=== PATIENT | male | born 1955 | race Caucasian/White ===

== ENCOUNTER 2017-12-14 06:22 | Inpatient (IN) | payer BC ==
[2017-12-14] MEDS ORDERED: IPRATROPIUM-ALBUTEROL 3 ML NEB INHALATION STA ×2 (06:38→06:58)
[2017-12-14 06:52] LABS: Basophils # (A) 0.1 k/uL (0-0.2); Basophils % (A) 1 %; Eosinophils # (A) 0.2 k/uL (0-0.7); Eosinophils % (A) 2 %; HCT 41.6 % (39.0-53.0); HGB 13.6 gm/dL (13.0-17.5); Lymphocytes # (A) 1.3 k/uL (1.0-4.8); Lymphocytes % (A) 10 %; MCH 29.1 pg (25.0-35.0); MCHC 32.6 g/dL (31.0-37.0); MCV 89.2 fL (80.0-100.0); Mean Platelet Volume 6.7; Monocytes # (A) 0.9 k/uL (0-1.0); Monocytes % (A) 7 %; Neutrophils # (A) 10.7 k/uL (1.3-7.7); Neutrophils % (A) 79 %; Platelet Count 292 k/uL (150-450); RBC 4.66 m/uL (4.30-5.90); RDW 14.1 % (11.5-15.5); WBC 13.5 k/uL (3.8-10.6)
[2017-12-14] MEDS ORDERED: methylPREDNISolone SOD SUCCI 125 MG/2 ML VIAL IV STA (06:58)
[2017-12-14 07:00] LABS: D-Dimer 0.32 mg/L FEU (<0.60)
[2017-12-14] MEDS ORDERED: ACETAMINOPHEN TAB 500 MG TAB PO STA (07:00)
[2017-12-14] MEDS ORDERED: SODIUM CHLORIDE 0.9% 1,000 ML IV ONE (07:00)
[2017-12-14] MEDS ORDERED: AZITHROMYCIN 500 MG in SODIUM CHLORIDE 0.9% 250 ML IVPB STA (07:01)
[2017-12-14] MEDS ORDERED: cefTRIAXone IN SWFI 1,000 MG/10 ML SYRINGE IVP STA (07:01)
[2017-12-14 07:04] LABS: ALT 26 U/L (21-72); AST 23 U/L (17-59); Albumin 3.9 g/dL (3.5-5.0); Alkaline Phosphatase 73 U/L (38-126); Anion Gap 12 mmol/L; Blood Urea Nitrogen 19 mg/dL (9-20); Calcium 9.3 mg/dL (8.4-10.2); Carbon Dioxide 28 mmol/L (22-30); Chloride 98 mmol/L (98-107); Glucose 122 mg/dL (74-99); Magnesium 1.7 mg/dL (1.6-2.3); Potassium 4.2 mmol/L (3.5-5.1); Sodium 138 mmol/L (137-145); Total Bilirubin 0.4 mg/dL (0.2-1.3); Total Protein 7.2 g/dL (6.3-8.2)
[2017-12-14 07:05] LABS: INR 1.2 (<1.2); Prothrombin Time 11.2 sec (9.0-12.0)
--- NOTE | 2017-12-14 07:10 | ED ---
SOB HPI - General Chief Complaint: Shortness of Breath Stated Complaint: TINY Time Seen by Provider: 12/14/17 06:52 Source: patient, family Mode of arrival: ambulatory Limitations: no limitations - History of Present Illness Initial Comments: This is a 62-year-old male with a history of COPD that is chronically O2 dependent on 2 L at home who presents emergency department for worsening shortness of breath and cough. He states the symptoms started last night. He has been coughing up sputum however he is unsure of the color. States that he' s also been feeling feverish at home. This morning his symptoms got significant only worse so he decided to come emergency department. He denies any recent sick contacts. Denies any chest pain, abdominal pain, nausea, vomiting, or diarrhea. States that he does not smoke any longer. The patient was recently admitted to the hospital and September 2017 requiring BiPAP at that time. He follows with Dr. Mariee as an outpatient. No other acute complaints at this time. - Related Data Home Medications Medication Instructions Recorded Confirmed Budesonide-Formot 160-4.5 Mcg 2 puff INHALATION RT-BID 01/08/15 12/14/17 [Symbicort 160-4.5 Mcg Inhaler] metFORMIN HCL [Glucophage] 500 mg PO BID 01/08/15 12/14/17 Furosemide [Lasix] 20 mg PO BID 10/17/17 12/14/17 Hydrochlorothiazide 25 mg PO DAILY 10/17/17 12/14/17 Moexipril HCl [Univasc] 15 mg PO DAILY 10/17/17 12/14/17 amLODIPine [Norvasc] 5 mg PO HS 10/17/17 12/14/17 Insulin Glargine,Hum.rec.anlog 56 unit SQ BID 12/14/17 12/14/17 [Lantus Solostar] Insulin Lispro [humaLOG Kwikpen] 20 unit SQ AC-LUNCH 12/14/17 12/14/17 Insulin Lispro [humaLOG Kwikpen] 40 unit SQ AC-BRKFST 12/14/17 12/14/17 Insulin Lispro [humaLOG Kwikpen] 40 unit SQ AC-SUPPER 12/14/17 12/14/17 Naproxen Sodium [Aleve] 220 mg PO BID PRN 02/19/18 02/19/18 Potassium Chloride ER [K-Dur 20] 20 meq PO DAILY 12/14/17 12/14/17 Previous Rx's Medication Instructions Recorded Albuterol Nebulized [Ventolin 2.5 mg INHALATION RT-QID #120 nebu 10/20/17 Nebulized] Allergies Allergy/AdvReac Type Severity Reaction Status Date / Time No Known Allergies Allergy Verified 12/14/17 08:13 Review of Systems ROS Statement: Those systems with pertinent positive or pertinent negative responses have been documented in the HPI. ROS Other: All systems not noted in ROS Statement are negative. Past Medical History Past Medical History: Asthma, COPD, Diabetes Mellitus, Hypertension, Osteoarthritis (OA), Respiratory Disorder, Sleep Apnea/CPAP/BIPAP History of Any Multi-Drug Resistant Organisms: None Reported Past Surgical History: Hernia Repair Past Anesthesia/Blood Transfusion Reactions: No Reported Reaction Past Psychological History: No Psychological Hx Reported Smoking Status: Never smoker Past Alcohol Use History: None Reported Past Drug Use History: None Reported - Past Family History Father Family Medical History: Diabetes Mellitus Mother Family Medical History: Asthma, Diabetes Mellitus General Exam - General Exam Comments Initial Comments: Constitutional: Awake alert appears in mild distress Head: Normocephalic atraumatic , diaphoretic Eyes: no conjunctival injection No scleral icterus EOMI Neck: No JVD Supple Heart: Regular rate rhythm normal S1-S2 no murmurs Lungs: The patient is to Make with mild accessory muscle use, decreased breath sounds bilaterally, no wheezing or rhonchi Abdomen: Soft nondistended nontender Extremities: Non edematous DP pulses intact Radial pulses intact Neuro: A&Ox3 No focal neurologic deficits Psych: Appropriate mood and affect Limitations: no limitations Course Vital Signs 12/14/17 12/14/17 12/14/17 06:24 06:42 06:46 Temperature 100.3 F H Pulse Rate 104 H 105 H Respiratory 28 H 26 H Rate Blood Pressure 187/84 O2 Sat by Pulse 92 L Oximetry 12/14/17 12/14/17 12/14/17 06:49 06:52 07:25 Temperature Pulse Rate 104 H 111 H 107 H Respiratory 26 H Rate Blood Pressure 148/82 O2 Sat by Pulse 95 Oximetry 12/14/17 12/14/17 07:51 08:00 Temperature Pulse Rate 111 H 101 H Respiratory 20 Rate Blood Pressure 136/84 O2 Sat by Pulse 98 Oximetry - Reevaluation(s) Reevaluation #1: 12/14/17 07:09 EKG showing sinus tachycardia with a rate of 112. There are no abnormal ST segment changes or T-wave inversions. QTC is 450. Other intervals normal. No ectopy. Medical Decision Making - Medical Decision Making This is a 62-year-old male who presents emergency department for worsening shortness of breath and fevers. The patient was found to have influenza A. He was given multiple breathing treatments and steroids with minimal improvement in his tachypnea. The patient was still using accessory muscles. The patient was then placed on BiPAP to ease the work up his breathing. ABG was obtained and unremarkable at this time. The patient was started on 3 acquired pneumonia antibiotics to cover due to his high risk of developing bacterial pneumonia. The patient will be admitted to the hospital for further evaluation. I spoke with Cornelius with Dr. Delvalle who accepts the admission. - Lab Data Result diagrams: 12/14/17 06:31 12/14/17 06:31 Lab Results 12/14/17 12/14/17 12/14/17 Range/Units 06:31 06:31 06:31 WBC 13.5 H (3.8-10.6) k/uL RBC 4.66 (4.30-5.90) m/uL Hgb 13.6 (13.0-17.5) gm/dL Hct 41.6 (39.0-53.0) % MCV 89.2 (80.0-100.0) fL MCH 29.1 (25.0-35.0) pg MCHC 32.6 (31.0-37.0) g/dL RDW 14.1 (11.5-15.5) % Plt Count 292 (150-450) k/uL Neutrophils % 79 % Lymphocytes % 10 % Monocytes % 7 % Eosinophils % 2 % Basophils % 1 % Neutrophils # 10.7 H (1.3-7.7) k/uL Lymphocytes # 1.3 (1.0-4.8) k/uL Monocytes # 0.9 (0-1.0) k/uL Eosinophils # 0.2 (0-0.7) k/uL Basophils # 0.1 (0-0.2) k/uL PT (9.0-12.0) sec INR (<1.2) APTT (22.0-30.0) sec D-Dimer (<0.60) mg/L FEU Sample Site ABG pH (7.35-7.45) ABG pCO2 (35-45) mmHg ABG pO2 (83-108) mmHg ABG HCO3 (21-25) mmol/L ABG Total CO2 (19-24) mmol/L ABG O2 Saturation (94-97) % ABG Base Excess mmol/L [place] Test FiO2 % Sodium 138 (137-145) mmol/L Potassium 4.2 (3.5-5.1) mmol/L Chloride 98 (98-107) mmol/L Carbon Dioxide 28 (22-30) mmol/L Anion Gap 12 mmol/L BUN 19 (9-20) mg/dL Creatinine 0.80 (0.66-1.25) mg/dL Est GFR (MDRD) Af Amer >60 (>60 ml/min/1.73 sqM) Est GFR (MDRD) Non-Af >60 (>60 ml/min/1.73 sqM) Glucose 122 H (74-99) mg/dL POC Glucose (mg/dL) (75-99) mg/dL POC Glu Medical Educator ID Plasma Lactic Acid Vini (0.7-2.0) mmol/L Calcium 9.3 (8.4-10.2) mg/dL Magnesium 1.7 (1.6-2.3) mg/dL Total Bilirubin 0.4 (0.2-1.3) mg/dL AST 23 (17-59) U/L ALT 26 (21-72) U/L Alkaline Phosphatase 73 (38-126) U/L Total Creatine Kinase 132 (55-170) U/L CK-MB (CK-2) 1.9 (0.0-2.4) ng/mL CK-MB (CK-2) Rel Index 1.4 Troponin I 0.024 (0.000-0.034) ng/mL NT-Pro-B Natriuret Pep pg/mL Total Protein 7.2 (6.3-8.2) g/dL Albumin 3.9 (3.5-5.0) g/dL Influenza Type A RNA (Not Detectd) Influenza Type B (PCR) (Not Detectd) 02/19/18 02/19/18 02/19/18 Range/Units 06:31 06:31 06:31 WBC (3.8-10.6) k/uL RBC (4.30-5.90) m/uL Hgb (13.0-17.5) gm/dL Hct (39.0-53.0) % MCV (80.0-100.0) fL MCH (25.0-35.0) pg MCHC (31.0-37.0) g/dL RDW (11.5-15.5) % Plt Count (150-450) k/uL Neutrophils % % Lymphocytes % % Monocytes % % Eosinophils % % Basophils % % Neutrophils # (1.3-7.7) k/uL Lymphocytes # (1.0-4.8) k/uL Monocytes # (0-1.0) k/uL Eosinophils # (0-0.7) k/uL Basophils # (0-0.2) k/uL PT 11.2 (9.0-12.0) sec INR 1.2 H (<1.2) APTT 25.0 (22.0-30.0) sec D-Dimer 0.32 (<0.60) mg/L FEU Sample Site ABG pH (7.35-7.45) ABG pCO2 (35-45) mmHg ABG pO2 (83-108) mmHg ABG HCO3 (21-25) mmol/L ABG Total CO2 (19-24) mmol/L ABG O2 Saturation (94-97) % ABG Base Excess mmol/L [place]an Test FiO2 % Sodium (137-145) mmol/L Potassium (3.5-5.1) mmol/L Chloride (98-107) mmol/L Carbon Dioxide (22-30) mmol/L Anion Gap mmol/L BUN (9-20) mg/dL Creatinine (0.66-1.25) mg/dL Est GFR (MDRD) Af Amer (>60 ml/min/1.73 sqM) Est GFR (MDRD) Non-Af (>60 ml/min/1.73 sqM) Glucose (74-99) mg/dL POC Glucose (mg/dL) (75-99) mg/dL POC Glu Medical Educator ID Plasma Lactic Acid Vini 1.1 (0.7-2.0) mmol/L Calcium (8.4-10.2) mg/dL Magnesium (1.6-2.3) mg/dL Total Bilirubin (0.2-1.3) mg/dL AST (17-59) U/L ALT (21-72) U/L Alkaline Phosphatase (38-126) U/L Total Creatine Kinase (55-170) U/L CK-MB (CK-2) (0.0-2.4) ng/mL CK-MB (CK-2) Rel Index Troponin I (0.000-0.034) ng/mL NT-Pro-B Natriuret Pep pg/mL Total Protein (6.3-8.2) g/dL Albumin (3.5-5.0) g/dL Influenza Type A RNA Detected H (Not Detectd) Influenza Type B (PCR) Not Detected (Not Detectd) 12/14/17 12/14/17 12/14/17 Range/Units 06:31 07:25 08:01 WBC (3.8-10.6) k/uL RBC (4.30-5.90) m/uL Hgb (13.0-17.5) gm/dL Hct (39.0-53.0) % MCV (80.0-100.0) fL MCH (25.0-35.0) pg MCHC (31.0-37.0) g/dL RDW (11.5-15.5) % Plt Count (150-450) k/uL Neutrophils % % Lymphocytes % % Monocytes % % Eosinophils % % Basophils % % Neutrophils # (1.3-7.7) k/uL Lymphocytes # (1.0-4.8) k/uL Monocytes # (0-1.0) k/uL Eosinophils # (0-0.7) k/uL Basophils # (0-0.2) k/uL PT (9.0-12.0) sec INR (<1.2) APTT (22.0-30.0) sec D-Dimer (<0.60) mg/L FEU Sample Site RRA ABG pH 7.40 (7.35-7.45) ABG pCO2 44 (35-45) mmHg ABG pO2 87 (83-108) mmHg ABG HCO3 27 H (21-25) mmol/L ABG Total CO2 29 H (19-24) mmol/L ABG O2 Saturation 97.4 H (94-97) % ABG Base Excess 2.3 mmol/L [place]an Test Yes FiO2 36 % Sodium (137-145) mmol/L Potassium (3.5-5.1) mmol/L Chloride (98-107) mmol/L Carbon Dioxide (22-30) mmol/L Anion Gap mmol/L BUN (9-20) mg/dL Creatinine (0.66-1.25) mg/dL Est GFR (MDRD) Af Amer (>60 ml/min/1.73 sqM) Est GFR (MDRD) Non-Af (>60 ml/min/1.73 sqM) Glucose (74-99) mg/dL POC Glucose (mg/dL) 137 H (75-99) mg/dL POC Glu Medical Educator ID [employer] Plasma Lactic Acid Vini (0.7-2.0) mmol/L Calcium (8.4-10.2) mg/dL Magnesium (1.6-2.3) mg/dL Total Bilirubin (0.2-1.3) mg/dL AST (17-59) U/L ALT (21-72) U/L Alkaline Phosphatase (38-126) U/L Total Creatine Kinase (55-170) U/L CK-MB (CK-2) (0.0-2.4) ng/mL CK-MB (CK-2) Rel Index Troponin I (0.000-0.034) ng/mL NT-Pro-B Natriuret Pep 219 pg/mL Total Protein (6.3-8.2) g/dL Albumin (3.5-5.0) g/dL Influenza Type A RNA (Not Detectd) Influenza Type B (PCR) (Not Detectd) Disposition Clinical Impression: Influenza A, COPD exacerbation Disposition: ADMITTED IP TO THIS HOSP Condition: Stable
--- NOTE | 2017-12-14 07:22 | XR ---
EXAMINATION TYPE: XR chest 1V portable DATE OF EXAM: 12/14/2017 Comparison: 10/17/2017 Clinical History: 62-year-old male Pain Findings: Heart borderline enlarged. Aorta within normal limits. Prominent appearance to the lung markings may be secondary to magnification from patient's large body habitus and portable technique. Band of atele ctasis at the right midlung. Otherwise, no consolidation or pleural effusion seen. Impression: Portable exam further limited by underpenetration/large body habitus. Band of right midlung atelectas is. Borderline heart size. Otherwise, no definite acute process.
[2017-12-14 07:28] LABS: Creatine Kinase MB 1.9 ng/mL (0.0-2.4); Troponin I 0.024 ng/mL (0.000-0.034)
[2017-12-14 07:29] LABS: ABG Base Excess 2.3 mmol/L; ABG HCO3 27 mmol/L (21-25); ABG Oxygen Saturation 97.4 % (94-97); ABG PCO2 44 mmHg (35-45); ABG PO2 87 mmHg (83-108); ABG TCO2 29 mmol/L (19-24)
[2017-12-14] MEDS ORDERED: OSELTAMIVIR 75 MG CAP PO ONE (07:30)
[2017-12-14 08:03] LABS: Glucose,Whole Blood 137 mg/dL (75-99)
[2017-12-14] MEDS: LISINOPRIL 20 MG TAB PO SCH (11:12)
[2017-12-14] MEDS: metFORMIN 500 MG TAB PO SCH ×2 (11:12→21:16)
[2017-12-14] MEDS: FUROSEMIDE 20 MG TAB PO SCH ×2 (11:13→16:58)
[2017-12-14] MEDS: HYDROCHLOROTHIAZIDE 25 MG TAB PO SCH (11:13)
[2017-12-14] MEDS: ALBUTEROL NEBULIZED 2.5 MG/3 ML INHALATION SCH ×3 (11:15→20:20)
[2017-12-14] MEDS: INSULIN DETEMIR 100 UNIT/ML 10 ML VIAL SQ SCH ×2 (13:52→21:16)
[2017-12-14 14:06] LABS: Glucose,Whole Blood 264 mg/dL (75-99)
--- NOTE | 2017-12-14 17:18 | P.HPIM ---
History of Present Illness 62-year-old male with a history of COPD that is chronically O2 dependent on 2 L at home who presents emergency department for worsening shortness of breath and cough. He states the symptoms started last night. He has been coughing up sputum however he is unsure of the color. States that he's also been feeling feverish at home. This morning his symptoms got significant only worse so he decided to come emergency department. He denies any recent sick contacts. Denies any chest pain, abdominal pain, nausea, vomiting, or diarrhea. States that he does not smoke any longer. The patient was recently admitted to the hospital and September 2017 requiring BiPAP at that time. He follows with Dr. Mariee as an outpatient. No other acute complaints at this time. Patient is feeling much better now. Patient is still wheezing a bit with decreased air entry into bilateral lung palma. Patient was having fever at home patient is found to have influenza positive. Patient was started on Tamiflu patient's status symptoms started last night because of which Tamiflu should be effective patient does have sleep apnea. Use uses CPAP or BiPAP at home morbidly obese, doesn't have any pneumonia on the chest x-ray patient was started on IV steroids which was switched to oral steroids. Patient is still bit hypoxemic patient uses 2 L of oxygen at home. Review of Systems REVIEW OF SYSTEMS: CONSTITUTIONAL: No fever, no malaise, no fatigue. HEENT: No recent visual problems or hearing problems. Denied any sore throat. CARDIOVASCULAR: No chest pain, orthopnea, PND, no palpitations, no syncope. PULMONARY: no hemoptysis. GASTROINTESTINAL: No diarrhea, no nausea, no vomiting, no abdominal pain. Normoactive bowel sounds. NEUROLOGICAL: No headaches, no weakness, no numbness. HEMATOLOGICAL: Denies any bleeding or petechiae. GENITOURINARY: Denies any burning micturition, frequency, or urgency. MUSCULOSKELETAL/RHEUMATOLOGICAL: Denies any joint pain, swelling, or any muscle pain. ENDOCRINE: Denies any polyuria or polydipsia. The rest of the 14-point review of systems is negative. Past Medical History Past Medical History: Asthma, COPD, Diabetes Mellitus, Hypertension, Osteoarthritis (OA), Pneumonia, Respiratory Disorder, Sleep Apnea/CPAP/BIPAP Additional Past Medical History / Comment(s): IDDM type II, HERBERT with CPAP, chronic respiratory failure-O2 2L/NC ATC, arthritis in multiple joints. History of Any Multi-Drug Resistant Organisms: None Reported Past Surgical History: Hernia Repair Additional Past Surgical History / Comment(s): Bronchoscopy, umbilical hernia repair. Past Anesthesia/Blood Transfusion Reactions: No Reported Reaction Smoking Status: Former smoker - Past Family History Father Family Medical History: Diabetes Mellitus Mother Family Medical History: Asthma, Diabetes Mellitus Medications and Allergies Home Medications Medication Instructions Recorded Confirmed Type Budesonide-Formot 160-4.5 Mcg 2 puff INHALATION RT-BID 01/08/15 12/14/17 History [Symbicort 160-4.5 Mcg Inhaler] metFORMIN HCL [Glucophage] 500 mg PO BID 01/08/15 12/14/17 History Furosemide [Lasix] 20 mg PO BID 10/17/17 12/14/17 History Hydrochlorothiazide 25 mg PO DAILY 10/17/17 12/14/17 History Moexipril HCl [Univasc] 15 mg PO DAILY 10/17/17 12/14/17 History amLODIPine [Norvasc] 5 mg PO HS 10/17/17 12/14/17 History Albuterol Nebulized [Ventolin 2.5 mg INHALATION RT-QID #120 nebu 10/20/17 Rx Nebulized] Insulin Glargine,Hum.rec.anlog 56 unit SQ BID 12/14/17 12/14/17 History [Lantus Solostar] Insulin Lispro [humaLOG Kwikpen] 20 unit SQ AC-LUNCH 12/14/17 12/14/17 History Insulin Lispro [humaLOG Kwikpen] 40 unit SQ AC-BRKFST 12/14/17 12/14/17 History Insulin Lispro [humaLOG Kwikpen] 40 unit SQ AC-SUPPER 12/14/17 12/14/17 History Naproxen Sodium [Aleve] 220 mg PO BID PRN 12/14/17 12/14/17 History Potassium Chloride ER [K-Dur 20] 20 meq PO DAILY 12/14/17 12/14/17 History Allergies Allergy/AdvReac Type Severity Reaction Status Date / Time No Known Allergies Allergy Verified 12/14/17 08:13 Physical Exam Vitals: Vital Signs Temp Pulse Pulse Resp BP BP Pulse Ox 12/14/17 15:45 98.7 F 101 H 33 H 172/81 97 02/19/18 15:23 98 28 H 167/85 95 12/14/17 14:55 101 H 12/14/17 14:47 96 12/14/17 13:57 98.3 F 95 20 151/68 95 12/14/17 11:24 98 12/14/17 11:17 98 12/14/17 11:00 96 24 141/90 95 12/14/17 09:00 99.1 F 97 20 126/62 96 12/14/17 08:00 101 H 20 136/84 98 12/14/17 07:51 111 H 12/14/17 07:25 107 H 12/14/17 06:52 111 H 12/14/17 06:49 104 H 26 H 148/82 95 12/14/17 06:46 26 H 12/14/17 06:42 105 H 12/14/17 06:24 100.3 F H 104 H 28 H 187/84 92 L Intake and Output 12/14/17 12/14/17 12/14/17 06:59 14:59 22:59 Other: Voiding Method Urinal Weight 146.51 kg PHYSICAL EXAMINATION: GENERAL: The patient is alert and oriented x3, mild respiratory distress at rest on 2 L of oxygen Objective obese HEENT: Pupils are round and equally reacting to light. EOMI. No scleral icterus. No conjunctival pallor. Normocephalic, atraumatic. No pharyngeal erythema. No thyromegaly. CARDIOVASCULAR: S1 and S2 present. No murmurs, rubs, or gallops. PULMONARY: Morbidly obese significant decreased air entry into bilateral lung palma does have wheezing. ABDOMEN: Soft, nontender, nondistended, normoactive bowel sounds. No palpable organomegaly. MUSCULOSKELETAL: No joint swelling or deformity. EXTREMITIES: No cyanosis, clubbing, or pedal edema. NEUROLOGICAL: Gross neurological examination did not reveal any focal deficits. SKIN: No rashes. Results CBC & Chem 7: 12/14/17 06:31 12/14/17 06:31 Labs: Abnormal Lab Results - Last 24 Hours (Table) 12/14/17 12/14/17 12/14/17 Range/Units 06:31 06:31 06:31 WBC 13.5 H (3.8-10.6) k/uL Neutrophils # 10.7 H (1.3-7.7) k/uL INR 1.2 H (<1.2) ABG HCO3 (21-25) mmol/L ABG Total CO2 (19-24) mmol/L ABG O2 Saturation (94-97) % Glucose 122 H (74-99) mg/dL POC Glucose (mg/dL) (75-99) mg/dL Influenza Type A RNA (Not Detectd) 12/14/17 12/14/17 12/14/17 Range/Units 06:31 07:25 08:01 WBC (3.8-10.6) k/uL Neutrophils # (1.3-7.7) k/uL INR (<1.2) ABG HCO3 27 H (21-25) mmol/L ABG Total CO2 29 H (19-24) mmol/L ABG O2 Saturation 97.4 H (94-97) % Glucose (74-99) mg/dL POC Glucose (mg/dL) 137 H (75-99) mg/dL Influenza Type A RNA Detected H (Not Detectd) 12/14/17 Range/Units 13:55 WBC (3.8-10.6) k/uL Neutrophils # (1.3-7.7) k/uL INR (<1.2) ABG HCO3 (21-25) mmol/L ABG Total CO2 (19-24) mmol/L ABG O2 Saturation (94-97) % Glucose (74-99) mg/dL POC Glucose (mg/dL) 264 H (75-99) mg/dL Influenza Type A RNA (Not Detectd) Thrombosis Risk Factor Assmnt - Choose All That Apply Any of the Below Risk Factors Present?: Yes Each Factor Represents 1 point: Abnormal pulmonary function (COPD), Obesity ( BMI >25) Other Risk Factors: Yes Each Risk Factor Represents 2 Points: Age 61-74 years Other congenital or acquired thrombophilia - If yes, enter type in comment: No Thrombosis Risk Factor Assessment Total Risk Factor Score: 4 Thrombosis Risk Factor Assessment Level: Moderate Risk Assessment and Plan Plan: -Acute hypoxic and hypercapnic respiratory failure on chronic hypercapnic respiratory failure secondary to COPD exacerbation. -Systemic inflammatory response syndrome secondary to influenza: Patient was started on Tamiflu patient does have significant peripheral edema because of which IV fluids at this can urine we will encourage oral hydration Lasix will be held as well temporarily because of influenza. -COPD with acute exacerbation -Type 2 diabetes mellitus: With systemic steroids his blood sugars are expected takingPatient will be started on his regular Levemir along with the sliding scale for systemic steroids -Morbid obesity -Obstructive sleep apnea continue CPAP machine.
[2017-12-14] MEDS: INSULIN ASPART 100 UNIT/ML 1 ML 10 ML VIAL SQ SCH ×2 (17:33→21:16)
[2017-12-14 17:35] LABS: Glucose,Whole Blood 236 mg/dL (75-99)
[2017-12-14] MEDS: SYMBICORT 160-4.5 MCG INHALER INHALATION SCH (20:26)
[2017-12-14] MEDS: OSELTAMIVIR 75 MG CAP PO SCH (21:16)
[2017-12-14] MEDS: amLODIPine 5 MG TAB PO SCH (21:16)
[2017-12-14 21:21] LABS: Glucose,Whole Blood 166 mg/dL (75-99)
[2017-12-15] MEDS ORDERED: ONDANSETRON 4 MG/2 ML VIAL IVP PRN (00:17)
[2017-12-15] MEDS ORDERED: TEMAZEPAM 15 MG CAP PO PRN (00:18)
[2017-12-15] MEDS ORDERED: IPRATROPIUM-ALBUTEROL 3 ML NEB INHALATION STA (01:02)
[2017-12-15] MEDS: IPRATROPIUM-ALBUTEROL 3 ML NEB INHALATION PRN ×2 (04:38→23:32)
[2017-12-15] MEDS: SYMBICORT 160-4.5 MCG INHALER INHALATION SCH ×2 (07:18→19:17)
[2017-12-15] MEDS: ALBUTEROL NEBULIZED 2.5 MG/3 ML INHALATION SCH ×4 (07:18→19:17)
[2017-12-15] MEDS: HYDROCHLOROTHIAZIDE 25 MG TAB PO SCH (07:25)
[2017-12-15] MEDS: predniSONE 20 MG TAB PO SCH (07:25)
[2017-12-15] MEDS: metFORMIN 500 MG TAB PO SCH ×2 (07:25→22:51)
[2017-12-15] MEDS: OSELTAMIVIR 75 MG CAP PO SCH ×2 (07:25→22:51)
[2017-12-15] MEDS: LISINOPRIL 20 MG TAB PO SCH (07:25)
[2017-12-15 07:26] LABS: Glucose,Whole Blood 100 mg/dL (75-99)
[2017-12-15] MEDS: ACETAMINOPHEN TAB 325 MG TAB PO PRN ×2 (07:26→20:27)
[2017-12-15] MEDS: INSULIN ASPART 100 UNIT/ML 1 ML 10 ML VIAL SQ SCH ×4 (07:26→22:54)
[2017-12-15] MEDS: INSULIN DETEMIR 100 UNIT/ML 10 ML VIAL SQ SCH ×2 (07:58→22:52)
--- NOTE | 2017-12-15 08:00 | XR ---
EXAMINATION TYPE: XR chest 2V DATE OF EXAM: 12/15/2017 COMPARISON: None HISTORY: 62-year-old male COPD and shortness of breath TECHNIQUE: AP and lateral views FINDINGS: Heart normal size. Aorta and pulmonary vasculature within normal limits. Hyperinflation with flatteni ng of the hemidiaphragms. There is some focal patchy posterior basilar opacity on the lateral view. M ild interstitial prominence. IMPRESSION: 1. COPD. 2. Patchy posterior basilar atelectasis or developing infiltrate on the lateral view.
[2017-12-15 11:20] LABS: Glucose,Whole Blood 141 mg/dL (75-99)
--- NOTE | 2017-12-15 15:51 | P.CNPUL ---
History of Present Illness Consult date: 12/15/17 Requesting physician: David Delvalle Reason for consult: dyspnea, cough, COPD Chief complaint: Dyspnea, shortness of breath, chest congestion, cough, fever History of present illness: Junior is a 62-year-old white male patient of Dr. Neil who presented to the emergency department on 12/14/2017 at 06 22 with complaints of worsening shortness of breath, cough with production of dark green sputum, fever, chills, increased chest congestion. Symptoms started on Thursday, and became progressively worse. He does have an underlying history of obstructive sleep apnea, on CPAP therapy at 14-16 cm of water. Has a history of advanced COPD, with chronic hypoxic and hypercapnic respiratory failure, home O2 at 2 L per nasal cannula. Patient's baseline FEV1 is 57% of predicted. His other past medical history is positive for congestive heart failure, diabetes, hypertension , osteoarthritis. Initial chest x-ray on 12/14/2017 showed band of right midlung atelectasis, no acute process noted. Chest x-ray from today showed patchy posterior basilar atelectasis. She has been intermittently febrile, T- max of 102.1F. He has slightly tachycardic at times, with heart rate in the low 100s BPM. He was placed on Airvo at 60 L/m and FiO2 of 32%. This was later switched to 4 L per nasal cannula, patient is tolerating it well. He does have his CPAP unit from home, which she did wear last night. His lung sounds show diminished air entry bilaterally, no rhonchi or wheezes noted. Patient was started on Zithromax and Rocephin, Tamiflu, IV Solu-Medrol, nebulized treatments, and admitted for further management. Influenza screen was positive for influenza A, CBC was 13.5, hemoglobin is 13.6, INR is 1.2, d- dimer was within normal limits, blood gas was drawn, and showed pH is 7.40, pCO2 44, pO2 of 87, this was done on 36% FiO2. Her lites were within normal limits, renal profile was normal, cardiac enzymes and troponins were negative 1 , proBNP was within normal limits at 219. Review of Systems All systems: negative Constitutional: Denies chills, Denies fever Eyes: denies blurred vision, denies pain Ears, nose, mouth and throat: Denies headache, Denies sore throat Cardiovascular: Denies chest pain, Denies shortness of breath Respiratory: Denies cough Gastrointestinal: Denies abdominal pain, Denies diarrhea, Denies nausea, Denies vomiting Musculoskeletal: Denies myalgias Integumentary: Denies pruritus, Denies rash Neurological: Denies numbness, Denies weakness Psychiatric: Denies anxiety, Denies depression Endocrine: Denies fatigue, Denies weight change Past Medical History Past Medical History: Asthma, COPD, Diabetes Mellitus, Hypertension, Osteoarthritis (OA), Pneumonia, Respiratory Disorder, Sleep Apnea/CPAP/BIPAP Additional Past Medical History / Comment(s): IDDM type II, HERBERT with CPAP, chronic respiratory failure-O2 2L/NC ATC, arthritis in multiple joints. History of Any Multi-Drug Resistant Organisms: None Reported Past Surgical History: Hernia Repair Additional Past Surgical History / Comment(s): Bronchoscopy, umbilical hernia repair. Past Anesthesia/Blood Transfusion Reactions: No Reported Reaction Smoking Status: Former smoker - Past Family History Father Family Medical History: Diabetes Mellitus Mother Family Medical History: Asthma, Diabetes Mellitus Medications and Allergies Home Medications Medication Instructions Recorded Confirmed Type Budesonide-Formot 160-4.5 Mcg 2 puff INHALATION RT-BID 01/08/15 12/14/17 History [Symbicort 160-4.5 Mcg Inhaler] metFORMIN HCL [Glucophage] 500 mg PO BID 01/08/15 12/14/17 History Furosemide [Lasix] 20 mg PO BID 10/17/17 12/14/17 History Hydrochlorothiazide 25 mg PO DAILY 10/17/17 12/14/17 History Moexipril HCl [Univasc] 15 mg PO DAILY 10/17/17 12/14/17 History amLODIPine [Norvasc] 5 mg PO HS 10/17/17 12/14/17 History Albuterol Nebulized [Ventolin 2.5 mg INHALATION RT-QID #120 nebu 10/20/17 Rx Nebulized] Insulin Glargine,Hum.rec.anlog 56 unit SQ BID 12/14/17 12/14/17 History [Lantus Solostar] Insulin Lispro [humaLOG Kwikpen] 20 unit SQ AC-LUNCH 12/14/17 12/14/17 History Insulin Lispro [humaLOG Kwikpen] 40 unit SQ AC-BRKFST 12/14/17 12/14/17 History Insulin Lispro [humaLOG Kwikpen] 40 unit SQ AC-SUPPER 12/14/17 12/14/17 History Naproxen Sodium [Aleve] 220 mg PO BID PRN 12/14/17 12/14/17 History Potassium Chloride ER [K-Dur 20] 20 meq PO DAILY 12/14/17 12/14/17 History Allergies Allergy/AdvReac Type Severity Reaction Status Date / Time No Known Allergies Allergy Verified 12/14/17 08:13 Physical Exam Vitals: Vital Signs Temp Pulse Pulse Resp BP BP Pulse Ox 12/15/17 11:23 104 H 12/15/17 11:12 100 12/15/17 08:20 100.6 F H 12/15/17 07:28 102 H 12/15/17 07:18 100 12/15/17 07:00 102.1 F H 96 42 H 186/80 95 12/15/17 04:51 104 H 12/15/17 04:38 100 12/15/17 02:49 105 H 25 H 126/67 96 12/15/17 01:40 100 12/15/17 01:23 108 H 12/15/17 01:20 115 H 36 H 150/106 95 12/14/17 23:00 99.2 F 110 H 24 163/106 97 12/14/17 20:33 100 12/14/17 20:26 99 12/14/17 15:45 98.7 F 101 H 33 H 172/81 97 12/14/17 15:23 98 28 H 167/85 95 Intake and Output 12/15/17 12/15/17 12/15/17 06:59 14:59 22:59 Intake Total 250 Output Total 200 300 Balance 50 -300 Intake: Oral 250 Output: Urine 200 300 Other: Voiding Method Urinal Urinal GENERAL EXAM: Alert, pleasant, obese white male, comfortable in no apparent distress. At the time of evaluation he is wearing high flow nasal cannula AIRVO at FiO2 of 32% and 60 L/m flow. HEAD: Normocephalic/atraumatic. EYES: Normal reaction of pupils, equal size. Conjunctiva pink, sclera white. NOSE: Clear with pink turbinates. THROAT: No erythema or exudates. NECK: No masses, no JVD, no thyroid enlargement, no adenopathy. CHEST: No chest wall deformity. Symmetrical expansion. LUNGS: Diminished air entry noted bilaterally, no rhonchi, no wheezing. CVS: Regular rate and rhythm, normal S1 and S2, no gallops, no murmurs, no rubs ABDOMEN: Soft, nontender. No hepatosplenomegaly, normal bowel sounds, no guarding or rigidity. EXTREMITIES: No clubbing, no edema, no cyanosis, 2+ pulses and upper and lower extremities. MUSCULOSKELETAL: Muscle strength and tone normal. SPINE: No scoliosis or deformity SKIN: No rashes CENTRAL NERVOUS SYSTEM: Alert and oriented -3. No focal deficits, tone is normal in all 4 extremities. PSYCHIATRIC: Alert and oriented -3. Appropriate affect. Intact judgment and insight. Results - Laboratory Findings CBC and BMP: 12/14/17 06:31 12/14/17 06:31 ABG ABG pH 7.40 (7.35-7.45) 12/14/17 07:25 ABG pCO2 44 mmHg (35-45) 12/14/17 07:25 ABG pO2 87 mmHg (83-108) 12/14/17 07:25 ABG O2 Saturation 97.4 % (94-97) H 12/14/17 07:25 PT/INR, D-dimer PT 11.2 sec (9.0-12.0) 12/14/17 06:31 INR 1.2 (<1.2) H 12/14/17 06:31 D-Dimer 0.32 mg/L FEU (<0.60) 12/14/17 06:31 Abnormal lab findings: Abnormal Labs 12/14/17 12/14/17 12/14/17 06:31 06:31 06:31 WBC 13.5 H Neutrophils # 10.7 H INR 1.2 H ABG HCO3 ABG Total CO2 ABG O2 Saturation Glucose 122 H POC Glucose (mg/dL) Influenza Type A RNA 12/14/17 12/14/17 12/14/17 06:31 07:25 08:01 WBC Neutrophils # INR ABG HCO3 27 H ABG Total CO2 29 H ABG O2 Saturation 97.4 H Glucose POC Glucose (mg/dL) 137 H Influenza Type A RNA Detected H 12/14/17 12/14/17 12/14/17 13:55 17:21 20:50 WBC Neutrophils # INR ABG HCO3 ABG Total CO2 ABG O2 Saturation Glucose POC Glucose (mg/dL) 264 H 236 H 166 H Influenza Type A RNA 12/15/17 12/15/17 07:15 11:17 WBC Neutrophils # INR ABG HCO3 ABG Total CO2 ABG O2 Saturation Glucose POC Glucose (mg/dL) 100 H 141 H Influenza Type A RNA - Diagnostic Findings Chest x-ray: report reviewed Additional studies: 12 lead lead EKG reviewed Assessment and Plan Plan: Assessment: #1. Acute on chronic hypoxic and hypercapnic respiratory failure secondary to acute COPD exacerbation and influenza A tracheobronchitis #2. Obstructive sleep apnea, on CPAP therapy #3. Advanced oxygen-dependent COPD, with FEV1 of 57% of predicted #4. Diabetes mellitus type 2 #5. Hypertension her graft or graft #6. Osteoarthritis #7. Nicotine dependence, currently in remission #8. Morbid obesity, BMI 47.7 #9. Swelling of bilateral lower extremities, likely related to pulmonary pulmonary hypertension, and cor pulmonale #10. Nasal surgery for nasal septum deviation Plan: Continue current medical treatment, we will treat the patient for acute COPD exacerbation with influenza A infection. Continue Tamiflu, continue Zithromax and Rocephin, continue oral steroids, continue nebulized treatments. Patient already reports improvement in terms of his dyspnea is congestion. CPAP and his home settings. Wean FiO2 to his home Fio2. Activity as tolerated. Anticipate discharge home in the next 24-48 hours, provided he continues to improve. I performed a history & physical examination of the patient and discussed their management with my nurse practitioner, Sarah Santos. I reviewed the nurse practitioner's note and agree with the documented findings and plan of care. Lung sounds are diminished. The findings and the impression was discussed with the patient. I attest to the documentation by the nurse practitioner. Time with Patient: Greater than 30
[2017-12-15] MEDS: cefTRIAXone IN SWFI 1,000 MG/10 ML SYRINGE IVP SCH (15:58)
[2017-12-15] MEDS: AZITHROMYCIN 500 MG in SODIUM CHLORIDE 0.9% 250 ML IVPB SCH (16:00)
[2017-12-15 17:15] LABS: Glucose,Whole Blood 168 mg/dL (75-99)
[2017-12-15 20:39] LABS: Glucose,Whole Blood 140 mg/dL (75-99)
[2017-12-15] MEDS: amLODIPine 5 MG TAB PO SCH (22:51)
[2017-12-16] MEDS: IPRATROPIUM-ALBUTEROL 3 ML NEB INHALATION PRN ×4 (03:44→23:38)
[2017-12-16 07:40] LABS: Glucose,Whole Blood 77 mg/dL (75-99)
[2017-12-16] MEDS: INSULIN ASPART 100 UNIT/ML 1 ML 10 ML VIAL SQ SCH ×4 (07:45→21:30)
[2017-12-16] MEDS: INSULIN DETEMIR 100 UNIT/ML 10 ML VIAL SQ SCH ×2 (08:29→21:31)
[2017-12-16] MEDS: cefTRIAXone IN SWFI 1,000 MG/10 ML SYRINGE IVP SCH (08:29)
[2017-12-16] MEDS: AZITHROMYCIN 500 MG in SODIUM CHLORIDE 0.9% 250 ML IVPB SCH (08:30)
[2017-12-16] MEDS: HYDROCHLOROTHIAZIDE 25 MG TAB PO SCH (08:30)
[2017-12-16] MEDS: LISINOPRIL 20 MG TAB PO SCH (08:31)
[2017-12-16] MEDS: metFORMIN 500 MG TAB PO SCH ×2 (08:31→21:31)
[2017-12-16] MEDS: predniSONE 20 MG TAB PO SCH (08:31)
[2017-12-16] MEDS: OSELTAMIVIR 75 MG CAP PO SCH ×2 (08:31→21:31)
[2017-12-16] MEDS: ALBUTEROL NEBULIZED 2.5 MG/3 ML INHALATION SCH ×5 (09:50→19:07)
[2017-12-16] MEDS: SYMBICORT 160-4.5 MCG INHALER INHALATION SCH ×3 (09:51→19:07)
[2017-12-16 11:27] LABS: Glucose,Whole Blood 101 mg/dL (75-99)
--- NOTE | 2017-12-16 11:55 | P.PN ---
Subjective Progress Note Date: 12/16/17 Principal diagnosis: Acute on chronic hypoxic and hypercapnic restaurant failure secondary to acute COPD exacerbation and influenza A tracheobronchitis Junior is a 62-year-old white male patient of Dr. Neil who presented to the emergency department on 12/14/2017 at 06 22 with complaints of worsening shortness of breath, cough with production of dark green sputum, fever, chills, increased chest congestion. Symptoms started on Thursday, and became progressively worse. He does have an underlying history of obstructive sleep apnea, on CPAP therapy at 14-16 cm of water. Has a history of advanced COPD, with chronic hypoxic and hypercapnic respiratory failure, home O2 at 2 L per nasal cannula. Patient's baseline FEV1 is 57% of predicted. His other past medical history is positive for congestive heart failure, diabetes, hypertension , osteoarthritis. Initial chest x-ray on 12/14/2017 showed band of right midlung atelectasis, no acute process noted. Chest x-ray from today showed patchy posterior basilar atelectasis. She has been intermittently febrile, T- max of 102.1F. He has slightly tachycardic at times, with heart rate in the low 100s BPM. He was placed on Airvo at 60 L/m and FiO2 of 32%. This was later switched to 4 L per nasal cannula, patient is tolerating it well. He does have his CPAP unit from home, which she did wear last night. His lung sounds show diminished air entry bilaterally, no rhonchi or wheezes noted. Patient was started on Zithromax and Rocephin, Tamiflu, IV Solu-Medrol, nebulized treatments, and admitted for further management. Influenza screen was positive for influenza A, CBC was 13.5, hemoglobin is 13.6, INR is 1.2, d- dimer was within normal limits, blood gas was drawn, and showed pH is 7.40, pCO2 44, pO2 of 87, this was done on 36% FiO2. Her lites were within normal limits, renal profile was normal, cardiac enzymes and troponins were negative 1 , proBNP was within normal limits at 219. On 12/16/2017 patient seen in follow-up. He is diaphoretic, dyspneic at rest. He seen sitting up in the chair, on his home CPAP unit. He still has the persistent congested cough, with production of thick green phlegm. Blood culture was negative. Vital signs are stable, his last low-grade fever was yesterday at 1500 with a temp of 99.7F. Lung sounds show extremely diminished air entry bilaterally, no rhonchi or wheezing noted. She continues on nebulized treatments, on Rocephin and Zithromax, Tamiflu and Symbicort. Objective - Vital Signs Vital signs: Vital Signs Temp 98.1 F 12/16/17 06:27 Pulse 84 12/16/17 11:41 Resp 20 12/16/17 06:27 BP 139/71 12/16/17 06:27 Pulse Ox 93 L 12/16/17 06:27 Intake & Output 12/15/17 12/16/17 12/16/17 18:59 06:59 18:59 Intake Total 480 Output Total 900 700 Balance -420 -700 Intake: Oral 480 Output: Urine 900 700 Other: Voiding Method Urinal # Voids 2 0 - Exam GENERAL EXAM: Alert, pleasant, obese white male, comfortable in no apparent distress. Currently on CPAP unit HEAD: Normocephalic/atraumatic. EYES: Normal reaction of pupils, equal size. Conjunctiva pink, sclera white. NOSE: Clear with pink turbinates. THROAT: No erythema or exudates. NECK: No masses, no JVD, no thyroid enlargement, no adenopathy. CHEST: No chest wall deformity. Symmetrical expansion. LUNGS: Diminished air entry noted bilaterally, no rhonchi, no wheezing. CVS: Regular rate and rhythm, normal S1 and S2, no gallops, no murmurs, no rubs ABDOMEN: Soft, nontender. No hepatosplenomegaly, normal bowel sounds, no guarding or rigidity. EXTREMITIES: No clubbing, no edema, no cyanosis, 2+ pulses and upper and lower extremities. MUSCULOSKELETAL: Muscle strength and tone normal. SPINE: No scoliosis or deformity SKIN: No rashes CENTRAL NERVOUS SYSTEM: Alert and oriented -3. No focal deficits, tone is normal in all 4 extremities. PSYCHIATRIC: Alert and oriented -3. Appropriate affect. Intact judgment and insight. - Labs CBC & Chem 7: 12/14/17 06:31 12/14/17 06:31 Labs: Abnormal Lab Results - Last 24 Hours (Table) 12/15/17 12/15/17 12/16/17 Range/Units 17:09 20:38 11:18 POC Glucose (mg/dL) 168 H 140 H 101 H (75-99) mg/dL Microbiology - Last 24 Hours (Table) 12/14/17 06:31 Blood Culture - Preliminary Blood No Growth after 48 hours Assessment and Plan Plan: Assessment: #1. Acute on chronic hypoxic and hypercapnic respiratory failure secondary to acute COPD exacerbation and influenza A tracheobronchitis #2. Obstructive sleep apnea, on CPAP therapy #3. Advanced oxygen-dependent COPD, with FEV1 of 57% of predicted #4. Diabetes mellitus type 2 #5. Hypertension her graft or graft #6. Osteoarthritis #7. Nicotine dependence, currently in remission #8. Morbid obesity, BMI 47.7 #9. Swelling of bilateral lower extremities, likely related to pulmonary pulmonary hypertension, and cor pulmonale #10. Nasal surgery for nasal septum deviation Plan: Patient continues to be dyspneic, continues with diaphoresis, chest congestion and coughing spells. Producing green colored sputum. We'll try to obtain sputum for culture. Blood culture remains negative so far. Continue Rocephin, Zithromax, Tamiflu, and nebulized treatments. I performed a history & physical examination of the patient and discussed their management with my nurse practitioner, Sarah Santos. I reviewed the nurse practitioner's note and agree with the documented findings and plan of care. Lung sounds are diminished. The findings and the impression was discussed with the patient. I attest to the documentation by the nurse practitioner. Time with Patient: Less than 30
[2017-12-16 17:19] LABS: Glucose,Whole Blood 197 mg/dL (75-99)
[2017-12-16 20:47] LABS: Glucose,Whole Blood 184 mg/dL (75-99)
[2017-12-16] MEDS: amLODIPine 5 MG TAB PO SCH (21:31)
[2017-12-17] MEDS: IPRATROPIUM-ALBUTEROL 3 ML NEB INHALATION PRN (03:37)
[2017-12-17] MEDS: ALBUTEROL NEBULIZED 2.5 MG/3 ML INHALATION SCH ×2 (07:06→11:03)
[2017-12-17] MEDS: SYMBICORT 160-4.5 MCG INHALER INHALATION SCH (07:06)
[2017-12-17 07:07] VITALS: BP 119/59; TEMP 97.4
[2017-12-17 07:40] LABS: Glucose,Whole Blood 76 mg/dL (75-99)
[2017-12-17] MEDS: INSULIN ASPART 100 UNIT/ML 1 ML 10 ML VIAL SQ SCH ×2 (07:43→11:59)
[2017-12-17] MEDS: OSELTAMIVIR 75 MG CAP PO SCH (07:50)
[2017-12-17] MEDS: LISINOPRIL 20 MG TAB PO SCH (07:50)
[2017-12-17] MEDS: HYDROCHLOROTHIAZIDE 25 MG TAB PO SCH (07:50)
[2017-12-17] MEDS: metFORMIN 500 MG TAB PO SCH (07:50)
[2017-12-17] MEDS: predniSONE 20 MG TAB PO SCH (07:50)
[2017-12-17] MEDS: INSULIN DETEMIR 100 UNIT/ML 10 ML VIAL SQ SCH (07:50)
[2017-12-17] MEDS: AZITHROMYCIN 500 MG in SODIUM CHLORIDE 0.9% 250 ML IVPB SCH (07:51)
[2017-12-17] MEDS: cefTRIAXone IN SWFI 1,000 MG/10 ML SYRINGE IVP SCH (07:51)
--- NOTE | 2017-12-17 10:03 | P.PN ---
Subjective Progress Note Date: 12/17/17 Principal diagnosis: Acute on chronic hypoxic and hypercapnic restaurant failure secondary to acute COPD exacerbation and influenza A tracheobronchitis Junior is a 62-year-old white male patient of Dr. Neil who presented to the emergency department on 12/14/2017 at 06 22 with complaints of worsening shortness of breath, cough with production of dark green sputum, fever, chills, increased chest congestion. Symptoms started on Thursday, and became progressively worse. He does have an underlying history of obstructive sleep apnea, on CPAP therapy at 14-16 cm of water. Has a history of advanced COPD, with chronic hypoxic and hypercapnic respiratory failure, home O2 at 2 L per nasal cannula. Patient's baseline FEV1 is 57% of predicted. His other past medical history is positive for congestive heart failure, diabetes, hypertension , osteoarthritis. Initial chest x-ray on 12/14/2017 showed band of right midlung atelectasis, no acute process noted. Chest x-ray from today showed patchy posterior basilar atelectasis. She has been intermittently febrile, T- max of 102.1F. He has slightly tachycardic at times, with heart rate in the low 100s BPM. He was placed on Airvo at 60 L/m and FiO2 of 32%. This was later switched to 4 L per nasal cannula, patient is tolerating it well. He does have his CPAP unit from home, which she did wear last night. His lung sounds show diminished air entry bilaterally, no rhonchi or wheezes noted. Patient was started on Zithromax and Rocephin, Tamiflu, IV Solu-Medrol, nebulized treatments, and admitted for further management. Influenza screen was positive for influenza A, CBC was 13.5, hemoglobin is 13.6, INR is 1.2, d- dimer was within normal limits, blood gas was drawn, and showed pH is 7.40, pCO2 44, pO2 of 87, this was done on 36% FiO2. Her lites were within normal limits, renal profile was normal, cardiac enzymes and troponins were negative 1 , proBNP was within normal limits at 219. On 12/16/2017 patient seen in follow-up. He is diaphoretic, dyspneic at rest. He seen sitting up in the chair, on his home CPAP unit. He still has the persistent congested cough, with production of thick green phlegm. Blood culture was negative. Vital signs are stable, his last low-grade fever was yesterday at 1500 with a temp of 99.7F. Lung sounds show extremely diminished air entry bilaterally, no rhonchi or wheezing noted. She continues on nebulized treatments, on Rocephin and Zithromax, Tamiflu and Symbicort. On 12/17/2017 patient seen again in follow-up. He reports feeling better today , denies any acute distress, denies fever, chills, chest pain. Afebrile, hemodynamically stable, he is wearing his CPAP unit from home at bedtime and as needed during the day, on 4 L per nasal cannula and he is off the CPAP. Lung sounds are diminished, negative for any rhonchi, wheezes or rales. No acute events overnight, vital signs are stable. Patient is stable for discharge home today from pulmonary standpoint. Objective - Vital Signs Vital signs: Vital Signs Temp 97.4 F L 12/17/17 07:00 Pulse 58 L 12/17/17 08:00 Resp 16 12/17/17 08:00 BP 119/59 12/17/17 07:00 Pulse Ox 95 12/17/17 07:00 Intake & Output 12/16/17 12/17/17 12/17/17 18:59 06:59 18:59 Output Total 250 Balance -250 Output: Urine 250 Other: Voiding Method Urinal # Voids 275 1 # Bowel Movements 2 1 - Exam GENERAL EXAM: Alert, pleasant, obese white male, comfortable in no apparent distress. Currently on CPAP unit HEAD: Normocephalic/atraumatic. EYES: Normal reaction of pupils, equal size. Conjunctiva pink, sclera white. NOSE: Clear with pink turbinates. THROAT: No erythema or exudates. NECK: No masses, no JVD, no thyroid enlargement, no adenopathy. CHEST: No chest wall deformity. Symmetrical expansion. LUNGS: Diminished air entry noted bilaterally, no rhonchi, no wheezing. CVS: Regular rate and rhythm, normal S1 and S2, no gallops, no murmurs, no rubs ABDOMEN: Soft, nontender. No hepatosplenomegaly, normal bowel sounds, no guarding or rigidity. EXTREMITIES: No clubbing, no edema, no cyanosis, 2+ pulses and upper and lower extremities. MUSCULOSKELETAL: Muscle strength and tone normal. SPINE: No scoliosis or deformity SKIN: No rashes CENTRAL NERVOUS SYSTEM: Alert and oriented -3. No focal deficits, tone is normal in all 4 extremities. PSYCHIATRIC: Alert and oriented -3. Appropriate affect. Intact judgment and insight. - Labs CBC & Chem 7: 12/14/17 06:31 12/14/17 06:31 Labs: Abnormal Lab Results - Last 24 Hours (Table) 12/16/17 12/16/17 12/16/17 Range/Units 11:18 17:16 20:45 POC Glucose (mg/dL) 101 H 197 H 184 H (75-99) mg/dL Microbiology - Last 24 Hours (Table) 12/14/17 06:31 Blood Culture - Preliminary Blood No Growth after 72 hours Assessment and Plan Plan: Assessment: #1. Acute on chronic hypoxic and hypercapnic respiratory failure secondary to acute COPD exacerbation and influenza A tracheobronchitis #2. Obstructive sleep apnea, on CPAP therapy #3. Advanced oxygen-dependent COPD, with FEV1 of 57% of predicted #4. Diabetes mellitus type 2 #5. Hypertension her graft or graft #6. Osteoarthritis #7. Nicotine dependence, currently in remission #8. Morbid obesity, BMI 47.7 #9. Swelling of bilateral lower extremities, likely related to pulmonary pulmonary hypertension, and cor pulmonale #10. Nasal surgery for nasal septum deviation Plan: Patient is improving, denies any fever, chills, denies any chest wall tenderness. He remains afebrile, hemodynamically stable. He is wearing his CPAP unit from home at bedtime and as needed during the day. No diaphoresis, he is tolerating ambulate to the bathroom. He is stable for discharge home today, he will need to finish his outpatient course of Tamiflu, Ceftin, Zithromax, prednisone taper, and he can continue on his maintenance inhalers and nebulized treatments. Follow-up with Dr. Mariee in the office in one week. I performed a history & physical examination of the patient and discussed their management with my nurse practitioner, Sarah Santos. I reviewed the nurse practitioner's note and agree with the documented findings and plan of care. Lung sounds are diminished. The findings and the impression was discussed with the patient. I attest to the documentation by the nurse practitioner. Time with Patient: Less than 30
[2017-12-17 11:54] LABS: Glucose,Whole Blood 110 mg/dL (75-99)
[2017-12-17 12:53] VITALS: PULSE 88; RESP 18
--- NOTE | 2017-12-17 19:33 | P.PN ---
Subjective Progress Note Date: 12/15/17 Progress note being dictated for Dr. Peters. Interval history:62-year-old male with a history of COPD that is chronically O2 dependent on 2 L at home who presents emergency department for worsening shortness of breath and cough. He states the symptoms started last night. He has been coughing up sputum however he is unsure of the color. States that he' s also been feeling feverish at home. This morning his symptoms got significant only worse so he decided to come emergency department. He denies any recent sick contacts. Denies any chest pain, abdominal pain, nausea, vomiting, or diarrhea. States that he does not smoke any longer. The patient was recently admitted to the hospital and September 2017 requiring BiPAP at that time. He follows with Dr. Mariee as an outpatient. No other acute complaints at this time. Patient is feeling much better now. Patient is still wheezing a bit with decreased air entry into bilateral lung palma. Patient was having fever at home patient is found to have influenza positive. Patient was started on Tamiflu patient's status symptoms started last night because of which Tamiflu should be effective patient does have sleep apnea. Use uses CPAP or BiPAP at home morbidly obese, doesn't have any pneumonia on the chest x-ray patient was started on IV steroids which was switched to oral steroids. Patient is still bit hypoxemic patient uses 2 L of oxygen at home. Review of Systems REVIEW OF SYSTEMS: CONSTITUTIONAL: No fever, no malaise, no fatigue. HEENT: No recent visual problems or hearing problems. Denied any sore throat. CARDIOVASCULAR: No chest pain, orthopnea, PND, no palpitations, no syncope. PULMONARY: no hemoptysis. GASTROINTESTINAL: No diarrhea, no nausea, no vomiting, no abdominal pain. Normoactive bowel sounds. NEUROLOGICAL: No headaches, no weakness, no numbness. HEMATOLOGICAL: Denies any bleeding or petechiae. GENITOURINARY: Denies any burning micturition, frequency, or urgency. MUSCULOSKELETAL/RHEUMATOLOGICAL: Denies any joint pain, swelling, or any muscle pain. ENDOCRINE: Denies any polyuria or polydipsia. The rest of the 14-point review of systems is negative. 12/15/17 maintained on Rocephin, Zithromax, Tamiflu, nebulized bronchodilators, steroids. Breathing continues to improve, weaned from Airvo to 4 L nasal cannula , maintaining O2 sats of 96%. Reports productive cough with greenish brownish sputum. Mild tachycardia, heart rates in the low 100s, T-max 102.1,chest x-ray reporting COPD, posterior basilar atelectasis. Preliminary blood cultures negative. Denies chest pain, palpitations or increasing shortness of breath. Objective - Vital Signs Vital signs: Vital Signs Temp 99.7 F H 12/15/17 15:00 Pulse 104 H 12/15/17 19:37 Resp 23 12/15/17 15:00 BP 125/91 12/15/17 15:00 Pulse Ox 94 L 12/15/17 15:00 Intake & Output 12/15/17 12/15/17 12/16/17 06:59 18:59 06:59 Intake Total 650 480 Output Total 650 900 Balance 0 -420 Intake: Oral 650 480 Output: Urine 650 900 Other: Voiding Method Urinal Urinal # Voids 2 - Exam GENERAL: The patient is alert and oriented x3, sitting up in chair, respiratory effort mildly increased HEENT: Pupils are round and equally reacting to light. EOMI. No scleral icterus. No conjunctival pallor. Normocephalic, atraumatic. No pharyngeal erythema. No thyromegaly. CARDIOVASCULAR: S1 and S2 present. No murmurs, rubs, or gallops. PULMONARY: Morbidly obese significant decreased air entry into bilateral lungs, no rhonchi, no crackles, no wheezing. ABDOMEN: Soft, nontender, nondistended, normoactive bowel sounds. No palpable organomegaly. MUSCULOSKELETAL: No joint swelling or deformity. EXTREMITIES: No cyanosis, clubbing, or pedal edema. NEUROLOGICAL: Gross neurological examination did not reveal any focal deficits. SKIN: No rashes. - Labs CBC & Chem 7: 12/14/17 06:31 12/14/17 06:31 Labs: Abnormal Lab Results - Last 24 Hours (Table) 12/14/17 12/15/17 12/15/17 Range/Units 20:50 07:15 11:17 POC Glucose (mg/dL) 166 H 100 H 141 H (75-99) mg/dL 12/15/17 Range/Units 17:09 POC Glucose (mg/dL) 168 H (75-99) mg/dL Microbiology - Last 24 Hours (Table) 12/14/17 06:31 Blood Culture - Preliminary Blood No Growth after 24 hours Assessment and Plan Assessment: -Acute hypoxic and hypercapnic respiratory failure on chronic hypercapnic respiratory failure secondary to COPD exacerbation. -Systemic inflammatory response syndrome secondary to influenza -COPD with acute exacerbation -Type 2 diabetes mellitus -Morbid obesity -Obstructive sleep apnea continue CPAP machine. Plan: Continue on current medication regime ,monitoring. Maintain gentle IV fluid hydration,Tamiflu, nebulized bronchodilators, steroids. Aggressive pulmonary toileting. Increase ambulation as tolerated. Follow closely with pulmonary. The impression and plan of care has been dictated as directed. : I performed a history and examination of this patient, discussed the same with the dictator. I agree with the dictator's note ,documented as a scribe. Any additional findings or plans will be noted.
--- NOTE | 2017-12-17 19:39 | P.PN ---
Subjective Progress Note Date: 12/16/17 Progress note being dictated for Dr. Peters. Interval history:62-year-old male with a history of COPD that is chronically O2 dependent on 2 L at home who presents emergency department for worsening shortness of breath and cough. He states the symptoms started last night. He has been coughing up sputum however he is unsure of the color. States that he' s also been feeling feverish at home. This morning his symptoms got significant only worse so he decided to come emergency department. He denies any recent sick contacts. Denies any chest pain, abdominal pain, nausea, vomiting, or diarrhea. States that he does not smoke any longer. The patient was recently admitted to the hospital and September 2017 requiring BiPAP at that time. He follows with Dr. Mariee as an outpatient. No other acute complaints at this time. Patient is feeling much better now. Patient is still wheezing a bit with decreased air entry into bilateral lung palma. Patient was having fever at home patient is found to have influenza positive. Patient was started on Tamiflu patient's status symptoms started last night because of which Tamiflu should be effective patient does have sleep apnea. Use uses CPAP or BiPAP at home morbidly obese, doesn't have any pneumonia on the chest x-ray patient was started on IV steroids which was switched to oral steroids. Patient is still bit hypoxemic patient uses 2 L of oxygen at home. Review of Systems REVIEW OF SYSTEMS: CONSTITUTIONAL: No fever, no malaise, no fatigue. HEENT: No recent visual problems or hearing problems. Denied any sore throat. CARDIOVASCULAR: No chest pain, orthopnea, PND, no palpitations, no syncope. PULMONARY: no hemoptysis. GASTROINTESTINAL: No diarrhea, no nausea, no vomiting, no abdominal pain. Normoactive bowel sounds. NEUROLOGICAL: No headaches, no weakness, no numbness. HEMATOLOGICAL: Denies any bleeding or petechiae. GENITOURINARY: Denies any burning micturition, frequency, or urgency. MUSCULOSKELETAL/RHEUMATOLOGICAL: Denies any joint pain, swelling, or any muscle pain. ENDOCRINE: Denies any polyuria or polydipsia. The rest of the 14-point review of systems is negative. 12/15/17 maintained on Rocephin, Zithromax, Tamiflu, nebulized bronchodilators, steroids. Breathing continues to improve, weaned from Airvo to 4 L nasal cannula , maintaining O2 sats of 96%. Reports productive cough with greenish brownish sputum. Mild tachycardia, heart rates in the low 100s, T-max 102.1,chest x-ray reporting COPD, posterior basilar atelectasis. Preliminary blood cultures negative. Denies chest pain, palpitations or increasing shortness of breath. 12/16/17 T-max 100.6, preliminary blood cultures negative. Maintaining O2 sats in the 90s on 4 L. Congested cough, reporting thick green sputum. Objective - Vital Signs Vital signs: Vital Signs Temp 98.8 F 12/16/17 14:52 Pulse 80 12/16/17 15:07 Resp 18 12/16/17 14:52 BP 119/58 12/16/17 14:52 Pulse Ox 94 L 12/16/17 14:52 Intake & Output 12/15/17 12/16/17 12/16/17 18:59 06:59 18:59 Intake Total 480 Output Total 900 700 Balance -420 -700 Intake: Oral 480 Output: Urine 900 700 Other: Voiding Method Urinal # Voids 2 0 275 # Bowel Movements 2 - Exam GENERAL: The patient is sitting up in chair, alert and oriented x3, sitting up in chair, respiratory effort mildly increased HEENT: Pupils are round and equally reacting to light. EOMI. No scleral icterus. No conjunctival pallor. Normocephalic, atraumatic. No pharyngeal erythema. No thyromegaly. CARDIOVASCULAR: S1 and S2 present. No murmurs, rubs, or gallops. PULMONARY: Morbidly obese significant decreased air entry into bilateral lungs, no rhonchi, no crackles, no wheezing. ABDOMEN: Soft, nontender, nondistended, normoactive bowel sounds. No palpable organomegaly. MUSCULOSKELETAL: No joint swelling or deformity. EXTREMITIES: No cyanosis, clubbing, or pedal edema. NEUROLOGICAL: Gross neurological examination did not reveal any focal deficits. SKIN: No rashes. - Labs CBC & Chem 7: 12/14/17 06:31 12/14/17 06:31 Labs: Abnormal Lab Results - Last 24 Hours (Table) 12/15/17 12/16/17 12/16/17 Range/Units 20:38 11:18 17:16 POC Glucose (mg/dL) 140 H 101 H 197 H (75-99) mg/dL Microbiology - Last 24 Hours (Table) 12/14/17 06:31 Blood Culture - Preliminary Blood No Growth after 48 hours Assessment and Plan Assessment: -Acute hypoxic and hypercapnic respiratory failure on chronic hypercapnic respiratory failure secondary to COPD exacerbation. -Systemic inflammatory response syndrome secondary to influenza -COPD with acute exacerbation -Type 2 diabetes mellitus -Morbid obesity -Obstructive sleep apnea continue CPAP machine. Plan: Continue on current medication regime ,monitoring. Sputum culture ordered. Maintain Tamiflu, nebulized bronchodilators, steroids. Possible blood cultures closely. Aggressive pulmonary toileting. Increase ambulation as tolerated. The impression and plan of care has been dictated as directed. : I performed a history and examination of this patient, discussed the same with the dictator. I agree with the dictator's note ,documented as a scribe. Any additional findings or plans will be noted.
--- NOTE | 2017-12-17 19:50 | P.DS ---
Providers Date of admission: 12/14/17 08:20 Expected date of discharge: 12/17/17 Attending physician: David Peters Consults: 12/14/17 19:12 Consult Physician Urgent Consulting Provider: Vinh Mariee Reason/Comments: COPD flu Do you want consulting provider notified?: Yes Primary care physician: Emily Reyes Hospital Course: Final Diagnoses: -Acute hypoxic and hypercapnic respiratory failure on chronic hypercapnic respiratory failure secondary to COPD exacerbation. -Systemic inflammatory response syndrome secondary to influenza -Advanced COPD with acute exacerbation -Type 2 diabetes mellitus -Morbid obesity -Obstructive sleep apnea continue CPAP machine. -Chronic CHF Hospital course: This is a 62-year-old male with a history of COPD that is chronically O2 dependent on 2 L at home, admitted with acute hypoxic and hypercapnic respiratory failure, acute COPD exacerbation, acute influenza A tracheobronchitis and multiple other medical issues.Evaluated by pulmonary. Initially placed on AIRVO 60%/FIO2 32%, weaned to 4 L nasal cannula.maintained on Rocephin, Zithromax, Tamiflu, nebulized bronchodilators, steroids. Significant clinical improvement. Cleared by pulmonary for discharge. Patient is being discharged home in a stable condition with guarded prognosis. Physical Exam:VSS, A & O X3,CVS: Regular S1 and S2, LUNGS: Diminished, no crackles, no rhonchi, no wheezing, ABD: Soft, nontender, positive bowel sounds. NEURO: No focal deficitS Microbiology 12/14/17 06:31 Blood Blood Culture - Preliminary No Growth after 72 hours The impression and plan of care has been dictated as directed. : I performed a history and examination of this patient, discussed the same with the dictator. I agree with the dictator's note ,documented as a scribe. Any additional findings or plans will be noted. Time taken: 35 minutes Patient Condition at Discharge: Stable Plan - Discharge Summary Discharge Rx Participant: No New Discharge Prescriptions: New Azithromycin [Zithromax] 500 mg PO DAILY 4 Days #4 tab Cefuroxime Axetil [Ceftin] 500 mg PO BID 4 Days #8 tab Oseltamivir [Tamiflu] 75 mg PO Q12HR 2 Days #4 cap predniSONE 10 mg PO DAILY 16 Days #40 tab Continue metFORMIN HCL [Glucophage] 500 mg PO BID Budesonide-Formot 160-4.5 Mcg [Symbicort 160-4.5 Mcg Inhaler] 2 puff INHALATION RT-BID Furosemide [Lasix] 20 mg PO BID amLODIPine [Norvasc] 5 mg PO HS Moexipril HCl [Univasc] 15 mg PO DAILY Hydrochlorothiazide 25 mg PO DAILY Albuterol Nebulized [Ventolin Nebulized] 2.5 mg INHALATION RT-QID #120 nebu Insulin Glargine,Hum.rec.anlog [Lantus Solostar] 56 unit SQ BID Naproxen Sodium [Aleve] 220 mg PO BID PRN PRN Reason: Pain Potassium Chloride ER [K-Dur 20] 20 meq PO DAILY Discontinued Insulin Lispro [humaLOG Kwikpen] 40 unit SQ AC-BRKFST Insulin Lispro [humaLOG Kwikpen] 20 unit SQ AC-LUNCH Insulin Lispro [humaLOG Kwikpen] 40 unit SQ AC-SUPPER Discharge Medication List Budesonide-Formot 160-4.5 Mcg [Symbicort 160-4.5 Mcg Inhaler] 2 puff INHALATION RT-BID 01/08/15 [History] metFORMIN HCL [Glucophage] 500 mg PO BID 01/08/15 [History] Furosemide [Lasix] 20 mg PO BID 10/17/17 [History] Hydrochlorothiazide 25 mg PO DAILY 10/17/17 [History] Moexipril HCl [Univasc] 15 mg PO DAILY 10/17/17 [History] amLODIPine [Norvasc] 5 mg PO HS 10/17/17 [History] Albuterol Nebulized [Ventolin Nebulized] 2.5 mg INHALATION RT-QID #120 nebu [Rx] Insulin Glargine,Hum.rec.anlog [Lantus Solostar] 56 unit SQ BID 12/14/17 [ History] Naproxen Sodium [Aleve] 220 mg PO BID PRN 12/14/17 [History] Potassium Chloride ER [K-Dur 20] 20 meq PO DAILY 12/14/17 [History] Azithromycin [Zithromax] 500 mg PO DAILY 4 Days #4 tab 12/17/17 [Rx] Cefuroxime Axetil [Ceftin] 500 mg PO BID 4 Days #8 tab 12/17/17 [Rx] Oseltamivir [Tamiflu] 75 mg PO Q12HR 2 Days #4 cap 12/17/17 [Rx] predniSONE 10 mg PO DAILY 16 Days #40 tab 12/17/17 [Rx] Follow up Appointment(s)/Referral(s): Emily Reyes DO [Primary Care Provider] - 12/23/17 12:00 pm Vinh Mariee DO [Doctor of Osteopathic Medicine] - 01/05/18 2:30 pm Ambulatory/Diagnostic Orders: Complete Blood Count w/diff [LAB.AMB] Time Frame: 3 Days, Location: Determined By Patient Patient Instructions/Handouts: Influenza (DC), COPD (Chronic Obstructive Pulmonary Disease) (DC) Activity/Diet/Wound Care/Special Instructions: Cardiac, diabetic diet. Activity as tolerated. Discharge Disposition: HOME SELF-CARE
== END 2017-12-17 14:28 | disposition home or self-care (01) | DRG 190 ==
LOC: EC 06:22 → 6SEL 08:20 → 4MS4W 13:58
PROVIDERS: ADMIT Hospitalist; ATTEND Hospitalist
DX: J44.1 Chronic obstructive pulmonary disease with (acute) exacerbation (principal); J96.21 Acute and chronic respiratory failure with hypoxia; I27.29 Other secondary pulmonary hypertension; I11.0 Hypertensive heart disease with heart failure; E66.01 Morbid (severe) obesity due to excess calories; I27.81 Cor pulmonale (chronic); I50.9 Heart failure, unspecified; J96.22 Acute and chronic respiratory failure with hypercapnia; J98.11 Atelectasis; Z68.42 Body mass index [BMI] 45.0-49.9, adult; E11.9 Type 2 diabetes mellitus without complications; G47.33 Obstructive sleep apnea (adult) (pediatric); J10.1 Influenza due to other identified influenza virus with other respiratory manifestations; M15.9 Polyosteoarthritis, unspecified; Z79.4 Long term (current) use of insulin; Z79.51 Long term (current) use of inhaled steroids; Z79.899 Other long term (current) drug therapy; F17.201 Nicotine dependence, unspecified, in remission; Z99.81 Dependence on supplemental oxygen
CPT/HCPCS: 36415; 36600; 71045; 71046; 80053; 82550; 82553; 82805; 83605; 83735; 83880; 84484; 85025; 85379; 85610; 85730; 87040; 87070; 87205; 87502; 93005; 94640; 94660; 94760; 96361; 96365; 96366; 96375; 99285

== ENCOUNTER 2018-09-12 07:05 | Inpatient (IN) | payer BC ==
[2018-09-12] MEDS ORDERED: FUROSEMIDE 10 MG/ML 4 ML VIAL IV STA (07:08)
[2018-09-12] MEDS ORDERED: IPRATROPIUM-ALBUTEROL 3 ML NEB INHALATION STA (07:08)
[2018-09-12 07:14] LABS: Glucose,Whole Blood 168 mg/dL (75-99)
[2018-09-12] MEDS ORDERED: DILTIAZEM DRIP BOLUS FROM BAG 1 MG SOLN IV ONE (07:19)
[2018-09-12] MEDS: DILTIAZEM 50 MG in SODIUM CHLORIDE 0.9% 40 ML IV SCH ×2 (07:33→17:57)
[2018-09-12 07:55] LABS: ALT 28 U/L (21-72); AST 24 U/L (17-59); Albumin 4.4 g/dL (3.5-5.0); Alkaline Phosphatase 72 U/L (38-126); Anion Gap 13 mmol/L; Blood Urea Nitrogen 12 mg/dL (9-20); Calcium 9.1 mg/dL (8.4-10.2); Carbon Dioxide 24 mmol/L (22-30); Chloride 103 mmol/L (98-107); Glucose 181 mg/dL (74-99); Magnesium 2.2 mg/dL (1.6-2.3); Sodium 140 mmol/L (137-145); Total Bilirubin 0.6 mg/dL (0.2-1.3); Total Protein 8.1 g/dL (6.3-8.2)
--- NOTE | 2018-09-12 07:56 | ED ---
SOB HPI - General Chief Complaint: Shortness of Breath Stated Complaint: TINY Time Seen by Provider: 09/12/18 07:15 Source: EMS Mode of arrival: EMS Limitations: no limitations - History of Present Illness Initial Comments: This is a 62-year-old male the ER for evasive by EMS, patient comes for shortness breath starting yesterday severe shortness breath or dyspnea with hypoxia diaphoresis, patient's in tripod position unable to give accurate history at this time. Patient's history is obtained from EMS and patient's prior charting. Patient placed on BiPAP for evaluation MD Complaint: shortness of breath, chest pain -: hour(s) Severity: severe Severity scale (1-10): 9 Quality: aching Consistency: constant Improves With: oxygen, bronchodilators, medication Worsens With: exertion Known History Of: COPD, congestive heart failure Associated Symptoms: cough Treatments Prior to Arrival: none - Related Data Home Medications Medication Instructions Recorded Confirmed Budesonide-Formot 160-4.5 Mcg 2 puff INHALATION RT-BID 01/08/15 09/12/18 [Symbicort 160-4.5 Mcg Inhaler] metFORMIN HCL [Glucophage] 500 mg PO BID 01/08/15 09/12/18 Furosemide [Lasix] 20 mg PO BID 10/17/17 09/12/18 Hydrochlorothiazide 25 mg PO DAILY 10/17/17 09/12/18 Moexipril HCl [Univasc] 15 mg PO DAILY 10/17/17 12/14/17 amLODIPine [Norvasc] 5 mg PO HS 10/17/17 09/12/18 Insulin Glargine,Hum.rec.anlog 56 unit SQ BID 12/14/17 09/12/18 [Lantus Solostar] Potassium Chloride ER [K-Dur 20] 20 meq PO DAILY 12/14/17 09/12/18 Insulin Lispro [humaLOG Kwikpen] 100 unit SQ 09/12/18 Previous Rx's Medication Instructions Recorded Albuterol Nebulized [Ventolin 2.5 mg INHALATION RT-QID #120 nebu 10/20/17 Nebulized] Allergies Allergy/AdvReac Type Severity Reaction Status Date / Time No Known Allergies Allergy Verified 12/14/17 08:13 Review of Systems ROS Statement: Those systems with pertinent positive or pertinent negative responses have been documented in the HPI. ROS Other: All systems not noted in ROS Statement are negative. Past Medical History Past Medical History: Asthma, COPD, Diabetes Mellitus, Hypertension, Osteoarthritis (OA), Pneumonia, Respiratory Disorder, Sleep Apnea/CPAP/BIPAP Additional Past Medical History / Comment(s): IDDM type II, HERBERT with CPAP, chronic respiratory failure-O2 2L/NC ATC, arthritis in multiple joints. History of Any Multi-Drug Resistant Organisms: None Reported Past Surgical History: Hernia Repair Additional Past Surgical History / Comment(s): Bronchoscopy, umbilical hernia repair. Past Anesthesia/Blood Transfusion Reactions: No Reported Reaction Past Psychological History: No Psychological Hx Reported Smoking Status: Former smoker Past Alcohol Use History: None Reported Past Drug Use History: None Reported - Past Family History Father Family Medical History: Diabetes Mellitus Mother Family Medical History: Asthma, Diabetes Mellitus General Exam Limitations: no limitations General appearance: alert, anxious, obtunded, in distress Head exam: Present: atraumatic, normocephalic, normal inspection Eye exam: Present: normal appearance, PERRL, EOMI. Absent: scleral icterus, conjunctival injection, periorbital swelling ENT exam: Present: normal exam, mucous membranes moist Neck exam: Present: normal inspection. Absent: tenderness, meningismus, lymphadenopathy Respiratory exam: Present: respiratory distress, wheezes, rales, accessory muscle use, decreased breath sounds, prolonged expiratory. Absent: rhonchi, stridor Cardiovascular Exam: Present: tachycardia, irregular rhythm, normal heart sounds. Absent: systolic murmur, diastolic murmur, rubs, gallop, clicks GI/Abdominal exam: Present: soft, normal bowel sounds. Absent: distended, tenderness, guarding, rebound, rigid Extremities exam: Present: normal inspection, full ROM, normal capillary refill. Absent: tenderness, pedal edema, joint swelling, calf tenderness Back exam: Present: normal inspection Neurological exam: Present: alert, oriented X3, CN II-XII intact Psychiatric exam: Present: normal affect, normal mood Skin exam: Present: warm, dry, intact, normal color. Absent: rash Course Vital Signs 09/12/18 09/12/18 09/12/18 07:06 07:18 07:22 Temperature 98.0 F Pulse Rate 139 H 130 H 144 H Respiratory 34 H Rate Blood Pressure 191/157 137/93 O2 Sat by Pulse 99 98 Oximetry 09/12/18 07:28 Temperature Pulse Rate Respiratory 35 H Rate Blood Pressure O2 Sat by Pulse Oximetry - Reevaluation(s) Reevaluation #1: 09/12/18 07:53 Medical record is reviewed Reevaluation #2: 09/12/18 07:53 Patient placed on BiPAP upon arrival in emergency room. Patient showing mild improvement in aeration, no significant improvement, patient was maintained on BiPAP Medical Decision Making - Medical Decision Making 52 male the ER for significant evaluation of COPD or shortness of breath. Patient be admitted for breathing treatments and maintained on BiPAP - Lab Data Lab Results 09/12/18 Range/Units 07:08 POC Glucose (mg/dL) 168 H (75-99) mg/dL POC Glu [employer] Teacher ID Mariza Maldonado - EKG Data -: EKG Interpreted by Me (EKG shows A. fib with RVR rate of 127, QRS 76, QTc 433 ) Rate: tachycardia (Atrial fibrillation) - Radiology Data Radiology results: report reviewed, image reviewed Critical Care Time Critical Care Time: Yes Total Critical Care Time: 31 Disposition Clinical Impression: Acute exacerbation of chronic obstructive airways disease, COPD exacerbation, Hypertension, Hypoxia Disposition: ADMITTED IP TO THIS HOSP Condition: Serious Is patient prescribed a controlled substance at d/c from ED?: No Referrals: Emily Reyes DO [Primary Care Provider] - 1-2 days
[2018-09-12 07:57] LABS: INR 1.1 (<1.2); Prothrombin Time 10.9 sec (9.0-12.0)
[2018-09-12] MEDS ORDERED: methylPREDNISolone SOD SUCCI 125 MG/2 ML VIAL IV STA (07:59)
[2018-09-12] MEDS: IPRATROPIUM-ALBUTEROL 3 ML NEB INHALATION SCH ×4 (08:05→19:23)
[2018-09-12 08:07] LABS: Basophils # (A) 0.1 k/uL (0-0.2); Basophils % (A) 1 %; Eosinophils # (A) 0.1 k/uL (0-0.7); Eosinophils % (A) 1 %; HCT 46.9 % (39.0-53.0); HGB 15.3 gm/dL (13.0-17.5); Lymphocytes # (A) 3.6 k/uL (1.0-4.8); Lymphocytes % (A) 29 %; MCH 28.8 pg (25.0-35.0); MCHC 32.5 g/dL (31.0-37.0); MCV 88.6 fL (80.0-100.0); Mean Platelet Volume 7.2; Monocytes % (A) 8 %; Neutrophils # (A) 7.2 k/uL (1.3-7.7); Neutrophils % (A) 58 %; Platelet Count 337 k/uL (150-450); RDW 14.1 % (11.5-15.5); WBC 12.5 k/uL (3.8-10.6)
[2018-09-12 08:10] LABS: Creatine Kinase 134 U/L (55-170)
--- NOTE | 2018-09-12 08:20 | XR ---
EXAMINATION TYPE: XR chest 1V portable DATE OF EXAM: 09/12/2018 HISTORY: dyspnea. REFERENCE: Previous study dated 12/15/2017. FINDINGS: The entire chest is not included on this study. The heart is mildly prominent. The lungs are clear. Visualized pleural spaces are clear. IMPRESSION: 1. LIMITED STUDY. 2. MILD CARDIOMEGALY.
[2018-09-12] MEDS: SODIUM CHLORIDE 0.9% 1,000 ML IV SCH ×2 (08:22→17:56)
[2018-09-12 08:23] LABS: Creatine Kinase MB 2.4 ng/mL (0.0-2.4); Troponin I <0.012 ng/mL (0.000-0.034)
[2018-09-12] MEDS ORDERED: MORPHINE SULFATE 4 MG/ML SYRINGE IVP STA (11:01)
[2018-09-12] MEDS ORDERED: MORPHINE SULFATE 4 MG/ML SYRINGE IVP PRN (11:01)
[2018-09-12 13:16] LABS: Glucose,Whole Blood 263 mg/dL (75-99)
[2018-09-12] MEDS: ENOXAPARIN 40 MG/0.4 ML SYRINGE SQ SCH ×2 (13:52→13:54)
[2018-09-12] MEDS: methylPREDNISolone SOD SUCCI 125 MG/2 ML VIAL IV SCH ×3 (13:53→23:32)
[2018-09-12] MEDS ORDERED: POTASSIUM CHLORIDE ER 20 MEQ TAB.ER PO PRN (13:54)
[2018-09-12] MEDS ORDERED: INSULIN REGULAR 100 UNIT/ML VIAL SQ ONE (14:14)
[2018-09-12 16:33] LABS: Glucose,Whole Blood 262 mg/dL (75-99)
[2018-09-12] MEDS ORDERED: INSULIN ASPART 100 UNIT/ML 1 ML 10 ML VIAL SQ SCH (17:30)
[2018-09-12] MEDS: INSULIN ASPART 100 UNIT/ML 1 ML 10 ML VIAL SQ SCH ×2 (17:56→21:02)
[2018-09-12] MEDS: metFORMIN 500 MG TAB PO SCH (17:56)
[2018-09-12] MEDS: SYMBICORT 160-4.5 MCG INHALER INHALATION SCH (19:24)
[2018-09-12] MEDS ORDERED: BUDESONIDE 0.5 MG/2 ML NEBU INHALATION SCH (20:00)
[2018-09-12 20:27] LABS: Glucose,Whole Blood 295 mg/dL (75-99)
[2018-09-12] MEDS: amLODIPine 5 MG TAB PO SCH (21:01)
[2018-09-12] MEDS: FUROSEMIDE 20 MG TAB PO SCH (21:01)
[2018-09-12] MEDS: DOXYCYCLINE 100 MG in SODIUM CHLORIDE 0.9% 100 ML IVPB SCH (21:01)
[2018-09-12] MEDS: INSULIN DETEMIR 100 UNIT/ML 10 ML VIAL SQ SCH (21:01)
[2018-09-12] MEDS: IPRATROPIUM-ALBUTEROL 3 ML NEB INHALATION PRN (23:54)
[2018-09-13] MEDS: methylPREDNISolone SOD SUCCI 125 MG/2 ML VIAL IV SCH ×4 (04:23→23:03)
[2018-09-13] MEDS: IPRATROPIUM-ALBUTEROL 3 ML NEB INHALATION PRN ×2 (05:18→23:20)
[2018-09-13 06:07] LABS: Glucose,Whole Blood 203 mg/dL (75-99)
[2018-09-13 06:39] LABS: Basophils % (A) 0 %; Eosinophils % (A) 0 %; HCT 43.8 % (39.0-53.0); HGB 14.3 gm/dL (13.0-17.5); Lymphocytes # (A) 1.1 k/uL (1.0-4.8); Lymphocytes % (A) 11 %; MCH 28.7 pg (25.0-35.0); MCHC 32.5 g/dL (31.0-37.0); MCV 88.1 fL (80.0-100.0); Mean Platelet Volume 6.4; Monocytes # (A) 0.3 k/uL (0-1.0); Monocytes % (A) 3 %; Neutrophils # (A) 8.3 k/uL (1.3-7.7); Neutrophils % (A) 84 %; Platelet Count 308 k/uL (150-450); RBC 4.98 m/uL (4.30-5.90); RDW 14.1 % (11.5-15.5); WBC 9.9 k/uL (3.8-10.6)
[2018-09-13] MEDS: INSULIN ASPART 100 UNIT/ML 1 ML 10 ML VIAL SQ SCH ×4 (06:46→21:14)
[2018-09-13] MEDS: metFORMIN 500 MG TAB PO SCH ×2 (06:46→17:31)
[2018-09-13] MEDS: SODIUM CHLORIDE 0.9% 1,000 ML IV SCH ×2 (06:56→17:38)
[2018-09-13 07:04] LABS: Anion Gap 11 mmol/L; Blood Urea Nitrogen 17 mg/dL (9-20); Calcium 9.1 mg/dL (8.4-10.2); Carbon Dioxide 26 mmol/L (22-30); Chloride 103 mmol/L (98-107); Glucose 195 mg/dL (74-99); Potassium 4.5 mmol/L (3.5-5.1); Sodium 140 mmol/L (137-145)
[2018-09-13] MEDS: IPRATROPIUM-ALBUTEROL 3 ML NEB INHALATION SCH ×4 (07:34→21:19)
[2018-09-13] MEDS: SYMBICORT 160-4.5 MCG INHALER INHALATION SCH ×2 (07:34→21:19)
[2018-09-13] MEDS: LISINOPRIL 20 MG TAB PO SCH (08:55)
[2018-09-13] MEDS: FUROSEMIDE 20 MG TAB PO SCH ×2 (08:55→20:32)
[2018-09-13] MEDS: HYDROCHLOROTHIAZIDE 25 MG TAB PO SCH (08:55)
[2018-09-13] MEDS: INSULIN DETEMIR 100 UNIT/ML 10 ML VIAL SQ SCH ×2 (08:55→20:29)
[2018-09-13] MEDS: DOXYCYCLINE 100 MG in SODIUM CHLORIDE 0.9% 100 ML IVPB SCH ×2 (08:56→20:32)
[2018-09-13] MEDS: DILTIAZEM 50 MG in SODIUM CHLORIDE 0.9% 40 ML IV SCH ×2 (09:01→21:13)
[2018-09-13 12:06] LABS: Glucose,Whole Blood 264 mg/dL (75-99)
--- NOTE | 2018-09-13 12:51 | P.HPIM ---
History of Present Illness H&P Date: 09/12/18 Chief Complaint: Shortness of breath 62-year-old male the ER for evasive by EMS, patient comes for shortness breath starting yesterday severe shortness breath or dyspnea with hypoxia diaphoresis, patient's in tripod position unable to give accurate history at this time. Patient's history is obtained from EMS and patient's prior charting. Patient placed on BiPAP for evaluation Review of Systems ROS unobtainable: due to mental status Past Medical History Past Medical History: Asthma, COPD, Diabetes Mellitus, Hypertension, Osteoarthritis (OA), Pneumonia, Respiratory Disorder, Sleep Apnea/CPAP/BIPAP Additional Past Medical History / Comment(s): IDDM type II, HERBERT with CPAP, chronic respiratory failure-O2 2L/NC ATC, arthritis in multiple joints. History of Any Multi-Drug Resistant Organisms: None Reported Past Surgical History: Hernia Repair Additional Past Surgical History / Comment(s): Bronchoscopy, umbilical hernia repair. Past Anesthesia/Blood Transfusion Reactions: No Reported Reaction Past Psychological History: No Psychological Hx Reported Smoking Status: Former smoker Past Alcohol Use History: None Reported Past Drug Use History: None Reported - Past Family History Father Family Medical History: Diabetes Mellitus Mother Family Medical History: Asthma, Diabetes Mellitus Medications and Allergies Home Medications Medication Instructions Recorded Confirmed Type Budesonide-Formot 160-4.5 Mcg 2 puff INHALATION RT-BID 01/08/15 09/12/18 History [Symbicort 160-4.5 Mcg Inhaler] metFORMIN HCL [Glucophage] 500 mg PO AC-BID 01/08/15 09/12/18 History Furosemide [Lasix] 20 mg PO BID 10/17/17 09/12/18 History Hydrochlorothiazide 25 mg PO DAILY 10/17/17 09/12/18 History Moexipril HCl [Univasc] 15 mg PO DAILY 10/17/17 09/12/18 History amLODIPine [Norvasc] 5 mg PO HS 10/17/17 09/12/18 History Albuterol Nebulized [Ventolin 2.5 mg INHALATION RT-QID #120 nebu 10/20/17 Rx Nebulized] Insulin Glargine,Hum.rec.anlog 80 unit SQ BID 12/14/17 09/12/18 History [Lantus Solostar] Potassium Chloride ER [K-Dur 20] 20 meq PO DAILY PRN 12/14/17 09/12/18 History Albuterol Inhaler [Ventolin Hfa 2 puff INHALATION RT-Q6H PRN 09/12/18 09/12/18 History Inhaler] Albuterol Nebulized [Ventolin 2.5 mg INHALATION RT-Q4H PRN 09/12/18 09/12/18 History Nebulized] Insulin Lispro [humaLOG Kwikpen] See Protocol SQ ACHS 09/12/18 09/12/18 History Allergies Allergy/AdvReac Type Severity Reaction Status Date / Time No Known Allergies Allergy Verified 09/12/18 09:24 Physical Exam Vitals: Vital Signs Temp Pulse Resp BP Pulse Ox 09/12/18 11:26 110 H 09/12/18 11:16 98 09/12/18 10:00 98 117/76 98 09/12/18 09:30 115/90 99 09/12/18 09:00 101 H 133/63 98 09/12/18 08:30 141/98 98 09/12/18 08:00 121 H 119/60 98 09/12/18 07:51 115 H 09/12/18 07:40 95 119/60 98 09/12/18 07:28 35 H 09/12/18 07:22 144 H 09/12/18 07:18 130 H 137/93 98 09/12/18 07:06 98.0 F 139 H 34 H 191/157 99 Intake and Output 09/11/18 09/12/18 09/12/18 22:59 06:59 14:59 Output Total 175 Balance -175 Output: Urine 175 Other: Weight 145.603 kg General appearance: alert, anxious, obtunded, in distress Head exam: Present: atraumatic, normocephalic, normal inspection Eye exam: Present: normal appearance, PERRL, EOMI. Absent: scleral icterus, conjunctival injection, periorbital swelling ENT exam: Present: normal exam, mucous membranes moist Neck exam: Present: normal inspection. Absent: tenderness, meningismus, lymphadenopathy Respiratory exam: Present: respiratory distress, wheezes, rales, accessory muscle use, decreased breath sounds, prolonged expiratory. Absent: rhonchi, stridor Cardiovascular Exam: Present: tachycardia, irregular rhythm, normal heart sounds. Absent: systolic murmur, diastolic murmur, rubs, gallop, clicks GI/Abdominal exam: Present: soft, normal bowel sounds. Absent: distended, tenderness, guarding, rebound, rigid Extremities exam: Present: normal inspection, full ROM, normal capillary refill. Absent: tenderness, pedal edema, joint swelling, calf tenderness Back exam: Present: normal inspection Neurological exam: Present: alert, oriented X3, CN II-XII intact Psychiatric exam: Present: normal affect, normal mood Skin exam: Present: warm, dry, intact, normal color. Absent: rash Results CBC & Chem 7: 09/12/18 07:12 09/12/18 07:12 Labs: Abnormal Lab Results - Last 24 Hours (Table) 09/12/18 09/12/18 09/12/18 Range/Units 07:08 07:12 07:12 WBC 12.5 H (3.8-10.6) k/uL Glucose 181 H (74-99) mg/dL POC Glucose (mg/dL) 168 H (75-99) mg/dL Assessment and Plan Assessment: 1. Acute on chronic hypoxemic respiratory failure - Patient is admitted to telemetry on BiPAP - 2. Atrial fibrillation with RVR - Patient started on IV Cardizem bolus with drip for heart rate control - Patient is not on anticoagulation therapy at home - We will wait for cardiology recommendations 3. Acute exacerbation COPD - Started on IV Solu-Medrol 60 mg every 6 hours - Continue with bronchodilator nebulizer treatments 4 times a day - We will add steroid nebulizer treatments - Continue with home dose of Symbicort inhaler 2 puffs twice a day - Await recommendations from pulmonary; we appreciate their expertise and help in management of this patient 4. Uncontrolled hypertension - We will restart patient on home antihypertensive medications including Norvasc 5 mg daily at bedtime; hydrochlorothiazide 25 mg daily; Univasc 15 mg daily - We will continue to monitor blood pressure closely and adjust antihypertensives prior to discharge 5. Hyperglycemia/ diabetes mellitus 1 - Restart patient on home dose of Lantus 80 mg subcu twice a day and continue with Accu-Cheks every before meals and at bedtime with insulin sliding scale - Continue with metformin 500 mg twice a day 6. Obstructive sleep apnea; uses CPAP at home - Patient is currently on BiPAP 7. DVT prophylaxis; subcu Lovenox 40 mg daily CODE STATUS; full code
[2018-09-13 16:32] LABS: Glucose,Whole Blood 262 mg/dL (75-99)
--- NOTE | 2018-09-13 17:41 | P.CNPUL ---
History of Present Illness Consult date: 09/13/18 Requesting physician: Tay Oliveira Reason for consult: dyspnea, hypoxemia, abnormal CXR/CT Chief complaint: Shortness of breath,hypoxia, diaphoresis History of present illness: This is 62-year-old white male patient of Dr. Neil, presented to the emergency department today on 09/13/2018 with complaints of progressive dyspnea , diaphoresis, hypoxemia, patient was in severe respiratory distress, she was placed on BiPAP the emergency department. Denied any chest pain, did have limited cough with production of phlegm, and some nausea. Chest x-ray showed mild cardiomegaly. EKG showed A. fib with rapid ventricular response with a rate of 127 BPM. Labs showed white blood count 12.5, hemoglobin 15.3, electronically renal profile were within normal limits, the plan was negative 1 , proBNP was 497. His past medical history is positive for advanced COPD with chronic hypoxic and hypercapnic respiratory failure, home O2 at 2 L per nasal cannula. Patient's baseline FEV1 is 57% of predicted. His other past medical history is positive for congestive heart failure, diabetes mellitus, hypertension, osteoarthritis, obstructive sleep apnea on CPAP therapy, morbid obesity, nicotine dependence, in remission. Patient was started on IV steroids , he was given a dose of IV Lasix, empiric antibiotics in the form of doxycycline, started on Cardizem drip, currently he is feeling improved, on nasal cannula at 3 L per nasal cannula. Review of Systems All systems: negative Constitutional: Denies chills, Denies fever Eyes: denies blurred vision, denies pain Ears, nose, mouth and throat: Denies headache, Denies sore throat Cardiovascular: Reports dyspnea on exertion, Denies chest pain, Denies shortness of breath Respiratory: Reports cough with sputum, Reports dyspnea, Reports home oxygen, Reports sleep apnea, Denies cough Gastrointestinal: Denies abdominal pain, Denies diarrhea, Denies nausea, Denies vomiting Musculoskeletal: Denies myalgias Integumentary: Denies pruritus, Denies rash Neurological: Denies numbness, Denies weakness Psychiatric: Denies anxiety, Denies depression Endocrine: Denies fatigue, Denies weight change Past Medical History Past Medical History: Asthma, COPD, Diabetes Mellitus, Hypertension, Osteoarthritis (OA), Pneumonia, Respiratory Disorder, Sleep Apnea/CPAP/BIPAP Additional Past Medical History / Comment(s): IDDM type II, HERBERT with CPAP, chronic respiratory failure-O2 2L/NC ATC, arthritis in multiple joints. History of Any Multi-Drug Resistant Organisms: None Reported Past Surgical History: Hernia Repair Additional Past Surgical History / Comment(s): Bronchoscopy, umbilical hernia repair. Past Anesthesia/Blood Transfusion Reactions: No Reported Reaction Past Psychological History: No Psychological Hx Reported Smoking Status: Former smoker Past Alcohol Use History: None Reported Past Drug Use History: None Reported - Past Family History Father Family Medical History: Diabetes Mellitus Mother Family Medical History: Asthma, Diabetes Mellitus Medications and Allergies Home Medications Medication Instructions Recorded Confirmed Type Budesonide-Formot 160-4.5 Mcg 2 puff INHALATION RT-BID 01/08/15 09/12/18 History [Symbicort 160-4.5 Mcg Inhaler] metFORMIN HCL [Glucophage] 500 mg PO AC-BID 01/08/15 09/12/18 History Furosemide [Lasix] 20 mg PO BID 10/17/17 09/12/18 History Hydrochlorothiazide 25 mg PO DAILY 10/17/17 09/12/18 History Moexipril HCl [Univasc] 15 mg PO DAILY 10/17/17 09/12/18 History amLODIPine [Norvasc] 5 mg PO HS 10/17/17 09/12/18 History Albuterol Nebulized [Ventolin 2.5 mg INHALATION RT-QID #120 nebu 10/20/17 Rx Nebulized] Insulin Glargine,Hum.rec.anlog 80 unit SQ BID 12/14/17 09/12/18 History [Lantus Solostar] Potassium Chloride ER [K-Dur 20] 20 meq PO DAILY PRN 12/14/17 09/12/18 History Albuterol Inhaler [Ventolin Hfa 2 puff INHALATION RT-Q6H PRN 09/12/18 09/12/18 History Inhaler] Albuterol Nebulized [Ventolin 2.5 mg INHALATION RT-Q4H PRN 09/12/18 09/12/18 History Nebulized] Insulin Lispro [humaLOG Kwikpen] See Protocol SQ ACHS 09/12/18 09/12/18 History Allergies Allergy/AdvReac Type Severity Reaction Status Date / Time No Known Allergies Allergy Verified 09/12/18 09:24 Physical Exam Vitals: Vital Signs Temp Pulse Pulse Resp BP Pulse Ox 09/13/18 16:21 96 09/13/18 16:12 97.1 F L 96 98 20 121/78 97 09/13/18 12:46 98 09/13/18 12:32 96 09/13/18 12:00 97 F L 99 20 146/83 97 09/13/18 08:00 97.7 F 98 20 142/85 97 09/13/18 07:46 104 H 09/13/18 07:37 96 09/13/18 05:31 105 H 09/13/18 05:19 103 H 09/13/18 04:00 97.5 F L 86 22 155/97 95 09/13/18 00:08 104 H 09/12/18 23:57 102 H 09/12/18 23:29 97.7 F 93 22 131/86 98 09/12/18 20:00 98.1 F 100 18 144/83 95 09/12/18 19:43 108 H 09/12/18 19:24 104 H Intake and Output 09/13/18 09/13/18 09/13/18 06:59 14:59 22:59 Intake Total 50 1460 Output Total 600 250 Balance -550 1210 Intake: Intake, IV Titration 50 700 Amount Diltiazem 50 mg In Sodium 50 Chloride 0.9% 40 ml @ 5 MG/HR 5 mls/hr IV .Q10H TED Rx#:[id number] Doxycycline 100 mg In 100 Sodium Chloride 0.9% 100 ml @ 100 mls/hr IVPB Q12HR TED Rx#:[id number] Sodium Chloride 0.9% 1, 600 000 ml @ 100 mls/hr IV . Q10H TED Rx#:[id number] Oral 760 Output: Urine 600 250 Other: # Voids 2 Weight 157.6 kg GENERAL EXAM: Alert, pleasant, obese white male, comfortable in no apparent distress. Previously on BiPAP, currently on 3 L per nasal cannula, he is calm, comfortable HEAD: Normocephalic/atraumatic. EYES: Normal reaction of pupils, equal size. Conjunctiva pink, sclera white. NOSE: Clear with pink turbinates. THROAT: No erythema or exudates. NECK: No masses, no JVD, no thyroid enlargement, no adenopathy. CHEST: No chest wall deformity. Symmetrical expansion. LUNGS: Diminished air entry noted bilaterally, no rhonchi, no wheezing. CVS: Irregular rate and rhythm, normal S1 and S2, no gallops, no murmurs, no rubs ABDOMEN: Soft, nontender. No hepatosplenomegaly, normal bowel sounds, no guarding or rigidity. EXTREMITIES: No clubbing, no cyanosis, 2+ pulses and upper and lower extremities. Some chronic lower extremity swelling MUSCULOSKELETAL: Muscle strength and tone normal. SPINE: No scoliosis or deformity SKIN: No rashes CENTRAL NERVOUS SYSTEM: Alert and oriented -3. No focal deficits, tone is normal in all 4 extremities. PSYCHIATRIC: Alert and oriented -3. Appropriate affect. Intact judgment and insight. Results - Laboratory Findings CBC and BMP: 09/13/18 05:48 09/13/18 05:48 PT/INR, D-dimer PT 10.9 sec (9.0-12.0) 09/12/18 07:12 INR 1.1 (<1.2) 09/12/18 07:12 Abnormal lab findings: Abnormal Labs 09/12/18 09/12/18 09/12/18 07:08 07:12 07:12 WBC 12.5 H Neutrophils # Creatinine Glucose 181 H POC Glucose (mg/dL) 168 H Hemoglobin A1c 09/12/18 09/12/18 09/12/18 07:12 13:04 16:24 WBC Neutrophils # Creatinine Glucose POC Glucose (mg/dL) 263 H 262 H Hemoglobin A1c 7.0 H 09/12/18 09/13/18 09/13/18 20:25 05:48 05:48 WBC Neutrophils # 8.3 H Creatinine 0.64 L Glucose 195 H POC Glucose (mg/dL) 295 H Hemoglobin A1c 09/13/18 09/13/18 09/13/18 06:05 12:02 16:22 WBC Neutrophils # Creatinine Glucose POC Glucose (mg/dL) 203 H 264 H 262 H Hemoglobin A1c - Diagnostic Findings Chest x-ray: report reviewed, image reviewed Additional studies: EKG reviewed Assessment and Plan Plan: #1. Acute on chronic hypoxic respiratory failure secondary to acute COPD exacerbation, and chest x-ray did not show any acute pulmonary process #2. A. fib RVR #3. Obstructive sleep apnea, on CPAP therapy #4. Advanced oxygen-dependent COPD, with FEV1 of 57% of predicted #5. Diabetes mellitus type 2 #6. Hypertension #7. Osteoarthritis #8. Nicotine dependence, currently in remission #9. Morbid obesity, BMI 47.7 #10. Swelling of bilateral lower extremities, likely related to cor pulmonale #11. Nasal surgery for nasal septum deviation Plan: Continue IV steroids, nebulized bronchodilators, and oral diuretics. Continue doxycycline, BiPAP support as needed and at bedtime. Skin a dose of IV Lasix, is currently on oral diuretics. Patient already reports some improvement in terms of dyspnea, resolved BiPAP support,. Wean FiO2 to his home FiO2. Activity as tolerated. I performed a history & physical examination of the patient and discussed their management with my nurse practitioner, Sarah Santos. I reviewed the nurse practitioner's note and agree with the documented findings and plan of care. Lung sounds are positive for diminished breath sounds. The findings and the impression was discussed with the patient. I attest to the documentation by the nurse practitioner. Time with Patient: Greater than 30
--- NOTE | 2018-09-13 17:57 | P.PN ---
Subjective Progress Note Date: 09/13/18 Principal diagnosis: 1. Acute on chronic hypoxemic respiratory failure 2. A. fib with RVR 3. Acute exacerbation COPD This is 62-year-old white male patient of Dr. Neil, presented to the emergency department today on 09/13/2018 with complaints of progressive dyspnea , diaphoresis, hypoxemia, patient was in severe respiratory distress, she was placed on BiPAP the emergency department. Denied any chest pain, did have limited cough with production of phlegm, and some nausea. Chest x-ray showed mild cardiomegaly. EKG showed A. fib with rapid ventricular response with a rate of 127 BPM. Labs showed white blood count 12.5, hemoglobin 15.3, electronically renal profile were within normal limits, the plan was negative 1 , proBNP was 497. His past medical history is positive for advanced COPD with chronic hypoxic and hypercapnic respiratory failure, home O2 at 2 L per nasal cannula. Patient's baseline FEV1 is 57% of predicted. His other past medical history is positive for congestive heart failure, diabetes mellitus, hypertension, osteoarthritis, obstructive sleep apnea on CPAP therapy, morbid obesity, nicotine dependence, in remission. Patient was started on IV steroids , he was given a dose of IV Lasix, empiric antibiotics in the form of doxycycline, started on Cardizem drip, currently he is feeling improved, on nasal cannula at 3 L per nasal cannula. 11/13/2017; Patient is seen for follow-up on acute hypoxic respiratory failure and acute exacerbation COPD; patient is off BiPAP now and sitting up in a chair; patient does report improvement in breathing status compared to yesterday Vital signs are reviewed with a temperature of 97.1, pulse 98, respiration 20 and blood pressure of 121/78; patient is saturating 97% on 3 L Review of blood work is unremarkable except for elevated blood sugars ranging between 195-262 Pulmonary service has evaluated patient and recommending to continue IV steroids , nebulized bronchodilators and oral diuretics; doxycycline is also recommended to be continued with BiPAP support at bedtime as needed Patient remains on IV Cardizem drip; heart rate is controlled; await recommendations from cardiology service Objective - Vital Signs Vital signs: Vital Signs Temp 97.1 F L 09/13/18 16:12 Pulse 96 09/13/18 16:21 Resp 20 09/13/18 16:12 BP 121/78 09/13/18 16:12 Pulse Ox 97 11/19/18 16:12 Intake & Output 09/12/18 09/13/18 09/13/18 18:59 06:59 18:59 Intake Total 585 43 2063 Output Total 175 600 250 Balance 115 -550 1210 Weight 157.8 kg 157.6 kg Intake: Intake, IV Titration 50 50 700 Amount Diltiazem 50 mg In Sodium 50 50 Chloride 0.9% 40 ml @ 5 MG/HR 5 mls/hr IV .Q10H TED Rx#:[id number] Doxycycline 100 mg In 100 Sodium Chloride 0.9% 100 ml @ 100 mls/hr IVPB Q12HR TED Rx#:[id number] Sodium Chloride 0.9% 1, 600 000 ml @ 100 mls/hr IV . Q10H TED Rx#:[id number] Oral 240 760 Output: Urine 175 600 250 Other: # Voids 1 2 - Exam General appearance: alert, anxious, obtunded, in distress Head exam: Present: atraumatic, normocephalic, normal inspection Eye exam: Present: normal appearance, PERRL, EOMI. Absent: scleral icterus, conjunctival injection, periorbital swelling ENT exam: Present: normal exam, mucous membranes moist Neck exam: Present: normal inspection. Absent: tenderness, meningismus, lymphadenopathy Respiratory exam: Present: respiratory distress, wheezes, rales, accessory muscle use, decreased breath sounds, prolonged expiratory. Absent: rhonchi, stridor Cardiovascular Exam: Present: tachycardia, irregular rhythm, normal heart sounds. Absent: systolic murmur, diastolic murmur, rubs, gallop, clicks GI/Abdominal exam: Present: soft, normal bowel sounds. Absent: distended, tenderness, guarding, rebound, rigid Extremities exam: Present: normal inspection, full ROM, normal capillary refill. Absent: tenderness, pedal edema, joint swelling, calf tenderness Back exam: Present: normal inspection Neurological exam: Present: alert, oriented X3, CN II-XII intact Psychiatric exam: Present: normal affect, normal mood Skin exam: Present: warm, dry, intact, normal color. Absent: rash - Labs CBC & Chem 7: 09/13/18 05:48 09/13/18 05:48 Labs: Abnormal Lab Results - Last 24 Hours (Table) 09/12/18 09/12/18 09/13/18 Range/Units 07:12 20:25 05:48 Neutrophils # 8.3 H (1.3-7.7) k/uL Creatinine (0.66-1.25) mg/dL Glucose (74-99) mg/dL POC Glucose (mg/dL) 295 H (75-99) mg/dL Hemoglobin A1c 7.0 H (4.0-6.0) % 09/13/18 09/13/18 09/13/18 Range/Units 05:48 06:05 12:02 Neutrophils # (1.3-7.7) k/uL Creatinine 0.64 L (0.66-1.25) mg/dL Glucose 195 H (74-99) mg/dL POC Glucose (mg/dL) 203 H 264 H (75-99) mg/dL Hemoglobin A1c (4.0-6.0) % 09/13/18 Range/Units 16:22 Neutrophils # (1.3-7.7) k/uL Creatinine (0.66-1.25) mg/dL Glucose (74-99) mg/dL POC Glucose (mg/dL) 262 H (75-99) mg/dL Hemoglobin A1c (4.0-6.0) % Assessment and Plan Assessment: 1. Acute on chronic hypoxemic respiratory failure - Patient is admitted to telemetry on BiPAP - 2. Atrial fibrillation with RVR - Patient started on IV Cardizem bolus with drip for heart rate control - Patient is not on anticoagulation therapy at home - We will wait for cardiology recommendations 3. Acute exacerbation COPD - Started on IV Solu-Medrol 60 mg every 6 hours - Continue with bronchodilator nebulizer treatments 4 times a day - We will add steroid nebulizer treatments - Continue with home dose of Symbicort inhaler 2 puffs twice a day - Await recommendations from pulmonary; we appreciate their expertise and help in management of this patient 4. Uncontrolled hypertension - We will restart patient on home antihypertensive medications including Norvasc 5 mg daily at bedtime; hydrochlorothiazide 25 mg daily; Univasc 15 mg daily - We will continue to monitor blood pressure closely and adjust antihypertensives prior to discharge 5. Hyperglycemia/ diabetes mellitus 1 - Restart patient on home dose of Lantus 80 mg subcu twice a day and continue with Accu-Cheks every before meals and at bedtime with insulin sliding scale - Continue with metformin 500 mg twice a day 6. Obstructive sleep apnea; uses CPAP at home - Patient is currently on BiPAP 7. DVT prophylaxis; subcu Lovenox 40 mg daily CODE STATUS; full code Time with Patient: Greater than 30
[2018-09-13] MEDS: amLODIPine 5 MG TAB PO SCH (20:32)
[2018-09-13 21:08] LABS: Glucose,Whole Blood 259 mg/dL (75-99)
[2018-09-14] MEDS: methylPREDNISolone SOD SUCCI 125 MG/2 ML VIAL IV SCH ×4 (05:55→23:14)
[2018-09-14] MEDS: DILTIAZEM 50 MG in SODIUM CHLORIDE 0.9% 40 ML IV SCH ×2 (05:56→08:34)
[2018-09-14] MEDS: metFORMIN 500 MG TAB PO SCH ×2 (05:56→17:47)
[2018-09-14 06:09] LABS: Glucose,Whole Blood 155 mg/dL (75-99)
[2018-09-14] MEDS: SODIUM CHLORIDE 0.9% 1,000 ML IV SCH ×3 (06:35→20:09)
[2018-09-14] MEDS: INSULIN ASPART 100 UNIT/ML 1 ML 10 ML VIAL SQ SCH ×4 (06:36→22:12)
[2018-09-14] MEDS: SYMBICORT 160-4.5 MCG INHALER INHALATION SCH ×2 (07:13→19:36)
[2018-09-14] MEDS: IPRATROPIUM-ALBUTEROL 3 ML NEB INHALATION SCH ×4 (07:13→19:37)
[2018-09-14] MEDS: FUROSEMIDE 20 MG TAB PO SCH ×2 (08:35→20:08)
[2018-09-14] MEDS: DOXYCYCLINE 100 MG in SODIUM CHLORIDE 0.9% 100 ML IVPB SCH ×2 (08:35→20:07)
[2018-09-14] MEDS: INSULIN DETEMIR 100 UNIT/ML 10 ML VIAL SQ SCH ×2 (08:35→22:12)
[2018-09-14] MEDS: ENOXAPARIN 40 MG/0.4 ML SYRINGE SQ SCH (08:35)
[2018-09-14] MEDS: LISINOPRIL 20 MG TAB PO SCH (08:35)
[2018-09-14] MEDS: HYDROCHLOROTHIAZIDE 25 MG TAB PO SCH (08:35)
--- NOTE | 2018-09-14 09:36 | P.CRDCN ---
History of Present Illness Consult date: 09/14/18 Requesting physician: David Delvalle Consult reason: atrial fibrillation Chief complaint: Shortness of breath History of present illness: This is a 62-year-old gentleman past medical history significant for advanced COPD, chronic hypoxia, with home O2 use, sleep apnea, diabetes, hypertension, arthritis, morbid obesity, nicotine dependence history, who presented to the hospital with symptoms of progressive dyspnea. EKG was performed on arrival here which showed atrial fibrillation with rapid ventricular response and for this reason a cardiology consultation was requested. 40s to the patient, he has had no prior documented history of atrial fibrillation. He was initiated on IV Cardizem on admission here. Continues to be on the drip at 5 mg per hour. Blood pressure 140/90 with a heart rate in the mid-90s this morning, 96% on 2 L of oxygen. Chest x-ray on admission, was a limited study, mild cardiomegaly noted. White blood cell count on admission 12.5, hemoglobin 15.3, platelet count 337. Sodium 140, potassium 4.5, BUN 17, creatinine 0.6. D-dimer 0.18. Magnesium 2.2. BNP level 497I and troponin 0.012. At the time of my examination, patient patient is sitting up in his chair at bedside, he states that he had significant difficulty in breathing through the night last night however this morning does feel overall much better. Past Medical History Past Medical History: Asthma, COPD, Diabetes Mellitus, Hypertension, Osteoarthritis (OA), Pneumonia, Respiratory Disorder, Sleep Apnea/CPAP/BIPAP Additional Past Medical History / Comment(s): IDDM type II, HERBERT with CPAP, chronic respiratory failure-O2 2L/NC ATC, arthritis in multiple joints. History of Any Multi-Drug Resistant Organisms: None Reported Past Surgical History: Hernia Repair Additional Past Surgical History / Comment(s): Bronchoscopy, umbilical hernia repair. Past Anesthesia/Blood Transfusion Reactions: No Reported Reaction Past Psychological History: No Psychological Hx Reported Smoking Status: Former smoker Past Alcohol Use History: None Reported Past Drug Use History: None Reported - Past Family History Father Family Medical History: Diabetes Mellitus Mother Family Medical History: Asthma, Diabetes Mellitus Medications and Allergies Home Medications Medication Instructions Recorded Confirmed Type Budesonide-Formot 160-4.5 Mcg 2 puff INHALATION RT-BID 01/08/15 09/12/18 History [Symbicort 160-4.5 Mcg Inhaler] metFORMIN HCL [Glucophage] 500 mg PO AC-BID 01/08/15 09/12/18 History Furosemide [Lasix] 20 mg PO BID 10/17/17 09/12/18 History Hydrochlorothiazide 25 mg PO DAILY 10/17/17 09/12/18 History Moexipril HCl [Univasc] 15 mg PO DAILY 10/17/17 09/12/18 History amLODIPine [Norvasc] 5 mg PO HS 10/17/17 09/12/18 History Albuterol Nebulized [Ventolin 2.5 mg INHALATION RT-QID #120 nebu 10/20/17 Rx Nebulized] Insulin Glargine,Hum.rec.anlog 80 unit SQ BID 12/14/17 09/12/18 History [Lantus Solostar] Potassium Chloride ER [K-Dur 20] 20 meq PO DAILY PRN 12/14/17 09/12/18 History Albuterol Inhaler [Ventolin Hfa 2 puff INHALATION RT-Q6H PRN 09/12/18 09/12/18 History Inhaler] Albuterol Nebulized [Ventolin 2.5 mg INHALATION RT-Q4H PRN 09/12/18 09/12/18 History Nebulized] Insulin Lispro [humaLOG Kwikpen] See Protocol SQ ACHS 09/12/18 09/12/18 History Allergies Allergy/AdvReac Type Severity Reaction Status Date / Time No Known Allergies Allergy Verified 09/12/18 09:24 Physical Exam Vitals: Vital Signs Temp Pulse Pulse Resp BP Pulse Ox 09/14/18 07:25 96 09/14/18 07:15 100 96 09/14/18 03:56 97.6 F 94 20 141/90 95 09/13/18 23:33 91 09/13/18 23:08 96.8 F L 93 24 157/83 96 09/13/18 21:30 91 09/13/18 21:21 95 09/13/18 20:00 96.2 F L 90 20 131/95 97 09/13/18 16:21 96 09/13/18 16:12 97.1 F L 96 98 20 121/78 97 09/13/18 12:46 98 09/13/18 12:32 96 09/13/18 12:00 97 F L 99 20 146/83 97 Intake and Output 09/13/18 09/14/18 09/14/18 22:59 06:59 14:59 Intake Total 150 43.583 13.167 Output Total 1100 Balance 150 -1056.417 13.167 Intake: Intake, IV Titration 150 43.583 13.167 Amount Diltiazem 50 mg In Sodium 50 43.583 13.167 Chloride 0.9% 40 ml @ 5 MG/HR 5 mls/hr IV .Q10H TED Rx#:[id number] Doxycycline 100 mg In 100 Sodium Chloride 0.9% 100 ml @ 100 mls/hr IVPB Q12HR TED Rx#:[id number] Output: Urine 1100 Other: # Voids 2 Weight 158.3 kg PHYSICAL EXAMINATION: GENERAL: 62-year-old gentleman in no acute distress at the time of my examination HEENT: Head is atraumatic, normocephalic. Pupils equal, round. Sclera anicteric. Conjunctiva are clear. Mucous membranes of the mouth are moist. Neck is supple. There is no elevated jugular venous pressure. No carotid bruit is heard. HEART EXAMINATION: Heart S1 and S2 irregularly irregular CHEST EXAMINATION: Lungs reveal diminished air entry bilaterally with scattered wheezing noted throughout. ABDOMEN: Soft, obese, nontender. Bowel sounds are heard. No organomegaly noted. EXTREMITIES: 2+ peripheral pulses with evidence of peripheral edema and no calf tenderness noted. NEUROLOGIC patient is awake, alert and oriented 3 . . Results 09/13/18 05:48 09/13/18 05:48 Current Medications Generic Name Dose Route Start Last Admin Trade Name Freq PRN Reason Stop Dose Admin Albuterol/Ipratropium 3 ml 09/12/18 08:00 09/14/18 07:13 Duoneb 0.5 Mg-3 Mg/3 Ml Soln INHALATION 3 ml RT-QID TED Administration Albuterol/Ipratropium 3 ml 09/12/18 23:36 09/13/18 23:20 Duoneb 0.5 Mg-3 Mg/3 Ml Soln INHALATION 3 ml RT-Q2H PRN Administration Shortness Of Breath Or Wheezing Amlodipine Besylate 5 mg 09/12/18 21:00 09/13/18 20:32 Norvasc PO 5 mg HS TED Administration Budesonide/Formoterol Fumarate 2 puff 09/12/18 20:00 09/14/18 07:13 Symbicort 160-4.5 Mcg Inhaler INHALATION 2 puff RT-BID TED Administration Enoxaparin Sodium 40 mg 09/12/18 09:00 09/14/18 08:35 Lovenox SQ 40 mg DAILY TED Administration Furosemide 20 mg 09/12/18 21:00 09/14/18 08:35 Lasix PO 20 mg BID TED Administration Hydrochlorothiazide 25 mg 09/13/18 09:00 09/14/18 08:35 Hydrodiuril PO 25 mg DAILY TED Administration Diltiazem HCl 50 mg/ Sodium 50 mls @ 5 mls/hr 09/12/18 07:30 09/14/18 08:34 Chloride IV 5 mg/hr .Q10H TED 5 mls/hr Administration 5 MG/HR Sodium Chloride 1,000 mls @ 100 mls/hr 09/12/18 08:00 09/14/18 06:35 Saline 0.9% IV Not Given .Q10H TED Doxycycline Hyclate 100 mg/ 100 mls @ 100 mls/hr 09/12/18 21:00 09/14/18 08: 35 Sodium Chloride IVPB 100 mls/hr Q12HR TED Administration Insulin Aspart 0 unit 09/12/18 17:30 09/14/18 06:36 Novolog SQ 2 unit ACHS TED Administration Protocol Insulin Detemir 80 unit 09/12/18 21:00 09/14/18 08:35 Levemir SQ 80 unit BID TED Administration Lisinopril 20 mg 09/13/18 09:00 09/14/18 08:35 Zestril PO 20 mg DAILY TED Administration Metformin HCl 500 mg 09/12/18 17:30 09/14/18 05:56 Glucophage PO 500 mg AC-BID TED Administration Methylprednisolone Sodium Succinate 60 mg 09/12/18 12:00 09/14/18 05:55 Solu-Medrol IV 60 mg Q6HR TED Administration Morphine Sulfate 4 mg 09/12/18 11:01 Morphine Sulfate (Inj) IVP Q4HR PRN Pain Potassium Chloride 20 meq 09/12/18 13:54 K-Dur 20 PO DAILY PRN LOW POTASSIUM Intake and Output 09/13/18 09/14/18 09/14/18 22:59 06:59 14:59 Intake Total 150 43.583 13.167 Output Total 1100 Balance 150 -1056.417 13.167 Intake: Intake, IV Titration 150 43.583 13.167 Amount Diltiazem 50 mg In Sodium 50 43.583 13.167 Chloride 0.9% 40 ml @ 5 MG/HR 5 mls/hr IV .Q10H TED Rx#:[id number] Doxycycline 100 mg In 100 Sodium Chloride 0.9% 100 ml @ 100 mls/hr IVPB Q12HR TED Rx#:[id number] Output: Urine 1100 Other: # Voids 2 Weight 158.3 kg 09/13/18 05:48 09/13/18 05:48 EKG Interpretations (text) EKG shows atrial fibrillation with rapid ventricular response Assessment and Plan Plan: Assessment and plan #1 acute on chronic aplastic respiratory failure secondary to acute COPD exacerbation #2 atrial fibrillation with rapid ventricular response, appears to be of new onset for the patient #3 obstructive sleep apnea, on CPAP therapy #4 COPD, oxygen dependent #5 hypertension #6 diabetes #7 hyperlipidemia #8 history of nicotine dependence #9 morbid obesity Plan We will obtain an echocardiogram with Doppler study. Patient is currently on IV Cardizem drip. He is on Lovenox at this point once a day. We'll discontinue the Lovenox and start the patient on Eliquis, we will also check to see regarding coverage. We'll discontinue the Cardizem drip and start the patient on by mouth Cardizem, discontinue the Norvasc. Patient did have an echocardiogram with Doppler study performed in 2014 which revealed an ejection fraction of 55-60% at that time. If the patient's LV function comes back on this occasion to be abnormal we will use beta chapin instead of calcium channel chapin. We will also check the patient's TSH level. Further recommendations to follow. DNP note has been reviewed, I agree with a documented findings and plan of care. Patient was seen and examined.
--- NOTE | 2018-09-14 11:25 | P.PN ---
Subjective Progress Note Date: 09/14/18 Principal diagnosis: Acute on chronic hypoxic respiratory failure secondary to acute COPD exacerbation This is 62-year-old white male patient of Dr. Neil, presented to the emergency department today on 09/13/2018 with complaints of progressive dyspnea , diaphoresis, hypoxemia, patient was in severe respiratory distress, she was placed on BiPAP the emergency department. Denied any chest pain, did have limited cough with production of phlegm, and some nausea. Chest x-ray showed mild cardiomegaly. EKG showed A. fib with rapid ventricular response with a rate of 127 BPM. Labs showed white blood count 12.5, hemoglobin 15.3, electronically renal profile were within normal limits, the plan was negative 1 , proBNP was 497. His past medical history is positive for advanced COPD with chronic hypoxic and hypercapnic respiratory failure, home O2 at 2 L per nasal cannula. Patient's baseline FEV1 is 57% of predicted. His other past medical history is positive for congestive heart failure, diabetes mellitus, hypertension, osteoarthritis, obstructive sleep apnea on CPAP therapy, morbid obesity, nicotine dependence, in remission. Patient was started on IV steroids , he was given a dose of IV Lasix, empiric antibiotics in the form of doxycycline, started on Cardizem drip, currently he is feeling improved, on nasal cannula at 3 L per nasal cannula. On 09/14/2018 patient seen in follow-up on selective care unit. He sitting up in the chair, currently on 2 L per nasal cannula his pulse ox is 95%, afebrile, remains in A. fib, he is he still a bit tachycardic, with heart rate up to 112 BPM, his Cardizem drip has been transitioned to verapamil. Did not require BiPAP support last night. Lung sounds are bronchospastic, and diminished, d- dimer was negative, patient is on IV steroids, oral diuretics, and he was in slightly positive balance, we will decrease the IV fluids. Continue with oral diuretics, continue with empiric antibiotics. Objective - Vital Signs Vital signs: Vital Signs Temp 97.1 F L 09/14/18 08:00 Pulse 108 H 09/14/18 11:09 Resp 20 09/14/18 08:00 BP 130/83 09/14/18 08:00 Pulse Ox 95 09/14/18 08:00 Intake & Output 09/13/18 09/14/1818 18:59 06:59 18:59 Intake Total 1460 193.583 13.167 Output Total 250 1100 Balance 1210 -906.417 13.167 Weight 158.3 kg Intake: Intake, IV Titration 700 193.583 13.167 Amount Diltiazem 50 mg In Sodium 93.583 13.167 Chloride 0.9% 40 ml @ 5 MG/HR 5 mls/hr IV .Q10H TED Rx#:[id number] Doxycycline 100 mg In 100 100 Sodium Chloride 0.9% 100 ml @ 100 mls/hr IVPB Q12HR TED Rx#:[id number] Sodium Chloride 0.9% 1, 600 000 ml @ 100 mls/hr IV . Q10H TED Rx#:[id number] Oral 760 Output: Urine 250 1100 Other: # Voids 2 - Exam GENERAL EXAM: Alert, pleasant, obese white male, comfortable in no apparent distress. Previously on BiPAP, currently on 3 L per nasal cannula, he is calm, comfortable HEAD: Normocephalic/atraumatic. EYES: Normal reaction of pupils, equal size. Conjunctiva pink, sclera white. NOSE: Clear with pink turbinates. THROAT: No erythema or exudates. NECK: No masses, no JVD, no thyroid enlargement, no adenopathy. CHEST: No chest wall deformity. Symmetrical expansion. LUNGS: Diminished air entry noted bilaterally, diffuse wheezes CVS: Irregular rate and rhythm, normal S1 and S2, no gallops, no murmurs, no rubs ABDOMEN: Soft, nontender. No hepatosplenomegaly, normal bowel sounds, no guarding or rigidity. EXTREMITIES: No clubbing, no cyanosis, 2+ pulses and upper and lower extremities. Some chronic lower extremity swelling MUSCULOSKELETAL: Muscle strength and tone normal. SPINE: No scoliosis or deformity SKIN: No rashes CENTRAL NERVOUS SYSTEM: Alert and oriented -3. No focal deficits, tone is normal in all 4 extremities. PSYCHIATRIC: Alert and oriented -3. Appropriate affect. Intact judgment and insight. - Labs CBC & Chem 7: 09/13/18 05:48 09/13/18 05:48 Labs: Abnormal Lab Results - Last 24 Hours (Table) 09/12/18 09/13/18 09/13/18 Range/Units 07:12 05:48 12:02 POC Glucose (mg/dL) 264 H (75-99) mg/dL Hemoglobin A1c 7.0 H (4.0-6.0) % TSH 0.283 L (0.465-4.680) mIU/L 09/13/18 09/13/18 09/14/18 Range/Units 16:22 20:47 06:07 POC Glucose (mg/dL) 262 H 259 H 155 H (75-99) mg/dL Hemoglobin A1c (4.0-6.0) % TSH (0.465-4.680) mIU/L Assessment and Plan Plan: #1. Acute on chronic hypoxic respiratory failure secondary to acute COPD exacerbation, and chest x-ray did not show any acute pulmonary process #2. A. fib RVR #3. Obstructive sleep apnea, on CPAP therapy #4. Advanced oxygen-dependent COPD, with FEV1 of 57% of predicted #5. Diabetes mellitus type 2 #6. Hypertension #7. Osteoarthritis #8. Nicotine dependence, currently in remission #9. Morbid obesity, BMI 47.7 #10. Swelling of bilateral lower extremities, likely related to cor pulmonale #11. Nasal surgery for nasal septum deviation Plan: Tinea current plan of treatment, IV steroids, oral diuretics, decrease IV fluids down to KVO, IV Cardizem has been transitioned to oral verapamil, heart rate is better controlled, patient is anticoagulated with Eliquis. Continue nebulized bronchodilators, empiric antibiotics, will continue to follow. I performed a history & physical examination of the patient and discussed their management with my nurse practitioner, Sarah Santos. I reviewed the nurse practitioner's note and agree with the documented findings and plan of care. Lung sounds are positive for diminished breath sounds scattered wheezes. The findings and the impression was discussed with the patient. I attest to the documentation by the nurse practitioner. Time with Patient: Less than 30
[2018-09-14 12:03] LABS: Glucose,Whole Blood 207 mg/dL (75-99)
[2018-09-14] MEDS: VERAPAMIL 40 MG TAB PO SCH ×3 (12:46→22:13)
[2018-09-14] MEDS: APIXABAN 5 MG TAB PO SCH ×2 (12:50→20:08)
[2018-09-14 16:17] LABS: Glucose,Whole Blood 186 mg/dL (75-99)
[2018-09-14] MEDS ORDERED: ATORVASTATIN 40 MG TAB PO SCH (21:00)
[2018-09-14 21:23] LABS: Glucose,Whole Blood 195 mg/dL (75-99)
[2018-09-15] MEDS: IPRATROPIUM-ALBUTEROL 3 ML NEB INHALATION PRN ×2 (00:20→03:54)
[2018-09-15] MEDS: INSULIN ASPART 100 UNIT/ML 1 ML 10 ML VIAL SQ SCH ×2 (06:45→12:15)
[2018-09-15] MEDS: metFORMIN 500 MG TAB PO SCH (06:46)
[2018-09-15] MEDS: methylPREDNISolone SOD SUCCI 125 MG/2 ML VIAL IV SCH ×2 (06:46→12:15)
[2018-09-15 07:00] LABS: Glucose,Whole Blood 165 mg/dL (75-99)
[2018-09-15] MEDS: LISINOPRIL 20 MG TAB PO SCH (08:34)
[2018-09-15] MEDS: DOXYCYCLINE 100 MG in SODIUM CHLORIDE 0.9% 100 ML IVPB SCH (08:34)
[2018-09-15] MEDS: FUROSEMIDE 20 MG TAB PO SCH (08:34)
[2018-09-15] MEDS: VERAPAMIL 40 MG TAB PO SCH (08:34)
[2018-09-15] MEDS: APIXABAN 5 MG TAB PO SCH (08:35)
[2018-09-15] MEDS: HYDROCHLOROTHIAZIDE 25 MG TAB PO SCH (08:35)
[2018-09-15] MEDS: INSULIN DETEMIR 100 UNIT/ML 10 ML VIAL SQ SCH (09:00)
[2018-09-15] MEDS: IPRATROPIUM-ALBUTEROL 3 ML NEB INHALATION SCH ×2 (09:14→12:12)
[2018-09-15] MEDS: SYMBICORT 160-4.5 MCG INHALER INHALATION SCH (09:14)
[2018-09-15 09:19] VITALS: TEMP 96.8
--- NOTE | 2018-09-15 11:09 | P.PN ---
Subjective Progress Note Date: 09/14/18 Progress note being dictated for Dr. Delvalle. Interval history:This is 62-year-old white male patient of Dr. Neil, presented to the emergency department today on 09/13/2018 with complaints of progressive dyspnea, diaphoresis, hypoxemia, patient was in severe respiratory distress, she was placed on BiPAP the emergency department. Denied any chest pain, did have limited cough with production of phlegm, and some nausea. Chest x-ray showed mild cardiomegaly. EKG showed A. fib with rapid ventricular response with a rate of 127 BPM. Labs showed white blood count 12.5, hemoglobin 15.3, electronically renal profile were within normal limits, the plan was negative 1, proBNP was 497. His past medical history is positive for advanced COPD with chronic hypoxic and hypercapnic respiratory failure, home O2 at 2 L per nasal cannula. Patient's baseline FEV1 is 57% of predicted. His other past medical history is positive for congestive heart failure, diabetes mellitus, hypertension, osteoarthritis, obstructive sleep apnea on CPAP therapy , morbid obesity, nicotine dependence, in remission. Patient was started on IV steroids, he was given a dose of IV Lasix, empiric antibiotics in the form of doxycycline, started on Cardizem drip, currently he is feeling improved, on nasal cannula at 3 L per nasal cannula. 11/13/2017; Patient is seen for follow-up on acute hypoxic respiratory failure and acute exacerbation COPD; patient is off BiPAP now and sitting up in a chair; patient does report improvement in breathing status compared to yesterday Vital signs are reviewed with a temperature of 97.1, pulse 98, respiration 20 and blood pressure of 121/78; patient is saturating 97% on 3 L Review of blood work is unremarkable except for elevated blood sugars ranging between 195-262 Pulmonary service has evaluated patient and recommending to continue IV steroids , nebulized bronchodilators and oral diuretics; doxycycline is also recommended to be continued with BiPAP support at bedtime as needed Patient remains on IV Cardizem drip; heart rate is controlled; await recommendations from cardiology service 11/14/2017 telemetry atrial fibrillation with better controlled ventricular rate , heart rate in the low 110s. Cardizem drip weaned off, verapamil initiated. Echo pending. Maintained on nebulized bronchodilators, IV steroids, diuretics- oral, antibiotics .Complains of shortness of breath, maintaining O2 sats of 95- 96% on 2 L nasal cannula. Denies chest pain, palpitations. Afebrile. Objective - Vital Signs Vital signs: Vital Signs Temp 97.5 F L 09/14/18 19:58 Pulse 101 H 09/14/18 19:58 Resp 19 09/14/18 19:58 BP 134/77 09/14/18 19:58 Pulse Ox 95 09/14/18 19:58 Intake & Output 09/14/18 09/14/18 09/15/18 06:59 18:59 06:59 Intake Total 193.583 633.167 Output Total 1100 550 Balance -906.417 83.167 Weight 158.3 kg Intake: Intake, IV Titration 193.583 273.167 Amount Diltiazem 50 mg In Sodium 93.583 13.167 Chloride 0.9% 40 ml @ 5 MG/HR 5 mls/hr IV .Q10H TED Rx#:[id number] Doxycycline 100 mg In 100 100 Sodium Chloride 0.9% 100 ml @ 100 mls/hr IVPB Q12HR TED Rx#:[id number] Sodium Chloride 0.9% 1, 160 000 ml @ 20 mls/hr IV . Q24H TED Rx#:[id number] Oral 360 Output: Urine 1100 550 Other: # Voids 2 1 - Exam General appearance: alert, anxious, sitting up in chair, no acute distress Head exam: Present: atraumatic, normocephalic, normal inspection Eye exam: Present: normal appearance, PERRL, EOMI. Absent: scleral icterus, conjunctival injection, periorbital swelling ENT exam: Present: normal exam, mucous membranes moist Neck exam: Present: normal inspection. Absent: tenderness, meningismus, lymphadenopathy Respiratory exam: Present: Diminished with expiratory wheezes Cardiovascular Exam: Present: mild tachycardia, irregular rhythm, normal heart sounds. Absent: systolic murmur, diastolic murmur, rubs, gallop, clicks GI/Abdominal exam: Present: soft, normal bowel sounds. Absent: distended, tenderness, guarding, rebound, rigid Extremities exam: Present: normal inspection, full ROM, normal capillary refill , bilateral lower extremity edema Neurological exam: Present: alert, oriented X3, CN II-XII intact Psychiatric exam: Present: normal affect, normal mood - Labs CBC & Chem 7: 09/13/18 05:48 09/13/18 05:48 Labs: Abnormal Lab Results - Last 24 Hours (Table) 09/13/18 09/13/18 09/14/18 Range/Units 05:48 20:47 06:07 POC Glucose (mg/dL) 259 H 155 H (75-99) mg/dL TSH 0.283 L (0.465-4.680) mIU/L 09/14/18 09/14/18 Range/Units 12:01 16:16 POC Glucose (mg/dL) 207 H 186 H (75-99) mg/dL TSH (0.465-4.680) mIU/L Assessment and Plan Assessment: -Acute on chronic hypoxic respiratory failure secondary to acute COPD exacerbation -Atrial fibrillation with RVR, new onset, status post Cardizem drip -Hypertension -Diabetes mellitus type II -Obstructive sleep apnea, uses CPAP at home -History of nicotine dependence -Morbid obesity, BMI 51.6 Plan: Continue on current medication regime ,monitoring and symptomatic treatment. Cardizem drip weaned off, verapamil initiated. Anticoagulated on Eliquis. Echo/TSH pending. Continue on nebulized bronchodilators, steroids, antibiotics .Patient currently does not have portable oxygen at home. Primary care physician assisting patient ;as in 3 weeks patient will have Medicare insurance which will cover the portable oxygen per supportive employment case manager. Discharge planning in progress for tomorrow pending cardiology and pulmonary clearance. The impression and plan of care has been dictated as directed. : I performed a history and examination of this patient, discussed the same with the dictator. I agree with the dictator's note ,documented as a scribe. Any additional findings or plans will be noted.
[2018-09-15 11:45] LABS: Glucose,Whole Blood 241 mg/dL (75-99)
--- NOTE | 2018-09-15 12:19 | P.PN ---
Subjective Progress Note Date: 09/15/18 This is a 62-year-old gentleman past medical history significant for advanced COPD, chronic hypoxia, with home O2 use, sleep apnea, diabetes, hypertension, arthritis, morbid obesity, nicotine dependence history, who presented to the hospital with symptoms of progressive dyspnea. EKG was performed on arrival here which showed atrial fibrillation with rapid ventricular response and for this reason a cardiology consultation was requested. 40s to the patient, he has had no prior documented history of atrial fibrillation. He was initiated on IV Cardizem on admission here. Continues to be on the drip at 5 mg per hour. Blood pressure 140/90 with a heart rate in the mid-90s this morning, 96% on 2 L of oxygen. Chest x-ray on admission, was a limited study, mild cardiomegaly noted. White blood cell count on admission 12.5, hemoglobin 15.3, platelet count 337. Sodium 140, potassium 4.5, BUN 17, creatinine 0.6. D-dimer 0.18. Magnesium 2.2. BNP level 497I and troponin 0.012. At the time of my examination, patient patient is sitting up in his chair at bedside, he states that he had significant difficulty in breathing through the night last night however this morning does feel overall much better. 09/15 2018 Patient was seen and examined this morning, sitting up in the chair at bedside. Continues to be in atrial fibrillation, rate in the 80s to 90s today. Blood pressure 126/68, 96% on 2 L of oxygen. Echo was reviewed by Dr. Velasquez, revealed a normal left ventricular systolic function. From our perspective he may be able to be discharged home today on Eliquis and verapamil. We will make him a follow-up appointment to see Dr. Garcia in the office post discharge. Objective - Vital Signs Vital signs: Vital Signs Temp 96.8 F L 09/15/18 08:00 Pulse 92 09/15/18 09:24 Resp 22 09/15/18 08:00 BP 127/67 09/15/18 08:00 Pulse Ox 96 09/15/18 08:00 Intake & Output 09/14/18 09/15/18 09/15/18 18:59 06:59 18:59 Intake Total 633.167 260 240 Output Total 550 2525 Balance 83.167 -2265 240 Weight 158.5 kg Intake: Intake, IV Titration 273.167 260 Amount Diltiazem 50 mg In Sodium 13.167 Chloride 0.9% 40 ml @ 5 MG/HR 5 mls/hr IV .Q10H TED Rx#:[id number] Doxycycline 100 mg In 100 100 Sodium Chloride 0.9% 100 ml @ 100 mls/hr IVPB Q12HR TED Rx#:[id number] Sodium Chloride 0.9% 1, 160 160 000 ml @ 20 mls/hr IV . Q24H TED Rx#:[id number] Oral 360 240 Output: Urine 550 2525 Other: # Voids 1 1 - Exam PHYSICAL EXAMINATION: GENERAL: 62-year-old gentleman in no acute distress at the time of my examination HEENT: Head is atraumatic, normocephalic. Pupils equal, round. Sclera anicteric. Conjunctiva are clear. Mucous membranes of the mouth are moist. Neck is supple. There is no elevated jugular venous pressure. No carotid bruit is heard. HEART EXAMINATION: Heart S1 and S2 irregularly irregular CHEST EXAMINATION: Lungs reveal diminished air entry bilaterally with scattered wheezing noted throughout. ABDOMEN: Soft, obese, nontender. Bowel sounds are heard. No organomegaly noted. EXTREMITIES: 2+ peripheral pulses with evidence of peripheral edema and no calf tenderness noted. NEUROLOGIC patient is awake, alert and oriented 3 . - Labs CBC & Chem 7: 09/13/18 05:48 09/13/18 05:48 Labs: Abnormal Lab Results - Last 24 Hours (Table) 09/14/18 09/14/18 09/14/18 Range/Units 12:01 16:16 21:18 POC Glucose (mg/dL) 207 H 186 H 195 H (75-99) mg/dL 09/15/18 09/15/18 Range/Units 06:39 11:39 POC Glucose (mg/dL) 165 H 241 H (75-99) mg/dL Assessment and Plan Plan: Assessment and plan #1 acute on chronic aplastic respiratory failure secondary to acute COPD exacerbation #2 atrial fibrillation with rapid ventricular response, appears to be of new onset for the patient #3 obstructive sleep apnea, on CPAP therapy #4 COPD, oxygen dependent #5 hypertension #6 diabetes #7 hyperlipidemia #8 history of nicotine dependence #9 morbid obesity Plan Echocardiogram with Doppler study was reviewed which revealed a normal left ventricular systolic function. From cardiology's perspective patient may be able to be discharged home once cleared by her primary and pulmonary. He has requested to follow-up with Dr. Garcia in the office post discharge as his is a patient of Dr. Carpio. We will make a follow-up appointment for him. DNP note has been reviewed, I agree with a documented findings and plan of care. Patient was seen and examined.
[2018-09-15 12:23] LABS: Anion Gap 9 mmol/L; Blood Urea Nitrogen 26 mg/dL (9-20); Calcium 8.6 mg/dL (8.4-10.2); Carbon Dioxide 32 mmol/L (22-30); Chloride 97 mmol/L (98-107); Glucose 250 mg/dL (74-99); Potassium 4.2 mmol/L (3.5-5.1); Sodium 138 mmol/L (137-145)
[2018-09-15 12:32] LABS: Basophils % (A) 0 %; Eosinophils % (A) 0 %; HCT 42.2 % (39.0-53.0); HGB 13.6 gm/dL (13.0-17.5); Lymphocytes % (A) 7 %; MCH 28.6 pg (25.0-35.0); MCHC 32.2 g/dL (31.0-37.0); MCV 88.7 fL (80.0-100.0); Mean Platelet Volume 6.7; Monocytes # (A) 0.5 k/uL (0-1.0); Monocytes % (A) 3 %; Neutrophils # (A) 12.5 k/uL (1.3-7.7); Neutrophils % (A) 88 %; Platelet Count 304 k/uL (150-450); RBC 4.76 m/uL (4.30-5.90); RDW 14.1 % (11.5-15.5); WBC 14.2 k/uL (3.8-10.6)
[2018-09-15 12:35] VITALS: BP 121/73; PULSE 92; RESP 20
--- NOTE | 2018-09-15 13:18 | ECHOF ---
Referral Reason:afib MEASUREMENTS -------- HEIGHT: 175.3 cm WEIGHT: 157.9 kg BP: 141/90 RVIDd: 3.2 cm (< 3.3) IVSd: 1.3 cm (0.6 - 1.1) LVIDd: 4.3 cm (3.9 - 5.3) LVPWd: 1.3 cm (0.6 - 1.1) IVSs: 1.7 cm LVIDs: 3.1 cm LVPWs: 1.7 cm MV E Westley: 0.75 m/s MV DecT: 204 ms MV A Westley: 0.00 m/s MV E/A Ratio: 7430 RAP: 5.00 mmHg RVSP: 11.66 mmHg FINDINGS -------- Atrial fibrillation. This was a technically difficult study with suboptimal views. The left ventricular size is normal. There is mild concentric left ventricular hypertrophy. Overa ll left ventricular systolic function is low-normal with, an EF between 50 - 55 %. The right ventricle is normal in size and function. The left atrium was not well visualized. The right atrium was not well visualized. 3 ml of Lumason was utilized for enhancement of images. There is mild aortic valve sclerosis. There is no evidence of aortic regurgitation. There is no e vidence of aortic stenosis. The mitral valve leaflets are mildly thickened. There is trace to mild mitral regurgitation. Trace tricuspid regurgitation present. Right ventricular systolic pressure is normal at < 35 mmHg. There is no evidence of pulmonary hypertension. The pulmonic valve was not well visualized. The aortic root size is normal. IVC Not well visulized. There is no pericardial effusion. CONCLUSIONS -------- 1. Atrial fibrillation. 2. This was a technically difficult study with suboptimal views. 3. The left ventricular size is normal. 4. There is mild concentric left ventricular hypertrophy. 5. Overall left ventricular systolic function is low-normal with, an EF between 50 - 55 %. 6. The left atrium was not well visualized. 7. The right atrium was not well visualized. 8. 3 ml of Lumason was utilized for enhancement of images. 9. There is mild aortic valve sclerosis. 10. The mitral valve leaflets are mildly thickened. 11. There is trace to mild mitral regurgitation. 12. Trace tricuspid regurgitation present. 13. Right ventricular systolic pressure is normal at < 35 mmHg. 14. There is no evidence of pulmonary hypertension. 15. The pulmonic valve was not well visualized. 16. The aortic root size is normal. 17. IVC Not well visulized. 18. There is no pericardial effusion. FUR MIXER OPERATOR: David Motley RDCS
--- NOTE | 2018-09-15 15:50 | P.PN ---
Subjective Progress Note Date: 09/15/18 Principal diagnosis: Acute on chronic hypoxic respiratory failure secondary to acute COPD exacerbation This is 62-year-old white male patient of Dr. Neil, presented to the emergency department today on 09/13/2018 with complaints of progressive dyspnea , diaphoresis, hypoxemia, patient was in severe respiratory distress, she was placed on BiPAP the emergency department. Denied any chest pain, did have limited cough with production of phlegm, and some nausea. Chest x-ray showed mild cardiomegaly. EKG showed A. fib with rapid ventricular response with a rate of 127 BPM. Labs showed white blood count 12.5, hemoglobin 15.3, electronically renal profile were within normal limits, the plan was negative 1 , proBNP was 497. His past medical history is positive for advanced COPD with chronic hypoxic and hypercapnic respiratory failure, home O2 at 2 L per nasal cannula. Patient's baseline FEV1 is 57% of predicted. His other past medical history is positive for congestive heart failure, diabetes mellitus, hypertension, osteoarthritis, obstructive sleep apnea on CPAP therapy, morbid obesity, nicotine dependence, in remission. Patient was started on IV steroids , he was given a dose of IV Lasix, empiric antibiotics in the form of doxycycline, started on Cardizem drip, currently he is feeling improved, on nasal cannula at 3 L per nasal cannula. On 09/14/2018 patient seen in follow-up on selective care unit. He sitting up in the chair, currently on 2 L per nasal cannula his pulse ox is 95%, afebrile, remains in A. fib, he is he still a bit tachycardic, with heart rate up to 112 BPM, his Cardizem drip has been transitioned to verapamil. Did not require BiPAP support last night. Lung sounds are bronchospastic, and diminished, d- dimer was negative, patient is on IV steroids, oral diuretics, and he was in slightly positive balance, we will decrease the IV fluids. Continue with oral diuretics, continue with empiric antibiotics. On 09/15/2018 patient seen in follow-up on selective care unit, no acute distress, reports improvement with his dyspnea, did not require BiPAP support last night, currently on 2 L per nasal cannula, stable oxygenation, he isn't on oral Lasix, and he is -2181 oh down several last 24 hours, lung sounds reveal diminished breath sounds, with no crackles, no wheezing or rhonchi, appearance of bilateral extremity edema is improving. He has been treated with the combination of IV steroids, nebulized broncho-Eliel, oral diuretics, and she is clinically improving, from pulmonary perspective patient is stable for discharge home today. Objective - Vital Signs Vital signs: Vital Signs Temp 96.8 F L 09/15/18 08:00 Pulse 88 09/15/18 12:25 Resp 20 09/15/18 12:00 BP 121/73 09/15/18 12:00 Pulse Ox 97 09/15/18 12:00 Intake & Output 09/14/18 09/15/18 09/15/18 18:59 06:59 18:59 Intake Total 633.167 260 480 Output Total 550 2525 Balance 83.167 -2265 480 Weight 158.5 kg Intake: Intake, IV Titration 273.167 260 Amount Diltiazem 50 mg In Sodium 13.167 Chloride 0.9% 40 ml @ 5 MG/HR 5 mls/hr IV .Q10H TED Rx#:[id number] Doxycycline 100 mg In 100 100 Sodium Chloride 0.9% 100 ml @ 100 mls/hr IVPB Q12HR TED Rx#:[id number] Sodium Chloride 0.9% 1, 160 160 000 ml @ 20 mls/hr IV . Q24H TED Rx#:[id number] Oral 360 480 Output: Urine 550 2525 Other: # Voids 1 1 1 - Exam GENERAL EXAM: Alert, pleasant, obese white male, comfortable in no apparent distress. Previously on BiPAP, currently on 3 L per nasal cannula, he is calm, comfortable HEAD: Normocephalic/atraumatic. EYES: Normal reaction of pupils, equal size. Conjunctiva pink, sclera white. NOSE: Clear with pink turbinates. THROAT: No erythema or exudates. NECK: No masses, no JVD, no thyroid enlargement, no adenopathy. CHEST: No chest wall deformity. Symmetrical expansion. LUNGS: Diminished air entry noted bilaterally, diffuse wheezes CVS: Irregular rate and rhythm, normal S1 and S2, no gallops, no murmurs, no rubs ABDOMEN: Soft, nontender. No hepatosplenomegaly, normal bowel sounds, no guarding or rigidity. EXTREMITIES: No clubbing, no cyanosis, 2+ pulses and upper and lower extremities. Some chronic lower extremity swelling MUSCULOSKELETAL: Muscle strength and tone normal. SPINE: No scoliosis or deformity SKIN: No rashes CENTRAL NERVOUS SYSTEM: Alert and oriented -3. No focal deficits, tone is normal in all 4 extremities. PSYCHIATRIC: Alert and oriented -3. Appropriate affect. Intact judgment and insight. - Labs CBC & Chem 7: 09/15/18 11:41 09/15/18 11:41 Labs: Abnormal Lab Results - Last 24 Hours (Table) 09/14/18 09/14/18 09/15/18 Range/Units 16:16 21:18 06:39 WBC (3.8-10.6) k/uL Neutrophils # (1.3-7.7) k/uL Chloride (98-107) mmol/L Carbon Dioxide (22-30) mmol/L BUN (9-20) mg/dL Glucose (74-99) mg/dL POC Glucose (mg/dL) 186 H 195 H 165 H (75-99) mg/dL 09/15/18 09/15/18 09/15/18 Range/Units 11:39 11:41 11:41 WBC 14.2 H (3.8-10.6) k/uL Neutrophils # 12.5 H (1.3-7.7) k/uL Chloride 97 L (98-107) mmol/L Carbon Dioxide 32 H (22-30) mmol/L BUN 26 H (9-20) mg/dL Glucose 250 H (74-99) mg/dL POC Glucose (mg/dL) 241 H (75-99) mg/dL Assessment and Plan Plan: #1. Acute on chronic hypoxic respiratory failure secondary to acute COPD exacerbation, and chest x-ray did not show any acute pulmonary process #2. A. fib RVR #3. Obstructive sleep apnea, on CPAP therapy #4. Advanced oxygen-dependent COPD, with FEV1 of 57% of predicted #5. Diabetes mellitus type 2 #6. Hypertension #7. Osteoarthritis #8. Nicotine dependence, currently in remission #9. Morbid obesity, BMI 47.7 #10. Swelling of bilateral lower extremities, likely related to cor pulmonale #11. Nasal surgery for nasal septum deviation Plan: Patient has significantly improved, less dyspneic, tolerating ambulation, no significant wheezing, he has been treated with steroids, antibiotics, oral diuretics, and has clinically improved. Stable for discharge home today from pulmonary perspective. Follow-up with Dr. Mariee in the office in one week I performed a history & physical examination of the patient and discussed their management with my nurse practitioner, Sarah Santos. I reviewed the nurse practitioner's note and agree with the documented findings and plan of care. Lung sounds are positive for diminished breath sounds. The findings and the impression was discussed with the patient. I attest to the documentation by the nurse practitioner. Time with Patient: Less than 30
--- NOTE | 2018-09-16 07:50 | DS ---
DISCHARGE SUMMARY FINAL DIAGNOSES: 1. Acute on chronic hypoxic respiratory failure secondary to chronic obstructive pulmonary disease acute exacerbation. 2. Paroxysmal atrial fibrillation with fast ventricular rate, new onset status post Cardizem drip. 3. Hypertension. 4. Diabetes mellitus type 2. 5. Obstructive sleep apnea. 6. History of nicotine dependence. 7. Morbid obesity BMI 51.2. DISCHARGE DISPOSITION: The patient is being discharged in stable condition with guarded prognosis. HISTORY OF PRESENT ILLNESS: This 62 -year-old gentleman with a past history of multiple medical problems, was admitted with COPD acute exacerbation as well as atrial fibrillation. Patient treated symptomatically. Patient improved significantly. Cardiology and pulmonary saw the patient. Vital signs are stable. abdomen soft. Central nervous system: No focal deficits. DISCHARGE ADVICE AND MEDICATIONS: 1. Discharge diet is cardiac diet. 2. Activity limited until followup. 3. Follow up with Dr. Neil in 2 to 3 days. 4. Follow up with Dr. Garcia, cardiology as recommended. MEDICATIONS ARE: 1. Albuterol p.r.n. 2. Symbicort 160/4.5 two puffs b.i.d. 3. Lasix 20 mg p.o. b.i.d. 4. Hydrochlorothiazide 25 mg p.o. daily. 5. Lantus 8 units subcu b.i.d. 6. Lispro protocol. 7. Glucophage 500 mg b.i.d. 8. KCl 20 mEq p.o. daily p.r.n. 9. Ventolin 2.5 q.i.d. and p.r.n. 10.Eliquis 5 mg p.o. b.i.d. 11.Lipitor 40 mg q.h.s. 12.Vibramycin 100 mg p.o. b.i.d. for 5 days. 13.Univasc 50 mg p.o. daily. 14.Prednisone taper, that is 40 mg daily for 3 days, 30 for 3 days, 20 for 3 days and 10 for three days and then stop. 15.Isoptin 40 mg p.o. t.i.d. Once again, the patient is being discharged in stable condition with guarded prognosis. MMODL / IJN: [id number] / MTDD
== END 2018-09-15 14:54 | disposition home or self-care (01) | DRG 189 ==
LOC: EC 07:05 → 3SCARD 07:59
PROVIDERS: ADMIT Hospitalist; ATTEND Hospitalist
DX: J96.21 Acute and chronic respiratory failure with hypoxia (principal); J44.1 Chronic obstructive pulmonary disease with (acute) exacerbation; Z68.43 Body mass index [BMI] 50.0-59.9, adult; J96.22 Acute and chronic respiratory failure with hypercapnia; E11.65 Type 2 diabetes mellitus with hyperglycemia; E66.01 Morbid (severe) obesity due to excess calories; E78.5 Hyperlipidemia, unspecified; G47.33 Obstructive sleep apnea (adult) (pediatric); I11.0 Hypertensive heart disease with heart failure; I48.0 Paroxysmal atrial fibrillation; I50.9 Heart failure, unspecified; Z79.4 Long term (current) use of insulin; Z79.51 Long term (current) use of inhaled steroids; Z79.52 Long term (current) use of systemic steroids; Z79.899 Other long term (current) drug therapy; Z82.5 Family history of asthma and other chronic lower respiratory diseases; Z83.3 Family history of diabetes mellitus; Z87.891 Personal history of nicotine dependence; Z99.81 Dependence on supplemental oxygen; Z87.01 Personal history of pneumonia (recurrent); Z99.89 Dependence on other enabling machines and devices
CPT/HCPCS: 36415; 71045; 80048; 80053; 82550; 82553; 83036; 83735; 83880; 84443; 84484; 85025; 85379; 85610; 85730; 93005; 93306; 94640; 94660; 94760; 96365; 96366; 96375; 96376; 99291

== ENCOUNTER 2018-10-20 23:29 | Inpatient (IN) | payer MEDICARE, BC ==
[2018-10-21] MEDS ORDERED: IPRATROPIUM-ALBUTEROL 3 ML NEB INHALATION STA ×2 (01:25→02:33)
[2018-10-21] MEDS ORDERED: DILTIAZEM DRIP BOLUS FROM BAG 1 MG SOLN IV ONE (01:40)
--- NOTE | 2018-10-21 01:50 | XR ---
EXAMINATION TYPE: XR chest 2V DATE OF EXAM: 10/21/2018 COMPARISON: 09/12/2018 HISTORY: Difficulty breathing TECHNIQUE: Frontal and lateral views of the chest are obtained. FINDINGS: There is no heart failure nor confluent pneumonic infiltrate. Costophrenic angles are robert r. Thoracic aorta is atheromatous. Heart appears slightly enlarged. Bony thorax is intact. IMPRESSION: Mild cardiomegaly. No active cardiopulmonary disease. No change.
[2018-10-21 02:29] LABS: Basophils # (A) 0.1 k/uL (0-0.2); Basophils % (A) 1 %; Eosinophils # (A) 0.3 k/uL (0-0.7); Eosinophils % (A) 2 %; HCT 41.4 % (39.0-53.0); HGB 13.5 gm/dL (13.0-17.5); Lymphocytes % (A) 14 %; MCH 28.3 pg (25.0-35.0); MCHC 32.7 g/dL (31.0-37.0); MCV 86.8 fL (80.0-100.0); Mean Platelet Volume 7.2; Monocytes # (A) 0.5 k/uL (0-1.0); Monocytes % (A) 4 %; Neutrophils # (A) 11.1 k/uL (1.3-7.7); Neutrophils % (A) 78 %; Platelet Count 360 k/uL (150-450); RBC 4.77 m/uL (4.30-5.90); RDW 14.2 % (11.5-15.5); WBC 14.2 k/uL (3.8-10.6)
[2018-10-21] MEDS: DILTIAZEM 50 MG in SODIUM CHLORIDE 0.9% 40 ML IV SCH ×2 (02:29→06:49)
[2018-10-21] MEDS ORDERED: SODIUM CHLORIDE 0.9% 1,000 ML IV SCH (02:30)
--- NOTE | 2018-10-21 02:33 | ED ---
Pediatric SOB HPI - General Source: patient, EMS Mode of arrival: EMS Limitations: no limitations <Wilda Hanley - Last Filed: 10/21/18 03:29> <Edvin Melo - Last Filed: 10/27/18 12:07> - General Chief Complaint: Shortness of Breath Stated Complaint: TINY Time Seen by Provider: 10/21/18 00:37 - History of Present Illness Initial Comments: 63-year-old female past medical history of COPD on home O2 at 2 L, atrial fibrillation on eliquis, obstructive sleep apnea, type 2 insulin-dependent diabetic, hypertension presenting today for chief complaint of shortness of breath. Patient states that earlier this afternoon he began noticing shortness of breath, he said it felt similar 20s had COPD exacerbations in the past. Patient states that waxed and waned as far as severity of shortness of breath. Patient states when it began increasing this evening he called EMS for transportation emergency are for further evaluation. Patient was given 2 DuoNeb treatments in the emergency call as well as 125 mg of Solu-Medrol prior to arrival. Patient does admit to wheeze. Patient denies any fever, chills or night sweats. Patient states he has a chronic cough, denies any changes in sputum production or frequency. Patient states he has quit smoking. Patient is on home oxygen, 2 L. Patient denies any chest pain, lower extremity edema, hemoptysis, doubt pain, epigastric pain, back pain, nausea, vomiting, diarrhea, headache, dizziness, syncope, exacerbation, recent antibiotic use, calf pain or swelling, upper actually paresthesias, jaw pain or any other associated symptoms. Upon arrival patient appears to be in mild distress. Heart rate elevated at 116, patient oxygenating well prashanth 97% on 2L. BP elevated. (Wilda Hanley) - Related Data Home Medications Medication Instructions Recorded Confirmed Budesonide-Formot 160-4.5 Mcg 2 puff INHALATION RT-BID 01/08/15 10/21/18 [Symbicort 160-4.5 Mcg Inhaler] metFORMIN HCL [Glucophage] 500 mg PO AC-BID 01/08/15 10/21/18 Furosemide [Lasix] 20 mg PO BID 10/17/17 10/21/18 Hydrochlorothiazide 25 mg PO DAILY 10/17/17 10/21/18 Albuterol Inhaler [Ventolin Hfa 2 puff INHALATION RT-Q6H PRN 09/12/18 10/21/18 Inhaler] Insulin Glargine,Hum.rec.anlog 80 unit SQ BID 10/21/18 10/21/18 [Lantus Solostar] Terbinafine [LamISIL] 250 mg PO DAILY 10/21/18 10/21/18 Previous Rx's Medication Instructions Recorded Albuterol Nebulized [Ventolin 2.5 mg INHALATION RT-QID #120 nebu 10/20/17 Nebulized] Apixaban [Eliquis] 5 mg PO BID #60 tab 09/15/18 Atorvastatin [Lipitor] 40 mg PO HS #30 tab 09/15/18 Moexipril [Univasc] 15 mg PO DAILY #1 tab 09/15/18 Verapamil [Isoptin] 40 mg PO TID #90 tab 09/15/18 Allergies Allergy/AdvReac Type Severity Reaction Status Date / Time No Known Allergies Allergy Verified 09/12/18 09:24 Review of Systems ROS Other: All systems not noted in ROS Statement are negative. Constitutional: Denies: fever, chills, night sweats ENT: Denies: ear pain, throat pain Respiratory: Reports: cough, dyspnea, wheezes. Denies: hemoptysis, stridor Cardiovascular: Denies: chest pain, palpitations, dyspnea on exertion, orthopnea , edema, syncope Gastrointestinal: Denies: abdominal pain, nausea, vomiting, diarrhea, constipation Genitourinary: Denies: urgency, dysuria, frequency, hematuria Musculoskeletal: Denies: back pain Skin: Denies: rash, lesions Neurological: Denies: headache, weakness, numbness, paresthesias, confusion, abnormal gait <Wilda Hanley - Last Filed: 10/21/18 03:29> ROS Other: All systems not noted in ROS Statement are negative. <Edvin Melo - Last Filed: 10/27/18 12:07> ROS Statement: Those systems with pertinent positive or pertinent negative responses have been documented in the HPI. Past Medical History Past Medical History: Asthma, COPD, Diabetes Mellitus, Hypertension, Osteoarthritis (OA), Pneumonia, Respiratory Disorder, Sleep Apnea/CPAP/BIPAP Additional Past Medical History / Comment(s): IDDM type II, HERBERT with CPAP, chronic respiratory failure-O2 2L/NC ATC, arthritis in multiple joints. History of Any Multi-Drug Resistant Organisms: None Reported Past Surgical History: Hernia Repair Additional Past Surgical History / Comment(s): Bronchoscopy, umbilical hernia repair. Past Anesthesia/Blood Transfusion Reactions: No Reported Reaction Past Psychological History: No Psychological Hx Reported Smoking Status: Former smoker Past Alcohol Use History: None Reported Past Drug Use History: None Reported - Past Family History Father Family Medical History: Diabetes Mellitus Mother Family Medical History: Asthma, Diabetes Mellitus <Wilda Hanley - Last Filed: 10/21/18 03:29> General Exam Limitations: no limitations <Wilda Hanley - Last Filed: 10/21/18 03:29> <Edvin Melo - Last Filed: 10/27/18 12:07> - General Exam Comments Initial Comments: General: The patient is awake and alert, in mild respiratory distress-noted abdominal breathing Eye: +3 mm pupils are equal, round and reactive to light, extra-ocular movements are intact. No nystagmus. There is normal conjunctiva bilaterally. No signs of icterus. Ears, nose, mouth and throat: There are moist mucous membranes and no oral lesions. Neck: The neck is supple, there is no tenderness or JVD. Cardiovascular: There is a regular rate and rhythm. No murmur, rub or gallop is appreciated. Respiratory: Respirations are mildly labored, equal expansion no retractions mild abdominal breathing. breath sounds are equal. No stridor, rales, or rhonchi. Noted expiratory wheeze on examination. Breath sounds Audible in all lung palma Gastrointestinal: Soft, obese, non-distended, non-tender abdomen without masses or organomegaly noted. There is no rebound or guarding present. Bowel sounds are unremarkable. Musculoskeletal: Normal ROM, no tenderness. Strength 5/5. Sensation intact. Radial and dorsalis pedis Pulses equal bilaterally 2+. Neurological: A&O x 3. CN II-XII intact, There are no obvious motor or sensory deficits. Coordination appears grossly intact. Speech is normal. Skin: Skin is warm and dry and no rashes or lesions are noted. No lower extremity edema noted. Psychiatric: Cooperative, appropriate mood & affect, normal judgment. (Wilda Hanley) Course <Wilda Hanley - Last Filed: 12/27/18 03:29> <Edvin Melo - Last Filed: 10/27/18 12:07> Vital Signs 10/20/18 10/21/18 10/21/18 23:33 01:33 01:50 Pulse Rate 116 H 104 H 103 H Respiratory 16 24 Rate Blood Pressure 181/91 177/110 O2 Sat by Pulse 97 Oximetry 10/21/18 10/21/18 10/21/18 01:56 02:14 02:54 Pulse Rate 114 H 106 H 105 H Respiratory 20 16 Rate Blood Pressure 134/81 O2 Sat by Pulse 97 95 Oximetry 10/21/18 10/21/18 10/21/18 03:16 03:35 03:44 Pulse Rate 104 H 92 96 Respiratory 16 Rate Blood Pressure O2 Sat by Pulse Oximetry - Reevaluation(s) Reevaluation #1: Patient states he is experienced marked improvement in respirations after 1 DuoNeb treatment, upon reevaluation there still expiratory wheeze that has improved, we'll repeat DuoNeb treatment (Wilda Hanley) Medical Decision Making - Lab Data Result diagrams: 10/21/18 00:07 10/21/18 00:07 <Wilda Hanley - Last Filed: 10/21/18 03:29> - Lab Data Result diagrams: 10/27/18 07:10 10/27/18 07:10 <Edvin Melo - Last Filed: 10/27/18 12:07> - Medical Decision Making 63-year-old male with history of COPD in atrial fibrillation on eliquis presented today for chief complaint shortness of breath. EKG obtained revealing atrial fibrillation with RVR. Patient was given a bolus and continued on a Cardizem drip. Patient's blood pressure stable. In addition patient has expiratory wheeze concerning for COPD exacerbation which I feel is the cause of patient's shortness of breath. Patient was given a total of 2 DuoNeb treatments within the emergency department with improvement of expiratory wheeze. Patient is given 125 mg of Solu-Medrol prior to arrival. Patient be continued on 40 mg of prednisone daily for steroid treatment. No clinical findings concerning for pneumonia. Chest x-ray negative. There are no clinical signs concerning for fluid overload, BMP within acceptable limits. Initial troponin negative. Although low suspicion for pulmonary embolus, d- dimer was obtained, negative. Patient does have an elevated white blood cell count, however patient does not appear to have symptomatology or clinical findings concerning for infection or sepsis. Patient having elevated secondary to atrial fibrillation with rapid ventricular response. Patient is on telemetry. I discussed the case in detail with Dr. Melo at this time we do feel patient requires admission for telemetry monitoring, cardiology evaluation and further DuoNeb treatments every 4 hours for COPD exacerbation. Patient is agreeable with admission. Vital signs remained stable, hemodynamically stable. Patient was transferred to floor in stable condition at . Admitting provider Dr. Spicer will resume care on the floor. Cardiology on consult. (Wilda Hanley) I saw this patient in conjunction with the physician rehabilitation assistant. I performed independent history and physical exam. Agree with case management. (Edvin Melo) - Lab Data Lab Results 10/21/18 10/21/18 10/21/18 Range/Units 00:07 00:07 00:07 WBC 14.2 H (3.8-10.6) k/uL RBC 4.77 (4.30-5.90) m/uL Hgb 13.5 (13.0-17.5) gm/dL Hct 41.4 (39.0-53.0) % MCV 86.8 (80.0-100.0) fL MCH 28.3 (25.0-35.0) pg MCHC 32.7 (31.0-37.0) g/dL RDW 14.2 (11.5-15.5) % Plt Count 360 (150-450) k/uL Neutrophils % 78 % Lymphocytes % 14 % Monocytes % 4 % Eosinophils % 2 % Basophils % 1 % Neutrophils # 11.1 H (1.3-7.7) k/uL Lymphocytes # 2.0 (1.0-4.8) k/uL Monocytes # 0.5 (0-1.0) k/uL Eosinophils # 0.3 (0-0.7) k/uL Basophils # 0.1 (0-0.2) k/uL PT (9.0-12.0) sec INR (<1.2) APTT (22.0-30.0) sec D-Dimer (<0.60) mg/L FEU Sodium 138 (137-145) mmol/L Potassium 4.7 (3.5-5.1) mmol/L Chloride 98 (98-107) mmol/L Carbon Dioxide 28 (22-30) mmol/L Anion Gap 12 mmol/L BUN 15 (9-20) mg/dL Creatinine 0.81 (0.66-1.25) mg/dL Est GFR (CKD-EPI)AfAm >90 (>60 ml/min/1.73 sqM) Est GFR (CKD-EPI)NonAf >90 (>60 ml/min/1.73 sqM) Glucose 132 H (74-99) mg/dL Calcium 9.1 (8.4-10.2) mg/dL Total Bilirubin 0.5 (0.2-1.3) mg/dL AST 30 (17-59) U/L ALT 28 (21-72) U/L Alkaline Phosphatase 60 (38-126) U/L Total Creatine Kinase 90 (55-170) U/L CK-MB (CK-2) 1.2 (0.0-2.4) ng/mL CK-MB (CK-2) Rel Index 1.3 Troponin I <0.012 (0.000-0.034) ng/mL NT-Pro-B Natriuret Pep pg/mL Total Protein 7.4 (6.3-8.2) g/dL Albumin 3.9 (3.5-5.0) g/dL 10/21/18 10/21/18 Range/Units 00:07 00:07 WBC (3.8-10.6) k/uL RBC (4.30-5.90) m/uL Hgb (13.0-17.5) gm/dL Hct (39.0-53.0) % MCV (80.0-100.0) fL MCH (25.0-35.0) pg MCHC (31.0-37.0) g/dL RDW (11.5-15.5) % Plt Count (150-450) k/uL Neutrophils % % Lymphocytes % % Monocytes % % Eosinophils % % Basophils % % Neutrophils # (1.3-7.7) k/uL Lymphocytes # (1.0-4.8) k/uL Monocytes # (0-1.0) k/uL Eosinophils # (0-0.7) k/uL Basophils # (0-0.2) k/uL PT 11.1 (9.0-12.0) sec INR 1.0 (<1.2) APTT 26.7 (22.0-30.0) sec D-Dimer 0.22 (<0.60) mg/L FEU Sodium (137-145) mmol/L Potassium (3.5-5.1) mmol/L Chloride (98-107) mmol/L Carbon Dioxide (22-30) mmol/L Anion Gap mmol/L BUN (9-20) mg/dL Creatinine (0.66-1.25) mg/dL Est GFR (CKD-EPI)AfAm (>60 ml/min/1.73 sqM) Est GFR (CKD-EPI)NonAf (>60 ml/min/1.73 sqM) Glucose (74-99) mg/dL Calcium (8.4-10.2) mg/dL Total Bilirubin (0.2-1.3) mg/dL AST (17-59) U/L ALT (21-72) U/L Alkaline Phosphatase (38-126) U/L Total Creatine Kinase (55-170) U/L CK-MB (CK-2) (0.0-2.4) ng/mL CK-MB (CK-2) Rel Index Troponin I (0.000-0.034) ng/mL NT-Pro-B Natriuret Pep 199 pg/mL Total Protein (6.3-8.2) g/dL Albumin (3.5-5.0) g/dL Disposition Is patient prescribed a controlled substance at d/c from ED?: No Decision to Admit Reason: Admit from EC Decision Date: 10/21/18 Decision Time: 02:33 <Wilda Hanley - Last Filed: 10/21/18 03:29> <Edvin Melo - Last Filed: 10/27/18 12:07> Clinical Impression: Atrial fibrillation with RVR, COPD (chronic obstructive pulmonary disease) Disposition: ADMITTED IP TO THIS HOSP Condition: Stable Addendum entered and electronically signed by Wilda Hanley PA-C 10/21/18 06 :07: EKG revealed ventricular rate of 105 bpm revealing atrial fibrillation with rapid ventricular response, QRS duration 80 ms, there is no evidence of ST elevation or depression, nonspecific T-wave abnormalities. QT/QTC 334/441 ms. Reviewd by myself and Dr melo.
[2018-10-21 02:46] LABS: Albumin 3.9 g/dL (3.5-5.0); Anion Gap 12 mmol/L; Blood Urea Nitrogen 15 mg/dL (9-20); Calcium 9.1 mg/dL (8.4-10.2); Carbon Dioxide 28 mmol/L (22-30); Chloride 98 mmol/L (98-107); Glucose 132 mg/dL (74-99); Sodium 138 mmol/L (137-145); Total Bilirubin 0.5 mg/dL (0.2-1.3); Total Protein 7.4 g/dL (6.3-8.2)
[2018-10-21 03:03] LABS: D-Dimer 0.22 mg/L FEU (<0.60); Partial Thromboplastin Time 26.7 sec (22.0-30.0); Prothrombin Time 11.1 sec (9.0-12.0)
[2018-10-21 03:05] LABS: Creatine Kinase 90 U/L (55-170)
[2018-10-21 03:09] LABS: ALT 28 U/L (21-72); AST 30 U/L (17-59); Alkaline Phosphatase 60 U/L (38-126); Potassium 4.7 mmol/L (3.5-5.1)
[2018-10-21 03:18] LABS: Creatine Kinase MB 1.2 ng/mL (0.0-2.4); Troponin I <0.012 ng/mL (0.000-0.034)
[2018-10-21 06:14] LABS: Glucose,Whole Blood 223 mg/dL (75-99)
[2018-10-21] MEDS: predniSONE 20 MG TAB PO SCH (07:56)
[2018-10-21] MEDS: metFORMIN 500 MG TAB PO SCH ×2 (07:56→17:03)
[2018-10-21] MEDS: APIXABAN 5 MG TAB PO SCH ×2 (07:56→20:51)
[2018-10-21] MEDS: INSULIN ASPART 100 UNIT/ML 1 ML 10 ML VIAL SQ SCH ×7 (07:57→21:07)
[2018-10-21] MEDS: IPRATROPIUM-ALBUTEROL 3 ML NEB INHALATION PRN ×5 (08:22→22:58)
[2018-10-21] MEDS ORDERED: VERAPAMIL 40 MG TAB PO SCH (09:15)
[2018-10-21] MEDS: INSULIN DETEMIR 100 UNIT/ML 10 ML VIAL SQ SCH ×2 (09:38→21:06)
--- NOTE | 2018-10-21 10:59 | P.HPIM ---
History of Present Illness 58-year-old with history of COPD uses 2 L of oxygen and also sleep apnea came in with compensative shortness of breath some orthopnea and denied any proximal nocturnal dyspnea. Patient had normal ejection fraction the past patient is also found anemia in atrial fibrillation patient is on anticoagulations with the Eliquis for A. fib patient weight is fairly better controlled now patient was on Cardizem drip which will be discontinue patient uses verapamil we will increase the dose of abnormal, cardiology was consulted. Patient does not have pneumonia on the chest x-ray. Patient has clear sputum production I do not believe patient will need antibiotics patient will be continued on oral steroids inhalational treatments and the rate control medications as mentioned above. Patient denied any fever chills. Patient denied any flulike symptoms at this time. Patient is morbidly obese Review of Systems REVIEW OF SYSTEMS: CONSTITUTIONAL: No fever, no malaise, no fatigue. HEENT: No recent visual problems or hearing problems. Denied any sore throat. CARDIOVASCULAR: No chest pain, PND, no palpitations, no syncope. PULMONARY: no hemoptysis. GASTROINTESTINAL: No diarrhea, no nausea, no vomiting, no abdominal pain. NEUROLOGICAL: No headaches, no weakness, no numbness. HEMATOLOGICAL: Denies any bleeding or petechiae. GENITOURINARY: Denies any burning micturition, frequency, or urgency. MUSCULOSKELETAL/RHEUMATOLOGICAL: Denies any joint pain, swelling, or any muscle pain. ENDOCRINE: Denies any polyuria or polydipsia. The rest of the 14-point review of systems is negative. Past Medical History Past Medical History: Asthma, COPD, Diabetes Mellitus, Hypertension, Osteoarthritis (OA), Pneumonia, Respiratory Disorder, Sleep Apnea/CPAP/BIPAP Additional Past Medical History / Comment(s): IDDM type II, HERBERT with CPAP, chronic respiratory failure-O2 2L/NC ATC, arthritis in multiple joints. History of Any Multi-Drug Resistant Organisms: None Reported Past Surgical History: Hernia Repair Additional Past Surgical History / Comment(s): Bronchoscopy, umbilical hernia repair. Past Anesthesia/Blood Transfusion Reactions: No Reported Reaction Past Psychological History: No Psychological Hx Reported Smoking Status: Former smoker Past Alcohol Use History: None Reported Past Drug Use History: None Reported - Past Family History Father Family Medical History: Diabetes Mellitus Mother Family Medical History: Asthma, Diabetes Mellitus Medications and Allergies Home Medications Medication Instructions Recorded Confirmed Type Budesonide-Formot 160-4.5 Mcg 2 puff INHALATION RT-BID 01/08/15 10/21/18 History [Symbicort 160-4.5 Mcg Inhaler] metFORMIN HCL [Glucophage] 500 mg PO AC-BID 01/08/15 10/21/18 History Furosemide [Lasix] 20 mg PO BID 10/17/17 10/21/18 History Hydrochlorothiazide 25 mg PO DAILY 10/17/17 10/21/18 History Albuterol Nebulized [Ventolin 2.5 mg INHALATION RT-QID #120 nebu 10/20/17 Rx Nebulized] Albuterol Inhaler [Ventolin Hfa 2 puff INHALATION RT-Q6H PRN 09/12/18 10/21/18 History Inhaler] Apixaban [Eliquis] 5 mg PO BID #60 tab 09/15/18 10/21/18 Rx Atorvastatin [Lipitor] 40 mg PO HS #30 tab 09/15/18 10/21/18 Rx Moexipril [Univasc] 15 mg PO DAILY #1 tab 09/15/18 10/21/18 Rx Verapamil [Isoptin] 40 mg PO TID #90 tab 09/15/18 10/21/18 Rx Insulin Glargine,Hum.rec.anlog 80 unit SQ BID 10/21/18 10/21/18 History [Lantus Solostar] Terbinafine [LamISIL] 250 mg PO DAILY 10/21/18 10/21/18 History Allergies Allergy/AdvReac Type Severity Reaction Status Date / Time No Known Allergies Allergy Verified 09/12/18 09:24 Physical Exam Vitals: Vital Signs Temp Pulse Pulse Resp BP BP Pulse Ox 10/21/18 08:31 100 10/21/18 08:23 101 H 10/21/18 08:00 97.1 F L 103 H 16 112/79 96 10/21/18 04:00 97 18 152/70 96 10/21/18 03:44 96 10/21/18 03:35 92 10/21/18 03:16 104 H 16 10/21/18 02:54 105 H 16 95 10/21/18 02:14 106 H 20 134/81 97 10/21/18 01:56 114 H 12/27/18 01:50 103 H 10/21/18 01:33 104 H 24 177/110 10/20/18 23:33 116 H 16 181/91 97 Intake and Output 10/20/18 10/21/18 10/21/18 22:59 06:59 14:59 Intake Total 21.667 240 Output Total 200 Balance 21.667 40 Intake: Intake, IV Titration 21.667 Amount Diltiazem 50 mg In Sodium 21.667 Chloride 0.9% 40 ml @ 5 MG/HR 5 mls/hr IV .Q10H [facility] Rx#:[id number] Oral 240 Output: Urine 200 Other: Voiding Method Urinal # Voids 1 Weight 155.9 kg PHYSICAL EXAMINATION: GENERAL: The patient is alert and oriented x3, not in any acute distress. Morbidly obese HEENT: Pupils are round and equally reacting to light. EOMI. No scleral icterus. No conjunctival pallor. Normocephalic, atraumatic. No pharyngeal erythema. No thyromegaly. CARDIOVASCULAR: S1 and S2 present. No murmurs, rubs, or gallops. PULMONARY: Very limited air entry into bilateral lung palma minimal expiratory wheezing was appreciated ABDOMEN: Soft, nontender, nondistended, normoactive bowel sounds. No palpable organomegaly. MUSCULOSKELETAL: No joint swelling or deformity. EXTREMITIES: No cyanosis, clubbing, some 1+ eating pedal edema bilaterally NEUROLOGICAL: Gross neurological examination did not reveal any focal deficits. SKIN: No rashes. Results CBC & Chem 7: 10/21/18 00:07 10/21/18 00:07 Labs: Abnormal Lab Results - Last 24 Hours (Table) 10/21/18 10/21/18 10/21/18 Range/Units 00:07 00:07 06:13 WBC 14.2 H (3.8-10.6) k/uL Neutrophils # 11.1 H (1.3-7.7) k/uL Glucose 132 H (74-99) mg/dL POC Glucose (mg/dL) 223 H (75-99) mg/dL Thrombosis Risk Factor Assmnt - Choose All That Apply Each Factor Represents 1 point: Abnormal pulmonary function (COPD), Obesity ( BMI >25), Swollen legs (current) Each Risk Factor Represents 2 Points: Age 61-74 years Thrombosis Risk Factor Assessment Total Risk Factor Score: 5 Thrombosis Risk Factor Assessment Level: High Risk Assessment and Plan Plan: -Acute on chronic hypercapnic respiratory failure secondary to COPD exacerbation continue systemic steroids inhalational treatments. -Atrial fibrillation with rapid unclear rate precipitated by hypoxia patient is in not in heart failure exacerbation at this time IV fluids will be discontinued because of his pedal edema patient will not be started back on Lasix at this time will hold it off temporarily and the patient's verapamil dose will be increased to 60 3 times a day and discontinue Cardizem cardiology will evaluate the patient continue with anticoagulation -Morbid obesity sleep apnea: Continue with his CPAP machine -Type 2 diabetes mellitus: Patient blood sugars are expected to go high and can have uncontrolled blood sugars continue with sliding scale insulin along with his home regimen titration depending on his blood sugars during the hospital physician -Hypertension -Patient will need pharmacologic GI prophylaxis patient is already on anticoagulation will not require any additional medications for DVT prophylaxis
[2018-10-21 11:29] LABS: Glucose,Whole Blood 301 mg/dL (75-99)
--- NOTE | 2018-10-21 13:31 | P.CRDCN ---
History of Present Illness Consult reason: shortness of breath History of present illness: This is Dr. Aiken dictating a consult on this patient The patient was interviewed and examined by me IMPRESSION / ASSESSMENT: Atrial fibrillation with RVR, atrial fibrillation pattern undetermined at this time COPD on home oxygen Observe sleep apnea Admitted with shortness of breath, progressive Increased BMI PLAN: Continue ELIQUIS for stroke prevention Continue atorvastatin 40 mrem daily at bedtime Start verapamil 180 mg by mouth daily tomorrow and at that time regular verapamil of 60-80 mg 3 times a day may be discontinued Maximization of oral verapamil HPI patient presented to the hospital with increasing shortness of breath. He became short of breath yesterday afternoon and felt his COPD was acting up. No chest discomfort no dizziness. Upon arrival his heart rate was 116 beats a minute He is found to be in atrial fibrillation with RVR and started on IV Cardizem. I did not find a twelve-lead ECG in the EMR or in the paper chart and a twelve- lead ECG has been ordered ROS: No fever chills or rigors, no cough, phlegm or expectoration, no nausea, vomiting or diarrhea, no hematuria, dysuria, no musculoskeletal complaints, no strokes or seizures, no skin lesions. EXAMINATION Decreased breath sounds bilaterally rhonchorous breath sounds Heart sounds are irregular Abdomen soft nontender Extremities are warm Pulse rate 100 beats a minute, blood pressure 134/60 mmHg, respirations 16 short of breath shallow tachypneic pulse ox 95% REVIEW OF LABS, ECG White count elevated 14.2 thousand, at lites normal BUN and creatinine normal Normal cardiac enzymes Past Medical History Past Medical History: Asthma, COPD, Diabetes Mellitus, Hypertension, Osteoarthritis (OA), Pneumonia, Respiratory Disorder, Sleep Apnea/CPAP/BIPAP Additional Past Medical History / Comment(s): IDDM type II, HERBERT with CPAP, chronic respiratory failure-O2 2L/NC ATC, arthritis in multiple joints. History of Any Multi-Drug Resistant Organisms: None Reported Past Surgical History: Hernia Repair Additional Past Surgical History / Comment(s): Bronchoscopy, umbilical hernia repair. Past Anesthesia/Blood Transfusion Reactions: No Reported Reaction Past Psychological History: No Psychological Hx Reported Smoking Status: Former smoker Past Alcohol Use History: None Reported Past Drug Use History: None Reported - Past Family History Father Family Medical History: Diabetes Mellitus Mother Family Medical History: Asthma, Diabetes Mellitus Medications and Allergies Home Medications Medication Instructions Recorded Confirmed Type Budesonide-Formot 160-4.5 Mcg 2 puff INHALATION RT-BID 01/08/15 10/21/18 History [Symbicort 160-4.5 Mcg Inhaler] metFORMIN HCL [Glucophage] 500 mg PO AC-BID 01/08/15 10/21/18 History Furosemide [Lasix] 20 mg PO BID 10/17/17 10/21/18 History Hydrochlorothiazide 25 mg PO DAILY 10/17/17 10/21/18 History Albuterol Nebulized [Ventolin 2.5 mg INHALATION RT-QID #120 nebu 10/20/17 Rx Nebulized] Albuterol Inhaler [Ventolin Hfa 2 puff INHALATION RT-Q6H PRN 09/12/18 10/21/18 History Inhaler] Apixaban [Eliquis] 5 mg PO BID #60 tab 09/15/18 10/21/18 Rx Atorvastatin [Lipitor] 40 mg PO HS #30 tab 09/15/18 10/21/18 Rx Moexipril [Univasc] 15 mg PO DAILY #1 tab 09/15/18 10/21/18 Rx Verapamil [Isoptin] 40 mg PO TID #90 tab 09/15/18 10/21/18 Rx Insulin Glargine,Hum.rec.anlog 80 unit SQ BID 10/21/18 10/21/18 History [Lantus Solostar] Terbinafine [LamISIL] 250 mg PO DAILY 10/21/18 10/21/18 History Allergies Allergy/AdvReac Type Severity Reaction Status Date / Time No Known Allergies Allergy Verified 09/12/18 09:24 Physical Exam Vitals: Vital Signs Temp Pulse Pulse Resp BP BP Pulse Ox 10/21/18 08:31 100 10/21/18 08:23 101 H 10/21/18 08:00 97.1 F L 103 H 16 112/79 96 10/21/18 04:00 97 18 152/70 96 10/21/18 03:44 96 10/21/18 03:35 92 10/21/18 03:16 104 H 16 10/21/18 02:54 105 H 16 95 10/21/18 02:14 106 H 20 134/81 97 10/21/18 01:56 114 H 10/21/18 01:50 103 H 12/27/18 01:33 104 H 24 177/110 10/20/18 23:33 116 H 16 181/91 97 Intake and Output 10/20/18 10/21/18 10/21/18 22:59 06:59 14:59 Intake Total 21.667 240 Output Total 200 Balance 21.667 40 Intake: Intake, IV Titration 21.667 Amount Diltiazem 50 mg In Sodium 21.667 Chloride 0.9% 40 ml @ 5 MG/HR 5 mls/hr IV .Q10H [facility] Rx#:[id number] Oral 240 Output: Urine 200 Other: Voiding Method Urinal # Voids 1 Weight 155.9 kg Results 10/21/18 00:07 10/21/18 00:07 Cardiac Enzymes 10/21/18 10/21/18 Range/Units 00:07 00:07 AST 30 (17-59) U/L CK-MB (CK-2) 1.2 (0.0-2.4) ng/mL Troponin I <0.012 (0.000-0.034) ng/mL Coagulation 10/21/18 Range/Units 00:07 PT 11.1 (9.0-12.0) sec APTT 26.7 (22.0-30.0) sec CBC 10/21/18 Range/Units 00:07 WBC 14.2 H (3.8-10.6) k/uL RBC 4.77 (4.30-5.90) m/uL Hgb 13.5 (13.0-17.5) gm/dL Hct 41.4 (39.0-53.0) % Plt Count 360 (150-450) k/uL Comprehensive Metabolic Panel 10/21/18 Range/Units 00:07 Sodium 138 (137-145) mmol/L Potassium 4.7 (3.5-5.1) mmol/L Chloride 98 (98-107) mmol/L Carbon Dioxide 28 (22-30) mmol/L BUN 15 (9-20) mg/dL Creatinine 0.81 (0.66-1.25) mg/dL Glucose 132 H (74-99) mg/dL Calcium 9.1 (8.4-10.2) mg/dL AST 30 (17-59) U/L ALT 28 (21-72) U/L Alkaline Phosphatase 60 (38-126) U/L Total Protein 7.4 (6.3-8.2) g/dL Albumin 3.9 (3.5-5.0) g/dL Current Medications Generic Name Dose Route Start Last Admin Trade Name Freq PRN Reason Stop Dose Admin Albuterol/Ipratropium 3 ml 10/21/18 02:29 10/21/18 08:22 Duoneb 0.5 Mg-3 Mg/3 Ml Soln INHALATION 3 ml RT-Q4H PRN Administration Shortness Of Breath Or Wheezing Apixaban 5 mg 10/21/18 09:00 10/21/18 07:56 Eliquis PO 5 mg BID TED Administration Atorvastatin Calcium 40 mg 10/21/18 21:00 Lipitor PO HS TED Budesonide/Formoterol Fumarate 2 puff 10/21/18 20:00 Symbicort 160-4.5 Mcg Inhaler INHALATION RT-BID TED Insulin Aspart 0 unit 10/21/18 07:30 10/21/18 07:57 Novolog SQ 8 unit ACHS TED Administration Protocol Insulin Aspart 10 unit 10/21/18 07:30 10/21/18 07:57 Novolog SQ 10 unit AC-TID TED Administration Insulin Detemir 80 unit 10/21/18 09:00 10/21/18 09:38 Levemir SQ 80 unit BID TED Administration Metformin HCl 500 mg 10/21/18 07:30 10/21/18 07:56 Glucophage PO 500 mg AC-BID TED Administration Prednisone 40 mg 10/21/18 09:00 10/21/18 07:56 PO 40 mg DAILY TED Administration Terbinafine HCl 250 mg 10/22/18 09:00 Lamisil PO DAILY TED Verapamil HCl 60 mg 10/21/18 16:00 Isoptin PO TID TED Intake and Output 10/20/18 10/21/18 10/21/18 22:59 06:59 14:59 Intake Total 21.667 240 Output Total 200 Balance 21.667 40 Intake: Intake, IV Titration 21.667 Amount Diltiazem 50 mg In Sodium 21.667 Chloride 0.9% 40 ml @ 5 MG/HR 5 mls/hr IV .Q10H [facility] Rx#:[id number] Oral 240 Output: Urine 200 Other: Voiding Method Urinal # Voids 1 Weight 155.9 kg 10/21/18 00:07 10/21/18 00:07
[2018-10-21 16:13] LABS: Glucose,Whole Blood 287 mg/dL (75-99)
[2018-10-21] MEDS: VERAPAMIL 40 MG TAB PO SCH ×2 (17:02→20:52)
[2018-10-21] MEDS: SYMBICORT 160-4.5 MCG INHALER INHALATION SCH (19:54)
[2018-10-21] MEDS: ATORVASTATIN 40 MG TAB PO SCH (20:51)
[2018-10-21 20:56] LABS: Glucose,Whole Blood 280 mg/dL (75-99)
[2018-10-22] MEDS: IPRATROPIUM-ALBUTEROL 3 ML NEB INHALATION PRN ×6 (03:16→23:11)
[2018-10-22 05:58] LABS: Glucose,Whole Blood 118 mg/dL (75-99)
[2018-10-22] MEDS: INSULIN ASPART 100 UNIT/ML 1 ML 10 ML VIAL SQ SCH ×7 (06:21→20:57)
[2018-10-22] MEDS ORDERED: VERAPAMIL SR 180 MG TABLET.ER PO SCH (07:00)
[2018-10-22 07:17] LABS: HCT 40.6 % (39.0-53.0); MCH 28.2 pg (25.0-35.0); MCV 88.2 fL (80.0-100.0); Mean Platelet Volume 6.3; Platelet Count 382 k/uL (150-450); RBC 4.61 m/uL (4.30-5.90); RDW 14.3 % (11.5-15.5); WBC 16.6 k/uL (3.8-10.6)
[2018-10-22] MEDS: metFORMIN 500 MG TAB PO SCH ×2 (07:19→17:25)
[2018-10-22 07:39] LABS: Anion Gap 8 mmol/L; Blood Urea Nitrogen 19 mg/dL (9-20); Calcium 9.4 mg/dL (8.4-10.2); Carbon Dioxide 29 mmol/L (22-30); Chloride 103 mmol/L (98-107); Glucose 108 mg/dL (74-99); Potassium 4.1 mmol/L (3.5-5.1); Sodium 140 mmol/L (137-145)
[2018-10-22] MEDS: SYMBICORT 160-4.5 MCG INHALER INHALATION SCH ×2 (08:05→20:03)
[2018-10-22] MEDS: APIXABAN 5 MG TAB PO SCH ×2 (09:02→20:57)
[2018-10-22] MEDS: predniSONE 20 MG TAB PO SCH (09:02)
[2018-10-22] MEDS: TERBINAFINE 250 MG TAB PO SCH (09:03)
[2018-10-22 11:25] LABS: Glucose,Whole Blood 93 mg/dL (75-99)
--- NOTE | 2018-10-22 11:27 | P.PN ---
Subjective 58-year-old gentleman admitted for COPD exacerbation still quite a bit short of breath. Patient also had a temporal relation presently rate controlled on anticoagulation.shortness of breath although little bit better compared to yesterday Constitutional: Denied any fatigue denied any fever. Cardio vascular: denied any chest pain, palpitations Gastrointestinal denied any nausea vomiting Pulmonary: Denied any shortness of breath cough Neurologic denied any new focal deficits All inpatient medications were reviewed and appropriate changes in these medications as dictated in the interval history and assessment and plan. Objective - Vital Signs Vital signs: Vital Signs Temp 96.8 F L 10/22/18 04:00 Pulse 88 10/22/18 08:17 Resp 16 10/22/18 11:20 BP 112/65 10/22/18 08:00 Pulse Ox 96 10/22/18 08:00 Intake & Output 10/21/18 10/22/18 10/22/18 18:59 06:59 18:59 Intake Total 780 280 118 Output Total 1500 500 Balance -720 -220 118 Weight 157.4 kg Intake: Oral 780 280 118 Output: Urine 1500 500 Other: Voiding Method Urinal Urinal Urinal # Voids 2 - Exam PHYSICAL EXAMINATION: GENERAL: The patient is alert and oriented x3, not in any acute distress. Morbidly obese HEENT: Pupils are round and equally reacting to light. EOMI. No scleral icterus. No conjunctival pallor. Normocephalic, atraumatic. No pharyngeal erythema. No thyromegaly. CARDIOVASCULAR: S1 and S2 present. No murmurs, rubs, or gallops. PULMONARY: Very limited air entry into bilateral lung palma minimal expiratory wheezing was appreciated ABDOMEN: Soft, nontender, nondistended, normoactive bowel sounds. No palpable organomegaly. MUSCULOSKELETAL: No joint swelling or deformity. EXTREMITIES: No cyanosis, clubbing, some 1+ eating pedal edema bilaterally NEUROLOGICAL: Gross neurological examination did not reveal any focal deficits. SKIN: No rashes. - Labs CBC & Chem 7: 10/22/18 06:30 10/22/18 06:30 Labs: Abnormal Lab Results - Last 24 Hours (Table) 10/21/18 10/21/18 10/21/18 Range/Units 11:26 16:11 20:54 WBC (3.8-10.6) k/uL Glucose (74-99) mg/dL POC Glucose (mg/dL) 301 H 287 H 280 H (75-99) mg/dL 10/22/18 10/22/18 10/22/18 Range/Units 05:57 06:30 06:30 WBC 16.6 H (3.8-10.6) k/uL Glucose 108 H (74-99) mg/dL POC Glucose (mg/dL) 118 H (75-99) mg/dL Assessment and Plan Plan: -Acute on chronic hypercapnic respiratory failure secondary to COPD exacerbation continue systemic steroids inhalational treatments. -Atrial fibrillation with rapid unclear rateon admission precipitated by hypoxia patient is in not in heart failure exacerbation . heart rate is rate controlled presentlyAsian is on verapamil 180 mg daily and anticoagulation -Morbid obesity sleep apnea: Continue with his CPAP machine -Type 2 diabetes mellitus: Patient blood sugars are expected to go high and can have uncontrolled blood sugars continue with sliding scale insulin along with his home regimen titration depending on his blood sugars during the hospital physician. Blood sugars are fairly well controlled here -Hypertension -Patient will need pharmacologic GI prophylaxis patient is already on anticoagulation will not require any additional medications for DVT prophylaxis
--- NOTE | 2018-10-22 12:29 | P.PN ---
Subjective Progress Note Date: 10/22/18 This is a 48-year-old gentleman presented to the hospital with symptoms of increasing shortness of breath. He was found to be in atrial fibrillation with rapid ventricular response, he has a known history of COPD on home O2, obstructive sleep apnea. Patient was continued on his Eliquis, and initiated on verapamil yesterday by Dr. Aiken. Blood pressure today 112/60 with a heart rate in the 100 range. Blood cell count 16.6, hemoglobin 13, platelet count 382. Sodium 140, potassium 4.1, BUN 19, creatinine 0.6. Objective - Vital Signs Vital signs: Vital Signs Temp 96.8 F L 10/22/18 04:00 Pulse 84 10/22/18 12:00 Resp 16 10/22/18 11:20 BP 112/65 10/22/18 08:00 Pulse Ox 96 10/22/18 08:00 Intake & Output 10/21/18 10/22/18 10/22/18 18:59 06:59 18:59 Intake Total 780 280 118 Output Total 1500 500 Balance -720 -220 118 Weight 157.4 kg Intake: Oral 780 280 118 Output: Urine 1500 500 Other: Voiding Method Urinal Urinal Urinal # Voids 2 - Exam PHYSICAL EXAMINATION: GENERAL: 63-year-old gentleman in no acute distress at the time of my examination HEENT: Head is atraumatic, normocephalic. Pupils equal, round. Sclera anicteric. Conjunctiva are clear. Mucous membranes of the mouth are moist. Neck is supple. There is no elevated jugular venous pressure. No carotid bruit is heard. HEART EXAMINATION: Heart S1 and S2 irregularly irregular CHEST EXAMINATION: Lungs reveal decreased breath sounds bilaterally. ABDOMEN: Soft, nontender. Bowel sounds are heard. No organomegaly noted. EXTREMITIES: 2+ peripheral pulses with no evidence of peripheral edema and no calf tenderness noted. NEUROLOGIC patient is awake, alert and oriented 3 . . - Labs CBC & Chem 7: 10/22/18 06:30 10/22/18 06:30 Labs: Abnormal Lab Results - Last 24 Hours (Table) 10/21/18 10/21/18 10/22/18 Range/Units 16:11 20:54 05:57 WBC (3.8-10.6) k/uL Glucose (74-99) mg/dL POC Glucose (mg/dL) 287 H 280 H 118 H (75-99) mg/dL 10/22/18 10/22/18 Range/Units 06:30 06:30 WBC 16.6 H (3.8-10.6) k/uL Glucose 108 H (74-99) mg/dL POC Glucose (mg/dL) (75-99) mg/dL Assessment and Plan Plan: Assessment and plan #1 chronic persistent atrial fibrillation, rapid ventricular response. #2 COPD with home O2 use #3 obstructive sleep apnea #4 increased PMI Plan Increase the dose of verapamil to 240 mg daily from tomorrow. Continue anticoagulation. DNP note has been reviewed, I agree with a documented findings and plan of care. Patient was seen and examined.
[2018-10-22] MEDS: INSULIN DETEMIR 100 UNIT/ML 10 ML VIAL SQ SCH ×2 (13:15→20:57)
[2018-10-22 16:55] LABS: Glucose,Whole Blood 205 mg/dL (75-99)
[2018-10-22] MEDS: FUROSEMIDE 20 MG TAB PO SCH (17:22)
[2018-10-22 19:18] LABS: Glucose,Whole Blood 245 mg/dL (75-99)
[2018-10-22 20:52] LABS: Glucose,Whole Blood 231 mg/dL (75-99)
[2018-10-22] MEDS: ATORVASTATIN 40 MG TAB PO SCH (20:57)
[2018-10-23] MEDS: IPRATROPIUM-ALBUTEROL 3 ML NEB INHALATION PRN ×6 (02:59→23:23)
[2018-10-23 06:24] LABS: Glucose,Whole Blood 67 mg/dL (75-99)
[2018-10-23] MEDS: INSULIN ASPART 100 UNIT/ML 1 ML 10 ML VIAL SQ SCH ×7 (06:24→21:31)
[2018-10-23 06:40] LABS: Glucose,Whole Blood 95 mg/dL (75-99)
[2018-10-23] MEDS: metFORMIN 500 MG TAB PO SCH ×2 (06:40→15:57)
[2018-10-23 06:47] LABS: HCT 41.6 % (39.0-53.0); HGB 13.5 gm/dL (13.0-17.5); MCH 28.7 pg (25.0-35.0); MCHC 32.4 g/dL (31.0-37.0); MCV 88.5 fL (80.0-100.0); Mean Platelet Volume 6.5; Platelet Count 388 k/uL (150-450); RBC 4.69 m/uL (4.30-5.90); RDW 14.5 % (11.5-15.5); WBC 15.2 k/uL (3.8-10.6)
[2018-10-23 06:59] LABS: Anion Gap 7 mmol/L; Blood Urea Nitrogen 19 mg/dL (9-20); Calcium 9.2 mg/dL (8.4-10.2); Carbon Dioxide 34 mmol/L (22-30); Chloride 101 mmol/L (98-107); Glucose 61 mg/dL (74-99); Sodium 142 mmol/L (137-145)
[2018-10-23] MEDS: FUROSEMIDE 20 MG TAB PO SCH ×2 (08:23→15:57)
[2018-10-23] MEDS: predniSONE 20 MG TAB PO SCH (08:23)
[2018-10-23] MEDS: TERBINAFINE 250 MG TAB PO SCH (08:23)
[2018-10-23] MEDS: APIXABAN 5 MG TAB PO SCH ×2 (08:23→20:38)
[2018-10-23] MEDS: VERAPAMIL SR 240 MG TABLET.ER PO SCH (08:23)
[2018-10-23] MEDS: SYMBICORT 160-4.5 MCG INHALER INHALATION SCH ×2 (08:26→20:49)
[2018-10-23] MEDS: INSULIN DETEMIR 100 UNIT/ML 10 ML VIAL SQ SCH ×2 (10:58→21:31)
[2018-10-23 11:53] LABS: Glucose,Whole Blood 129 mg/dL (75-99)
--- NOTE | 2018-10-23 13:39 | P.PN ---
Subjective He is doing a bit better without any chest discomfort. No change in his history status. Yesterday he was a bit nauseous but that responded quickly to treatment On examination his pulse rate is in the 100 he is afebrile 98.1F blood pressure 111/76 mmHg Breath sounds are reduced bilaterally with some crackles at the bases scattered rhonchi Heart sounds and S2 are irregular Abdomen soft Patient is warm Impression atrial fibrillation with RVR Plan Anticoagulation Rate controll of atrial fibrillation with rapid 240 mg by mouth daily was just started Continue atorvastatin Objective - Vital Signs Vital signs: Vital Signs Temp 98.1 F 10/23/18 11:46 Pulse 100 10/23/18 12:11 Resp 19 10/23/18 11:46 BP 111/76 10/23/18 11:46 Pulse Ox 96 10/23/18 11:46 Intake & Output 10/22/18 10/23/18 10/23/18 18:59 06:59 18:59 Intake Total 598 240 Output Total 600 1175 Balance -2 -1175 240 Weight 157 kg Intake: Oral 598 240 Output: Urine 600 1175 Other: Voiding Method Urinal Urinal Urinal # Voids 2 1 1 - Labs CBC & Chem 7: 10/23/18 06:10 10/23/18 06:10 Labs: Abnormal Lab Results - Last 24 Hours (Table) 10/22/18 10/22/18 10/22/18 Range/Units 06:30 16:46 19:16 WBC (3.8-10.6) k/uL Carbon Dioxide (22-30) mmol/L Glucose (74-99) mg/dL POC Glucose (mg/dL) 205 H 245 H (75-99) mg/dL Hemoglobin A1c 8.0 H (4.0-6.0) % 10/22/18 10/23/18 10/23/18 Range/Units 20:45 06:10 06:10 WBC 15.2 H (3.8-10.6) k/uL Carbon Dioxide 34 H (22-30) mmol/L Glucose 61 L (74-99) mg/dL POC Glucose (mg/dL) 231 H (75-99) mg/dL Hemoglobin A1c (4.0-6.0) % 10/23/18 10/23/18 Range/Units 06:22 11:43 WBC (3.8-10.6) k/uL Carbon Dioxide (22-30) mmol/L Glucose (74-99) mg/dL POC Glucose (mg/dL) 67 L 129 H (75-99) mg/dL Hemoglobin A1c (4.0-6.0) %
[2018-10-23 16:48] LABS: Glucose,Whole Blood 183 mg/dL (75-99)
[2018-10-23] MEDS: ATORVASTATIN 40 MG TAB PO SCH (20:39)
[2018-10-23 21:06] LABS: Glucose,Whole Blood 184 mg/dL (75-99)
--- NOTE | 2018-10-23 21:27 | PN ---
PROGRESS NOTE DATE OF SERVICE: 10/23/2018 This 63-year-old gentleman who was admitted with atrial fibrillation with fast ventricular rate, also had COPD acute exacerbation with acute hypoxic hypercarbic respiratory failure. The patient is on systemic steroids as well as on the bronchodilators. Patient being closely monitored at this time. Cardiology following the patient closely. PAST MEDICAL HISTORY: Reviewed. REVIEW OF SYSTEMS: Cardiovascular System: As mentioned earlier. Respiratory: As mentioned earlier. GI: No nausea or vomiting. : No dysuria. Central nervous system: As mentioned earlier. CURRENT MEDICATIONS ARE: Reviewed and include: 1. DuoNeb q.i.d. and p.r.n. 2. Eliquis 5 mg p.o. b.i.d. 3. Lipitor 40 mg. 4. Symbicort b.i.d. 5. Lasix 20 mg b.i.d. 6. NovoLog scale. 7. Levemir. 8. Glucophage. 9. Prednisone. 10.Lamisil. 11.Isoptin SR. PHYSICAL EXAM: Patient is alert, oriented x3. Pulse 80. Blood pressure 116/56, respirations 16, temperature 97.8, pulse ox 97% on room air. HEENT: Conjunctivae normal. Oral mucosa. NECK is no jugular venous distention. No carotid bruit. No lymph node enlargement. Cardiovascular: S1, S2 muffled. Respiratory: Breath sounds diminished in the bases. Bilateral scattered rhonchi and crackles. ABDOMEN: Soft, nontender. Legs are no edema. No swelling. Central nervous system: No focal deficits. LABS: WBC 15.7, hemoglobin 13.5 and glucose 67 and 129. ASSESSMENT: 1. Chronic obstructive pulmonary disease acute exacerbation with acute on chronic hypoxic hypercarbic respiratory failure. 2. Atrial fibrillation with rapid ventricular rate. 3. Morbid obesity. 4. Diabetes mellitus type 2. 5. Hypertension. 6. Asthma. 7. Increased WBC. RECOMMENDATIONS AND DISCUSSION: This 63-year-old gentleman who presented with multiple complex medical issues, we will monitor the patient closely, continue the current medications, management and symptomatic treatment. Otherwise, at this time, I recommend to continue with p.o. steroids and continue the bronchodilators. The patient is started on apixaban. The heart rate seems to be improving. Prognosis guarded because of multiple complex medical issues. See orders for further details. MMODL / IJN: [id number] /
[2018-10-23] MEDS: guaiFENesin-DM 100-10MG/5ML 10 ML CUP PO PRN (23:20)
[2018-10-24] MEDS: methylPREDNISolone SOD SUCCI 125 MG/2 ML VIAL IV SCH ×5 (00:45→23:07)
--- NOTE | 2018-10-24 01:35 | XR ---
EXAMINATION TYPE: XR chest 1V portable DATE OF EXAM: 10/24/2018 COMPARISON: 10/21/2018 HISTORY: Short of breath TECHNIQUE: Single frontal view of the chest is obtained. FINDINGS: There is no heart failure nor confluent pneumonic infiltrate. Costophrenic angles are robert r. There are chest leads. IMPRESSION: No active cardiopulmonary disease. Normal heart. No adverse change.
[2018-10-24 03:30] LABS: Glucose,Whole Blood 67 mg/dL (75-99)
[2018-10-24] MEDS: IPRATROPIUM-ALBUTEROL 3 ML NEB INHALATION PRN (03:49)
[2018-10-24 03:58] LABS: Glucose,Whole Blood 130 mg/dL (75-99)
[2018-10-24 06:01] LABS: Glucose,Whole Blood 114 mg/dL (75-99)
[2018-10-24] MEDS: INSULIN ASPART 100 UNIT/ML 1 ML 10 ML VIAL SQ SCH ×5 (06:02→17:27)
[2018-10-24] MEDS: metFORMIN 500 MG TAB PO SCH ×2 (06:28→17:05)
[2018-10-24] MEDS: SYMBICORT 160-4.5 MCG INHALER INHALATION SCH ×2 (07:31→20:49)
[2018-10-24] MEDS: IPRATROPIUM-ALBUTEROL 3 ML NEB INHALATION SCH ×4 (07:32→20:49)
[2018-10-24] MEDS: TERBINAFINE 250 MG TAB PO SCH (08:04)
[2018-10-24] MEDS: VERAPAMIL SR 240 MG TABLET.ER PO SCH (08:04)
[2018-10-24] MEDS: APIXABAN 5 MG TAB PO SCH ×2 (08:04→20:04)
[2018-10-24] MEDS: FUROSEMIDE 20 MG TAB PO SCH ×2 (08:04→17:05)
[2018-10-24] MEDS: INSULIN DETEMIR 100 UNIT/ML 10 ML VIAL SQ SCH (09:19)
[2018-10-24 11:37] LABS: Glucose,Whole Blood 160 mg/dL (75-99)
--- NOTE | 2018-10-24 16:24 | P.PN ---
Subjective Mr. Rea is doing better from a cardiacstandpoint. He continues to have episodes of nausea. Repeat troponin is normal On examination his breath sounds are reduced bilaterally with bilateral rhonchus breath sounds Heart sounds S1 and S2 are soft no murmurs Abdomen is soft line bilateral lower extremity edema Impression Atrial fibrillation, persistent, with RVR Suggest Anticoagulation and rate control atrial fibrillation. Currently the patient is on verapamil 240 g by mouth daily. If this does not provide adequate rate control and I would increase to 360 mg by mouth daily Objective - Vital Signs Vital signs: Vital Signs Temp 97.7 F 10/24/18 12:00 Pulse 98 10/24/18 16:03 Resp 28 H 10/24/18 12:00 BP 145/89 10/24/18 12:00 Pulse Ox 97 10/24/18 12:00 Intake & Output 10/23/18 10/24/18 10/24/18 18:59 06:59 18:59 Intake Total 480 240 Output Total 1950 Balance 480 -1950 240 Weight 157.4 kg Intake: Oral 480 240 Output: Urine 1950 Other: Voiding Method Urinal Urinal Urinal # Voids 1 2 1 - Labs CBC & Chem 7: 10/23/18 06:10 10/23/18 06:10 Labs: Abnormal Lab Results - Last 24 Hours (Table) 10/23/18 10/23/18 10/24/18 Range/Units 16:33 21:04 03:28 POC Glucose (mg/dL) 183 H 184 H 67 L (75-99) mg/dL Plasma Lactic Acid Vini (0.7-2.0) mmol/L 10/24/18 10/24/18 10/24/18 Range/Units 03:56 03:59 05:59 POC Glucose (mg/dL) 130 H 114 H (75-99) mg/dL Plasma Lactic Acid Vini 2.4 H* (0.7-2.0) mmol/L 10/24/18 10/24/18 Range/Units 08:16 11:13 POC Glucose (mg/dL) 160 H (75-99) mg/dL Plasma Lactic Acid Vini 2.4 H* (0.7-2.0) mmol/L Microbiology - Last 24 Hours (Table) 10/24/18 04:28 Gram Stain - Preliminary Sputum
[2018-10-24 16:25] LABS: Glucose,Whole Blood 283 mg/dL (75-99)
[2018-10-24] MEDS ORDERED: INSULIN REGULAR BOLUS (FROM DRIP BAG) IV ONE (16:51)
--- NOTE | 2018-10-24 16:54 | PN ---
PROGRESS NOTE DATE OF SERVICE: 10/24/2018 This 63-year-old gentleman who was admitted with COPD acute exacerbation, acute hypoxic hypercarbic respiratory failure, also had atrial fibrillation with rapid ventricular rate. The patient also complaining of cough and sputum as well. The most recent chest x-ray which was done and reviewed by me showed significant COPD at this time. There is no history of fever, rigors or chills. The patient's bronchodilators have been increased and IV steroids have been added to the current regimen. PAST MEDICAL HISTORY: Reviewed. REVIEW OF SYSTEMS: Cardio system: As mentioned earlier. RESPIRATORY: As mentioned earlier. GI no nausea or vomiting. : No dysuria. NERVOUS SYSTEM: No numbness or weakness. CURRENT MEDICATIONS ARE: Noted: 1. DuoNeb q.i.d. and p.r.n. 2. Eliquis 5 mg p.o. b.i.d. 3. Lipitor 40 mg q.h.s. 4. Symbicort 160/4.5 two puffs b.i.d. 5. Rocephin 1 g daily. 6. Lasix 20 mg p.o. b.i.d. 7. Robitussin. 8. NovoLog. 9. Levemir. 10.Solu-Medrol. 11.Lamisil. 12.Isoptin. PHYSICAL EXAM: Patient is alert, oriented x3. The pulse is 106, blood pressure 140/89, respiration 16, temperature 97.7, pulse ox 97% on 2 L. HEENT: Conjunctivae normal. NECK: No jugular venous distention. CARDIOVASCULAR: S1, S2 muffled. RESPIRATIONS: Breath sounds diminished at the bases. Bilateral scattered rhonchi and crackles. ABDOMEN is soft, obese, nontender. LEGS are no edema. No swelling. NERVOUS SYSTEM: No focal deficits. LABS: WBC 15.2. Glucose noted. Other labs are noted. Influenza is negative. ASSESSMENT: 1. Chronic obstructive pulmonary disease, acute exacerbation with acute purulent tracheobronchitis with acute hypoxic hypercarbic respiratory failure. 2. Atrial fibrillation with rapid ventricular response present on admission. 3. Morbid obesity. 4. Diabetes mellitus Type 2. 5. Hypertension. 6. History of asthma. 7. Increased WBC. RECOMMENDATIONS AND DISCUSSION: Recommend to continue current medications, management and symptomatic treatment. Continue with IV steroids. Continue with bronchodilators. Continue with intravenous antibiotics. Monitor blood sugars closely. DVT prophylaxis. Apixaban has been initiated. Continue the current medications. Closely monitor with Cardiology. Further recommendations to follow. MMODL / IJN: [id number] /
[2018-10-24 17:05] LABS: Basophils % (A) 0 %; Eosinophils % (A) 0 %; HCT 40.8 % (39.0-53.0); HGB 13.2 gm/dL (13.0-17.5); Lymphocytes # (A) 1.5 k/uL (1.0-4.8); Lymphocytes % (A) 10 %; MCH 28.6 pg (25.0-35.0); MCHC 32.3 g/dL (31.0-37.0); MCV 88.5 fL (80.0-100.0); Mean Platelet Volume 6.5; Monocytes # (A) 0.3 k/uL (0-1.0); Monocytes % (A) 2 %; Neutrophils # (A) 12.9 k/uL (1.3-7.7); Neutrophils % (A) 87 %; Platelet Count 346 k/uL (150-450); RBC 4.61 m/uL (4.30-5.90); RDW 14.4 % (11.5-15.5); WBC 14.8 k/uL (3.8-10.6)
[2018-10-24 17:15] LABS: ALT 36 U/L (21-72); AST 18 U/L (17-59); Albumin 3.8 g/dL (3.5-5.0); Alkaline Phosphatase 58 U/L (38-126); Anion Gap 10 mmol/L; Blood Urea Nitrogen 23 mg/dL (9-20); Calcium 8.9 mg/dL (8.4-10.2); Carbon Dioxide 28 mmol/L (22-30); Chloride 100 mmol/L (98-107); Glucose 277 mg/dL (74-99); Potassium 4.7 mmol/L (3.5-5.1); Sodium 138 mmol/L (137-145); Total Bilirubin 0.3 mg/dL (0.2-1.3); Total Protein 6.9 g/dL (6.3-8.2)
[2018-10-24] MEDS ORDERED: INSULIN REGULAR 100 UNIT in SODIUM CHLORIDE 0.9% 100 ML IV SCH (17:15)
[2018-10-24 17:51] LABS: Glucose,Whole Blood 211 mg/dL (75-99)
[2018-10-24 19:56] LABS: Glucose,Whole Blood 167 mg/dL (75-99)
[2018-10-24] MEDS: ATORVASTATIN 40 MG TAB PO SCH (20:04)
[2018-10-24 22:04] LABS: Glucose,Whole Blood 145 mg/dL (75-99)
[2018-10-24 23:52] LABS: Glucose,Whole Blood 130 mg/dL (75-99)
[2018-10-25] MEDS: IPRATROPIUM-ALBUTEROL 3 ML NEB INHALATION PRN ×2 (01:16→05:07)
[2018-10-25 02:17] LABS: Glucose,Whole Blood 217 mg/dL (75-99)
[2018-10-25] MEDS: guaiFENesin-DM 100-10MG/5ML 10 ML CUP PO PRN (02:35)
[2018-10-25 04:11] LABS: Glucose,Whole Blood 134 mg/dL (75-99)
[2018-10-25 06:16] LABS: Glucose,Whole Blood 138 mg/dL (75-99)
[2018-10-25] MEDS: methylPREDNISolone SOD SUCCI 125 MG/2 ML VIAL IV SCH ×2 (06:19→12:19)
[2018-10-25] MEDS: metFORMIN 500 MG TAB PO SCH ×2 (06:19→16:11)
[2018-10-25] MEDS: INSULIN ASPART 100 UNIT/ML 1 ML 10 ML VIAL SQ SCH ×4 (06:20→17:09)
[2018-10-25 06:22] LABS: Basophils % (A) 0 %; Eosinophils % (A) 0 %; HCT 40.7 % (39.0-53.0); HGB 13.2 gm/dL (13.0-17.5); Lymphocytes # (A) 2.3 k/uL (1.0-4.8); Lymphocytes % (A) 11 %; MCH 28.3 pg (25.0-35.0); MCHC 32.4 g/dL (31.0-37.0); MCV 87.4 fL (80.0-100.0); Mean Platelet Volume 6.4; Monocytes # (A) 0.8 k/uL (0-1.0); Monocytes % (A) 4 %; Neutrophils # (A) 17.3 k/uL (1.3-7.7); Neutrophils % (A) 84 %; Platelet Count 370 k/uL (150-450); RBC 4.66 m/uL (4.30-5.90); RDW 14.3 % (11.5-15.5); WBC 20.6 k/uL (3.8-10.6)
[2018-10-25 06:57] LABS: ALT 28 U/L (21-72); AST 20 U/L (17-59); Albumin 3.7 g/dL (3.5-5.0); Alkaline Phosphatase 61 U/L (38-126); Anion Gap 7 mmol/L; Calcium 9.4 mg/dL (8.4-10.2); Carbon Dioxide 29 mmol/L (22-30); Chloride 104 mmol/L (98-107); Glucose 112 mg/dL (74-99); Potassium 4.5 mmol/L (3.5-5.1); Sodium 140 mmol/L (137-145); Total Bilirubin 0.4 mg/dL (0.2-1.3)
[2018-10-25 07:13] LABS: Blood Urea Nitrogen 22 mg/dL (9-20)
[2018-10-25] MEDS: SYMBICORT 160-4.5 MCG INHALER INHALATION SCH ×2 (08:03→20:48)
[2018-10-25] MEDS: APIXABAN 5 MG TAB PO SCH ×2 (08:03→19:32)
[2018-10-25] MEDS: FUROSEMIDE 20 MG TAB PO SCH ×2 (08:03→16:11)
[2018-10-25] MEDS: IPRATROPIUM-ALBUTEROL 3 ML NEB INHALATION SCH ×4 (08:03→20:48)
[2018-10-25] MEDS: VERAPAMIL SR 240 MG TABLET.ER PO SCH (08:03)
[2018-10-25] MEDS: TERBINAFINE 250 MG TAB PO SCH (08:03)
[2018-10-25 08:17] LABS: Glucose,Whole Blood 238 mg/dL (75-99)
[2018-10-25 10:03] LABS: Glucose,Whole Blood 252 mg/dL (75-99)
--- NOTE | 2018-10-25 11:51 | P.PN ---
Subjective Progress Note Date: 10/25/18 This is a 48-year-old gentleman presented to the hospital with symptoms of increasing shortness of breath. He was found to be in atrial fibrillation with rapid ventricular response, he has a known history of COPD on home O2, obstructive sleep apnea. Patient was continued on his Eliquis, and initiated on verapamil yesterday by Dr. Aiken. Blood pressure today 112/60 with a heart rate in the 100 range. Blood cell count 16.6, hemoglobin 13, platelet count 382. Sodium 140, potassium 4.1, BUN 19, creatinine 0.6. 10/25/2018 Patient was seen and examined this morning, overall feeling well. Heart rate in the low 100s today. We will increase the dose of verapamil 2 360 mg daily, he may be able to be discharged home from cardiology's perspective. Objective - Vital Signs Vital signs: Vital Signs Temp 97.7 F 10/25/18 08:12 Pulse 100 10/25/18 08:14 Resp 18 10/25/18 08:12 BP 139/88 10/25/18 08:12 Pulse Ox 98 10/25/18 08:12 Intake & Output 10/24/18 10/25/18 10/25/18 18:59 06:59 18:59 Intake Total 486.533 308.000 262.600 Output Total 1050 Balance 486.533 -742.000 262.600 Weight 157.5 kg Intake: Intake, IV Titration 6.533 68.000 22.600 Amount Insulin Regular 100 unit 6.533 68.000 22.600 In Sodium Chloride 0.9% 100 ml @ Titrate IV .Q0M [facility] Rx#:[id number] Oral 480 240 240 Output: Urine 1050 Other: Voiding Method Urinal Urinal # Voids 1 1 - Exam PHYSICAL EXAMINATION: GENERAL: 63-year-old gentleman in no acute distress at the time of my examination HEENT: Head is atraumatic, normocephalic. Pupils equal, round. Sclera anicteric. Conjunctiva are clear. Mucous membranes of the mouth are moist. Neck is supple. There is no elevated jugular venous pressure. No carotid bruit is heard. HEART EXAMINATION: Heart S1 and S2 irregularly irregular CHEST EXAMINATION: Lungs reveal decreased breath sounds bilaterally. ABDOMEN: Soft, nontender. Bowel sounds are heard. No organomegaly noted. EXTREMITIES: 2+ peripheral pulses with no evidence of peripheral edema and no calf tenderness noted. NEUROLOGIC patient is awake, alert and oriented 3 . . - Labs CBC & Chem 7: 10/25/18 06:03 10/25/18 06:03 Labs: Abnormal Lab Results - Last 24 Hours (Table) 10/24/18 10/24/18 10/24/18 Range/Units 16:23 16:27 16:27 WBC 14.8 H (3.8-10.6) k/uL Neutrophils # 12.9 H (1.3-7.7) k/uL BUN 23 H (9-20) mg/dL Creatinine (0.66-1.25) mg/dL Glucose 277 H (74-99) mg/dL POC Glucose (mg/dL) 283 H (75-99) mg/dL 10/24/18 10/24/18 10/24/18 Range/Units 17:49 19:55 22:03 WBC (3.8-10.6) k/uL Neutrophils # (1.3-7.7) k/uL BUN (9-20) mg/dL Creatinine (0.66-1.25) mg/dL Glucose (74-99) mg/dL POC Glucose (mg/dL) 211 H 167 H 145 H (75-99) mg/dL 10/24/18 10/25/18 10/25/18 Range/Units 23:50 02:06 04:00 WBC (3.8-10.6) k/uL Neutrophils # (1.3-7.7) k/uL BUN (9-20) mg/dL Creatinine (0.66-1.25) mg/dL Glucose (74-99) mg/dL POC Glucose (mg/dL) 130 H 217 H 134 H (75-99) mg/dL 10/25/18 10/25/18 10/25/18 Range/Units 06:03 06:03 06:15 WBC 20.6 H (3.8-10.6) k/uL Neutrophils # 17.3 H (1.3-7.7) k/uL BUN 22 H (9-20) mg/dL Creatinine 0.60 L (0.66-1.25) mg/dL Glucose 112 H (74-99) mg/dL POC Glucose (mg/dL) 138 H (75-99) mg/dL 10/25/18 10/25/18 Range/Units 08:13 10:00 WBC (3.8-10.6) k/uL Neutrophils # (1.3-7.7) k/uL BUN (9-20) mg/dL Creatinine (0.66-1.25) mg/dL Glucose (74-99) mg/dL POC Glucose (mg/dL) 238 H 252 H (75-99) mg/dL Microbiology - Last 24 Hours (Table) 10/24/18 04:28 Gram Stain - Preliminary Sputum Assessment and Plan Plan: Assessment and plan #1 chronic persistent atrial fibrillation, rapid ventricular response. #2 COPD with home O2 use #3 obstructive sleep apnea #4 increased PMI Plan Increase the dose of verapamil to 160 mg daily. continue anticoagulation. He may be able to be discharged home from cardiology's perspective. DNP note has been reviewed, I agree with a documented findings and plan of care. Patient was seen and examined.
[2018-10-25 12:18] LABS: Glucose,Whole Blood 113 mg/dL (75-99)
[2018-10-25] MEDS ORDERED: INSULIN REGULAR 100 UNIT in SODIUM CHLORIDE 0.9% 100 ML IV SCH (13:00)
[2018-10-25 13:05] LABS: Glucose,Whole Blood 105 mg/dL (75-99)
[2018-10-25 14:19] LABS: Glucose,Whole Blood 136 mg/dL (75-99)
[2018-10-25] MEDS: methylPREDNISolone SOD SUCCI 40 MG/ML 1 ML VIAL IV SCH (16:13)
[2018-10-25 16:24] LABS: Glucose,Whole Blood 174 mg/dL (75-99)
[2018-10-25] MEDS: ATORVASTATIN 40 MG TAB PO SCH (19:32)
[2018-10-25 19:41] LABS: Glucose,Whole Blood 259 mg/dL (75-99)
[2018-10-25] MEDS ORDERED: FUROSEMIDE 10 MG/ML 2 ML VIAL IV ONE (21:59)
[2018-10-25 22:12] LABS: Glucose,Whole Blood 114 mg/dL (75-99)
[2018-10-25 23:11] LABS: Glucose,Whole Blood 101 mg/dL (75-99)
[2018-10-26 00:06] LABS: Glucose,Whole Blood 132 mg/dL (75-99)
[2018-10-26] MEDS: methylPREDNISolone SOD SUCCI 40 MG/ML 1 ML VIAL IV SCH ×3 (00:19→18:08)
[2018-10-26] MEDS: IPRATROPIUM-ALBUTEROL 3 ML NEB INHALATION PRN ×3 (00:41→23:26)
[2018-10-26 01:57] LABS: Glucose,Whole Blood 149 mg/dL (75-99)
[2018-10-26 04:28] LABS: Glucose,Whole Blood 139 mg/dL (75-99)
[2018-10-26 06:04] LABS: Glucose,Whole Blood 168 mg/dL (75-99)
[2018-10-26] MEDS: SYMBICORT 160-4.5 MCG INHALER INHALATION SCH ×2 (07:28→19:40)
[2018-10-26] MEDS: IPRATROPIUM-ALBUTEROL 3 ML NEB INHALATION SCH ×4 (07:29→19:40)
[2018-10-26 07:32] LABS: Glucose,Whole Blood 149 mg/dL (75-99)
[2018-10-26 07:33] LABS: Basophils % (A) 0 %; Eosinophils % (A) 0 %; HCT 44.8 % (39.0-53.0); HGB 13.4 gm/dL (13.0-17.5); Lymphocytes # (A) 1.7 k/uL (1.0-4.8); Lymphocytes % (A) 7 %; MCHC 29.9 g/dL (31.0-37.0); MCV 90.3 fL (80.0-100.0); Mean Platelet Volume 6.5; Monocytes # (A) 0.8 k/uL (0-1.0); Monocytes % (A) 4 %; Neutrophils # (A) 21.5 k/uL (1.3-7.7); Neutrophils % (A) 88 %; Platelet Count 435 k/uL (150-450); RBC 4.96 m/uL (4.30-5.90); RDW 14.4 % (11.5-15.5); WBC 24.3 k/uL (3.8-10.6)
[2018-10-26 08:00] LABS: ALT 31 U/L (21-72); AST 19 U/L (17-59); Albumin 3.9 g/dL (3.5-5.0); Alkaline Phosphatase 60 U/L (38-126); Anion Gap 12 mmol/L; Blood Urea Nitrogen 25 mg/dL (9-20); Calcium 9.3 mg/dL (8.4-10.2); Carbon Dioxide 30 mmol/L (22-30); Chloride 100 mmol/L (98-107); Glucose 159 mg/dL (74-99); Potassium 4.1 mmol/L (3.5-5.1); Sodium 142 mmol/L (137-145); Total Bilirubin 0.4 mg/dL (0.2-1.3)
[2018-10-26] MEDS: INSULIN ASPART 100 UNIT/ML 1 ML 10 ML VIAL SQ SCH ×6 (08:15→20:08)
[2018-10-26] MEDS: APIXABAN 5 MG TAB PO SCH ×2 (08:15→20:05)
[2018-10-26] MEDS: metFORMIN 500 MG TAB PO SCH ×2 (08:15→18:01)
[2018-10-26] MEDS: FUROSEMIDE 20 MG TAB PO SCH ×2 (08:15→18:01)
[2018-10-26 10:01] LABS: Glucose,Whole Blood 152 mg/dL (75-99)
[2018-10-26] MEDS: VERAPAMIL SR 180 MG TABLET.ER PO SCH (10:13)
[2018-10-26] MEDS: TERBINAFINE 250 MG TAB PO SCH (10:13)
[2018-10-26 12:24] LABS: Glucose,Whole Blood 100 mg/dL (75-99)
[2018-10-26 13:19] LABS: Glucose,Whole Blood 168 mg/dL (75-99)
--- NOTE | 2018-10-26 13:45 | P.CNPUL ---
History of Present Illness Consult date: 10/26/18 Reason for consult: COPD Chief complaint: Shortness of breath History of present illness: This is a 58-year-old white male with history of COPD, patient is O2 dependent, normally sees Dr. Mraiee, his FEV1 is normally in the range of 57%. His other medical problems include chronic dyspnea related to COPD, obesity, and chronic atrial fibrillation, obstructive sleep apnea syndrome, maintained on CPAP at night, patient is O2 dependent because of his COPD and obstructive sleep apnea, known to have history of diabetes, hypertension, and cor pulmonale. Patient was admitted this time with mostly increased shortness of breath with any activity, and upon arrival he was noted to be in atrial fibrillation and RVR. Patient was treated with IV Cardizem, and he was seen by cardiology on consultation, however considering his underlying COPD, this consult was initiated. At present the patient is feeling better, breathing easier, less shortness of breath, no cough, no wheezing, no chest pain, no fever, no chills, no hemoptysis. Patient remains on multiple bronchodilators, and his pulmonary status seems to be basically about what it is supposed to be. He was actually cleared by cardiology for discharge home today, and after evaluating the patient , I felt the same that the patient could actually be discharged home today and follow up with Dr. Mariee on outpatient basis. During my evaluation, patient had no headache no blurred vision no dizziness. No chest pain, no palpitations , he does have chronic dyspnea on exertion, no cough no wheezing no fever no chills no hemoptysis no nausea no vomiting no abdominal pain no melena no hematemesis no dysuria and no frequency no urgency. Review of Systems 14 point review of systems were obtained, please refer to pertinent positives in HPI, otherwise remaining systems are negative. Past Medical History Past Medical History: Asthma, COPD, Diabetes Mellitus, Hypertension, Osteoarthritis (OA), Pneumonia, Respiratory Disorder, Sleep Apnea/CPAP/BIPAP Additional Past Medical History / Comment(s): IDDM type II, HERBERT with CPAP, chronic respiratory failure-O2 2L/NC ATC, arthritis in multiple joints. History of Any Multi-Drug Resistant Organisms: None Reported Past Surgical History: Hernia Repair Additional Past Surgical History / Comment(s): Bronchoscopy, umbilical hernia repair. Past Anesthesia/Blood Transfusion Reactions: No Reported Reaction Past Psychological History: No Psychological Hx Reported Smoking Status: Former smoker Past Alcohol Use History: None Reported Past Drug Use History: None Reported - Past Family History Father Family Medical History: Diabetes Mellitus Mother Family Medical History: Asthma, Diabetes Mellitus Medications and Allergies Home Medications Medication Instructions Recorded Confirmed Type Budesonide-Formot 160-4.5 Mcg 2 puff INHALATION RT-BID 01/08/15 10/21/18 History [Symbicort 160-4.5 Mcg Inhaler] metFORMIN HCL [Glucophage] 500 mg PO AC-BID 01/08/15 10/21/18 History Furosemide [Lasix] 20 mg PO BID 10/17/17 10/21/18 History Hydrochlorothiazide 25 mg PO DAILY 10/17/17 10/21/18 History Albuterol Nebulized [Ventolin 2.5 mg INHALATION RT-QID #120 nebu 10/20/17 Rx Nebulized] Albuterol Inhaler [Ventolin Hfa 2 puff INHALATION RT-Q6H PRN 09/12/18 10/21/18 History Inhaler] Apixaban [Eliquis] 5 mg PO BID #60 tab 09/15/18 10/21/18 Rx Atorvastatin [Lipitor] 40 mg PO HS #30 tab 09/15/18 10/21/18 Rx Moexipril [Univasc] 15 mg PO DAILY #1 tab 09/15/18 10/21/18 Rx Verapamil [Isoptin] 40 mg PO TID #90 tab 09/15/18 10/21/18 Rx Insulin Glargine,Hum.rec.anlog 80 unit SQ BID 10/21/18 10/21/18 History [Lantus Solostar] Terbinafine [LamISIL] 250 mg PO DAILY 10/21/18 10/21/18 History Allergies Allergy/AdvReac Type Severity Reaction Status Date / Time No Known Allergies Allergy Verified 09/12/18 09:24 Physical Exam Vitals: Vital Signs Temp Pulse Pulse Resp BP Pulse Ox 10/26/18 13:25 98.1 F 110 H 20 139/96 93 L 10/26/18 11:41 104 H 10/26/18 11:30 104 H 10/26/18 10:15 109 H 156/70 10/26/18 07:45 106 H 10/26/18 07:29 103 H 10/26/18 04:55 97.4 F L 100 22 162/90 98 10/26/18 04:18 105 H 10/26/18 04:09 105 H 10/26/18 00:56 105 H 10/26/18 00:45 108 H 10/25/18 23:40 97.5 F L 107 H 24 177/94 96 10/25/18 22:05 97.4 F L 94 20 142/85 96 10/25/18 21:04 104 H 10/25/18 20:50 102 H 10/25/18 17:05 98 10/25/18 17:00 97.7 F 84 18 133/76 97 10/25/18 16:55 97 10/25/18 16:54 96 10/25/18 16:00 18 Intake and Output 10/25/18 10/26/18 10/26/18 22:59 06:59 14:59 Intake Total 299.950 660.250 20.867 Balance 299.950 660.250 20.867 Intake: IV 10.5 Insulin Regular 100 unit 10.5 In Sodium Chloride 0.9% 100 ml @ Titrate IV .Q0M [facility] Rx#:[id number] Intake, IV Titration 49.450 60.250 20.867 Amount Insulin Regular 100 unit 49.450 10.250 20.867 In Sodium Chloride 0.9% 100 ml @ Titrate IV .Q0M [facility] Rx#:[id number] cefTRIAXone 1,000 mg In 50 Sodium Chloride 0.9% 50 ml @ 100 mls/hr IVPB Q24H [facility] Rx#:[id number] Oral 240 600 Other: Voiding Method Urinal Urinal Urinal # Voids 1 Physical Exam: Revealed a 63-year-old white male, obese, in no distress, on 2 L nasal cannula. Head: Atraumatic, normocephalic. HEENT:[Neck is supple.] [No neck masses.] [No thyromegaly.] [No JVD.] Chest: [Extremely diminished breath sounds at the bases, no crackles, no rhonchi , no wheezes, no chest wall tenderness, symmetrical chest expansion noted..] Cardiac Exam: Irregular irregular rhythm. [Normal S1 and S2, no S3 gallop, no murmur.] Abdomen: [Obese, Soft, nontender, no megaly, no rebound, no guarding, normal bowel sounds.] Extremities: [No clubbing, no edema, no cyanosis.] Neurological Exam: [No focal neurologic deficit.] Psychiatric: Normal mood affect and mental status examination Skin: No rashes. Results - Laboratory Findings CBC and BMP: 10/26/18 06:25 10/26/18 06:25 PT/INR, D-dimer PT 11.1 sec (9.0-12.0) 10/21/18 00:07 INR 1.0 (<1.2) 10/21/18 00:07 D-Dimer 0.22 mg/L FEU (<0.60) 10/21/18 00:07 Abnormal lab findings: Abnormal Labs 10/21/18 10/21/18 10/21/18 00:07 00:07 06:13 WBC 14.2 H MCHC Neutrophils # 11.1 H Carbon Dioxide BUN Creatinine Glucose 132 H POC Glucose (mg/dL) 223 H Hemoglobin A1c Plasma Lactic Acid Vini 10/21/18 10/21/18 10/21/18 11:26 16:11 20:54 WBC MCHC Neutrophils # Carbon Dioxide BUN Creatinine Glucose POC Glucose (mg/dL) 301 H 287 H 280 H Hemoglobin A1c Plasma Lactic Acid Vini 10/22/18 10/22/18 10/22/18 05:57 06:30 06:30 WBC 16.6 H MCHC Neutrophils # Carbon Dioxide BUN Creatinine Glucose POC Glucose (mg/dL) 118 H Hemoglobin A1c 8.0 H Plasma Lactic Acid Vini 10/22/18 10/22/18 10/22/18 06:30 16:46 19:16 WBC MCHC Neutrophils # Carbon Dioxide BUN Creatinine Glucose 108 H POC Glucose (mg/dL) 205 H 245 H Hemoglobin A1c Plasma Lactic Acid Vini 10/22/18 10/23/18 10/23/18 20:45 06:10 06:10 WBC 15.2 H MCHC Neutrophils # Carbon Dioxide 34 H BUN Creatinine Glucose 61 L POC Glucose (mg/dL) 231 H Hemoglobin A1c Plasma Lactic Acid Vini 10/23/18 10/23/18 10/23/18 06:22 11:43 16:33 WBC MCHC Neutrophils # Carbon Dioxide BUN Creatinine Glucose POC Glucose (mg/dL) 67 L 129 H 183 H Hemoglobin A1c Plasma Lactic Acid Vini 10/23/18 10/24/18 10/24/18 21:04 03:28 03:56 WBC MCHC Neutrophils # Carbon Dioxide BUN Creatinine Glucose POC Glucose (mg/dL) 184 H 67 L 130 H Hemoglobin A1c Plasma Lactic Acid Vini 10/24/18 10/24/18 10/24/18 03:59 05:59 08:16 WBC MCHC Neutrophils # Carbon Dioxide BUN Creatinine Glucose POC Glucose (mg/dL) 114 H Hemoglobin A1c Plasma Lactic Acid Vini 2.4 H* 2.4 H* 10/24/18 10/24/18 10/24/18 11:13 16:23 16:27 WBC 14.8 H MCHC Neutrophils # 12.9 H Carbon Dioxide BUN Creatinine Glucose POC Glucose (mg/dL) 160 H 283 H Hemoglobin A1c Plasma Lactic Acid Vini 10/24/18 10/24/18 10/24/18 16:27 17:49 19:55 WBC MCHC Neutrophils # Carbon Dioxide BUN 23 H Creatinine Glucose 277 H POC Glucose (mg/dL) 211 H 167 H Hemoglobin A1c Plasma Lactic Acid Vini 10/24/18 10/24/18 10/25/18 22:03 23:50 02:06 WBC MCHC Neutrophils # Carbon Dioxide BUN Creatinine Glucose POC Glucose (mg/dL) 145 H 130 H 217 H Hemoglobin A1c Plasma Lactic Acid Vini 10/25/18 10/25/18 10/25/18 04:00 06:03 06:03 WBC 20.6 H MCHC Neutrophils # 17.3 H Carbon Dioxide BUN 22 H Creatinine 0.60 L Glucose 112 H POC Glucose (mg/dL) 134 H Hemoglobin A1c Plasma Lactic Acid Vini 10/25/18 10/25/18 10/25/18 06:15 08:13 10:00 WBC MCHC Neutrophils # Carbon Dioxide BUN Creatinine Glucose POC Glucose (mg/dL) 138 H 238 H 252 H Hemoglobin A1c Plasma Lactic Acid Vini 10/25/18 10/25/18 10/25/18 11:58 13:03 14:09 WBC MCHC Neutrophils # Carbon Dioxide BUN Creatinine Glucose POC Glucose (mg/dL) 113 H 105 H 136 H Hemoglobin A1c Plasma Lactic Acid Vini 10/25/18 10/25/18 10/25/18 16:04 19:22 22:01 WBC MCHC Neutrophils # Carbon Dioxide BUN Creatinine Glucose POC Glucose (mg/dL) 174 H 259 H 114 H Hemoglobin A1c Plasma Lactic Acid Vini 10/25/18 10/26/18 10/26/18 23:09 00:04 01:53 WBC MCHC Neutrophils # Carbon Dioxide BUN Creatinine Glucose POC Glucose (mg/dL) 101 H 132 H 149 H Hemoglobin A1c Plasma Lactic Acid Vini 10/26/18 10/26/18 10/26/18 04:25 06:02 06:25 WBC 24.3 H MCHC 29.9 L Neutrophils # 21.5 H Carbon Dioxide BUN Creatinine Glucose POC Glucose (mg/dL) 139 H 168 H Hemoglobin A1c Plasma Lactic Acid Vini 10/26/18 10/26/18 10/26/18 06:25 07:27 09:55 WBC MCHC Neutrophils # Carbon Dioxide BUN 25 H Creatinine Glucose 159 H POC Glucose (mg/dL) 149 H 152 H Hemoglobin A1c Plasma Lactic Acid Vini 10/26/18 10/26/18 12:11 13:17 WBC MCHC Neutrophils # Carbon Dioxide BUN Creatinine Glucose POC Glucose (mg/dL) 100 H 168 H Hemoglobin A1c Plasma Lactic Acid Vini - Diagnostic Findings Chest x-ray: image reviewed (No evidence of active disease.) Assessment and Plan Assessment: Impression: 1 shortness of breath, multifactorial, secondary to severe underlying COPD, and atrial fibrillation with RVR. And secondary to morbid obesity and deconditioning. 2 acute on chronic hypoxic and hypercapnic respiratory failure secondary to COPD 3 morbid obesity, and obstructive sleep apnea syndrome, patient is on CPAP at home. 4 type 2 diabetes 5 benign essential hypertension 6 degenerative joint disease Recommendation: I fully agree with the present treatment plan including bronchodilators, cardiac meds to keep the ventricular rate well controlled, anticoagulation therapy for his chronic atrial fibrillation, agree with discharge planning and patient cleared from my perspective to be discharged home if cleared by cardiology. Should have follow-up with us in the office in one week. Time with Patient: Greater than 30
[2018-10-26 15:04] LABS: Glucose,Whole Blood 266 mg/dL (75-99)
[2018-10-26 17:27] LABS: Glucose,Whole Blood 206 mg/dL (75-99)
--- NOTE | 2018-10-26 18:47 | P.PN ---
Subjective Progress Note Date: 10/25/18 Progress note being dictated for Dr. Delvalle. Interval history:58-year-old gentleman admitted for COPD exacerbation still quite a bit short of breath. Patient also had a temporal relation presently rate controlled on anticoagulation.shortness of breath although little bit better compared to yesterday Constitutional: Denied any fatigue denied any fever. Cardio vascular: denied any chest pain, palpitations Gastrointestinal denied any nausea vomiting Pulmonary: Denied any shortness of breath cough Neurologic denied any new focal deficits All inpatient medications were reviewed and appropriate changes in these medications as dictated in the interval history and assessment and plan. 10/25/2018 A. fib with better controlled ventricular rate, low 100s. Breathing improving, IV steroids decreased. Hyperglycemia, on insulin drip. Denies chest pain, palpitations or increasing shortness of breath. Objective - Vital Signs Vital signs: Vital Signs Temp 97.7 F 10/25/18 17:00 Pulse 98 10/25/18 17:05 Resp 18 10/25/18 17:00 BP 133/76 10/25/18 17:00 Pulse Ox 97 10/25/18 17:00 Intake & Output 10/25/18 10/25/18 10/26/18 06:59 18:59 06:59 Intake Total 308.000 749.292 Output Total 1050 Balance -742.000 749.292 Weight 157.5 kg Intake: Intake, IV Titration 68.000 29.292 Amount Insulin Regular 100 unit 68.000 26.467 In Sodium Chloride 0.9% 100 ml @ Titrate IV .Q0M [facility] Rx#:[id number] Insulin Regular 100 unit 2.825 In Sodium Chloride 0.9% 100 ml @ Titrate IV .Q0M [facility] Rx#:[id number] Oral 240 720 Output: Urine 1050 Other: Voiding Method Urinal # Voids 1 - Exam GENERAL: Patient is sitting up in chair, alert and oriented x3, no acute distress. HEENT: No scleral icterus. No conjunctival pallor. Normocephalic, atraumatic. Oral mucosa moist CARDIOVASCULAR: S1 and S2 present. Irregular, No murmurs, rubs, or gallops. PULMONARY: Bilateral lung palma diminshed, minimal expiratory wheezing ABDOMEN: Soft, nontender, nondistended, normoactive bowel sounds. No palpable organomegaly. MUSCULOSKELETAL: No joint swelling or deformity. EXTREMITIES: No cyanosis, clubbing, mild bilateral pedal edema NEUROLOGICAL: Gross neurological examination did not reveal any focal deficits. SKIN: No rashes. - Labs CBC & Chem 7: 10/26/18 06:25 10/26/18 06:25 Labs: Abnormal Lab Results - Last 24 Hours (Table) 10/24/18 10/24/18 10/24/18 Range/Units 19:55 22:03 23:50 WBC (3.8-10.6) k/uL Neutrophils # (1.3-7.7) k/uL BUN (9-20) mg/dL Creatinine (0.66-1.25) mg/dL Glucose (74-99) mg/dL POC Glucose (mg/dL) 167 H 145 H 130 H (75-99) mg/dL 10/25/18 10/25/18 10/25/18 Range/Units 02:06 04:00 06:03 WBC 20.6 H (3.8-10.6) k/uL Neutrophils # 17.3 H (1.3-7.7) k/uL BUN (9-20) mg/dL Creatinine (0.66-1.25) mg/dL Glucose (74-99) mg/dL POC Glucose (mg/dL) 217 H 134 H (75-99) mg/dL 10/25/18 10/25/18 10/25/18 Range/Units 06:03 06:15 08:13 WBC (3.8-10.6) k/uL Neutrophils # (1.3-7.7) k/uL BUN 22 H (9-20) mg/dL Creatinine 0.60 L (0.66-1.25) mg/dL Glucose 112 H (74-99) mg/dL POC Glucose (mg/dL) 138 H 238 H (75-99) mg/dL 10/25/18 10/25/18 10/25/18 Range/Units 10:00 11:58 13:03 WBC (3.8-10.6) k/uL Neutrophils # (1.3-7.7) k/uL BUN (9-20) mg/dL Creatinine (0.66-1.25) mg/dL Glucose (74-99) mg/dL POC Glucose (mg/dL) 252 H 113 H 105 H (75-99) mg/dL 10/25/18 10/25/18 Range/Units 14:09 16:04 WBC (3.8-10.6) k/uL Neutrophils # (1.3-7.7) k/uL BUN (9-20) mg/dL Creatinine (0.66-1.25) mg/dL Glucose (74-99) mg/dL POC Glucose (mg/dL) 136 H 174 H (75-99) mg/dL Assessment and Plan Assessment: -Acute on chronic hypercapnic respiratory failure secondary to acute COPD exacerbation with acute purulent tracheobronchitis. -Chronic persistent Atrial fibrillation with RVR -Morbid obesity, BMI 52.8 -Obstructive Sleep apnea secondary to the above -Type 2 diabetes mellitus -Hypertension Plan: Continue on current medication regime ,monitoring and symptomatic treatment. Maintain IV antibiotics, nebulized bronchodilators, steroids. Close monitoring of blood sugars. Pulmonary consult in place with recommendations pending.Verapamil increased. Aggressive pulmonary toileting. Increase ambulation as tolerated. Transfer to [facility] with remote telemetry. The impression and plan of care has been dictated as directed. : I performed a history and examination of this patient, discussed the same with the dictator. I agree with the dictator's note ,documented as a scribe. Any additional findings or plans will be noted.
--- NOTE | 2018-10-26 18:50 | P.PN ---
Subjective Progress Note Date: 10/26/18 Progress note being dictated for Dr. Delvalle. Interval history:58-year-old gentleman admitted for COPD exacerbation still quite a bit short of breath. Patient also had a temporal relation presently rate controlled on anticoagulation.shortness of breath although little bit better compared to yesterday Constitutional: Denied any fatigue denied any fever. Cardio vascular: denied any chest pain, palpitations Gastrointestinal denied any nausea vomiting Pulmonary: Denied any shortness of breath cough Neurologic denied any new focal deficits All inpatient medications were reviewed and appropriate changes in these medications as dictated in the interval history and assessment and plan. 10/25/2018 A. fib with better controlled ventricular rate, low 100s. Breathing improving, IV steroids decreased. Hyperglycemia, on insulin drip. Denies chest pain, palpitations or increasing shortness of breath. 10/26/18 significant improvement in breathing. Afebrile. Good diet intake with no nausea vomiting. Denies chest pain, palpitations or increasing shortness of breath. Blood sugars better controlled on insulin drip. Objective - Vital Signs Vital signs: Vital Signs Temp 98.1 F 10/26/18 13:25 Pulse 84 10/26/18 15:34 Resp 16 10/26/18 15:34 BP 123/68 10/26/18 15:20 Pulse Ox 97 10/26/18 15:25 Intake & Output 10/25/18 10/26/18 10/26/18 18:59 06:59 18:59 Intake Total 749.292 717.375 20.867 Output Total 450 Balance 749.292 717.375 -429.133 Intake: IV 10.5 Insulin Regular 100 unit 10.5 In Sodium Chloride 0.9% 100 ml @ Titrate IV .Q0M TED Rx#:[id number] Intake, IV Titration 29.292 106.875 20.867 Amount Insulin Regular 100 unit 26.467 In Sodium Chloride 0.9% 100 ml @ Titrate IV .Q0M TED Rx#:[id number] Insulin Regular 100 unit 2.825 56.875 20.867 In Sodium Chloride 0.9% 100 ml @ Titrate IV .Q0M TED Rx#:[id number] cefTRIAXone 1,000 mg In 50 Sodium Chloride 0.9% 50 ml @ 100 mls/hr IVPB Q24H TED Rx#:[id number] Oral 720 600 Output: Urine 450 Other: Voiding Method Urinal Urinal Urinal # Voids 1 - Exam GENERAL: Patient is sitting up in chair, alert and oriented x3, no acute distress. HEENT: No scleral icterus. No conjunctival pallor. Normocephalic, atraumatic. Oral mucosa moist CARDIOVASCULAR: S1 and S2 present. Irregular, No murmurs, rubs, or gallops. PULMONARY: Bilateral lung palma diminshed, no rhonchi, no crackles, no wheezes ABDOMEN: Soft, nontender, nondistended, normoactive bowel sounds. No palpable organomegaly. MUSCULOSKELETAL: No joint swelling or deformity. EXTREMITIES: No cyanosis, clubbing, no edema NEUROLOGICAL: Gross neurological examination did not reveal any focal deficits. SKIN: No rashes. - Labs CBC & Chem 7: 10/26/18 06:25 10/26/18 06:25 Labs: Abnormal Lab Results - Last 24 Hours (Table) 10/25/18 10/25/18 10/25/18 Range/Units 19:22 22:01 23:09 WBC (3.8-10.6) k/uL MCHC (31.0-37.0) g/dL Neutrophils # (1.3-7.7) k/uL BUN (9-20) mg/dL Glucose (74-99) mg/dL POC Glucose (mg/dL) 259 H 114 H 101 H (75-99) mg/dL 10/26/18 10/26/18 10/26/18 Range/Units 00:04 01:53 04:25 WBC (3.8-10.6) k/uL MCHC (31.0-37.0) g/dL Neutrophils # (1.3-7.7) k/uL BUN (9-20) mg/dL Glucose (74-99) mg/dL POC Glucose (mg/dL) 132 H 149 H 139 H (75-99) mg/dL 10/26/18 10/26/18 10/26/18 Range/Units 06:02 06:25 06:25 WBC 24.3 H (3.8-10.6) k/uL MCHC 29.9 L (31.0-37.0) g/dL Neutrophils # 21.5 H (1.3-7.7) k/uL BUN 25 H (9-20) mg/dL Glucose 159 H (74-99) mg/dL POC Glucose (mg/dL) 168 H (75-99) mg/dL 10/26/18 10/26/18 10/26/18 Range/Units 07:27 09:55 12:11 WBC (3.8-10.6) k/uL MCHC (31.0-37.0) g/dL Neutrophils # (1.3-7.7) k/uL BUN (9-20) mg/dL Glucose (74-99) mg/dL POC Glucose (mg/dL) 149 H 152 H 100 H (75-99) mg/dL 10/26/18 10/26/18 10/26/18 Range/Units 13:17 14:58 17:25 WBC (3.8-10.6) k/uL MCHC (31.0-37.0) g/dL Neutrophils # (1.3-7.7) k/uL BUN (9-20) mg/dL Glucose (74-99) mg/dL POC Glucose (mg/dL) 168 H 266 H 206 H (75-99) mg/dL Microbiology - Last 24 Hours (Table) 10/24/18 04:28 Gram Stain - Final Sputum Sputum Culture - Final Assessment and Plan Assessment: -Acute on chronic hypercapnic respiratory failure secondary to acute COPD exacerbation with acute purulent tracheobronchitis. -Chronic persistent Atrial fibrillation with RVR -Morbid obesity, BMI 52.8 -Obstructive Sleep apnea secondary to the above -Type 2 diabetes mellitus -Hypertension Plan: Continue on current medication regime ,monitoring and symptomatic treatment. Maintain IV antibiotics, nebulized bronchodilators, steroids. IV steroids discontinued, converted to oral. Weaning off insulin drip. Discharge planning in progress for tomorrow. The impression and plan of care has been dictated as directed. : I performed a history and examination of this patient, discussed the same with the dictator. I agree with the dictator's note ,documented as a scribe. Any additional findings or plans will be noted.
[2018-10-26] MEDS ORDERED: FUROSEMIDE 10 MG/ML 4 ML VIAL IV STA (19:37)
[2018-10-26 19:45] LABS: Glucose,Whole Blood 246 mg/dL (75-99)
[2018-10-26] MEDS: ATORVASTATIN 40 MG TAB PO SCH (20:05)
--- NOTE | 2018-10-26 20:15 | XR ---
EXAMINATION TYPE: XR chest 1V portable DATE OF EXAM: 10/26/2018 COMPARISON: 10/24/2018 HISTORY: Wheezing TECHNIQUE: Single frontal view of the chest is obtained. FINDINGS: Heart and mediastinum are normal. Lungs are clear. Diaphragm is normal. Bony thorax appear s normal. There are chest leads. IMPRESSION: Normal chest. No change.
[2018-10-26] MEDS ORDERED: INSULIN DETEMIR 100 UNIT/ML 10 ML VIAL SQ SCH (21:00)
[2018-10-26] MEDS: INSULIN DETEMIR 100 UNIT/ML 10 ML VIAL SQ SCH (21:05)
[2018-10-27 01:08] LABS: Glucose,Whole Blood 136 mg/dL (75-99)
[2018-10-27] MEDS: IPRATROPIUM-ALBUTEROL 3 ML NEB INHALATION PRN (03:51)
[2018-10-27 06:58] LABS: Glucose,Whole Blood 84 mg/dL (75-99)
[2018-10-27] MEDS: IPRATROPIUM-ALBUTEROL 3 ML NEB INHALATION SCH ×4 (07:29→19:58)
[2018-10-27] MEDS: SYMBICORT 160-4.5 MCG INHALER INHALATION SCH ×2 (07:29→19:58)
[2018-10-27] MEDS ORDERED: INSULIN ASPART 100 UNIT/ML 1 ML 10 ML VIAL SQ SCH (07:30)
[2018-10-27] MEDS: INSULIN ASPART 100 UNIT/ML 1 ML 10 ML VIAL SQ SCH ×8 (07:43→20:47)
[2018-10-27] MEDS: FUROSEMIDE 20 MG TAB PO SCH ×2 (07:44→17:52)
[2018-10-27] MEDS: metFORMIN 500 MG TAB PO SCH ×2 (07:44→17:52)
[2018-10-27] MEDS: APIXABAN 5 MG TAB PO SCH ×2 (07:44→20:46)
[2018-10-27] MEDS: predniSONE 20 MG TAB PO SCH (07:44)
[2018-10-27] MEDS: TERBINAFINE 250 MG TAB PO SCH (07:45)
[2018-10-27] MEDS: VERAPAMIL SR 180 MG TABLET.ER PO SCH (07:45)
[2018-10-27 07:55] LABS: Basophils % (A) 0 %; Eosinophils % (A) 0 %; HCT 43.7 % (39.0-53.0); HGB 14.1 gm/dL (13.0-17.5); Lymphocytes # (A) 3.4 k/uL (1.0-4.8); Lymphocytes % (A) 18 %; MCH 28.7 pg (25.0-35.0); MCHC 32.3 g/dL (31.0-37.0); MCV 88.9 fL (80.0-100.0); Mean Platelet Volume 6.6; Monocytes # (A) 1.5 k/uL (0-1.0); Monocytes % (A) 8 %; Neutrophils # (A) 14.2 k/uL (1.3-7.7); Neutrophils % (A) 73 %; Platelet Count 362 k/uL (150-450); RBC 4.91 m/uL (4.30-5.90); RDW 14.6 % (11.5-15.5); WBC 19.4 k/uL (3.8-10.6)
[2018-10-27 08:08] LABS: ALT 42 U/L (21-72); AST 23 U/L (17-59); Albumin 3.6 g/dL (3.5-5.0); Alkaline Phosphatase 52 U/L (38-126); Anion Gap 5 mmol/L; Blood Urea Nitrogen 27 mg/dL (9-20); Carbon Dioxide 38 mmol/L (22-30); Chloride 99 mmol/L (98-107); Glucose 90 mg/dL (74-99); Potassium 4.3 mmol/L (3.5-5.1); Sodium 142 mmol/L (137-145); Total Bilirubin 0.4 mg/dL (0.2-1.3); Total Protein 6.6 g/dL (6.3-8.2)
[2018-10-27 08:09] LABS: Glucose,Whole Blood 128 mg/dL (75-99)
[2018-10-27] MEDS: INSULIN DETEMIR 100 UNIT/ML 10 ML VIAL SQ SCH ×2 (08:43→20:47)
[2018-10-27 11:25] LABS: Glucose,Whole Blood 183 mg/dL (75-99)
--- NOTE | 2018-10-27 13:20 | P.PN ---
Subjective Progress Note Date: 10/27/18 Principal diagnosis: Shortness of breath This is a 58-year-old white male with history of COPD, patient is O2 dependent, normally sees Dr. Mariee, his FEV1 is normally in the range of 57%. His other medical problems include chronic dyspnea related to COPD, obesity, and chronic atrial fibrillation, obstructive sleep apnea syndrome, maintained on CPAP at night, patient is O2 dependent because of his COPD and obstructive sleep apnea, known to have history of diabetes, hypertension, and cor pulmonale. Patient was admitted this time with mostly increased shortness of breath with any activity, and upon arrival he was noted to be in atrial fibrillation and RVR. Patient was treated with IV Cardizem, and he was seen by cardiology on consultation, however considering his underlying COPD, this consult was initiated. At present the patient is feeling better, breathing easier, less shortness of breath, no cough, no wheezing, no chest pain, no fever, no chills, no hemoptysis. Patient remains on multiple bronchodilators, and his pulmonary status seems to be basically about what it is supposed to be. He was actually cleared by cardiology for discharge home today, and after evaluating the patient , I felt the same that the patient could actually be discharged home today and follow up with Dr. Mariee on outpatient basis. During my evaluation, patient had no headache no blurred vision no dizziness. No chest pain, no palpitations , he does have chronic dyspnea on exertion, no cough no wheezing no fever no chills no hemoptysis no nausea no vomiting no abdominal pain no melena no hematemesis no dysuria and no frequency no urgency. On 10/27/2018 patient seen again in follow-up on medical surgical floor. Apparently last night patient became very nauseous, very short of breath. At that time has right was noted to be around 130 BPM, A. fib. Currently has heart rate is around 100-118 BPM. Patient anticoagulated with Eliquis, and patient is on verapamil SR for rate control. Cardiology has been reconsulted today. From pulmonary perspective patient is fairly stable, lung sounds are diminished, no rhonchi, no crackles or wheezes. Patient was given a dose of IV Lasix last night for shortness of breath. Today's chest x-ray was reviewed by Dr. Aguilar showed normal chest. Patient has a occasional productive cough, he is currently on empiric antibiotic coverage in the form of Rocephin. On oral prednisone, and nebulized bronchodilators. Objective - Vital Signs Vital signs: Vital Signs Temp 97.9 F 10/27/18 12:02 Pulse 100 10/27/18 12:02 Resp 20 10/27/18 12:02 BP 132/72 10/27/18 12:02 Pulse Ox 97 10/27/18 12:02 Intake & Output 10/26/18 10/27/18 10/27/18 18:59 06:59 18:59 Intake Total 20.867 50 Output Total 450 2400 900 Balance -429.133 -2350 -900 Weight 156 kg Intake: Intake, IV Titration 20.867 50 Amount Insulin Regular 100 unit 20.867 In Sodium Chloride 0.9% 100 ml @ Titrate IV .Q0M [facility] Rx#:[id number] cefTRIAXone 1,000 mg In 50 Sodium Chloride 0.9% 50 ml @ 100 mls/hr IVPB Q24H [facility] Rx#:[id number] Output: Urine 450 2400 900 Other: Voiding Method Urinal Urinal Urinal # Voids 300 1 # Bowel Movements 1 - Exam Physical Exam: Revealed a 63-year-old white male, obese, in no distress, on 2 L nasal cannula. Head: Atraumatic, normocephalic. HEENT:[Neck is supple.] [No neck masses.] [No thyromegaly.] [No JVD.] Chest: [Extremely diminished breath sounds at the bases, no crackles, no rhonchi , no wheezes, no chest wall tenderness, symmetrical chest expansion noted..] Cardiac Exam: Irregular irregular rhythm. [Normal S1 and S2, no S3 gallop, no murmur.] Abdomen: [Obese, Soft, nontender, no megaly, no rebound, no guarding, normal bowel sounds.] Extremities: [No clubbing, no edema, no cyanosis.] Neurological Exam: [No focal neurologic deficit.] Psychiatric: Normal mood affect and mental status examination Skin: No rashes. - Labs CBC & Chem 7: 10/27/18 07:10 10/27/18 07:10 Labs: Abnormal Lab Results - Last 24 Hours (Table) 10/26/18 10/26/18 10/26/18 Range/Units 13:17 14:58 17:25 WBC (3.8-10.6) k/uL Neutrophils # (1.3-7.7) k/uL Monocytes # (0-1.0) k/uL Carbon Dioxide (22-30) mmol/L BUN (9-20) mg/dL POC Glucose (mg/dL) 168 H 266 H 206 H (75-99) mg/dL 10/26/18 10/27/18 10/27/18 Range/Units 19:44 01:07 07:10 WBC 19.4 H (3.8-10.6) k/uL Neutrophils # 14.2 H (1.3-7.7) k/uL Monocytes # 1.5 H (0-1.0) k/uL Carbon Dioxide (22-30) mmol/L BUN (9-20) mg/dL POC Glucose (mg/dL) 246 H 136 H (75-99) mg/dL 10/27/18 10/27/18 10/27/18 Range/Units 07:10 08:07 11:17 WBC (3.8-10.6) k/uL Neutrophils # (1.3-7.7) k/uL Monocytes # (0-1.0) k/uL Carbon Dioxide 38 H (22-30) mmol/L BUN 27 H (9-20) mg/dL POC Glucose (mg/dL) 128 H 183 H (75-99) mg/dL Microbiology - Last 24 Hours (Table) 10/24/18 04:28 Gram Stain - Final Sputum Sputum Culture - Final Assessment and Plan Plan: Assessment: 1 shortness of breath, multifactorial, secondary to severe underlying COPD, and atrial fibrillation with RVR. And secondary to morbid obesity and deconditioning. 2 acute on chronic hypoxic and hypercapnic respiratory failure secondary to COPD 3 morbid obesity, and obstructive sleep apnea syndrome, patient is on CPAP at home. 4 type 2 diabetes 5 benign essential hypertension 6 degenerative joint disease Plan: Continue the oral prednisone, antibiotics, and nebulized bronchodilators. Patient is still having episodes of A. fib with RVR, seems to exacerbate his shortness of breath. Cardiology is following. From pulmonary perspective patient seems to be fairly stable other than having worsening dyspnea with A. fib RVR. Continue current medical treatment. I performed a history & physical examination of the patient and discussed their management with my nurse practitioner, Sarah Santos. I reviewed the nurse practitioner's note and agree with the documented findings and plan of care. Lung sounds are diminished. The findings and the impression was discussed with the patient. I attest to the documentation by the nurse practitioner. Time with Patient: Less than 30
[2018-10-27 17:11] LABS: Glucose,Whole Blood 146 mg/dL (75-99)
[2018-10-27 20:15] LABS: Glucose,Whole Blood 172 mg/dL (75-99)
[2018-10-27] MEDS: ATORVASTATIN 40 MG TAB PO SCH (20:46)
[2018-10-27] MEDS ORDERED: FUROSEMIDE 10 MG/ML 4 ML VIAL IV STA (21:45)
[2018-10-28] MEDS: IPRATROPIUM-ALBUTEROL 3 ML NEB INHALATION PRN (00:16)
[2018-10-28] MEDS: SYMBICORT 160-4.5 MCG INHALER INHALATION SCH ×2 (06:48→19:16)
[2018-10-28] MEDS: IPRATROPIUM-ALBUTEROL 3 ML NEB INHALATION SCH ×4 (06:48→19:16)
[2018-10-28 06:59] LABS: Glucose,Whole Blood 52 mg/dL (75-99)
[2018-10-28 07:19] LABS: Glucose,Whole Blood 81 mg/dL (75-99)
[2018-10-28 07:51] LABS: Basophils # (A) 0.1 k/uL (0-0.2); Basophils % (A) 0 %; Eosinophils # (A) 0.2 k/uL (0-0.7); Eosinophils % (A) 1 %; HCT 46.9 % (39.0-53.0); Lymphocytes # (A) 4.7 k/uL (1.0-4.8); Lymphocytes % (A) 21 %; MCH 28.4 pg (25.0-35.0); MCV 88.8 fL (80.0-100.0); Mean Platelet Volume 6.8; Monocytes # (A) 1.8 k/uL (0-1.0); Monocytes % (A) 8 %; Neutrophils # (A) 15.5 k/uL (1.3-7.7); Neutrophils % (A) 69 %; Platelet Count 400 k/uL (150-450); RBC 5.28 m/uL (4.30-5.90); RDW 14.6 % (11.5-15.5); WBC 22.5 k/uL (3.8-10.6)
[2018-10-28 08:07] LABS: ALT 49 U/L (21-72); AST 37 U/L (17-59); Albumin 3.7 g/dL (3.5-5.0); Alkaline Phosphatase 34 U/L (38-126); Anion Gap 13 mmol/L; Blood Urea Nitrogen 28 mg/dL (9-20); Carbon Dioxide 30 mmol/L (22-30); Chloride 101 mmol/L (98-107); Potassium 4.1 mmol/L (3.5-5.1); Sodium 144 mmol/L (137-145); Total Bilirubin 0.8 mg/dL (0.2-1.3)
[2018-10-28 08:19] LABS: Glucose 28 mg/dL (74-99)
[2018-10-28] MEDS: INSULIN ASPART 100 UNIT/ML 1 ML 10 ML VIAL SQ SCH ×8 (08:33→21:32)
[2018-10-28] MEDS: FUROSEMIDE 20 MG TAB PO SCH (08:44)
[2018-10-28] MEDS: APIXABAN 5 MG TAB PO SCH ×2 (08:45→21:39)
[2018-10-28] MEDS: predniSONE 20 MG TAB PO SCH (08:45)
[2018-10-28] MEDS: metFORMIN 500 MG TAB PO SCH ×2 (08:45→18:20)
[2018-10-28] MEDS: INSULIN DETEMIR 100 UNIT/ML 10 ML VIAL SQ SCH ×2 (08:45→21:40)
[2018-10-28] MEDS: VERAPAMIL SR 180 MG TABLET.ER PO SCH (08:46)
[2018-10-28] MEDS: TERBINAFINE 250 MG TAB PO SCH (08:46)
[2018-10-28] MEDS ORDERED: FUROSEMIDE 10 MG/ML 4 ML VIAL IV SCH (11:15)
--- NOTE | 2018-10-28 11:16 | XR ---
EXAMINATION TYPE: XR chest 2V DATE OF EXAM: 10/28/2018 COMPARISON: 10/26/2018 TECHNIQUE: PA and lateral views submitted. HISTORY: Shortness of breath FINDINGS: The lungs are clear and there is no pneumothorax, pleural effusion, or focal pneumonia. Hypertrophi c change of the vertebral column. Heart is prominent. Atherosclerotic change aorta. Arthropathy of th e shoulders. IMPRESSION: 1. No acute process.
[2018-10-28 11:19] LABS: Glucose,Whole Blood 128 mg/dL (75-99)
[2018-10-28 13:40] VITALS: BMI 52.0
[2018-10-28] MEDS ORDERED: VERAPAMIL SR 120 MG TABLET.ER PO STA (14:56)
--- NOTE | 2018-10-28 15:15 | P.PN ---
Subjective This is a pleasant 63-year-old male past medical history significant for advanced COPD, chronic hypoxia, home O2 use, obstructive sleep apnea, paroxysmal atrial fibrillation, hypertension, arthritis and morbid obesity. He was recently diagnosed with atrial fibrillation in August of this year. At that time he was initiated on Cardizem and Eliquis for anticoagulation. Echocardiogram obtained reveals preserved left ventricular systolic function with ejection fraction 50-55%. He presented to the hospital again on October 21 with increased shortness of breath and found to be in atrial fibrillation with rapid ventricular response. He was initially placed on a Cardizem drip and has since been transitioned to verapamil SR dose of 360 mg daily. We have asked to see him again in consultation on the medical floor secondary to persistent rapid ventricular response. He is seen and examined sitting up in bed in no acute distress. He continues to complain of significant shortness of breath in fact congestion can be heard from across the room and the bronchial region. He denies chest discomfort, dizziness, palpitations or diaphoresis. He states he cannot tell that his heart is beating rapidly other than the nursing staff coming in and telling him. Last night as well as the night prior he became acutely short of breath and was given a dose of IV Lasix each night. Chest x-rays have been obtained on October 26 as well as October 28 in both are negative for an acute cardiopulmonary process with no evidence of heart failure noted. Laboratory data reviewed, NT proBNP 199, creatinine 0.67, potassium 4.1 , sodium 144, platelets 400, hemoglobin 15 and WBC 22.5. Blood pressure 166/98 heart rate 109 afebrile and maintaining oxygen saturation on nasal cannula. GENERAL: Well-appearing, well-nourished and in no acute distress. NECK: Supple without JVD or thyromegaly. LUNGS: Course rhonchi noted mostly in the bronchial region, diminished at the based bilaterally with faint wheezes, no rales. Respiration equal and unlabored. HEART: Irregular rate and rhythm without murmurs, rubs or gallops. S1 and S2 heard. EXTREMITIES: Normal range of motion, 1+ bilateral lower extremity edema. No clubbing or cyanosis. Peripheral pulses intact. ASSESSMENT Paroxysmal atrial fibrillation with rapid ventricular response on long-term anticoagulation Severe COPD on home oxygen Acute on chronic hypoxic and hypercapnic respiratory failure secondary to COPD Obstructive sleep apnea Morbid obesity, BMI 52 Leukocytosis PLAN Clinically there is no evidence of heart failure within normal NT proBNP, no rales on exam, normal chest x-ray, no JVD. Discontinue IV Lasix, placed on Lasix 40 mg twice a day by mouth. Add Nadolol 20 mg twice a day, first dose now for better heart rate control. Underlying infectious process not responding to rocephin. No need to repeat echo, normal LV noted in August of this year. We will continue to follow and make recommendations accordingly. Nurse Practitioner note has been reviewed, I agree with a documented findings and plan of care. Patient was seen and examined. Objective - Vital Signs Vital signs: Vital Signs Temp 97.5 F L 10/28/18 12:04 Pulse 109 H 10/28/18 12:04 Resp 18 10/28/18 12:04 BP 166/98 10/28/18 12:04 Pulse Ox 95 10/28/18 12:04 Intake & Output 10/27/18 10/28/18 10/28/18 18:59 06:59 18:59 Intake Total 1040 860 248 Output Total 1300 1800 1798 Balance -260 -940 -1550 Weight 155 kg 155 kg Intake: Intake, IV Titration 50 Amount cefTRIAXone 1,000 mg In 50 Sodium Chloride 0.9% 50 ml @ 100 mls/hr IVPB Q24H [facility] Rx#:[id number] Oral 1040 810 248 Output: Urine 1300 1800 1300 Post Void Residual 498 Other: Voiding Method Urinal Urinal Urinal # Voids 3 1 - Labs CBC & Chem 7: 10/28/18 06:18 10/28/18 06:18 Labs: Abnormal Lab Results - Last 24 Hours (Table) 10/27/18 10/27/18 10/28/18 Range/Units 17:07 20:08 06:18 WBC 22.5 H (3.8-10.6) k/uL Neutrophils # 15.5 H (1.3-7.7) k/uL Monocytes # 1.8 H (0-1.0) k/uL BUN (9-20) mg/dL Glucose (74-99) mg/dL POC Glucose (mg/dL) 146 H 172 H (75-99) mg/dL Alkaline Phosphatase (38-126) U/L 10/28/18 10/28/18 10/28/18 Range/Units 06:18 06:53 11:14 WBC (3.8-10.6) k/uL Neutrophils # (1.3-7.7) k/uL Monocytes # (0-1.0) k/uL BUN 28 H (9-20) mg/dL Glucose 28 L* (74-99) mg/dL POC Glucose (mg/dL) 52 L 128 H (75-99) mg/dL Alkaline Phosphatase 34 L (38-126) U/L
[2018-10-28] MEDS: FUROSEMIDE 40 MG TAB PO SCH (15:58)
--- NOTE | 2018-10-28 16:05 | P.PN ---
Subjective Progress Note Date: 10/28/18 Principal diagnosis: Shortness of breath This is a 58-year-old white male with history of COPD, patient is O2 dependent, normally sees Dr. Mariee, his FEV1 is normally in the range of 57%. His other medical problems include chronic dyspnea related to COPD, obesity, and chronic atrial fibrillation, obstructive sleep apnea syndrome, maintained on CPAP at night, patient is O2 dependent because of his COPD and obstructive sleep apnea, known to have history of diabetes, hypertension, and cor pulmonale. Patient was admitted this time with mostly increased shortness of breath with any activity, and upon arrival he was noted to be in atrial fibrillation and RVR. Patient was treated with IV Cardizem, and he was seen by cardiology on consultation, however considering his underlying COPD, this consult was initiated. At present the patient is feeling better, breathing easier, less shortness of breath, no cough, no wheezing, no chest pain, no fever, no chills, no hemoptysis. Patient remains on multiple bronchodilators, and his pulmonary status seems to be basically about what it is supposed to be. He was actually cleared by cardiology for discharge home today, and after evaluating the patient , I felt the same that the patient could actually be discharged home today and follow up with Dr. Mariee on outpatient basis. During my evaluation, patient had no headache no blurred vision no dizziness. No chest pain, no palpitations , he does have chronic dyspnea on exertion, no cough no wheezing no fever no chills no hemoptysis no nausea no vomiting no abdominal pain no melena no hematemesis no dysuria and no frequency no urgency. On 10/27/2018 patient seen again in follow-up on medical surgical floor. Apparently last night patient became very nauseous, very short of breath. At that time has right was noted to be around 130 BPM, A. fib. Currently has heart rate is around 100-118 BPM. Patient anticoagulated with Eliquis, and patient is on verapamil SR for rate control. Cardiology has been reconsulted today. From pulmonary perspective patient is fairly stable, lung sounds are diminished, no rhonchi, no crackles or wheezes. Patient was given a dose of IV Lasix last night for shortness of breath. Today's chest x-ray was reviewed by Dr. Aguilar showed normal chest. Patient has a occasional productive cough, he is currently on empiric antibiotic coverage in the form of Rocephin. On oral prednisone, and nebulized bronchodilators. On 10/28/2018 patient seen again in follow-up. He states last night at around 8 :00 in the evening he had another recurrent episode of nausea, acute shortness of breath respiratory distress. he was given a dose of IV Lasix, diuresed about 3000 ML of urine, and his symptoms of dyspnea have improved. This morning 's chest x-ray showed no acute process. His heart rate at that time was around 120 BPM. Patient is still tachycardic at times, he was asked to be seen by cardiology again, in regards to his rate control. Today's labs have been noted , WBCs 22.5, hemoglobin is 15.0, electrolytes were normal, B1 is 28 and creatinine was 0.67, BNP was 199. Patient was started on IV Lasix at 40 mg twice daily. He is in -1550 balance over the last 24 hours. Lung sounds are for crackles at the bases. Objective - Vital Signs Vital signs: Vital Signs Temp 97.5 F L 10/28/18 12:04 Pulse 94 10/28/18 15:12 Resp 18 10/28/18 12:04 BP 166/98 10/28/18 12:04 Pulse Ox 95 10/28/18 12:04 Intake & Output 10/27/18 10/28/18 10/28/18 18:59 06:59 18:59 Intake Total 1040 860 248 Output Total 1300 1800 1798 Balance -260 -940 -1550 Weight 155 kg 155 kg Intake: Intake, IV Titration 50 Amount cefTRIAXone 1,000 mg In 50 Sodium Chloride 0.9% 50 ml @ 100 mls/hr IVPB Q24H [facility] Rx#:[id number] Oral 1040 810 248 Output: Urine 1300 1800 1300 Post Void Residual 498 Other: Voiding Method Urinal Urinal Urinal # Voids 3 1 - Exam Physical Exam: Revealed a 63-year-old white male, obese, in no distress, on 2 L nasal cannula. Head: Atraumatic, normocephalic. HEENT:[Neck is supple.] [No neck masses.] [No thyromegaly.] [No JVD.] Chest: [Extremely diminished breath sounds at the bases, bibasilar crackles, no rhonchi, no wheezes, no chest wall tenderness, symmetrical chest expansion noted..] Cardiac Exam: Irregular irregular rhythm. [Normal S1 and S2, no S3 gallop, no murmur.] Abdomen: [Obese, Soft, nontender, no megaly, no rebound, no guarding, normal bowel sounds.] Extremities: [No clubbing, no edema, no cyanosis.] Neurological Exam: [No focal neurologic deficit.] Psychiatric: Normal mood affect and mental status examination Skin: No rashes. - Labs CBC & Chem 7: 10/28/18 06:18 10/28/18 06:18 Labs: Abnormal Lab Results - Last 24 Hours (Table) 10/27/18 10/27/18 10/28/18 Range/Units 17:07 20:08 06:18 WBC 22.5 H (3.8-10.6) k/uL Neutrophils # 15.5 H (1.3-7.7) k/uL Monocytes # 1.8 H (0-1.0) k/uL BUN (9-20) mg/dL Glucose (74-99) mg/dL POC Glucose (mg/dL) 146 H 172 H (75-99) mg/dL Alkaline Phosphatase (38-126) U/L 10/28/18 10/28/18 10/28/18 Range/Units 06:18 06:53 11:14 WBC (3.8-10.6) k/uL Neutrophils # (1.3-7.7) k/uL Monocytes # (0-1.0) k/uL BUN 28 H (9-20) mg/dL Glucose 28 L* (74-99) mg/dL POC Glucose (mg/dL) 52 L 128 H (75-99) mg/dL Alkaline Phosphatase 34 L (38-126) U/L Assessment and Plan Plan: Assessment: 1 shortness of breath, multifactorial, secondary to severe underlying COPD, and atrial fibrillation with RVR. And secondary to morbid obesity and deconditioning. 2 acute on chronic hypoxic and hypercapnic respiratory failure secondary to COPD 3 morbid obesity, and obstructive sleep apnea syndrome, patient is on CPAP at home. 4 type 2 diabetes 5 benign essential hypertension 6 degenerative joint disease Plan: Continue to oral prednisone, nebulized bronchodilators, and has been diuresed, breathing easier, he has had recurrent episodes of dyspnea in the evening for last 3 nights. Dyspnea was relieved with IV Lasix, chest x-ray did not show any acute findings, proBNP was within normal limits. Cardiology has added nadolol for better rate control. We'll continue to follow I performed a history & physical examination of the patient and discussed their management with my nurse practitioner, Sarah Santos. I reviewed the nurse practitioner's note and agree with the documented findings and plan of care. Lung sounds are diminished. The findings and the impression was discussed with the patient. I attest to the documentation by the nurse practitioner. Time with Patient: Less than 30
[2018-10-28] MEDS: NADOLOL 20 MG TAB PO SCH ×2 (16:28→21:52)
[2018-10-28] MEDS: TAMSULOSIN 0.4 MG CAP.ER.24H PO SCH (16:28)
[2018-10-28 17:08] LABS: Glucose,Whole Blood 98 mg/dL (75-99)
[2018-10-28] MEDS ORDERED: ALPRAZolam 0.25 MG TAB PO PRN (19:42)
[2018-10-28] MEDS ORDERED: FUROSEMIDE 10 MG/ML 4 ML VIAL IV STA (19:45)
[2018-10-28] MEDS ORDERED: TAMSULOSIN 0.4 MG CAP.ER.24H PO SCH (21:00)
--- NOTE | 2018-10-28 21:22 | P.PN ---
Subjective Progress Note Date: 10/27/18 Progress note being dictated for Dr. Delvalle. Interval history:58-year-old gentleman admitted for COPD exacerbation still quite a bit short of breath. Patient also had a temporal relation presently rate controlled on anticoagulation.shortness of breath although little bit better compared to yesterday Constitutional: Denied any fatigue denied any fever. Cardio vascular: denied any chest pain, palpitations Gastrointestinal denied any nausea vomiting Pulmonary: Denied any shortness of breath cough Neurologic denied any new focal deficits All inpatient medications were reviewed and appropriate changes in these medications as dictated in the interval history and assessment and plan. 10/25/2018 A. fib with better controlled ventricular rate, low 100s. Breathing improving, IV steroids decreased. Hyperglycemia, on insulin drip. Denies chest pain, palpitations or increasing shortness of breath. 10/26/18 significant improvement in breathing. Afebrile. Good diet intake with no nausea vomiting. Denies chest pain, palpitations or increasing shortness of breath. Blood sugars better controlled on insulin drip. 10/27/18 maintained on IV antibiotics, nebulized bronchodilators, steroids. last night developed shortness of breath, accompanied by uncontrolled A. fib, heart rates up into the 130s. Received a dose of Lasix IV push with significant improvement.Yesterday's Chest x-ray, normal chest, unchanged. Insulin drip weaned off, blood sugars controlled. Denies any chest pain, palpitations. Afebrile. Objective - Vital Signs Vital signs: Vital Signs Temp 98 F 10/27/18 20:22 Pulse 112 H 10/27/18 20:22 Resp 24 10/27/18 20:22 BP 143/77 10/27/18 20:22 Pulse Ox 97 10/27/18 20:22 Intake & Output 10/27/18 10/27/18 10/28/18 06:59 18:59 06:59 Intake Total 50 1040 Output Total 2400 1300 Balance -2350 -260 Weight 156 kg Intake: Intake, IV Titration 50 Amount cefTRIAXone 1,000 mg In 50 Sodium Chloride 0.9% 50 ml @ 100 mls/hr IVPB Q24H [facility] Rx#:[id number] Oral 1040 Output: Urine 2400 1300 Other: Voiding Method Urinal Urinal # Voids 300 3 # Bowel Movements 1 - Exam GENERAL: Patient is sitting up in chair, alert and oriented x3, no acute distress. HEENT: No scleral icterus. No conjunctival pallor. Normocephalic, atraumatic. Oral mucosa moist CARDIOVASCULAR: S1 and S2 present. Irregular, tachycardic, No murmurs, rubs, or gallops. PULMONARY: Bilateral lung plama diminshed, no rhonchi, no crackles, no wheezes ABDOMEN: Soft, nontender, nondistended, normoactive bowel sounds. No palpable organomegaly. EXTREMITIES: No cyanosis, clubbing, no edema NEUROLOGICAL: Gross neurological examination did not reveal any focal deficits. SKIN: No rashes. - Labs CBC & Chem 7: 10/28/18 06:18 10/28/18 06:18 Labs: Abnormal Lab Results - Last 24 Hours (Table) 10/27/18 10/27/18 10/27/18 Range/Units 01:07 07:10 07:10 WBC 19.4 H (3.8-10.6) k/uL Neutrophils # 14.2 H (1.3-7.7) k/uL Monocytes # 1.5 H (0-1.0) k/uL Carbon Dioxide 38 H (22-30) mmol/L BUN 27 H (9-20) mg/dL POC Glucose (mg/dL) 136 H (75-99) mg/dL 10/27/18 10/27/18 10/27/18 Range/Units 08:07 11:17 17:07 WBC (3.8-10.6) k/uL Neutrophils # (1.3-7.7) k/uL Monocytes # (0-1.0) k/uL Carbon Dioxide (22-30) mmol/L BUN (9-20) mg/dL POC Glucose (mg/dL) 128 H 183 H 146 H (75-99) mg/dL 10/27/18 Range/Units 20:08 WBC (3.8-10.6) k/uL Neutrophils # (1.3-7.7) k/uL Monocytes # (0-1.0) k/uL Carbon Dioxide (22-30) mmol/L BUN (9-20) mg/dL POC Glucose (mg/dL) 172 H (75-99) mg/dL Assessment and Plan Assessment: -Acute on chronic hypercapnic respiratory failure secondary to acute COPD exacerbation with acute purulent tracheobronchitis. -Chronic paroxysmal Atrial fibrillation with RVR -Morbid obesity, BMI 52.8 -Obstructive Sleep apnea secondary to the above -Type 2 diabetes mellitus -Hypertension Plan: Continue on current medication regime ,monitoring and symptomatic treatment. Antiarrhythmics as per cardiology. Maintain IV antibiotics, nebulized bronchodilators, steroids. Aggressive pulmonary toileting. Increasing ambulation as tolerated. Follow closely with cardiology and pulmonary. Further recommendations to follow. The impression and plan of care has been dictated as directed. : I performed a history and examination of this patient, discussed the same with the dictator. I agree with the dictator's note ,documented as a scribe. Any additional findings or plans will be noted.
[2018-10-28 21:29] LABS: Glucose,Whole Blood 104 mg/dL (75-99)
[2018-10-28] MEDS: ATORVASTATIN 40 MG TAB PO SCH (21:39)
[2018-10-29] MEDS: IPRATROPIUM-ALBUTEROL 3 ML NEB INHALATION PRN ×2 (00:11→04:15)
[2018-10-29 02:26] LABS: Glucose,Whole Blood 57 mg/dL (75-99)
[2018-10-29 02:34] LABS: Glucose,Whole Blood 77 mg/dL (75-99)
[2018-10-29] MEDS ORDERED: DEXTROSE 50%-WATER 50 ML SYRINGE IVP ONE ×2 (02:38→05:44)
[2018-10-29 03:14] LABS: Glucose,Whole Blood 98 mg/dL (75-99)
[2018-10-29 03:35] LABS: Glucose,Whole Blood 107 mg/dL (75-99)
[2018-10-29 05:53] LABS: Glucose,Whole Blood 37 mg/dL (75-99)
[2018-10-29 06:23] LABS: Glucose,Whole Blood 113 mg/dL (75-99)
[2018-10-29 07:01] LABS: Glucose,Whole Blood 49 mg/dL (75-99)
[2018-10-29 07:01] LABS: Glucose,Whole Blood 50 mg/dL (75-99)
[2018-10-29] MEDS: IPRATROPIUM-ALBUTEROL 3 ML NEB INHALATION SCH ×4 (07:34→20:58)
[2018-10-29] MEDS: SYMBICORT 160-4.5 MCG INHALER INHALATION SCH ×2 (07:35→20:58)
[2018-10-29 08:09] LABS: Glucose,Whole Blood 163 mg/dL (75-99)
[2018-10-29] MEDS: INSULIN ASPART 100 UNIT/ML 1 ML 10 ML VIAL SQ SCH ×4 (08:14→22:22)
[2018-10-29] MEDS: metFORMIN 500 MG TAB PO SCH (08:14)
[2018-10-29] MEDS: FUROSEMIDE 40 MG TAB PO SCH ×2 (08:30→16:19)
[2018-10-29] MEDS: TAMSULOSIN 0.4 MG CAP.ER.24H PO SCH ×2 (08:30→22:23)
[2018-10-29] MEDS: APIXABAN 5 MG TAB PO SCH ×2 (08:30→22:22)
[2018-10-29] MEDS: predniSONE 20 MG TAB PO SCH (08:31)
[2018-10-29] MEDS: NADOLOL 20 MG TAB PO SCH ×2 (08:31→22:22)
[2018-10-29] MEDS: TERBINAFINE 250 MG TAB PO SCH (08:32)
[2018-10-29 08:50] LABS: Basophils % (A) 0 %; Eosinophils # (A) 0.2 k/uL (0-0.7); Eosinophils % (A) 1 %; HCT 44.7 % (39.0-53.0); HGB 14.3 gm/dL (13.0-17.5); Lymphocytes # (A) 3.1 k/uL (1.0-4.8); Lymphocytes % (A) 19 %; MCH 28.1 pg (25.0-35.0); MCHC 31.9 g/dL (31.0-37.0); MCV 88.1 fL (80.0-100.0); Mean Platelet Volume 6.5; Monocytes # (A) 1.2 k/uL (0-1.0); Monocytes % (A) 7 %; Neutrophils # (A) 11.8 k/uL (1.3-7.7); Neutrophils % (A) 71 %; Platelet Count 356 k/uL (150-450); RBC 5.08 m/uL (4.30-5.90); RDW 14.5 % (11.5-15.5); WBC 16.5 k/uL (3.8-10.6)
[2018-10-29] MEDS ORDERED: VERAPAMIL SR 240 MG TABLET.ER PO SCH (09:00)
[2018-10-29 09:01] LABS: Glucose,Whole Blood 56 mg/dL (75-99)
[2018-10-29 09:02] LABS: ALT 40 U/L (21-72); AST 21 U/L (17-59); Albumin 3.3 g/dL (3.5-5.0); Alkaline Phosphatase 44 U/L (38-126); Anion Gap 8 mmol/L; Blood Urea Nitrogen 28 mg/dL (9-20); Calcium 8.8 mg/dL (8.4-10.2); Carbon Dioxide 34 mmol/L (22-30); Chloride 99 mmol/L (98-107); Glucose 76 mg/dL (74-99); Potassium 3.9 mmol/L (3.5-5.1); Sodium 141 mmol/L (137-145); Total Bilirubin 0.5 mg/dL (0.2-1.3)
[2018-10-29] MEDS ORDERED: DEXTROSE 5% IN WATER 1,000 ML IV ONE (09:10)
[2018-10-29 10:13] LABS: Glucose,Whole Blood 51 mg/dL (75-99)
[2018-10-29 10:13] LABS: Glucose,Whole Blood 51 mg/dL (75-99)
[2018-10-29] MEDS: VERAPAMIL SR 180 MG TABLET.ER PO SCH (10:21)
[2018-10-29 10:42] LABS: Glucose,Whole Blood 68 mg/dL (75-99)
[2018-10-29 11:19] LABS: Glucose,Whole Blood 58 mg/dL (75-99)
--- NOTE | 2018-10-29 11:36 | ECHOF ---
Referral Reason:SOB MEASUREMENTS -------- HEIGHT: 172.7 cm WEIGHT: 154.7 kg BP: FINDINGS -------- Atrial fibrillation. Morbid Obesity This was a techncally difficult study with suboptimal views, , Definity utilized for enhancement of images. Limited Study Echo done 09/14/18. Overall left ventricular systolic function is normal with, an EF between 55 - 60 %. CONCLUSIONS -------- 1. Atrial fibrillation. 2. Morbid Obesity 3. This was a techncally difficult study with suboptimal views, , Definity utilized for enhancement o f images. 4. Overall left ventricular systolic function is normal with, an EF between 55 - 60 %. [employer] ENGINEER: Elin Ames RDCS
[2018-10-29 12:02] LABS: Glucose,Whole Blood 84 mg/dL (75-99)
--- NOTE | 2018-10-29 13:15 | P.PN ---
Subjective Progress Note Date: 10/29/18 Principal diagnosis: Acute exacerbation of severe chronic obstructive pulmonary disease, atrial fibrillation with RVR This is a 58-year-old white male with history of COPD, patient is O2 dependent, normally sees Dr. Mariee, his FEV1 is normally in the range of 57%. His other medical problems include chronic dyspnea related to COPD, obesity, and chronic atrial fibrillation, obstructive sleep apnea syndrome, maintained on CPAP at night, patient is O2 dependent because of his COPD and obstructive sleep apnea, known to have history of diabetes, hypertension, and cor pulmonale. Patient was admitted this time with mostly increased shortness of breath with any activity, and upon arrival he was noted to be in atrial fibrillation and RVR. Patient was treated with IV Cardizem, and he was seen by cardiology on consultation, however considering his underlying COPD, this consult was initiated. At present the patient is feeling better, breathing easier, less shortness of breath, no cough, no wheezing, no chest pain, no fever, no chills, no hemoptysis. Patient remains on multiple bronchodilators, and his pulmonary status seems to be basically about what it is supposed to be. He was actually cleared by cardiology for discharge home today, and after evaluating the patient , I felt the same that the patient could actually be discharged home today and follow up with Dr. Mariee on outpatient basis. During my evaluation, patient had no headache no blurred vision no dizziness. No chest pain, no palpitations , he does have chronic dyspnea on exertion, no cough no wheezing no fever no chills no hemoptysis no nausea no vomiting no abdominal pain no melena no hematemesis no dysuria and no frequency no urgency. On 10/27/2018 patient seen again in follow-up on medical surgical floor. Apparently last night patient became very nauseous, very short of breath. At that time has right was noted to be around 130 BPM, A. fib. Currently has heart rate is around 100-118 BPM. Patient anticoagulated with Eliquis, and patient is on verapamil SR for rate control. Cardiology has been reconsulted today. From pulmonary perspective patient is fairly stable, lung sounds are diminished, no rhonchi, no crackles or wheezes. Patient was given a dose of IV Lasix last night for shortness of breath. Today's chest x-ray was reviewed by Dr. Aguilar showed normal chest. Patient has a occasional productive cough, he is currently on empiric antibiotic coverage in the form of Rocephin. On oral prednisone, and nebulized bronchodilators. On 10/28/2018 patient seen again in follow-up. He states last night at around 8 :00 in the evening he had another recurrent episode of nausea, acute shortness of breath respiratory distress. he was given a dose of IV Lasix, diuresed about 3000 ML of urine, and his symptoms of dyspnea have improved. This morning 's chest x-ray showed no acute process. His heart rate at that time was around 120 BPM. Patient is still tachycardic at times, he was asked to be seen by cardiology again, in regards to his rate control. Today's labs have been noted , WBCs 22.5, hemoglobin is 15.0, electrolytes were normal, B1 is 28 and creatinine was 0.67, BNP was 199. Patient was started on IV Lasix at 40 mg twice daily. He is in -1550 balance over the last 24 hours. Lung sounds are for crackles at the bases. The patient is seen today 10/29/2018 in follow-up on the regular medical floor. He is currently resting quite comfortably in bed. He is continuing to use the BiPAP alternating with oxygen at 3 L/m per nasal cannula. Maintaining good O2 saturations in the 90s. He remains afebrile. Hemodynamically stable. Sputum culture reveals no growth. White count 16.5. Hemoglobin 14.3. Creatinine 0.74. He remains on DuoNeb inhalations, Symbicort, IV Solu-Medrol, ceftriaxone and IV diuretics. He is currently in a negative balance. Objective - Vital Signs Vital signs: Vital Signs Temp 97.4 F L 10/29/18 05:00 Pulse 100 10/29/18 11:28 Resp 20 10/29/18 05:00 BP 124/56 10/29/18 08:41 Pulse Ox 97 10/29/18 05:00 Intake & Output 10/28/18 10/29/18 10/29/18 18:59 06:59 18:59 Intake Total 788 458 Output Total 8418 950 300 Balance -1550 -492 -300 Weight 155 kg 155 kg Intake: Intake, IV Titration 100 Amount cefTRIAXone 1,000 mg In 100 Sodium Chloride 0.9% 50 ml @ 100 mls/hr IVPB Q24H [facility] Rx#:[id number] Oral 788 358 Output: Urine 1675 950 300 Post Void Residual 663 Other: Voiding Method Urinal Urinal # Voids 1 - Exam GENERAL EXAM: Morbidly obese. Alert, comfortable in no apparent distress. Alternating BiPAP and nasal cannula. HEAD: Normocephalic. EYES: Normal reaction of pupils, equal size. NOSE: Clear with pink turbinates. THROAT: Crowding of the posterior pharynx. No erythema or exudates. NECK: Short. No masses, no JVD. CHEST: No chest wall deformity. LUNGS: Equal air entry with faint end expiratory wheeze, few scattered crackles. CVS: S1 and S2 normal with no audible murmur, regular rhythm. ABDOMEN: No hepatosplenomegaly, normal bowel sounds, no guarding or rigidity. SPINE: No scoliosis or deformity SKIN: Changes of chronic venous stasis. CENTRAL NERVOUS SYSTEM: No focal deficits, tone is normal in all 4 extremities. EXTREMITIES: There is 1-2+ peripheral edema. No clubbing, no cyanosis. Peripheral pulses are intact. - Labs CBC & Chem 7: 10/29/18 08:08 10/29/18 08:08 Labs: Abnormal Lab Results - Last 24 Hours (Table) 10/28/18 10/29/18 10/29/18 Range/Units 21:17 02:14 03:33 WBC (3.8-10.6) k/uL Neutrophils # (1.3-7.7) k/uL Monocytes # (0-1.0) k/uL Carbon Dioxide (22-30) mmol/L BUN (9-20) mg/dL POC Glucose (mg/dL) 104 H 57 L 107 H (75-99) mg/dL Total Protein (6.3-8.2) g/dL Albumin (3.5-5.0) g/dL 10/29/18 10/29/18 10/29/18 Range/Units 05:44 06:10 06:59 WBC (3.8-10.6) k/uL Neutrophils # (1.3-7.7) k/uL Monocytes # (0-1.0) k/uL Carbon Dioxide (22-30) mmol/L BUN (9-20) mg/dL POC Glucose (mg/dL) 37 L 113 H 49 L (75-99) mg/dL Total Protein (6.3-8.2) g/dL Albumin (3.5-5.0) g/dL 10/29/18 10/29/18 10/29/18 Range/Units 07:00 08:08 08:08 WBC 16.5 H (3.8-10.6) k/uL Neutrophils # 11.8 H (1.3-7.7) k/uL Monocytes # 1.2 H (0-1.0) k/uL Carbon Dioxide 34 H (22-30) mmol/L BUN 28 H (9-20) mg/dL POC Glucose (mg/dL) 50 L (75-99) mg/dL Total Protein 6.0 L (6.3-8.2) g/dL Albumin 3.3 L (3.5-5.0) g/dL 10/29/18 10/29/18 10/29/18 Range/Units 08:08 08:59 10:08 WBC (3.8-10.6) k/uL Neutrophils # (1.3-7.7) k/uL Monocytes # (0-1.0) k/uL Carbon Dioxide (22-30) mmol/L BUN (9-20) mg/dL POC Glucose (mg/dL) 163 H 56 L 51 L (75-99) mg/dL Total Protein (6.3-8.2) g/dL Albumin (3.5-5.0) g/dL 10/29/18 10/29/18 10/29/18 Range/Units 10:10 10:41 11:18 WBC (3.8-10.6) k/uL Neutrophils # (1.3-7.7) k/uL Monocytes # (0-1.0) k/uL Carbon Dioxide (22-30) mmol/L BUN (9-20) mg/dL POC Glucose (mg/dL) 51 L 68 L 58 L (75-99) mg/dL Total Protein (6.3-8.2) g/dL Albumin (3.5-5.0) g/dL Assessment and Plan Assessment: Impression: #1 Acute on chronic hypoxic/hypercapnic respiratory failure secondary to an acute exacerbation of chronic obstructive pulmonary disease, morbid obesity and obesity/hypoventilation syndrome #2 Morbid obesity with obstructive sleep apnea, on home CPAP. #3 Diabetes mellitus, type II. #4 Hypertension. #5 Degenerative joint disease. #6 Atrial fibrillation anticoagulated with Eliquis. Plan: The patient was seen and evaluated by Dr. Daniel. He remains stable from the pulmonary standpoint. Continue with current treatment plan. On a prednisone taper. Continue with BiPAP at night and during the day while napping. I, the cosigning physician, performed a history & physical examination of the patient. Lungs sounds faint end expiratory wheeze, few scattered crackles. Maintaining good O2 saturations in the 90s on 3 L/m per nasal cannula. I discussed the assessment and plan of care with my nurse practitioner, Ely Cooley. I attest to the above note as dictated by her.
--- NOTE | 2018-10-29 13:21 | P.PN ---
Subjective This is a pleasant 63-year-old male past medical history significant for advanced COPD, chronic hypoxia, home O2 use, obstructive sleep apnea, paroxysmal atrial fibrillation, hypertension, arthritis and morbid obesity. He was recently diagnosed with atrial fibrillation in August of this year. At that time he was initiated on Cardizem and Eliquis for anticoagulation. Echocardiogram obtained reveals preserved left ventricular systolic function with ejection fraction 50-55%. He presented to the hospital again on October 21 with increased shortness of breath and found to be in atrial fibrillation with rapid ventricular response. He was initially placed on a Cardizem drip and has since been transitioned to verapamil SR dose of 360 mg daily. He continued to have rapid heart rates yesterday and nadolol was added. He apparently had another episode of shortness of breath last night. He was again given IV lasix. Limited echo was obtained revealing preserved LV systolic function with EF 55-60%. Laboratory data reviewed, WBC 16.5, hgb 14.3, plt 356, sodium 141, potassium 3.9, creatinine 0.74. Blood pressure 124/56 heart rate 100. GENERAL: Well-appearing, well-nourished and in no acute distress. NECK: Supple without JVD or thyromegaly. LUNGS: Expiratory wheezes appreciated, diminished at the based bilaterally. No rales or rhonchi. Respiration equal and unlabored. HEART: Irregular rate and rhythm without murmurs, rubs or gallops. S1 and S2 heard. EXTREMITIES: Normal range of motion, 1+ bilateral lower extremity edema. No clubbing or cyanosis. Peripheral pulses intact. ASSESSMENT Paroxysmal atrial fibrillation with rapid ventricular response on long-term anticoagulation Severe COPD on home oxygen Acute on chronic hypoxic and hypercapnic respiratory failure secondary to COPD Obstructive sleep apnea Morbid obesity, BMI 52 Leukocytosis PLAN Clinically there is no evidence of heart failure. IV lasix has been discontinued and resumed again per primary care team. Rates are much better controlled with nadolol and verapamil. We will continue to follow and make recommendations accordingly. Nurse Practitioner note has been reviewed, I agree with a documented findings and plan of care. Patient was seen and examined. Objective - Vital Signs Vital signs: Vital Signs Temp 97.4 F L 10/29/18 05:00 Pulse 100 10/29/18 11:28 Resp 20 10/29/18 05:00 BP 124/56 01/04/19 08:41 Pulse Ox 97 10/29/18 05:00 Intake & Output 10/28/18 10/29/18 10/29/18 18:59 06:59 18:59 Intake Total 788 458 Output Total 2338 950 300 Balance -1550 -492 -300 Weight 155 kg 155 kg Intake: Intake, IV Titration 100 Amount cefTRIAXone 1,000 mg In 100 Sodium Chloride 0.9% 50 ml @ 100 mls/hr IVPB Q24H [facility] Rx#:[id number] Oral 788 358 Output: Urine 1675 950 300 Post Void Residual 663 Other: Voiding Method Urinal Urinal # Voids 1 - Labs CBC & Chem 7: 10/29/18 08:08 10/29/18 08:08 Labs: Abnormal Lab Results - Last 24 Hours (Table) 10/28/18 10/29/18 10/29/18 Range/Units 21:17 02:14 03:33 WBC (3.8-10.6) k/uL Neutrophils # (1.3-7.7) k/uL Monocytes # (0-1.0) k/uL Carbon Dioxide (22-30) mmol/L BUN (9-20) mg/dL POC Glucose (mg/dL) 104 H 57 L 107 H (75-99) mg/dL Total Protein (6.3-8.2) g/dL Albumin (3.5-5.0) g/dL 10/29/18 10/29/18 10/29/18 Range/Units 05:44 06:10 06:59 WBC (3.8-10.6) k/uL Neutrophils # (1.3-7.7) k/uL Monocytes # (0-1.0) k/uL Carbon Dioxide (22-30) mmol/L BUN (9-20) mg/dL POC Glucose (mg/dL) 37 L 113 H 49 L (75-99) mg/dL Total Protein (6.3-8.2) g/dL Albumin (3.5-5.0) g/dL 10/29/18 10/29/18 10/29/18 Range/Units 07:00 08:08 08:08 WBC 16.5 H (3.8-10.6) k/uL Neutrophils # 11.8 H (1.3-7.7) k/uL Monocytes # 1.2 H (0-1.0) k/uL Carbon Dioxide 34 H (22-30) mmol/L BUN 28 H (9-20) mg/dL POC Glucose (mg/dL) 50 L (75-99) mg/dL Total Protein 6.0 L (6.3-8.2) g/dL Albumin 3.3 L (3.5-5.0) g/dL 10/29/18 10/29/18 10/29/18 Range/Units 08:08 08:59 10:08 WBC (3.8-10.6) k/uL Neutrophils # (1.3-7.7) k/uL Monocytes # (0-1.0) k/uL Carbon Dioxide (22-30) mmol/L BUN (9-20) mg/dL POC Glucose (mg/dL) 163 H 56 L 51 L (75-99) mg/dL Total Protein (6.3-8.2) g/dL Albumin (3.5-5.0) g/dL 10/29/18 10/29/18 10/29/18 Range/Units 10:10 10:41 11:18 WBC (3.8-10.6) k/uL Neutrophils # (1.3-7.7) k/uL Monocytes # (0-1.0) k/uL Carbon Dioxide (22-30) mmol/L BUN (9-20) mg/dL POC Glucose (mg/dL) 51 L 68 L 58 L (75-99) mg/dL Total Protein (6.3-8.2) g/dL Albumin (3.5-5.0) g/dL
[2018-10-29 13:22] LABS: Glucose,Whole Blood 157 mg/dL (75-99)
[2018-10-29] MEDS: SPIRONOLACTONE 25 MG TAB PO SCH (16:20)
[2018-10-29 17:37] LABS: Glucose,Whole Blood 193 mg/dL (75-99)
[2018-10-29 20:06] LABS: Glucose,Whole Blood 334 mg/dL (75-99)
--- NOTE | 2018-10-29 20:36 | P.PN ---
Subjective Progress Note Date: 10/28/18 Progress note being dictated for Dr. Delvalle. Interval history:58-year-old gentleman admitted for COPD exacerbation still quite a bit short of breath. Patient also had a temporal relation presently rate controlled on anticoagulation.shortness of breath although little bit better compared to yesterday Constitutional: Denied any fatigue denied any fever. Cardio vascular: denied any chest pain, palpitations Gastrointestinal denied any nausea vomiting Pulmonary: Denied any shortness of breath cough Neurologic denied any new focal deficits All inpatient medications were reviewed and appropriate changes in these medications as dictated in the interval history and assessment and plan. 10/25/2018 A. fib with better controlled ventricular rate, low 100s. Breathing improving, IV steroids decreased. Hyperglycemia, on insulin drip. Denies chest pain, palpitations or increasing shortness of breath. 10/26/18 significant improvement in breathing. Afebrile. Good diet intake with no nausea vomiting. Denies chest pain, palpitations or increasing shortness of breath. Blood sugars better controlled on insulin drip. 10/27/18 maintained on IV antibiotics, nebulized bronchodilators, steroids. last night developed shortness of breath, accompanied by uncontrolled A. fib, heart rates up into the 130s. Received a dose of Lasix IV push with significant improvement.Yesterday's Chest x-ray, normal chest, unchanged. Insulin drip weaned off, blood sugars controlled. Denies any chest pain, palpitations. Afebrile. 10/28/2018 for another episode of increased shortness of breath, significant audible wheezing, accompanied by the tachycardia, heart rates in the 120s .received a dose of Lasix IV push, diuresed well with 3 L out. 24-hour I&O reflecting a negative fluid balance. Chest x-ray nonacute. Lasix changed to 40 mg IV push twice a day. Patient also experienced hypoglycemia, with further changes to med regime. Objective - Vital Signs Vital signs: Vital Signs Temp 97.4 F L 10/28/18 21:00 Pulse 75 10/28/18 21:00 Resp 20 10/28/18 21:00 BP 101/51 10/28/18 21:00 Pulse Ox 96 10/28/18 21:00 Intake & Output 10/28/18 10/28/18 10/29/18 06:59 18:59 06:59 Intake Total 860 788 Output Total 1800 2338 250 Balance -890 -5060 -250 Weight 155 kg 155 kg Intake: Intake, IV Titration 50 Amount cefTRIAXone 1,000 mg In 50 Sodium Chloride 0.9% 50 ml @ 100 mls/hr IVPB Q24H [facility] Rx#:[id number] Oral 810 788 Output: Urine 1800 1675 250 Post Void Residual 663 Other: Voiding Method Urinal Urinal # Voids 1 - Exam GENERAL: Patient is sitting up in bed, alert and oriented x3, no acute distress. HEENT: No scleral icterus. No conjunctival pallor. Normocephalic, atraumatic. Oral mucosa moist CARDIOVASCULAR: S1 and S2 present. Irregular, tachycardic, No murmurs, rubs, or gallops. PULMONARY: Bilateral lung palma diminshed, no rhonchi, no crackles, no wheezes ABDOMEN: Soft, nontender, nondistended, normoactive bowel sounds. No palpable organomegaly. EXTREMITIES: No cyanosis, clubbing, no edema NEUROLOGICAL: Gross neurological examination did not reveal any focal deficits. SKIN: No rashes. - Labs CBC & Chem 7: 10/29/18 08:08 10/29/18 08:08 Labs: Abnormal Lab Results - Last 24 Hours (Table) 10/28/18 10/28/18 10/28/18 Range/Units 06:18 06:18 06:53 WBC 22.5 H (3.8-10.6) k/uL Neutrophils # 15.5 H (1.3-7.7) k/uL Monocytes # 1.8 H (0-1.0) k/uL BUN 28 H (9-20) mg/dL Glucose 28 L* (74-99) mg/dL POC Glucose (mg/dL) 52 L (75-99) mg/dL Alkaline Phosphatase 34 L (38-126) U/L 10/28/18 10/28/18 Range/Units 11:14 21:17 WBC (3.8-10.6) k/uL Neutrophils # (1.3-7.7) k/uL Monocytes # (0-1.0) k/uL BUN (9-20) mg/dL Glucose (74-99) mg/dL POC Glucose (mg/dL) 128 H 104 H (75-99) mg/dL Alkaline Phosphatase (38-126) U/L Assessment and Plan Assessment: -Acute on chronic hypercapnic respiratory failure secondary to acute COPD exacerbation with acute purulent tracheobronchitis. -Chronic paroxysmal Atrial fibrillation with RVR -Morbid obesity, BMI 52.8 -Obstructive Sleep apnea secondary to the above -Type 2 diabetes mellitus -Hypertension Plan: Continue on current medication regime ,monitoring and symptomatic treatment. Lasix has been converted to IV push 40 mg IV twice a day. Nadolol added as per cardiology. Maintain IV antibiotics, nebulized bronchodilators, steroids. Aggressive pulmonary toileting. Close monitoring of Accu-Cheks. Further recommendations to follow. The impression and plan of care has been dictated as directed. : I performed a history and examination of this patient, discussed the same with the dictator. I agree with the dictator's note ,documented as a scribe. Any additional findings or plans will be noted.
--- NOTE | 2018-10-29 20:46 | P.PN ---
Subjective Progress Note Date: 10/29/18 Progress note being dictated for Dr. Delvalle. Interval history:58-year-old gentleman admitted for COPD exacerbation still quite a bit short of breath. Patient also had a temporal relation presently rate controlled on anticoagulation.shortness of breath although little bit better compared to yesterday Constitutional: Denied any fatigue denied any fever. Cardio vascular: denied any chest pain, palpitations Gastrointestinal denied any nausea vomiting Pulmonary: Denied any shortness of breath cough Neurologic denied any new focal deficits All inpatient medications were reviewed and appropriate changes in these medications as dictated in the interval history and assessment and plan. 10/25/2018 A. fib with better controlled ventricular rate, low 100s. Breathing improving, IV steroids decreased. Hyperglycemia, on insulin drip. Denies chest pain, palpitations or increasing shortness of breath. 10/26/18 significant improvement in breathing. Afebrile. Good diet intake with no nausea vomiting. Denies chest pain, palpitations or increasing shortness of breath. Blood sugars better controlled on insulin drip. 10/27/18 maintained on IV antibiotics, nebulized bronchodilators, steroids. last night developed shortness of breath, accompanied by uncontrolled A. fib, heart rates up into the 130s. Received a dose of Lasix IV push with significant improvement.Yesterday's Chest x-ray, normal chest, unchanged. Insulin drip weaned off, blood sugars controlled. Denies any chest pain, palpitations. Afebrile. 10/28/2018 for another episode of increased shortness of breath, significant audible wheezing, accompanied by the tachycardia, heart rates in the 120s .received a dose of Lasix IV push, diuresed well with 3 L out. 24-hour I&O reflecting a negative fluid balance. Chest x-ray nonacute. Lasix changed to 40 mg IV push twice a day. Patient also experienced hypoglycemia, with further changes to med regime. 10/29/18 recurrent acute respiratory distress last night, receiving a dose of Lasix IV with significant improvement. Alternating BiPAP with nasal cannula. Maintaining O2 sats in the 90s on 3 L nasal cannula.Recurrent hypoglycemia, further adjustments made, now only on sliding scale. Good diet intake, denies abdominal pain, no nausea vomiting or diarrhea. Afebrile. Maintained on nebulized bronchodilators, IV steroids, antibiotics, IV duretics. 24-hour I&O reflecting a negative fluid balance. Objective - Vital Signs Vital signs: Vital Signs Temp 98.1 F 10/29/18 13:00 Pulse 92 10/29/18 16:01 Resp 18 10/29/18 13:00 BP 114/60 10/29/18 13:00 Pulse Ox 95 10/29/18 13:00 Intake & Output 10/29/18 10/29/18 10/30/18 06:59 18:59 06:59 Intake Total 458 Output Total 950 600 Balance -492 -600 Weight 155 kg Intake: Intake, IV Titration 100 Amount cefTRIAXone 1,000 mg In 100 Sodium Chloride 0.9% 50 ml @ 100 mls/hr IVPB Q24H [facility] Rx#:[id number] Oral 358 Output: Urine 950 600 Other: Voiding Method Urinal Urinal - Exam GENERAL: Patient is sitting up in bed, alert and oriented x3, no acute distress. HEENT: No scleral icterus. No conjunctival pallor. Normocephalic, atraumatic. Oral mucosa moist CARDIOVASCULAR: S1 and S2 present. Irregular, tachycardic, No murmurs, rubs, or gallops. PULMONARY: Bilateral lung palma diminshed, no rhonchi, fine bibasilar crackles , fine expiratory wheezes ABDOMEN: Soft, nontender, nondistended, normoactive bowel sounds. No palpable organomegaly. EXTREMITIES: No cyanosis, clubbing, positive edema NEUROLOGICAL: Gross neurological examination did not reveal any focal deficits. SKIN: No rashes. - Labs CBC & Chem 7: 10/29/18 08:08 10/29/18 08:08 Labs: Abnormal Lab Results - Last 24 Hours (Table) 10/28/18 10/29/18 10/29/18 Range/Units 21:17 02:14 03:33 WBC (3.8-10.6) k/uL Neutrophils # (1.3-7.7) k/uL Monocytes # (0-1.0) k/uL Carbon Dioxide (22-30) mmol/L BUN (9-20) mg/dL POC Glucose (mg/dL) 104 H 57 L 107 H (75-99) mg/dL Total Protein (6.3-8.2) g/dL Albumin (3.5-5.0) g/dL 10/29/18 10/29/18 10/29/18 Range/Units 05:44 06:10 06:59 WBC (3.8-10.6) k/uL Neutrophils # (1.3-7.7) k/uL Monocytes # (0-1.0) k/uL Carbon Dioxide (22-30) mmol/L BUN (9-20) mg/dL POC Glucose (mg/dL) 37 L 113 H 49 L (75-99) mg/dL Total Protein (6.3-8.2) g/dL Albumin (3.5-5.0) g/dL 10/29/18 10/29/18 10/29/18 Range/Units 07:00 08:08 08:08 WBC 16.5 H (3.8-10.6) k/uL Neutrophils # 11.8 H (1.3-7.7) k/uL Monocytes # 1.2 H (0-1.0) k/uL Carbon Dioxide 34 H (22-30) mmol/L BUN 28 H (9-20) mg/dL POC Glucose (mg/dL) 50 L (75-99) mg/dL Total Protein 6.0 L (6.3-8.2) g/dL Albumin 3.3 L (3.5-5.0) g/dL 10/29/18 10/29/18 10/29/18 Range/Units 08:08 08:59 10:08 WBC (3.8-10.6) k/uL Neutrophils # (1.3-7.7) k/uL Monocytes # (0-1.0) k/uL Carbon Dioxide (22-30) mmol/L BUN (9-20) mg/dL POC Glucose (mg/dL) 163 H 56 L 51 L (75-99) mg/dL Total Protein (6.3-8.2) g/dL Albumin (3.5-5.0) g/dL 10/29/18 10/29/18 10/29/18 Range/Units 10:10 10:41 11:18 WBC (3.8-10.6) k/uL Neutrophils # (1.3-7.7) k/uL Monocytes # (0-1.0) k/uL Carbon Dioxide (22-30) mmol/L BUN (9-20) mg/dL POC Glucose (mg/dL) 51 L 68 L 58 L (75-99) mg/dL Total Protein (6.3-8.2) g/dL Albumin (3.5-5.0) g/dL 10/29/18 10/29/18 10/29/18 Range/Units 13:20 17:26 20:04 WBC (3.8-10.6) k/uL Neutrophils # (1.3-7.7) k/uL Monocytes # (0-1.0) k/uL Carbon Dioxide (22-30) mmol/L BUN (9-20) mg/dL POC Glucose (mg/dL) 157 H 193 H 334 H (75-99) mg/dL Total Protein (6.3-8.2) g/dL Albumin (3.5-5.0) g/dL Assessment and Plan Assessment: -Acute on chronic hypercapnic respiratory failure secondary to acute COPD exacerbation with acute purulent tracheobronchitis. -Chronic paroxysmal Atrial fibrillation with RVR -Morbid obesity, BMI 52.8 -Obstructive Sleep apnea secondary to the above -Type 2 diabetes mellitus -Hypertension Plan: Continue on current medication regime ,monitoring and symptomatic treatment. Patient to wear BiPAP at night as per pulmonary. Maintain IV antibiotics, nebulized bronchodilators, steroids. Aggressive pulmonary toileting. Recurrent hypoglycemia, meds further adjusted, Close monitoring of Accu-Cheks. Further recommendations to follow. The impression and plan of care has been dictated as directed. : I performed a history and examination of this patient, discussed the same with the dictator. I agree with the dictator's note ,documented as a scribe. Any additional findings or plans will be noted.
[2018-10-29] MEDS ORDERED: FUROSEMIDE 10 MG/ML 4 ML VIAL IV SCH (21:00)
[2018-10-29] MEDS ORDERED: INSULIN DETEMIR 100 UNIT/ML 10 ML VIAL SQ SCH (21:00)
[2018-10-29] MEDS: MONTELUKAST 10 MG TAB PO SCH (22:22)
[2018-10-29] MEDS: ATORVASTATIN 40 MG TAB PO SCH (22:22)
[2018-10-30] MEDS: IPRATROPIUM-ALBUTEROL 3 ML NEB INHALATION PRN ×3 (01:16→23:32)
[2018-10-30 02:21] LABS: Glucose,Whole Blood 167 mg/dL (75-99)
[2018-10-30 06:01] LABS: Glucose,Whole Blood 128 mg/dL (75-99)
[2018-10-30 07:13] LABS: Glucose,Whole Blood 146 mg/dL (75-99)
[2018-10-30 07:15] LABS: Basophils % (A) 0 %; Eosinophils # (A) 0.1 k/uL (0-0.7); Eosinophils % (A) 1 %; HGB 12.5 gm/dL (13.0-17.5); Lymphocytes # (A) 3.3 k/uL (1.0-4.8); Lymphocytes % (A) 24 %; MCH 27.2 pg (25.0-35.0); MCHC 30.6 g/dL (31.0-37.0); Mean Platelet Volume 6.5; Monocytes % (A) 7 %; Neutrophils # (A) 9.1 k/uL (1.3-7.7); Neutrophils % (A) 66 %; Platelet Count 323 k/uL (150-450); RBC 4.61 m/uL (4.30-5.90); RDW 14.5 % (11.5-15.5); WBC 13.8 k/uL (3.8-10.6)
[2018-10-30] MEDS: IPRATROPIUM-ALBUTEROL 3 ML NEB INHALATION SCH ×4 (07:24→20:07)
[2018-10-30] MEDS: SYMBICORT 160-4.5 MCG INHALER INHALATION SCH ×2 (07:25→20:07)
[2018-10-30 07:26] LABS: ALT 43 U/L (21-72); AST 17 U/L (17-59); Alkaline Phosphatase 42 U/L (38-126); Anion Gap 3 mmol/L; Blood Urea Nitrogen 31 mg/dL (9-20); Calcium 8.5 mg/dL (8.4-10.2); Carbon Dioxide 38 mmol/L (22-30); Chloride 97 mmol/L (98-107); Glucose 132 mg/dL (74-99); Potassium 4.6 mmol/L (3.5-5.1); Sodium 138 mmol/L (137-145); Total Bilirubin 0.6 mg/dL (0.2-1.3); Total Protein 5.6 g/dL (6.3-8.2)
[2018-10-30] MEDS: INSULIN ASPART 100 UNIT/ML 1 ML 10 ML VIAL SQ SCH ×4 (07:50→20:36)
[2018-10-30] MEDS: APIXABAN 5 MG TAB PO SCH ×2 (08:02→20:27)
[2018-10-30] MEDS: TAMSULOSIN 0.4 MG CAP.ER.24H PO SCH ×2 (08:02→20:27)
[2018-10-30] MEDS: predniSONE 20 MG TAB PO SCH (08:02)
[2018-10-30] MEDS: NADOLOL 20 MG TAB PO SCH ×2 (08:02→20:27)
[2018-10-30] MEDS: VERAPAMIL SR 180 MG TABLET.ER PO SCH (08:02)
[2018-10-30] MEDS: FUROSEMIDE 40 MG TAB PO SCH ×2 (08:02→17:02)
[2018-10-30] MEDS: SPIRONOLACTONE 25 MG TAB PO SCH (08:03)
[2018-10-30] MEDS: TERBINAFINE 250 MG TAB PO SCH (08:03)
[2018-10-30] MEDS ORDERED: FUROSEMIDE 40 MG TAB PO SCH (09:00)
--- NOTE | 2018-10-30 12:28 | P.PN ---
Subjective Progress Note Date: 10/30/18 Principal diagnosis: Acute exacerbation of COPD, atrial fibrillation with RVR This is a 58-year-old white male with history of COPD, patient is O2 dependent, normally sees Dr. Mariee, his FEV1 is normally in the range of 57%. His other medical problems include chronic dyspnea related to COPD, obesity, and chronic atrial fibrillation, obstructive sleep apnea syndrome, maintained on CPAP at night, patient is O2 dependent because of his COPD and obstructive sleep apnea, known to have history of diabetes, hypertension, and cor pulmonale. Patient was admitted this time with mostly increased shortness of breath with any activity, and upon arrival he was noted to be in atrial fibrillation and RVR. Patient was treated with IV Cardizem, and he was seen by cardiology on consultation, however considering his underlying COPD, this consult was initiated. At present the patient is feeling better, breathing easier, less shortness of breath, no cough, no wheezing, no chest pain, no fever, no chills, no hemoptysis. Patient remains on multiple bronchodilators, and his pulmonary status seems to be basically about what it is supposed to be. He was actually cleared by cardiology for discharge home today, and after evaluating the patient , I felt the same that the patient could actually be discharged home today and follow up with Dr. Mariee on outpatient basis. During my evaluation, patient had no headache no blurred vision no dizziness. No chest pain, no palpitations , he does have chronic dyspnea on exertion, no cough no wheezing no fever no chills no hemoptysis no nausea no vomiting no abdominal pain no melena no hematemesis no dysuria and no frequency no urgency. On 10/27/2018 patient seen again in follow-up on medical surgical floor. Apparently last night patient became very nauseous, very short of breath. At that time has right was noted to be around 130 BPM, A. fib. Currently has heart rate is around 100-118 BPM. Patient anticoagulated with Eliquis, and patient is on verapamil SR for rate control. Cardiology has been reconsulted today. From pulmonary perspective patient is fairly stable, lung sounds are diminished, no rhonchi, no crackles or wheezes. Patient was given a dose of IV Lasix last night for shortness of breath. Today's chest x-ray was reviewed by Dr. Aguilar showed normal chest. Patient has a occasional productive cough, he is currently on empiric antibiotic coverage in the form of Rocephin. On oral prednisone, and nebulized bronchodilators. On 10/28/2018 patient seen again in follow-up. He states last night at around 8 :00 in the evening he had another recurrent episode of nausea, acute shortness of breath respiratory distress. he was given a dose of IV Lasix, diuresed about 3000 ML of urine, and his symptoms of dyspnea have improved. This morning 's chest x-ray showed no acute process. His heart rate at that time was around 120 BPM. Patient is still tachycardic at times, he was asked to be seen by cardiology again, in regards to his rate control. Today's labs have been noted , WBCs 22.5, hemoglobin is 15.0, electrolytes were normal, B1 is 28 and creatinine was 0.67, BNP was 199. Patient was started on IV Lasix at 40 mg twice daily. He is in -1550 balance over the last 24 hours. Lung sounds are for crackles at the bases. The patient is seen today 10/29/2018 in follow-up on the regular medical floor. He is currently resting quite comfortably in bed. He is continuing to use the BiPAP alternating with oxygen at 3 L/m per nasal cannula. Maintaining good O2 saturations in the 90s. He remains afebrile. Hemodynamically stable. Sputum culture reveals no growth. White count 16.5. Hemoglobin 14.3. Creatinine 0.74. He remains on DuoNeb inhalations, Symbicort, IV Solu-Medrol, ceftriaxone and IV diuretics. He is currently in a negative balance. Reevaluated today on 10/30/2018, patient remains on a regular medical floor, feeling better for the first time today, I increased his Lasix yesterday to a double dose 40 mg twice a day, and he did not require any Lasix last night. No significant A. fib with RVR, patient is breathing easier today, hardly any cough no wheezing no shortness of breath no chest pain. Remains on DuoNeb, Symbicort, he is also on steroids antibiotics and diuretics. Basic metabolic profile is normal, CBC is basically normal. Objective - Vital Signs Vital signs: Vital Signs Temp 97.7 F 10/30/18 05:00 Pulse 87 10/30/18 11:23 Resp 22 10/30/18 08:30 BP 117/71 10/30/18 05:00 Pulse Ox 97 10/30/18 07:25 Intake & Output 10/29/18 10/30/18 10/30/18 18:59 06:59 18:59 Intake Total 240 Output Total 600 380 Balance -600 -140 Weight 151 kg Intake: Oral 240 Output: Urine 600 380 Other: Voiding Method Urinal Urinal Urinal - Exam GENERAL EXAM: Morbidly obese. Alert, comfortable in no apparent distress. Presently on 2 L nasal cannula. HEAD: Normocephalic. EYES: Normal reaction of pupils, equal size. NOSE: Clear with pink turbinates. THROAT: Crowding of the posterior pharynx. No erythema or exudates. NECK: Short. No masses, no JVD. CHEST: No chest wall deformity. LUNGS: Equal air entry with faint end expiratory wheeze, few scattered crackles. CVS: S1 and S2 normal with no audible murmur, regular rhythm. ABDOMEN: No hepatosplenomegaly, normal bowel sounds, no guarding or rigidity. SPINE: No scoliosis or deformity SKIN: Changes of chronic venous stasis. CENTRAL NERVOUS SYSTEM: No focal deficits, tone is normal in all 4 extremities. EXTREMITIES: Trace of peripheral edema. No clubbing, no cyanosis. Peripheral pulses are intact. - Labs CBC & Chem 7: 10/30/18 06:56 10/30/18 06:56 Labs: Abnormal Lab Results - Last 24 Hours (Table) 10/29/18 10/29/18 10/29/18 Range/Units 13:20 17:26 20:04 WBC (3.8-10.6) k/uL Hgb (13.0-17.5) gm/dL MCHC (31.0-37.0) g/dL Neutrophils # (1.3-7.7) k/uL Chloride (98-107) mmol/L Carbon Dioxide (22-30) mmol/L BUN (9-20) mg/dL Glucose (74-99) mg/dL POC Glucose (mg/dL) 157 H 193 H 334 H (75-99) mg/dL Total Protein (6.3-8.2) g/dL Albumin (3.5-5.0) g/dL 10/30/18 10/30/18 10/30/18 Range/Units 02:19 06:00 06:56 WBC 13.8 H (3.8-10.6) k/uL Hgb 12.5 L (13.0-17.5) gm/dL MCHC 30.6 L (31.0-37.0) g/dL Neutrophils # 9.1 H (1.3-7.7) k/uL Chloride (98-107) mmol/L Carbon Dioxide (22-30) mmol/L BUN (9-20) mg/dL Glucose (74-99) mg/dL POC Glucose (mg/dL) 167 H 128 H (75-99) mg/dL Total Protein (6.3-8.2) g/dL Albumin (3.5-5.0) g/dL 10/30/18 10/30/18 Range/Units 06:56 07:12 WBC (3.8-10.6) k/uL Hgb (13.0-17.5) gm/dL MCHC (31.0-37.0) g/dL Neutrophils # (1.3-7.7) k/uL Chloride 97 L (98-107) mmol/L Carbon Dioxide 38 H (22-30) mmol/L BUN 31 H (9-20) mg/dL Glucose 132 H (74-99) mg/dL POC Glucose (mg/dL) 146 H (75-99) mg/dL Total Protein 5.6 L (6.3-8.2) g/dL Albumin 3.0 L (3.5-5.0) g/dL Assessment and Plan Assessment: Impression: 1 shortness of breath, multifactorial, secondary to severe underlying COPD, and atrial fibrillation with RVR. And secondary to morbid obesity and deconditioning. 2 acute on chronic hypoxic and hypercapnic respiratory failure secondary to COPD 3 morbid obesity, and obstructive sleep apnea syndrome, patient is on CPAP at home. 4 type 2 diabetes 5 benign essential hypertension 6 degenerative joint disease 7 acute on chronic diastolic congestive heart failure. Recommendation: Continue current meds, continue BiPAP at night, bronchodilators , steroids, diuretics, continue to monitor his Accu-Cheks closely while on steroids, consider discharge planning in the next 48 hours. Must have follow- up on outpatient basis in our office with Dr. Mariee Time with Patient: Less than 30
[2018-10-30 12:38] LABS: Glucose,Whole Blood 184 mg/dL (75-99)
[2018-10-30 17:26] LABS: Glucose,Whole Blood 235 mg/dL (75-99)
--- NOTE | 2018-10-30 18:33 | PN ---
PROGRESS NOTE DATE OF SERVICE: 10/30/2018 This 63-year-old gentleman admitted with COPD acute exacerbation also had episodes of shortness of breath especially at night at this time. No chest pain or palpitation. No fever. Last night was slightly better according to him. The patient has had a fluid overload and a combination CHF, COPD also. PHYSICAL EXAMINATION: On exam, alert and oriented x3. Pulse is 81, blood pressure 119/80, respiration 16, temperature 97.7, pulse ox 96% on room air. HEENT: Conjunctivae normal. NECK: No jugular venous distention. CARDIOVASCULAR: S1, S2 muffled. RESPIRATORY: Breath sounds diminished at the bases. Few scattered rhonchi and crackles. Expiratory wheezing also present. Abdomen is soft, nontender. LEGS: n. NERVOUS SYSTEM: No focal deficits. LABS: WBC 13.8, hemoglobin 12.5. Sodium 138, potassium 4.6. ASSESSMENT: 1. Acute on chronic hypercapnic respiratory failure secondary to acute chronic obstructive pulmonary disease acute exacerbation with acute purulent tracheobronchitis. 2. Congestive heart failure acute exacerbation with acute on chronic diastolic dysfunction. 3. Chronic paroxysmal atrial fibrillation and rapid ventricular rate. 4. Morbid obesity, body mass index 52.8. 5. Obstructive sleep apnea. 6. Diabetes mellitus type 2. 7. Hypertension. RECOMMENDATIONS AND DISCUSSION: Recommend to continue current medications, continue to monitor and symptomatic treatment. Otherwise at this time I would recommend to continue with diuretics and continue with bronchodilators. Otherwise, guarded prognosis because of multiple complex medical issues. Further recommendations to follow. MMODL / IJN: [id number] / MTDD
[2018-10-30 19:17] LABS: Glucose,Whole Blood 220 mg/dL (75-99)
[2018-10-30] MEDS: MONTELUKAST 10 MG TAB PO SCH (20:27)
[2018-10-30] MEDS: ATORVASTATIN 40 MG TAB PO SCH (20:27)
[2018-10-31 01:59] LABS: Glucose,Whole Blood 170 mg/dL (75-99)
[2018-10-31] MEDS: IPRATROPIUM-ALBUTEROL 3 ML NEB INHALATION PRN ×2 (03:27→23:16)
[2018-10-31 07:23] LABS: Glucose,Whole Blood 180 mg/dL (75-99)
[2018-10-31] MEDS: NADOLOL 20 MG TAB PO SCH ×2 (07:36→21:09)
[2018-10-31] MEDS: FUROSEMIDE 40 MG TAB PO SCH ×2 (07:36→16:20)
[2018-10-31] MEDS: APIXABAN 5 MG TAB PO SCH ×2 (07:36→21:09)
[2018-10-31] MEDS: VERAPAMIL SR 180 MG TABLET.ER PO SCH (07:37)
[2018-10-31] MEDS: TERBINAFINE 250 MG TAB PO SCH (07:37)
[2018-10-31] MEDS: SPIRONOLACTONE 25 MG TAB PO SCH (07:37)
[2018-10-31] MEDS: predniSONE 20 MG TAB PO SCH (07:37)
[2018-10-31] MEDS: TAMSULOSIN 0.4 MG CAP.ER.24H PO SCH ×2 (07:37→21:09)
[2018-10-31] MEDS: INSULIN ASPART 100 UNIT/ML 1 ML 10 ML VIAL SQ SCH ×4 (07:43→21:11)
[2018-10-31] MEDS: SYMBICORT 160-4.5 MCG INHALER INHALATION SCH ×2 (08:04→19:24)
[2018-10-31] MEDS: IPRATROPIUM-ALBUTEROL 3 ML NEB INHALATION SCH ×4 (08:04→19:25)
[2018-10-31 11:18] LABS: Glucose,Whole Blood 216 mg/dL (75-99)
--- NOTE | 2018-10-31 14:39 | P.PN ---
Subjective Progress Note Date: 10/31/18 Principal diagnosis: Acute exacerbation of COPD, atrial fibrillation with RVR This is a 58-year-old white male with history of COPD, patient is O2 dependent, normally sees Dr. Mariee, his FEV1 is normally in the range of 57%. His other medical problems include chronic dyspnea related to COPD, obesity, and chronic atrial fibrillation, obstructive sleep apnea syndrome, maintained on CPAP at night, patient is O2 dependent because of his COPD and obstructive sleep apnea, known to have history of diabetes, hypertension, and cor pulmonale. Patient was admitted this time with mostly increased shortness of breath with any activity, and upon arrival he was noted to be in atrial fibrillation and RVR. Patient was treated with IV Cardizem, and he was seen by cardiology on consultation, however considering his underlying COPD, this consult was initiated. At present the patient is feeling better, breathing easier, less shortness of breath, no cough, no wheezing, no chest pain, no fever, no chills, no hemoptysis. Patient remains on multiple bronchodilators, and his pulmonary status seems to be basically about what it is supposed to be. He was actually cleared by cardiology for discharge home today, and after evaluating the patient , I felt the same that the patient could actually be discharged home today and follow up with Dr. Mariee on outpatient basis. During my evaluation, patient had no headache no blurred vision no dizziness. No chest pain, no palpitations , he does have chronic dyspnea on exertion, no cough no wheezing no fever no chills no hemoptysis no nausea no vomiting no abdominal pain no melena no hematemesis no dysuria and no frequency no urgency. On 10/27/2018 patient seen again in follow-up on medical surgical floor. Apparently last night patient became very nauseous, very short of breath. At that time has right was noted to be around 130 BPM, A. fib. Currently has heart rate is around 100-118 BPM. Patient anticoagulated with Eliquis, and patient is on verapamil SR for rate control. Cardiology has been reconsulted today. From pulmonary perspective patient is fairly stable, lung sounds are diminished, no rhonchi, no crackles or wheezes. Patient was given a dose of IV Lasix last night for shortness of breath. Today's chest x-ray was reviewed by Dr. Aguilar showed normal chest. Patient has a occasional productive cough, he is currently on empiric antibiotic coverage in the form of Rocephin. On oral prednisone, and nebulized bronchodilators. On 10/28/2018 patient seen again in follow-up. He states last night at around 8 :00 in the evening he had another recurrent episode of nausea, acute shortness of breath respiratory distress. he was given a dose of IV Lasix, diuresed about 3000 ML of urine, and his symptoms of dyspnea have improved. This morning 's chest x-ray showed no acute process. His heart rate at that time was around 120 BPM. Patient is still tachycardic at times, he was asked to be seen by cardiology again, in regards to his rate control. Today's labs have been noted , WBCs 22.5, hemoglobin is 15.0, electrolytes were normal, B1 is 28 and creatinine was 0.67, BNP was 199. Patient was started on IV Lasix at 40 mg twice daily. He is in -1550 balance over the last 24 hours. Lung sounds are for crackles at the bases. The patient is seen today 10/29/2018 in follow-up on the regular medical floor. He is currently resting quite comfortably in bed. He is continuing to use the BiPAP alternating with oxygen at 3 L/m per nasal cannula. Maintaining good O2 saturations in the 90s. He remains afebrile. Hemodynamically stable. Sputum culture reveals no growth. White count 16.5. Hemoglobin 14.3. Creatinine 0.74. He remains on DuoNeb inhalations, Symbicort, IV Solu-Medrol, ceftriaxone and IV diuretics. He is currently in a negative balance. Reevaluated today on 10/30/2018, patient remains on a regular medical floor, feeling better for the first time today, I increased his Lasix yesterday to a double dose 40 mg twice a day, and he did not require any Lasix last night. No significant A. fib with RVR, patient is breathing easier today, hardly any cough no wheezing no shortness of breath no chest pain. Remains on DuoNeb, Symbicort, he is also on steroids antibiotics and diuretics. Basic metabolic profile is normal, CBC is basically normal. Reevaluated today on 10/31/2018, patient is feeling better, breathing easier, remains on the Lasix as ordered, remains on bronchodilators, no major issues over the last 24 hours, hence I discussed his condition with the admitting physician, and I will clear the patient for discharge planning in the morning. CBC today was normal. Basic metabolic profile was normal BUN is a bit elevated at 51 but creatinine is 0.79. Objective - Vital Signs Vital signs: Vital Signs Temp 97.6 F 10/31/18 04:59 Pulse 91 10/31/18 11:29 Resp 24 10/31/18 08:35 BP 134/91 10/31/18 04:59 Pulse Ox 96 10/31/18 08:06 Intake & Output 10/30/18 10/31/18 10/31/18 18:59 06:59 18:59 Intake Total 240 530 160 Output Total 800 1200 1925 Balance -745 -957 -8300 Weight 150 kg Intake: IV 50 cefTRIAXone 1,000 mg In 50 Sodium Chloride 0.9% 50 ml @ 100 mls/hr IVPB Q24H TED Rx#:[id number] Oral 240 480 160 Output: Urine 800 1200 1925 Other: Voiding Method Urinal Urinal Urinal # Voids 1 - Exam Physical Exam: Revealed a 63-year-old white male in no distress. Head: Atraumatic normocephalic. HEENT:: [No neck masses.] [No thyromegaly.] [No JVD.] Chest: [Diminished breath sounds at the bases no crackles or rhonchi or wheezes. Cardiac Exam: [Normal S1 and S2, no S3 gallop, no murmur.] Abdomen: [Soft, nontender, no megaly, no rebound, no guarding, normal bowel sounds.] Extremities: [No clubbing, no edema, no cyanosis.] Neurological Exam: [No focal neurologic deficit.] Psychiatric normal mood affect and mental status examination. Lymphatics: No lymphadenopathy. Skin: No rashes. - Labs CBC & Chem 7: 10/30/18 06:56 10/30/18 06:56 Labs: Abnormal Lab Results - Last 24 Hours (Table) 10/30/18 10/30/18 10/31/18 Range/Units 17:25 19:16 01:58 POC Glucose (mg/dL) 235 H 220 H 170 H (75-99) mg/dL 10/31/18 10/31/18 Range/Units 07:21 11:17 POC Glucose (mg/dL) 180 H 216 H (75-99) mg/dL Assessment and Plan Assessment: Impression: 1 shortness of breath, multifactorial, secondary to severe underlying COPD, and atrial fibrillation with RVR. And secondary to morbid obesity and deconditioning. 2 acute on chronic hypoxic and hypercapnic respiratory failure secondary to COPD 3 morbid obesity, and obstructive sleep apnea syndrome, patient is on CPAP at home. 4 type 2 diabetes 5 benign essential hypertension 6 degenerative joint disease 7 acute on chronic diastolic congestive heart failure. Recommendation: Continue current meds, continue BiPAP at night, bronchodilators , steroids, diuretics, patient will be cleared for discharge planning in the morning. He should have follow-up with Dr. Mariee on outpatient basis. Time with Patient: Less than 30
[2018-10-31 15:17] LABS: Glucose,Whole Blood 243 mg/dL (75-99)
[2018-10-31 17:07] LABS: Glucose,Whole Blood 215 mg/dL (75-99)
[2018-10-31 20:11] LABS: Glucose,Whole Blood 218 mg/dL (75-99)
[2018-10-31] MEDS: ATORVASTATIN 40 MG TAB PO SCH (21:09)
[2018-10-31] MEDS: MONTELUKAST 10 MG TAB PO SCH (21:09)
[2018-10-31 21:17] VITALS: TEMP 97.4
--- NOTE | 2018-10-31 21:27 | PN ---
PROGRESS NOTE This 63-year-old gentleman with a past medical history of multiple medical problems was admitted with COPD exacerbation. The patient also had shortness of breath. The patient is also diuresing per Dr. Daniel's recommendations, which is improving the fluid and electrolytes balance at this time. No chest pain. No palpitations. No fever. PHYSICAL EXAM: Alert and oriented times three. Pulse 67, blood pressure 114/77, respiratory rate 16, temperature 98.2, pulse ox 97% on 2 L. HEENT: Conjunctivae normal. NECK: No jugular venous distention. CARDIOVASCULAR: S1, S2. RESPIRATIONS: Breath sounds diminished in the bases. Bilateral scattered rhonchi and crackles. ABDOMEN: Soft, nontender. LEGS: No edema. No swelling. NERVOUS SYSTEM: Higher functions as mentioned earlier. Moves all 4 limbs. No focal motor or sensory deficits. Lymphatics: No lymph nodes palpable in the neck, axillae or groin. SKIN: No ulcer, rash, or bleeding. LABS: At this time shows labs are reviewed. Accu-Cheks are generally improved at 220, 218. ASSESSMENT: 1. Acute on chronic hypercapnic respiratory failure secondary to chronic obstructive pulmonary disease acute exacerbation with acute purulent tracheobronchitis. 2. Congestive heart failure acute exacerbation with acute on chronic diastolic dysfunction. 3. Chronic paroxysmal atrial fibrillation with rapid ventricular rate. 4. Morbid obesity, BMI of 52.8. 5. Obstructive sleep apnea. 6. Diabetes mellitus type 2. 7. Hypertension. RECOMMENDATIONS AND DISCUSSION: Recommend to continue current medications, management and symptomatic treatment. Continue with diuretics as ordered. I would also recommend continue with the bronchodilators. Taper the steroids. Continue the rest of medications. Repeat labs will be ordered. Prognosis guarded because of multiple complex medical issues. Further recommendations to follow. Empiric antibiotics also given. The patient is on Rocephin as well. MMODL / IJN: [id number] /
[2018-11-01 05:55] VITALS: RESP 16
[2018-11-01 06:57] LABS: Glucose,Whole Blood 180 mg/dL (75-99)
[2018-11-01] MEDS: FUROSEMIDE 40 MG TAB PO SCH (07:33)
[2018-11-01] MEDS: APIXABAN 5 MG TAB PO SCH (07:33)
[2018-11-01] MEDS: INSULIN ASPART 100 UNIT/ML 1 ML 10 ML VIAL SQ SCH ×2 (07:33→12:54)
[2018-11-01] MEDS: predniSONE 20 MG TAB PO SCH (07:34)
[2018-11-01] MEDS: NADOLOL 20 MG TAB PO SCH (07:34)
[2018-11-01] MEDS: TAMSULOSIN 0.4 MG CAP.ER.24H PO SCH (07:34)
[2018-11-01] MEDS: TERBINAFINE 250 MG TAB PO SCH (07:34)
[2018-11-01] MEDS: SPIRONOLACTONE 25 MG TAB PO SCH (07:34)
[2018-11-01] MEDS: VERAPAMIL SR 180 MG TABLET.ER PO SCH (07:35)
[2018-11-01] MEDS: SYMBICORT 160-4.5 MCG INHALER INHALATION SCH (07:51)
[2018-11-01] MEDS: IPRATROPIUM-ALBUTEROL 3 ML NEB INHALATION SCH ×2 (07:51→11:56)
[2018-11-01 07:58] LABS: Basophils % (A) 0 %; Eosinophils # (A) 0.1 k/uL (0-0.7); Eosinophils % (A) 1 %; HCT 44.5 % (39.0-53.0); HGB 13.6 gm/dL (13.0-17.5); Lymphocytes # (A) 3.6 k/uL (1.0-4.8); Lymphocytes % (A) 21 %; MCH 27.1 pg (25.0-35.0); MCHC 30.5 g/dL (31.0-37.0); Mean Platelet Volume 6.7; Monocytes # (A) 1.5 k/uL (0-1.0); Monocytes % (A) 9 %; Neutrophils # (A) 11.7 k/uL (1.3-7.7); Neutrophils % (A) 68 %; Platelet Count 350 k/uL (150-450); RBC 5.01 m/uL (4.30-5.90); RDW 14.6 % (11.5-15.5); WBC 17.2 k/uL (3.8-10.6)
[2018-11-01 08:17] LABS: Anion Gap 6 mmol/L; Blood Urea Nitrogen 25 mg/dL (9-20); Calcium 8.6 mg/dL (8.4-10.2); Carbon Dioxide 34 mmol/L (22-30); Chloride 99 mmol/L (98-107); Glucose 191 mg/dL (74-99); Potassium 4.9 mmol/L (3.5-5.1); Sodium 139 mmol/L (137-145)
[2018-11-01 11:37] LABS: Glucose,Whole Blood 245 mg/dL (75-99)
[2018-11-01 12:52] VITALS: BP 152/70; PULSE 74
--- NOTE | 2018-11-01 14:13 | P.PN ---
Subjective Progress Note Date: 11/01/18 Principal diagnosis: Shortness of breath This is a 58-year-old white male with history of COPD, patient is O2 dependent, normally sees Dr. Mariee, his FEV1 is normally in the range of 57%. His other medical problems include chronic dyspnea related to COPD, obesity, and chronic atrial fibrillation, obstructive sleep apnea syndrome, maintained on CPAP at night, patient is O2 dependent because of his COPD and obstructive sleep apnea, known to have history of diabetes, hypertension, and cor pulmonale. Patient was admitted this time with mostly increased shortness of breath with any activity, and upon arrival he was noted to be in atrial fibrillation and RVR. Patient was treated with IV Cardizem, and he was seen by cardiology on consultation, however considering his underlying COPD, this consult was initiated. At present the patient is feeling better, breathing easier, less shortness of breath, no cough, no wheezing, no chest pain, no fever, no chills, no hemoptysis. Patient remains on multiple bronchodilators, and his pulmonary status seems to be basically about what it is supposed to be. He was actually cleared by cardiology for discharge home today, and after evaluating the patient , I felt the same that the patient could actually be discharged home today and follow up with Dr. Mariee on outpatient basis. During my evaluation, patient had no headache no blurred vision no dizziness. No chest pain, no palpitations , he does have chronic dyspnea on exertion, no cough no wheezing no fever no chills no hemoptysis no nausea no vomiting no abdominal pain no melena no hematemesis no dysuria and no frequency no urgency. On 10/27/2018 patient seen again in follow-up on medical surgical floor. Apparently last night patient became very nauseous, very short of breath. At that time has right was noted to be around 130 BPM, A. fib. Currently has heart rate is around 100-118 BPM. Patient anticoagulated with Eliquis, and patient is on verapamil SR for rate control. Cardiology has been reconsulted today. From pulmonary perspective patient is fairly stable, lung sounds are diminished, no rhonchi, no crackles or wheezes. Patient was given a dose of IV Lasix last night for shortness of breath. Today's chest x-ray was reviewed by Dr. Aguilar showed normal chest. Patient has a occasional productive cough, he is currently on empiric antibiotic coverage in the form of Rocephin. On oral prednisone, and nebulized bronchodilators. On 10/28/2018 patient seen again in follow-up. He states last night at around 8 :00 in the evening he had another recurrent episode of nausea, acute shortness of breath respiratory distress. he was given a dose of IV Lasix, diuresed about 3000 ML of urine, and his symptoms of dyspnea have improved. This morning 's chest x-ray showed no acute process. His heart rate at that time was around 120 BPM. Patient is still tachycardic at times, he was asked to be seen by cardiology again, in regards to his rate control. Today's labs have been noted , WBCs 22.5, hemoglobin is 15.0, electrolytes were normal, B1 is 28 and creatinine was 0.67, BNP was 199. Patient was started on IV Lasix at 40 mg twice daily. He is in -1550 balance over the last 24 hours. Lung sounds are for crackles at the bases. On 11/01/2018 patient seen again in follow-up on medical surgical floor. Sit up in the chair, he states he still very short of breath with any exertion, but less bronchospastic and was congested. Heart rate is better controlled, patient remains in A. fib, with a rate of 74. Socks on 3 L per nasal cannula is 97%, patient is afebrile. No fever or chills, no worsening chest congestion. Sputum culture showed no growth. She continues on oral Lasix, nebulized bronchodilators, and IV Rocephin. He was started on Eliquis for anticoagulation. Objective - Vital Signs Vital signs: Vital Signs Temp 97.4 F L 11/01/18 12:43 Pulse 74 11/01/18 12:43 Resp 16 11/01/18 12:43 BP 152/70 11/01/18 12:43 Pulse Ox 97 11/01/18 12:43 Intake & Output 10/31/18 11/01/18 11/01/18 18:59 06:59 18:59 Intake Total 160 400 Output Total 3125 3200 750 Balance -2965 -2800 -750 Weight 150.1 kg Intake: Oral 160 400 Output: Urine 3125 3200 750 Other: Voiding Method Urinal Urinal Urinal # Voids 1 1 - Exam Physical Exam: Revealed a 63-year-old white male, obese, in no distress, on 2 L nasal cannula. Head: Atraumatic, normocephalic. HEENT:[Neck is supple.] [No neck masses.] [No thyromegaly.] [No JVD.] Chest: Good air entry noted bilaterally, diminished breath sounds at the bases Cardiac Exam: Irregular irregular rhythm. [Normal S1 and S2, no S3 gallop, no murmur.] Abdomen: [Obese, Soft, nontender, no megaly, no rebound, no guarding, normal bowel sounds.] Extremities: [No clubbing, no edema, no cyanosis.] Neurological Exam: [No focal neurologic deficit.] Psychiatric: Normal mood affect and mental status examination Skin: No rashes. - Labs CBC & Chem 7: 11/01/18 07:26 11/01/18 07:26 Labs: Abnormal Lab Results - Last 24 Hours (Table) 10/31/18 10/31/18 10/31/18 Range/Units 15:16 17:06 20:09 WBC (3.8-10.6) k/uL MCHC (31.0-37.0) g/dL Neutrophils # (1.3-7.7) k/uL Monocytes # (0-1.0) k/uL Carbon Dioxide (22-30) mmol/L BUN (9-20) mg/dL Glucose (74-99) mg/dL POC Glucose (mg/dL) 243 H 215 H 218 H (75-99) mg/dL 11/01/18 11/01/18 11/01/18 Range/Units 06:54 07:26 07:26 WBC 17.2 H (3.8-10.6) k/uL MCHC 30.5 L (31.0-37.0) g/dL Neutrophils # 11.7 H (1.3-7.7) k/uL Monocytes # 1.5 H (0-1.0) k/uL Carbon Dioxide 34 H (22-30) mmol/L BUN 25 H (9-20) mg/dL Glucose 191 H (74-99) mg/dL POC Glucose (mg/dL) 180 H (75-99) mg/dL 11/01/18 Range/Units 11:34 WBC (3.8-10.6) k/uL MCHC (31.0-37.0) g/dL Neutrophils # (1.3-7.7) k/uL Monocytes # (0-1.0) k/uL Carbon Dioxide (22-30) mmol/L BUN (9-20) mg/dL Glucose (74-99) mg/dL POC Glucose (mg/dL) 245 H (75-99) mg/dL Assessment and Plan Plan: Assessment: 1 shortness of breath, multifactorial, secondary to severe underlying COPD, and atrial fibrillation with RVR. And secondary to morbid obesity and deconditioning. 2 acute on chronic hypoxic and hypercapnic respiratory failure secondary to COPD 3 morbid obesity, and obstructive sleep apnea syndrome, patient is on CPAP at home. 4 type 2 diabetes 5 benign essential hypertension 6 degenerative joint disease Plan: Continue current plan treatment, oral prednisone can be switched to 30 mg daily , continue with oral Lasix, nebulized bronchodilators. Increase activity as tolerated. From pulmonary perspective patient is improving, heart rate is better controlled. Patient can be considered for discharge home in the next 24 hours I performed a history & physical examination of the patient and discussed their management with my nurse practitioner, Sarah Santos. I reviewed the nurse practitioner's note and agree with the documented findings and plan of care. Lung sounds are diminished. The findings and the impression was discussed with the patient. I attest to the documentation by the nurse practitioner. Time with Patient: Less than 30
--- NOTE | 2018-11-02 04:59 | DS ---
DISCHARGE SUMMARY DATE OF SERVICE: 11/01/2018 FINAL DIAGNOSES: 1. Acute on chronic hypoxic respiratory failure secondary to chronic obstructive pulmonary disease acute exacerbation as well as acute purulent tracheobronchitis. 2. Congestive heart failure exacerbation acute on chronic diastolic dysfunction. 3. Chronic paroxysmal atrial fibrillation with rapid ventricular rate. 4. Morbid obesity, BMI of 52.8. 5. Obstructive sleep apnea. 6. Diabetes mellitus type 2. 7. Hypertension. DISCHARGE DISPOSITION: The patient will be discharged in stable condition with guarded prognosis. HISTORY OF PRESENT ILLNESS: This 63-year-old gentleman with a past medical history of multiple medical problems, admitted with COPD acute exacerbation, as well as congestive heart failure exacerbation. Patient was treated in conjunction with multiple consultants. The patient improved significantly. Patient was getting worse during the night and medication adjusted. I also discussed the case with Dr. Reyes who is the primary physician to monitor in the outpatient setting. On exam, vital signs are stable. Cardiovascular S1, S2. Abdomen soft. Nervous system: No focal deficits. The patient also recommended sleep apnea reevaluation by Dr. Sewell in the outpatient setting. DISCHARGE ADVICE AND MEDICATIONS: 1. Discharge diet is cardiac, no added salt /fluids for 24 hours. 2. Follow up with Dr. Reyes in 2-3 days. CBC, BMP. 3. Follow up with Dr. Garcia and Dr. Mariee as mentioned. 4. Home care is being arranged. MEDICATIONS: 1. Albuterol p.r.n. 2. Symbicort 160/4.5 two puffs b.i.d. 3. Hydrochlorothiazide 25 mg. 4. Lamisil 250 mg p.o. daily. 5. Eliquis 5 mg p.o. b.i.d. 6. Lipitor 40 mg q.h.s. 7. Ceftin 500 mg p.o. b.i.d. for 3 days. 8. Lasix 40 mg p.o. b.i.d. 9 o'clock and 16. 9. Robitussin DM 10 mL p.r.n. 10.Lantus 40 units subcu b.i.d. hold if less than 120. 11.DuoNeb q.i.d. and p.r.n. 12.Univasc p.r.n. 50 mg p.o. daily. 13.Singulair 10 mg p.o. q.h.s. 14.Corgard that is nadolol 20 mg p.o. b.i.d. 15.Prednisone 40 mg daily for 3 days, 30 mg daily for 3 days, 20 for 3 days, 10 for 3 days. 16.Flomax 0.4 b.i.d. 17.Isoptin SR 360 mg p.o. daily. Once again, the patient is being discharged in stable condition with guarded prognosis. MMODL / JOAQUINN: [id number] / MTDD
== END 2018-11-01 14:50 | disposition home health service (06) | DRG 190 ==
LOC: EC 23:29 → 3SCARD 10-21 03:10 → 3NMEDONC 10-25 23:01
PROVIDERS: ADMIT Hospitalist; ATTEND Hospitalist
DX: J44.1 Chronic obstructive pulmonary disease with (acute) exacerbation (principal); I50.33 Acute on chronic diastolic (congestive) heart failure; J96.21 Acute and chronic respiratory failure with hypoxia; J96.22 Acute and chronic respiratory failure with hypercapnia; E66.2 Morbid (severe) obesity with alveolar hypoventilation; I48.1 Persistent atrial fibrillation; Z68.43 Body mass index [BMI] 50.0-59.9, adult; J44.0 Chronic obstructive pulmonary disease with (acute) lower respiratory infection; J20.9 Acute bronchitis, unspecified; Z87.891 Personal history of nicotine dependence; D64.9 Anemia, unspecified; D72.829 Elevated white blood cell count, unspecified; E11.9 Type 2 diabetes mellitus without complications; I11.0 Hypertensive heart disease with heart failure; I27.81 Cor pulmonale (chronic); I48.2 Chronic atrial fibrillation; M15.9 Polyosteoarthritis, unspecified; Z79.01 Long term (current) use of anticoagulants; Z79.4 Long term (current) use of insulin; Z79.51 Long term (current) use of inhaled steroids; Z82.5 Family history of asthma and other chronic lower respiratory diseases; Z83.3 Family history of diabetes mellitus; Z99.81 Dependence on supplemental oxygen; Z66 Do not resuscitate
CPT/HCPCS: 36415; 71045; 71046; 80048; 80053; 82550; 82553; 83036; 83605; 83880; 84484; 85025; 85027; 85379; 85610; 85730; 87070; 87205; 87502; 93005; 93308; 94640; 94760; 96365; 96376; 99285

== ENCOUNTER 2018-11-29 23:44 | Inpatient (IN) | payer BC, MEDICARE ==
[2018-11-30 01:51] LABS: Basophils # (A) 0.1 k/uL (0-0.2); Basophils % (A) 0 %; Eosinophils # (A) 0.2 k/uL (0-0.7); Eosinophils % (A) 1 %; HCT 37.2 % (39.0-53.0); HGB 11.8 gm/dL (13.0-17.5); Lymphocytes # (A) 2.5 k/uL (1.0-4.8); Lymphocytes % (A) 15 %; MCH 28.1 pg (25.0-35.0); MCHC 31.9 g/dL (31.0-37.0); MCV 88.2 fL (80.0-100.0); Monocytes # (A) 1.1 k/uL (0-1.0); Monocytes % (A) 7 %; Neutrophils # (A) 12.3 k/uL (1.3-7.7); Neutrophils % (A) 75 %; Platelet Count 376 k/uL (150-450); RBC 4.21 m/uL (4.30-5.90); RDW 14.9 % (11.5-15.5); WBC 16.4 k/uL (3.8-10.6)
[2018-11-30 02:00] LABS: ALT 34 U/L (21-72); AST 21 U/L (17-59); Albumin 3.6 g/dL (3.5-5.0); Alkaline Phosphatase 76 U/L (38-126); Anion Gap 10 mmol/L; Blood Urea Nitrogen 20 mg/dL (9-20); Carbon Dioxide 29 mmol/L (22-30); Chloride 99 mmol/L (98-107); Glucose 152 mg/dL (74-99); Potassium 4.7 mmol/L (3.5-5.1); Sodium 138 mmol/L (137-145); Total Bilirubin 0.5 mg/dL (0.2-1.3); Total Protein 6.5 g/dL (6.3-8.2)
[2018-11-30] MEDS ORDERED: IPRATROPIUM 0.5 MG/2.5 ML NEBU INHALATION STA (02:06)
[2018-11-30] MEDS ORDERED: ALBUTEROL NEBULIZED (CONC) 5 MG, SODIUM CHLORIDE 0.9% NEBULIZ 3 ML INHALATION STA ×2 (02:06)
--- NOTE | 2018-11-30 02:12 | XR ---
EXAM: XR Chest, 1 View CLINICAL HISTORY: ITS.REASON XR Reason: Pain TECHNIQUE: Frontal view of the chest. COMPARISON: No relevant prior studies available. IMPRESSION: Cardiomegaly. No pulmonary edema. No consolidation or pleural effusion.
[2018-11-30] MEDS ORDERED: predniSONE 20 MG TAB PO STA (03:23)
--- NOTE | 2018-11-30 03:33 | ED ---
SOB HPI - General Chief Complaint: Shortness of Breath Stated Complaint: TINY Time Seen by Provider: 11/30/18 00:14 Source: patient Mode of arrival: EMS Limitations: physical limitation - History of Present Illness Initial Comments: This patient is a 63-year-old man who presents to be evaluated for worsening shortness of breath that is been going on for the past few hours. The patient states that he was sitting at rest and things began to worsen tonight. He found that his home oxygen was not adequately helping so family called EMS. The patient states he was having increased cough over his baseline for the past couple of days. He had not noted fever or chills. The cough is nonproductive. No hemoptysis. He did have some tightness all across his chest after the dyspnea had started. MD Complaint: shortness of breath, cough Onset/Timin -: hour(s) Severity: mild Quality: other Consistency: now resolved Improves With: nothing Worsens With: nothing Known History Of: COPD, congestive heart failure Associated Symptoms: denies other symptoms Treatments Prior to Arrival: oxygen, bronchodilator - Related Data Home Medications Medication Instructions Recorded Confirmed Budesonide-Formot 160-4.5 Mcg 2 puff INHALATION RT-BID 01/08/15 11/30/18 [Symbicort 160-4.5 Mcg Inhaler] Hydrochlorothiazide 25 mg PO DAILY 10/17/17 11/30/18 Albuterol Inhaler [Ventolin Hfa 2 puff INHALATION RT-Q6H PRN 09/12/18 11/30/18 Inhaler] Terbinafine [LamISIL] 250 mg PO DAILY 10/21/18 11/30/18 Albuterol Nebulized [Ventolin 2.5 mg INHALATION RT-QID PRN 11/30/18 11/30/18 Nebulized] Ipratropium-Albuterol Nebulize 3 ml INHALATION RT-BID 11/30/18 11/30/18 [Duoneb 0.5 mg-3 mg/3 ml Soln] Tamsulosin HCl [Flomax] 0.4 mg PO DAILY 11/30/18 11/30/18 Tiotropium [place] [Spiriva] 1 cap INHALATION RT-DAILY 11/30/18 11/30/18 Previous Rx's Medication Instructions Recorded Apixaban [Eliquis] 5 mg PO BID #60 tab 09/15/18 Atorvastatin [Lipitor] 40 mg PO HS #30 tab 09/15/18 Moexipril [Univasc] 15 mg PO DAILY #1 tab 09/15/18 Furosemide [Lasix] 40 mg PO BID@0900,1600 #80 tab 11/01/18 Insulin Glargine,Hum.rec.anlog 40 unit SQ BID #1 11/01/18 [Lantus Solostar] Montelukast [Singulair] 10 mg PO HS #30 tab 11/01/18 Nadolol [Corgard] 20 mg PO BID #50 tab 11/01/18 Verapamil Sr [Isoptin Sr] 360 mg PO DAILY #30 tablet.er 11/01/18 Allergies Allergy/AdvReac Type Severity Reaction Status Date / Time No Known Allergies Allergy Verified 11/30/18 08:22 Review of Systems ROS Statement: Those systems with pertinent positive or pertinent negative responses have been documented in the HPI. ROS Other: All systems not noted in ROS Statement are negative. Constitutional: Denies: fever, chills, weakness Respiratory: Reports: as per HPI, cough, dyspnea, wheezes. Denies: hemoptysis Cardiovascular: Reports: as per HPI, chest pain, orthopnea. Denies: palpitations, edema, syncope Gastrointestinal: Denies: abdominal pain, nausea, vomiting Genitourinary: Denies: dysuria, hematuria Musculoskeletal: Denies: back pain Skin: Denies: rash Neurological: Denies: headache, weakness, numbness Past Medical History Past Medical History: Asthma, COPD, Diabetes Mellitus, Hypertension, Osteoarthritis (OA), Pneumonia, Respiratory Disorder, Sleep Apnea/CPAP/BIPAP Additional Past Medical History / Comment(s): IDDM type II, HERBERT with CPAP, chronic respiratory failure-O2 2L/NC ATC, arthritis in multiple joints. History of Any Multi-Drug Resistant Organisms: None Reported Past Surgical History: Hernia Repair Additional Past Surgical History / Comment(s): Bronchoscopy, umbilical hernia repair. Past Anesthesia/Blood Transfusion Reactions: No Reported Reaction Past Psychological History: No Psychological Hx Reported Smoking Status: Former smoker Past Alcohol Use History: None Reported Past Drug Use History: None Reported - Past Family History Father Family Medical History: Diabetes Mellitus Mother Family Medical History: Asthma, Diabetes Mellitus General Exam Limitations: physical limitation General appearance: alert, in distress (Mild respiratory distress), obese Head exam: Present: atraumatic, normocephalic Eye exam: Present: normal appearance ENT exam: Present: normal oropharynx Neck exam: Present: normal inspection Respiratory exam: Present: respiratory distress, wheezes, decreased breath sounds, prolonged expiratory. Absent: rales, rhonchi, stridor, accessory muscle use Cardiovascular Exam: Present: regular rate, irregular rhythm, normal heart sounds. Absent: systolic murmur, diastolic murmur, rubs, gallop GI/Abdominal exam: Present: soft. Absent: distended, tenderness, guarding, rebound, rigid, mass Extremities exam: Present: normal inspection, normal capillary refill, pedal edema (Trace edema at the ankles bilaterally). Absent: calf tenderness Back exam: Absent: CVA tenderness (R), CVA tenderness (L) Neurological exam: Present: alert Skin exam: Present: warm, dry, intact, normal color. Absent: rash Course Vital Signs 11/29/18 11/30/18 11/30/18 23:51 01:05 02:14 Temperature 98.1 F Pulse Rate 72 64 69 Respiratory 24 28 H Rate Blood Pressure 118/83 101/64 O2 Sat by Pulse 95 96 Oximetry 11/30/18 11/30/18 11/30/18 02:29 05:05 07:19 Temperature Pulse Rate 88 67 64 Respiratory 20 Rate Blood Pressure 125/61 O2 Sat by Pulse 98 Oximetry 11/30/18 11/30/18 07:37 07:51 Temperature Pulse Rate 70 67 Respiratory 20 Rate Blood Pressure O2 Sat by Pulse 96 Oximetry Medical Decision Making - Lab Data Result diagrams: 11/30/18 00:00 11/30/18 00:00 Lab Results 11/30/18 11/30/18 11/30/18 Range/Units 00:00 00:00 00:00 WBC 16.4 H (3.8-10.6) k/uL RBC 4.21 L (4.30-5.90) m/uL Hgb 11.8 L (13.0-17.5) gm/dL Hct 37.2 L (39.0-53.0) % MCV 88.2 (80.0-100.0) fL MCH 28.1 (25.0-35.0) pg MCHC 31.9 (31.0-37.0) g/dL RDW 14.9 (11.5-15.5) % Plt Count 376 (150-450) k/uL Neutrophils % 75 % Lymphocytes % 15 % Monocytes % 7 % Eosinophils % 1 % Basophils % 0 % Neutrophils # 12.3 H (1.3-7.7) k/uL Lymphocytes # 2.5 (1.0-4.8) k/uL Monocytes # 1.1 H (0-1.0) k/uL Eosinophils # 0.2 (0-0.7) k/uL Basophils # 0.1 (0-0.2) k/uL PT (9.0-12.0) sec INR (<1.2) APTT (22.0-30.0) sec D-Dimer (<0.60) mg/L FEU Sodium 138 (137-145) mmol/L Potassium 4.7 (3.5-5.1) mmol/L Chloride 99 (98-107) mmol/L Carbon Dioxide 29 (22-30) mmol/L Anion Gap 10 mmol/L BUN 20 (9-20) mg/dL Creatinine 0.98 (0.66-1.25) mg/dL Est GFR (CKD-EPI)AfAm >90 (>60 ml/min/1.73 sqM) Est GFR (CKD-EPI)NonAf 81 (>60 ml/min/1.73 sqM) Glucose 152 H (74-99) mg/dL Calcium 9.0 (8.4-10.2) mg/dL Total Bilirubin 0.5 (0.2-1.3) mg/dL AST 21 (17-59) U/L ALT 34 (21-72) U/L Alkaline Phosphatase 76 (38-126) U/L Troponin I <0.012 (0.000-0.034) ng/mL NT-Pro-B Natriuret Pep pg/mL Total Protein 6.5 (6.3-8.2) g/dL Albumin 3.6 (3.5-5.0) g/dL 11/30/18 11/30/18 Range/Units 00:00 00:00 WBC (3.8-10.6) k/uL RBC (4.30-5.90) m/uL Hgb (13.0-17.5) gm/dL Hct (39.0-53.0) % MCV (80.0-100.0) fL MCH (25.0-35.0) pg MCHC (31.0-37.0) g/dL RDW (11.5-15.5) % Plt Count (150-450) k/uL Neutrophils % % Lymphocytes % % Monocytes % % Eosinophils % % Basophils % % Neutrophils # (1.3-7.7) k/uL Lymphocytes # (1.0-4.8) k/uL Monocytes # (0-1.0) k/uL Eosinophils # (0-0.7) k/uL Basophils # (0-0.2) k/uL PT 10.8 (9.0-12.0) sec INR 1.0 (<1.2) APTT 27.0 (22.0-30.0) sec D-Dimer 0.24 (<0.60) mg/L FEU Sodium (137-145) mmol/L Potassium (3.5-5.1) mmol/L Chloride (98-107) mmol/L Carbon Dioxide (22-30) mmol/L Anion Gap mmol/L BUN (9-20) mg/dL Creatinine (0.66-1.25) mg/dL Est GFR (CKD-EPI)AfAm (>60 ml/min/1.73 sqM) Est GFR (CKD-EPI)NonAf (>60 ml/min/1.73 sqM) Glucose (74-99) mg/dL Calcium (8.4-10.2) mg/dL Total Bilirubin (0.2-1.3) mg/dL AST (17-59) U/L ALT (21-72) U/L Alkaline Phosphatase (38-126) U/L Troponin I (0.000-0.034) ng/mL NT-Pro-B Natriuret Pep 431 pg/mL Total Protein (6.3-8.2) g/dL Albumin (3.5-5.0) g/dL Critical Care Time Critical Care Time: Yes (30 minutes) Disposition Clinical Impression: Dyspnea, COPD exacerbation Disposition: ADMITTED IP TO THIS HOSP Condition: Poor Is patient prescribed a controlled substance at d/c from ED?: No
[2018-11-30 04:20] LABS: D-Dimer 0.24 mg/L FEU (<0.60); Prothrombin Time 10.8 sec (9.0-12.0)
[2018-11-30] MEDS ORDERED: guaiFENesin-DM 100-10MG/5ML 10 ML CUP PO PRN (05:00)
[2018-11-30] MEDS: IPRATROPIUM-ALBUTEROL 3 ML NEB INHALATION SCH ×4 (07:19→20:32)
[2018-11-30] MEDS: SYMBICORT 160-4.5 MCG INHALER INHALATION SCH ×2 (07:19→20:32)
[2018-11-30 07:45] LABS: Glucose,Whole Blood 189 mg/dL (75-99)
[2018-11-30] MEDS: HYDROCHLOROTHIAZIDE 25 MG TAB PO SCH (09:39)
[2018-11-30] MEDS: TAMSULOSIN 0.4 MG CAP.ER.24H PO SCH ×2 (09:39→21:38)
[2018-11-30] MEDS: CEFDINIR 300 MG CAP PO SCH ×2 (09:39→22:50)
[2018-11-30] MEDS: LISINOPRIL 20 MG TAB PO SCH (09:39)
[2018-11-30] MEDS: APIXABAN 5 MG TAB PO SCH ×2 (09:39→21:38)
[2018-11-30] MEDS: FUROSEMIDE 40 MG TAB PO SCH ×2 (09:40→16:01)
[2018-11-30] MEDS: VERAPAMIL SR 180 MG TABLET.ER PO SCH (09:40)
[2018-11-30] MEDS: predniSONE 20 MG TAB PO SCH (09:41)
[2018-11-30] MEDS: INSULIN DETEMIR (LEVEMIR) 100 UNIT/ML SYR SQ SCH ×2 (09:42→21:39)
[2018-11-30] MEDS: NADOLOL 20 MG TAB PO SCH ×2 (09:42→22:51)
[2018-11-30 13:28] LABS: Glucose,Whole Blood 211 mg/dL (75-99)
--- NOTE | 2018-11-30 17:07 | P.CNPUL ---
History of Present Illness Consult date: 11/30/18 Requesting physician: David Delvalle Reason for consult: dyspnea, COPD Chief complaint: Shortness of breath, cough, congestion History of present illness: This is a very pleasant 63-year-old male patient who follows with Dr. Neil as his primary care physician. He has a history of morbid obesity, atrial fibrillation anticoagulated with Eliquis, cor pulmonale, diabetes mellitus, hypertension, obstructive sleep apnea utilizing CPAP in the outpatient setting, chronic respiratory failure on 2 L in the outpatient setting, former smoker. He does have chronic obstructive pulmonary disease and follows with Dr. Mariee in our office for the same. He is maintained on Symbicort, DuoNeb inhalations. He was last discharged for her COPD and exacerbation and jittery seventh 2018. He had seen Dr. Allan in the office in follow-up in time. He presented here to the emergency room again early this morning with complaints of worsening shortness of breath, cough and congestion. Asked x-ray shows evidence of cardiomegaly and chronic obstructive pulmonary disease but no acute pulmonary process. White count 16.4. Hemoglobin 11.8. D-dimer 0.24. Troponin negative. ProBNP 431. He is continued on DuoNeb inhalations, Symbicort, oral diuretics, antibiotics in the form of Omnicef. He is seen today in consultation in the emergency room. He is currently sitting up in a chair at the bedside. He is awake and alert in no acute distress. He is utilizing his home CPAP at times. Maintaining O2 saturations in the upper 90s on 4 L/m per nasal cannula. He's been afebrile. Hemodynamically stable. Review of Systems Constitutional: Reports fatigue, Reports weakness Eyes: denies blurred vision, denies decreased vision Ears: deny: decreased hearing Ears, nose, mouth and throat: Denies headache, Denies sore throat Cardiovascular: Reports decreased exercise tolerance, Reports dyspnea on exertion, Reports irregular heart beat, Reports shortness of breath Respiratory: Reports cough, Reports dyspnea, Reports home oxygen, Reports wheezing Gastrointestinal: Reports bloating Musculoskeletal: Denies myalgias Integumentary: Reports color changes, Reports depigmentation Neurological: Denies numbness, Denies weakness Psychiatric: Denies anxiety, Denies depression Endocrine: Denies fatigue, Denies weight change Hematologic/Lymphatic: Reports as per HPI Allergic/Immunologic: Reports as per HPI Past Medical History Past Medical History: Atrial Fibrillation, Asthma, Heart Failure, COPD, Diabetes Mellitus, Hypertension, Osteoarthritis (OA), Pneumonia, Respiratory Disorder, Sleep Apnea/CPAP/BIPAP Additional Past Medical History / Comment(s): Pt recently admitted to [facility] on with acute on chronic hypoxic respiratory failure 2ndary to COPD/ tracheobronchitis, exacerbation CHF. Other hx: IDDM type II, chronic paroxysmal Afib/RVR, arthritis multiple joints, HERBERT with Cpap use. History of Any Multi-Drug Resistant Organisms: None Reported Past Surgical History: Hernia Repair Additional Past Surgical History / Comment(s): Bronchoscopy, umbilical hernia repair. Past Anesthesia/Blood Transfusion Reactions: No Reported Reaction Smoking Status: Former smoker - Past Family History Father Family Medical History: Diabetes Mellitus Mother Family Medical History: Asthma, Diabetes Mellitus Medications and Allergies Home Medications Medication Instructions Recorded Confirmed Type Budesonide-Formot 160-4.5 Mcg 2 puff INHALATION RT-BID 01/08/15 11/30/18 History [Symbicort 160-4.5 Mcg Inhaler] Hydrochlorothiazide 25 mg PO DAILY 10/17/17 11/30/18 History Albuterol Inhaler [Ventolin Hfa 2 puff INHALATION RT-Q6H PRN 09/12/18 11/30/18 History Inhaler] Apixaban [Eliquis] 5 mg PO BID #60 tab 09/15/18 11/30/18 Rx Atorvastatin [Lipitor] 40 mg PO HS #30 tab 09/15/18 11/30/18 Rx Moexipril [Univasc] 15 mg PO DAILY #1 tab 09/15/18 11/30/18 Rx Terbinafine [LamISIL] 250 mg PO DAILY 10/21/18 11/30/18 History Furosemide [Lasix] 40 mg PO BID@0900,1600 #80 tab 11/01/18 11/30/18 Rx Insulin Glargine,Hum.rec.anlog 40 unit SQ BID #1 11/01/18 11/30/18 Rx [Lantus Solostar] Montelukast [Singulair] 10 mg PO HS #30 tab 11/01/18 11/30/18 Rx Nadolol [Corgard] 20 mg PO BID #50 tab 11/01/18 11/30/18 Rx Verapamil Sr [Isoptin Sr] 360 mg PO DAILY #30 tablet.er 11/01/18 11/30/18 Rx Albuterol Nebulized [Ventolin 2.5 mg INHALATION RT-QID PRN 11/30/18 11/30/18 History Nebulized] Ipratropium-Albuterol Nebulize 3 ml INHALATION RT-BID 11/30/18 11/30/18 History [Duoneb 0.5 mg-3 mg/3 ml Soln] Tamsulosin HCl [Flomax] 0.4 mg PO DAILY 11/30/18 11/30/18 History Tiotropium [place] [Spiriva] 1 cap INHALATION RT-DAILY 11/30/18 11/30/18 History Allergies Allergy/AdvReac Type Severity Reaction Status Date / Time No Known Allergies Allergy Verified 11/30/18 08:22 Physical Exam Vitals: Vital Signs Temp Pulse Pulse Resp BP BP Pulse Ox 11/30/18 16:11 64 11/30/18 15:59 64 11/30/18 12:52 97.4 F L 69 20 111/83 98 11/30/18 12:26 98.2 F 64 18 117/87 97 11/30/18 11:49 64 11/30/18 11:38 66 11/30/18 09:37 98.1 F 80 20 111/90 97 11/30/18 07:51 67 20 96 11/30/18 07:37 70 11/30/18 07:19 64 11/30/18 05:05 67 20 125/61 98 11/30/18 02:29 88 11/30/18 02:14 69 11/30/18 01:05 64 28 H 101/64 96 11/29/18 23:51 98.1 F 72 24 118/83 95 Intake and Output 11/30/18 11/30/18 11/30/18 06:59 14:59 22:59 Other: Weight 161.796 kg GENERAL EXAM: Morbidly obese. Alert, active, comfortable in no apparent distress. On 4 L nasal cannula. HEAD: Normocephalic. EYES: Normal reaction of pupils, equal size. NOSE: Clear with pink turbinates. THROAT: Crowding the posterior pharynx. No erythema or exudates. NECK: No masses, no JVD. CHEST: No chest wall deformity. LUNGS: Equal air entry with faint end expiratory wheeze. Diminished.. CVS: S1 and S2 normal with no audible murmur, irregular rhythm. ABDOMEN: Obese, soft normal bowel sounds, no guarding or rigidity. SPINE: No scoliosis or deformity SKIN: No rashes CENTRAL NERVOUS SYSTEM: No focal deficits, tone is normal in all 4 extremities. EXTREMITIES: There is 1-2+ peripheral edema. No clubbing, no cyanosis. Peripheral pulses are intact. Results - Laboratory Findings CBC and BMP: 11/30/18 00:00 11/30/18 00:00 PT/INR, D-dimer PT 10.8 sec (9.0-12.0) 11/30/18 00:00 INR 1.0 (<1.2) 11/30/18 00:00 D-Dimer 0.24 mg/L FEU (<0.60) 11/30/18 00:00 Abnormal lab findings: Abnormal Labs 11/30/18 11/30/18 11/30/18 00:00 00:00 07:42 WBC 16.4 H RBC 4.21 L Hgb 11.8 L Hct 37.2 L Neutrophils # 12.3 H Monocytes # 1.1 H Glucose 152 H POC Glucose (mg/dL) 189 H 11/30/18 13:16 WBC RBC Hgb Hct Neutrophils # Monocytes # Glucose POC Glucose (mg/dL) 211 H - Diagnostic Findings Chest x-ray: image reviewed Assessment and Plan Assessment: Impression: #1 Acute on chronic hypoxic respiratory failure secondary to an acute exacerbation of chronic obstructive pulmonary disease. #2 Atrial fibrillation, currently ventricular rate control. Anticoagulated with Eliquis. #3 Morbid obesity with deconditioning. #4 Obstructive sleep apnea utilizing CPAP in the outpatient setting. #5 Diabetes mellitus, type II. #6 Hypertension. #7 Degenerative joint disease. #8 Previous smoking history. Plan: The patient was seen and evaluated by Dr. Sewell. Chest x-ray and labs were reviewed. We will go ahead and treat him for acute COPD exacerbation. Today DuoNeb inhalations, continue Symbicort, continue prednisone. He remains on oral diuretics. Verapamil for rate control. Anticoagulated with Eliquis. We will increase his activity as tolerated. We'll continue to follow and make further recommendations based on his clinical status. I, the cosigning physician, performed a history & physical examination of the patient. Lungs sounds with bilateral end expiratory wheeze, diminished. Maintaining good O2 saturations in the 90s on 4 L/m per nasal cannula. I discussed the assessment and plan of care with my nurse practitioner, Ely Cooley. I attest to the above consultation as dictated by her. Time with Patient: Greater than 30
[2018-11-30 17:20] LABS: Glucose,Whole Blood 218 mg/dL (75-99)
[2018-11-30 20:43] LABS: Glucose,Whole Blood 250 mg/dL (75-99)
[2018-11-30] MEDS: FUROSEMIDE 10 MG/ML 4 ML VIAL IV SCH (21:38)
[2018-11-30] MEDS: ATORVASTATIN 40 MG TAB PO SCH (21:38)
--- NOTE | 2018-11-30 21:58 | P.HPIM ---
History of Present Illness H&P Date: 11/30/18 Chief Complaint: Shortness of breath Patient is a 63-year-old male with a known history of chronic hypoxic respiratory failure on 2 L home oxygen, COPD, chronic atrial fibrillation on anticoagulation, hypertension, diabetes type 2, osteoarthritis and morbid obesity BMI 54.2, chronic lower extremity swelling came to ER with complaints of worsening shortness of breath cough and congestion and increased leg swelling as well. Patient also has history of obstructive sleep apnea on CPAP at home. No fever no chills. Patient does have cough without much sputum production. No complaints of chest pain. No nausea vomiting or abdominal pain. Patient follows with Dr. Allan as an outpatient. Chest x-ray showed no pulmonary edema no congestion no pleural effusion. No acute process. EKG showed atrial fibrillation Troponin negative BNP 431 Patient was given a dose of prednisone 60 mg while in the ER and continued with breathing treatments. Review of Systems Constitutional: Patient denies any fever or chills . No generalized weakness or weight loss. Abdomen: Patient denied nausea vomiting and diarrhea and abdominal pain. Cardiovascular: Patient denies any chest pain or short of breath no palpitations. Slightly increased leg swelling. Respiratory: Patient does have cough with sputum production. Shortness of breath. Neurologic: Patient denied any numbness or tingling headache. Musculoskeletal: Patient denies any complaints of joint swelling or deformity. Skin: Negative Psychiatric: Negative Endocrine: No heat or cold intolerance. No recent weight gain. Genitourinary: No dysuria or hematuria. All other 14 point ROS negative except the above Past Medical History Past Medical History: Atrial Fibrillation, Asthma, Heart Failure, COPD, Diabetes Mellitus, Hypertension, Osteoarthritis (OA), Pneumonia, Respiratory Disorder, Sleep Apnea/CPAP/BIPAP Additional Past Medical History / Comment(s): Pt recently admitted to [facility] on with acute on chronic hypoxic respiratory failure 2ndary to COPD/ tracheobronchitis, exacerbation CHF. Other hx: IDDM type II, chronic paroxysmal Afib/RVR, arthritis multiple joints, HERBERT with Cpap use. History of Any Multi-Drug Resistant Organisms: None Reported Past Surgical History: Hernia Repair Additional Past Surgical History / Comment(s): Bronchoscopy, umbilical hernia repair. Past Anesthesia/Blood Transfusion Reactions: No Reported Reaction Smoking Status: Former smoker - Past Family History Father Family Medical History: Diabetes Mellitus Mother Family Medical History: Asthma, Diabetes Mellitus Medications and Allergies Home Medications Medication Instructions Recorded Confirmed Type Budesonide-Formot 160-4.5 Mcg 2 puff INHALATION RT-BID 01/08/15 11/30/18 History [Symbicort 160-4.5 Mcg Inhaler] Hydrochlorothiazide 25 mg PO DAILY 10/17/17 11/30/18 History Albuterol Inhaler [Ventolin Hfa 2 puff INHALATION RT-Q6H PRN 09/12/18 11/30/18 History Inhaler] Apixaban [Eliquis] 5 mg PO BID #60 tab 09/15/18 11/30/18 Rx Atorvastatin [Lipitor] 40 mg PO HS #30 tab 09/15/18 11/30/18 Rx Moexipril [Univasc] 15 mg PO DAILY #1 tab 09/15/18 11/30/18 Rx Terbinafine [LamISIL] 250 mg PO DAILY 10/21/18 11/30/18 History Furosemide [Lasix] 40 mg PO BID@0900,1600 #80 tab 11/01/18 11/30/18 Rx Insulin Glargine,Hum.rec.anlog 40 unit SQ BID #1 11/01/18 11/30/18 Rx [Lantus Solostar] Montelukast [Singulair] 10 mg PO HS #30 tab 11/01/18 11/30/18 Rx Nadolol [Corgard] 20 mg PO BID #50 tab 11/01/18 11/30/18 Rx Verapamil Sr [Isoptin Sr] 360 mg PO DAILY #30 tablet.er 11/01/18 11/30/18 Rx Albuterol Nebulized [Ventolin 2.5 mg INHALATION RT-QID PRN 11/30/18 11/30/18 History Nebulized] Ipratropium-Albuterol Nebulize 3 ml INHALATION RT-BID 11/30/18 11/30/18 History [Duoneb 0.5 mg-3 mg/3 ml Soln] Tamsulosin HCl [Flomax] 0.4 mg PO DAILY 11/30/18 11/30/18 History Tiotropium [place] [Spiriva] 1 cap INHALATION RT-DAILY 11/30/18 11/30/18 History Allergies Allergy/AdvReac Type Severity Reaction Status Date / Time No Known Allergies Allergy Verified 11/30/18 08:22 Physical Exam Vitals: Vital Signs Temp Pulse Pulse Resp BP BP Pulse Ox 11/30/18 20:47 70 11/30/18 20:33 70 11/30/18 16:11 64 11/30/18 15:59 64 11/30/18 12:52 97.4 F L 69 20 111/83 98 11/30/18 12:26 98.2 F 64 18 117/87 97 11/30/18 11:49 64 11/30/18 11:38 66 11/30/18 09:37 98.1 F 80 20 111/90 97 11/30/18 07:51 67 20 96 11/30/18 07:37 70 11/30/18 07:19 64 11/30/18 05:05 67 20 125/61 98 11/30/18 02:29 88 11/30/18 02:14 69 11/30/18 01:05 64 28 H 101/64 96 11/29/18 23:51 98.1 F 72 24 118/83 95 Intake and Output 11/30/18 11/30/18 11/30/18 06:59 14:59 22:59 Output Total 400 Balance -400 Output: Urine 400 Other: Voiding Method Urinal Weight 161.796 kg PHYSICAL EXAMINATION: Patient is lying in the bed comfortably, no acute distress, awake alert and oriented. Morbid obesity. HEENT: Normocephalic. Neck is supple. Pupils reactive. Nostrils clear. Oral cavity is moist. Ears reveal no drainage. Neck reveals no JVD, carotid bruits, or thyromegaly. CHEST EXAMINATION: Trachea is central. Symmetrical expansion. Bilateral diminished air entry and prolonged expiration with minimal wheezing.. CARDIAC: Normal S1, S2 with no gallops. No murmurs ABDOMEN: Soft. Bowel sounds normal. No organomegaly. No abdominal bruits. Extremities: 2+ edema with chronic skin changes and dryness. No clubbing or cyanosis Neurologically awake, alert, oriented x3 with well-coordinated movements. No focal deficits noted Skin: No rash or skin lesions except above. Psychiatric: Coperative. Nonsuicidal Musculoskeletal: No joint swelling or deformity. Normal range of motion. Results CBC & Chem 7: 11/30/18 00:00 11/30/18 00:00 Labs: Abnormal Lab Results - Last 24 Hours (Table) 11/30/18 11/30/18 11/30/18 Range/Units 00:00 00:00 07:42 WBC 16.4 H (3.8-10.6) k/uL RBC 4.21 L (4.30-5.90) m/uL Hgb 11.8 L (13.0-17.5) gm/dL Hct 37.2 L (39.0-53.0) % Neutrophils # 12.3 H (1.3-7.7) k/uL Monocytes # 1.1 H (0-1.0) k/uL Glucose 152 H (74-99) mg/dL POC Glucose (mg/dL) 189 H (75-99) mg/dL 11/30/18 11/30/18 11/30/18 Range/Units 13:16 17:14 20:41 WBC (3.8-10.6) k/uL RBC (4.30-5.90) m/uL Hgb (13.0-17.5) gm/dL Hct (39.0-53.0) % Neutrophils # (1.3-7.7) k/uL Monocytes # (0-1.0) k/uL Glucose (74-99) mg/dL POC Glucose (mg/dL) 211 H 218 H 250 H (75-99) mg/dL Thrombosis Risk Factor Assmnt - DVT/VTE Prophylaxis DVT/VTE Prophylaxis: Pharmacologic Prophylaxis ordered - Choose All That Apply Any of the Below Risk Factors Present?: Yes Each Factor Represents 1 point: Abnormal pulmonary function (COPD), Obesity ( BMI >25) Other Risk Factors: Yes Each Risk Factor Represents 2 Points: Age 61-74 years Other congenital or acquired thrombophilia - If yes, enter type in comment: No Thrombosis Risk Factor Assessment Total Risk Factor Score: 4 Thrombosis Risk Factor Assessment Level: Moderate Risk Assessment and Plan Assessment: Acute on chronic hypoxic respiratory failure secondary to COPD Acute COPD exacerbation Chronic atrial fibrillation on anticoagulation Morbid obesity BMI 54.2 Chronic bilateral lower extremity lymphedema Chronic CHF with possible diastolic dysfunction Obstructive sleep apnea on CPAP at home Hypertension Diabetes type 2 Osteoarthritis Previous history of smoking DVT prophylaxis. Patient is already on anticoagulation. with Eliquis Plan: Patient will be continued on prednisone and breathing treatments. Continue with antibiotics Omnicef which he has been taking. Continue with verapamil and anticoagulation. Continue with Lasix and follow closely. Pulmonary is on board. Further recommendations based on the clinical course. Prognosis is guarded with multiple medical problems and comorbid conditions including morbid obesity. Time with Patient: Greater than 30
[2018-12-01] MEDS: IPRATROPIUM-ALBUTEROL 3 ML NEB INHALATION SCH ×7 (00:24→23:45)
[2018-12-01 07:09] LABS: Glucose,Whole Blood 108 mg/dL (75-99)
[2018-12-01] MEDS: INSULIN ASPART (NovoLOG) 100 UNIT/ML VIAL SQ SCH ×4 (07:54→21:04)
[2018-12-01] MEDS: SYMBICORT 160-4.5 MCG INHALER INHALATION SCH ×2 (08:02→20:26)
[2018-12-01] MEDS: LISINOPRIL 20 MG TAB PO SCH (08:08)
[2018-12-01] MEDS: VERAPAMIL SR 180 MG TABLET.ER PO SCH (08:08)
[2018-12-01] MEDS: CEFDINIR 300 MG CAP PO SCH ×2 (08:08→20:54)
[2018-12-01] MEDS: TAMSULOSIN 0.4 MG CAP.ER.24H PO SCH ×2 (08:08→20:54)
[2018-12-01] MEDS: FUROSEMIDE 10 MG/ML 4 ML VIAL IV SCH ×2 (08:08→20:54)
[2018-12-01] MEDS: APIXABAN 5 MG TAB PO SCH ×2 (08:08→20:54)
[2018-12-01] MEDS: INSULIN DETEMIR (LEVEMIR) 100 UNIT/ML SYR SQ SCH ×2 (08:09→21:05)
[2018-12-01] MEDS: predniSONE 20 MG TAB PO SCH (08:09)
[2018-12-01] MEDS: HYDROCHLOROTHIAZIDE 25 MG TAB PO SCH (08:09)
[2018-12-01] MEDS: NADOLOL 20 MG TAB PO SCH ×2 (08:14→20:54)
[2018-12-01 09:44] LABS: Basophils # (A) 0.1 k/uL (0-0.2); Basophils % (A) 0 %; Eosinophils % (A) 0 %; HCT 39.7 % (39.0-53.0); HGB 12.2 gm/dL (13.0-17.5); Hypochromasia Slight; Lymphocytes # (A) 3.2 k/uL (1.0-4.8); Lymphocytes % (A) 19 %; MCH 27.8 pg (25.0-35.0); MCHC 30.8 g/dL (31.0-37.0); MCV 90.3 fL (80.0-100.0); Mean Platelet Volume 6.1; Monocytes % (A) 6 %; Neutrophils # (A) 12.5 k/uL (1.3-7.7); Neutrophils % (A) 73 %; Platelet Count 400 k/uL (150-450); RDW 14.6 % (11.5-15.5)
[2018-12-01 10:16] LABS: Anion Gap 10 mmol/L; Blood Urea Nitrogen 28 mg/dL (9-20); Calcium 9.3 mg/dL (8.4-10.2); Carbon Dioxide 34 mmol/L (22-30); Chloride 96 mmol/L (98-107); Glucose 175 mg/dL (74-99); Potassium 3.8 mmol/L (3.5-5.1); Sodium 140 mmol/L (137-145)
[2018-12-01 12:29] LABS: Glucose,Whole Blood 164 mg/dL (75-99)
[2018-12-01 16:42] LABS: Hemoglobin A1C 8.2 % (4.0-6.0)
[2018-12-01 17:30] LABS: Glucose,Whole Blood 267 mg/dL (75-99)
--- NOTE | 2018-12-01 17:40 | P.PN ---
Subjective Progress Note Date: 12/01/18 Principal diagnosis: Acute on chronic hypoxic respiratory failure related to acute exacerbation of COPD This is a very pleasant 63-year-old male patient who follows with Dr. Neil as his primary care physician. He has a history of morbid obesity, atrial fibrillation anticoagulated with Eliquis, cor pulmonale, diabetes mellitus, hypertension, obstructive sleep apnea utilizing CPAP in the outpatient setting, chronic respiratory failure on 2 L in the outpatient setting, former smoker. He does have chronic obstructive pulmonary disease and follows with Dr. Mariee in our office for the same. He is maintained on Symbicort, DuoNeb inhalations. He was last discharged for her COPD and exacerbation and jittery seventh 2018. He had seen Dr. Allan in the office in follow-up in time. He presented here to the emergency room again early this morning with complaints of worsening shortness of breath, cough and congestion. Asked x-ray shows evidence of cardiomegaly and chronic obstructive pulmonary disease but no acute pulmonary process. White count 16.4. Hemoglobin 11.8. D-dimer 0.24. Troponin negative. ProBNP 431. He is continued on DuoNeb inhalations, Symbicort, oral diuretics, antibiotics in the form of Omnicef. He is seen today in consultation in the emergency room. He is currently sitting up in a chair at the bedside. He is awake and alert in no acute distress. He is utilizing his home CPAP at times. Maintaining O2 saturations in the upper 90s on 4 L/m per nasal cannula. He's been afebrile. Hemodynamically stable. On 12/01/2018 patient seen in follow-up. Patient is sitting up in the chair, he states his breathing is easier today, less wheezy and less congested, he is starting to bring up some yellow colored phlegm. He did wear his CPAP machine at night, his pressure is 13 cm of water. Lung sounds are diminished, with some scattered rhonchi limited wheezing. Pulse ox on 3 L satting 97%, patient is afebrile, hemodynamically stable. Today's labs have been reviewed, white blood cell count is 17.0, no fever or chills. Sodium is 140, potassium is 3.8, chloride is 96, CO2 is 34, B1 is 28 and creatinine was 0.87. Patient is on IV diuretics, 40 mg every 12 hours, breathing easier, still has lower extremity edema. Objective - Vital Signs Vital signs: Vital Signs Temp 97.4 F L 12/01/18 14:15 Pulse 80 12/01/18 16:45 Resp 18 12/01/18 14:15 BP 109/52 12/01/18 14:15 Pulse Ox 97 12/01/18 16:33 Intake & Output 11/30/18 12/01/18 12/01/18 18:59 06:59 18:59 Intake Total 600 Output Total 400 325 Balance -400 275 Intake: Oral 600 Output: Urine 400 325 Other: Voiding Method Urinal Urinal Urinal # Voids 1 3 - Exam GENERAL EXAM: Alert, 63-year-old obese white male on 3 L per nasal cannula, comfortable in no apparent distress. HEAD: Normocephalic/atraumatic. EYES: Normal reaction of pupils, equal size. Conjunctiva pink, sclera white. NOSE: Clear with pink turbinates. THROAT: No erythema or exudates. NECK: No masses, no JVD, no thyroid enlargement, no adenopathy. CHEST: No chest wall deformity. Symmetrical expansion. LUNGS: Equal air entry with diminished breath sounds, with some scattered rhonchi and limited wheezing CVS: Regular rate and rhythm, normal S1 and S2, no gallops, no murmurs, no rubs ABDOMEN: Soft, nontender. No hepatosplenomegaly, normal bowel sounds, no guarding or rigidity. EXTREMITIES: No clubbing, 1+ lower extremity edema, no cyanosis, 2+ pulses and upper and lower extremities. MUSCULOSKELETAL: Muscle strength and tone normal. SPINE: No scoliosis or deformity SKIN: No rashes CENTRAL NERVOUS SYSTEM: Alert and oriented -3. No focal deficits, tone is normal in all 4 extremities. PSYCHIATRIC: Alert and oriented -3. Appropriate affect. Intact judgment and insight. - Labs CBC & Chem 7: 12/01/18 09:14 12/01/18 09:14 Labs: Abnormal Lab Results - Last 24 Hours (Table) 11/30/18 12/01/18 12/01/18 Range/Units 20:41 07:07 09:14 WBC 17.0 H (3.8-10.6) k/uL Hgb 12.2 L (13.0-17.5) gm/dL MCHC 30.8 L (31.0-37.0) g/dL Neutrophils # 12.5 H (1.3-7.7) k/uL Chloride (98-107) mmol/L Carbon Dioxide (22-30) mmol/L BUN (9-20) mg/dL Glucose (74-99) mg/dL POC Glucose (mg/dL) 250 H 108 H (75-99) mg/dL Hemoglobin A1c (4.0-6.0) % 12/01/18 12/01/18 12/01/18 Range/Units 09:14 09:14 12:27 WBC (3.8-10.6) k/uL Hgb (13.0-17.5) gm/dL MCHC (31.0-37.0) g/dL Neutrophils # (1.3-7.7) k/uL Chloride 96 L (98-107) mmol/L Carbon Dioxide 34 H (22-30) mmol/L BUN 28 H (9-20) mg/dL Glucose 175 H (74-99) mg/dL POC Glucose (mg/dL) 164 H (75-99) mg/dL Hemoglobin A1c 8.2 H (4.0-6.0) % 12/01/18 Range/Units 17:28 WBC (3.8-10.6) k/uL Hgb (13.0-17.5) gm/dL MCHC (31.0-37.0) g/dL Neutrophils # (1.3-7.7) k/uL Chloride (98-107) mmol/L Carbon Dioxide (22-30) mmol/L BUN (9-20) mg/dL Glucose (74-99) mg/dL POC Glucose (mg/dL) 267 H (75-99) mg/dL Hemoglobin A1c (4.0-6.0) % Assessment and Plan Plan: Assessment: #1 Acute on chronic hypoxic respiratory failure secondary to an acute exacerbation of chronic obstructive pulmonary disease. #2 Atrial fibrillation, currently ventricular rate control. Anticoagulated with Eliquis. #3 Morbid obesity with deconditioning. #4 Obstructive sleep apnea utilizing CPAP in the outpatient setting. #5 Diabetes mellitus, type II. #6 Hypertension. #7 Degenerative joint disease. #8 Previous smoking history. Plan: Continue current plan of treatment, diuretics, oral steroids, patient is eating easier, less dyspneic, no fever or chills, hemodynamically patient is stable, continues on antibiotic coverage including Omnicef. Is on oral anticoagulation for his A. fib, rate is controlled. We'll continue to follow I performed a history & physical examination of the patient and discussed their management with my nurse practitioner, Sarah Santos. I reviewed the nurse practitioner's note and agree with the documented findings and plan of care. Lung sounds are positive for diminished breath sounds with limited rhonchi and wheezing. The findings and the impression was discussed with the patient. I attest to the documentation by the nurse practitioner. Time with Patient: Less than 30
[2018-12-01] MEDS: ATORVASTATIN 40 MG TAB PO SCH (20:54)
[2018-12-01 21:06] LABS: Glucose,Whole Blood 264 mg/dL (75-99)
--- NOTE | 2018-12-01 22:59 | P.PN ---
Subjective Progress Note Date: 12/01/18 Principal diagnosis: Acute COPD exacerbation Patient is a 63-year-old male with a known history of chronic hypoxic respiratory failure on 2 L home oxygen, COPD, chronic atrial fibrillation on anticoagulation, hypertension, diabetes type 2, osteoarthritis and morbid obesity BMI 54.2, chronic lower extremity swelling came to ER with complaints of worsening shortness of breath cough and congestion and increased leg swelling as well. Patient also has history of obstructive sleep apnea on CPAP at home. No fever no chills. Patient does have cough without much sputum production. No complaints of chest pain. No nausea vomiting or abdominal pain. Patient follows with Dr. Allan as an outpatient. Chest x-ray showed no pulmonary edema no congestion no pleural effusion. No acute process. EKG showed atrial fibrillation Troponin negative BNP 431 Patient was given a dose of prednisone 60 mg while in the ER and continued with breathing treatments. 12/01/2018 Patient says that his breathing is better today. Patient did have use CPAP last night. No fever no chills. No nausea vomiting or abdominal pain. Patient is being continued on IV steroids and breathing treatments. Continue with IV Lasix 40 mg twice daily due to lower extremities swelling which improved only slightly. Patient is also complaining of ruptured abscess on the medial side of the right buttock. All other review of systems negative except the above Current medications reviewed. Objective - Vital Signs Vital signs: Vital Signs Temp 97.4 F L 12/01/18 14:15 Pulse 80 12/01/18 20:41 Resp 18 12/01/18 14:15 BP 109/52 12/01/18 14:15 Pulse Ox 97 12/01/18 16:33 Intake & Output 12/01/18 12/01/18 12/02/18 06:59 18:59 06:59 Intake Total 600 Output Total 325 600 Balance 275 -600 Intake: Oral 600 Output: Urine 325 600 Other: Voiding Method Urinal Urinal Urinal # Voids 1 3 - Exam PHYSICAL EXAMINATION: Patient is lying in the bed comfortably, no acute distress, awake alert and oriented. Morbid obesity. HEENT: Normocephalic. Neck is supple. Pupils reactive. Nostrils clear. Oral cavity is moist. Ears reveal no drainage. Neck reveals no JVD, carotid bruits, or thyromegaly. CHEST EXAMINATION: Trachea is central. Symmetrical expansion. Bilateral diminished air entry and scattered rhonchi.. CARDIAC: Normal S1, S2 with no gallops. No murmurs ABDOMEN: Soft. Bowel sounds normal. No organomegaly. No abdominal bruits. Right medial buttock ruptured abscess. No purulent drainage noted. Extremities: 3+ edema with chronic skin changes and dryness. No clubbing or cyanosis Neurologically awake, alert, oriented x3 with well-coordinated movements. No focal deficits noted Skin: No rash or skin lesions except above. Psychiatric: Coperative. Nonsuicidal Musculoskeletal: No joint swelling or deformity. Normal range of motion. - Labs CBC & Chem 7: 12/01/18 09:14 12/01/18 09:14 Labs: Abnormal Lab Results - Last 24 Hours (Table) 12/01/18 12/01/18 12/01/18 Range/Units 07:07 09:14 09:14 WBC 17.0 H (3.8-10.6) k/uL Hgb 12.2 L (13.0-17.5) gm/dL MCHC 30.8 L (31.0-37.0) g/dL Neutrophils # 12.5 H (1.3-7.7) k/uL Chloride 96 L (98-107) mmol/L Carbon Dioxide 34 H (22-30) mmol/L BUN 28 H (9-20) mg/dL Glucose 175 H (74-99) mg/dL POC Glucose (mg/dL) 108 H (75-99) mg/dL Hemoglobin A1c (4.0-6.0) % 12/01/18 12/01/18 12/01/18 Range/Units 09:14 12:27 17:28 WBC (3.8-10.6) k/uL Hgb (13.0-17.5) gm/dL MCHC (31.0-37.0) g/dL Neutrophils # (1.3-7.7) k/uL Chloride (98-107) mmol/L Carbon Dioxide (22-30) mmol/L BUN (9-20) mg/dL Glucose (74-99) mg/dL POC Glucose (mg/dL) 164 H 267 H (75-99) mg/dL Hemoglobin A1c 8.2 H (4.0-6.0) % 12/01/18 Range/Units 20:57 WBC (3.8-10.6) k/uL Hgb (13.0-17.5) gm/dL MCHC (31.0-37.0) g/dL Neutrophils # (1.3-7.7) k/uL Chloride (98-107) mmol/L Carbon Dioxide (22-30) mmol/L BUN (9-20) mg/dL Glucose (74-99) mg/dL POC Glucose (mg/dL) 264 H (75-99) mg/dL Hemoglobin A1c (4.0-6.0) % Assessment and Plan Assessment: Acute on chronic hypoxic respiratory failure secondary to COPD Acute COPD exacerbation Right medial buttock abscess. Ruptured. No active drainage noted. Chronic atrial fibrillation on anticoagulation Morbid obesity BMI 54.2 Chronic bilateral lower extremity lymphedema Chronic CHF with possible diastolic dysfunction Obstructive sleep apnea on CPAP at home Hypertension Diabetes type 2 Osteoarthritis Previous history of smoking DVT prophylaxis. Patient is already on anticoagulation. with Eliquis Plan: Patient will be continued on prednisone and breathing treatments. Continue with IV Lasix. Continue with antibiotics Omnicef which he has been taking. Continue with verapamil and anticoagulation. Continue with Lasix and follow closely. Pulmonary is on board. Further recommendations based on the clinical course. Prognosis is guarded with multiple medical problems and comorbid conditions including morbid obesity. Time with Patient: Greater than 30
[2018-12-02] MEDS: IPRATROPIUM-ALBUTEROL 3 ML NEB INHALATION SCH ×6 (04:04→23:54)
[2018-12-02 06:57] LABS: Glucose,Whole Blood 83 mg/dL (75-99)
[2018-12-02] MEDS: SYMBICORT 160-4.5 MCG INHALER INHALATION SCH ×2 (07:51→20:24)
[2018-12-02] MEDS: INSULIN ASPART (NovoLOG) 100 UNIT/ML VIAL SQ SCH ×4 (07:52→21:36)
[2018-12-02] MEDS: HYDROCHLOROTHIAZIDE 25 MG TAB PO SCH (07:54)
[2018-12-02] MEDS: predniSONE 20 MG TAB PO SCH (07:54)
[2018-12-02] MEDS: FUROSEMIDE 10 MG/ML 4 ML VIAL IV SCH ×2 (07:55→21:44)
[2018-12-02] MEDS: LISINOPRIL 20 MG TAB PO SCH (07:55)
[2018-12-02] MEDS: TAMSULOSIN 0.4 MG CAP.ER.24H PO SCH ×2 (07:55→20:25)
[2018-12-02] MEDS: APIXABAN 5 MG TAB PO SCH ×2 (07:55→20:25)
[2018-12-02] MEDS: CEFDINIR 300 MG CAP PO SCH ×2 (07:56→20:25)
[2018-12-02] MEDS: NADOLOL 20 MG TAB PO SCH ×2 (07:56→20:24)
[2018-12-02] MEDS: VERAPAMIL SR 180 MG TABLET.ER PO SCH (07:56)
[2018-12-02 08:39] LABS: Glucose,Whole Blood 114 mg/dL (75-99)
[2018-12-02] MEDS: INSULIN DETEMIR (LEVEMIR) 100 UNIT/ML SYR SQ SCH ×3 (08:58→21:36)
[2018-12-02 10:08] LABS: Basophils % (A) 0 %; Eosinophils # (A) 0.1 k/uL (0-0.7); Eosinophils % (A) 0 %; HCT 39.5 % (39.0-53.0); HGB 12.5 gm/dL (13.0-17.5); Lymphocytes % (A) 16 %; MCH 28.2 pg (25.0-35.0); MCHC 31.6 g/dL (31.0-37.0); MCV 89.2 fL (80.0-100.0); Mean Platelet Volume 6.9; Monocytes # (A) 0.8 k/uL (0-1.0); Monocytes % (A) 7 %; Neutrophils # (A) 9.2 k/uL (1.3-7.7); Neutrophils % (A) 75 %; Platelet Count 377 k/uL (150-450); RBC 4.43 m/uL (4.30-5.90); RDW 14.6 % (11.5-15.5); WBC 12.2 k/uL (3.8-10.6)
[2018-12-02 10:25] LABS: Blood Urea Nitrogen 27 mg/dL (9-20); Calcium 9.1 mg/dL (8.4-10.2); Chloride 97 mmol/L (98-107); Glucose 173 mg/dL (74-99); Sodium 141 mmol/L (137-145)
[2018-12-02 10:30] LABS: Glucose,Whole Blood 215 mg/dL (75-99)
[2018-12-02 10:33] LABS: Anion Gap 5 mmol/L
[2018-12-02 10:40] LABS: Carbon Dioxide 39 mmol/L (22-30)
[2018-12-02 12:13] LABS: Glucose,Whole Blood 198 mg/dL (75-99)
--- NOTE | 2018-12-02 15:01 | P.PN ---
Subjective Progress Note Date: 12/02/18 Principal diagnosis: Acute on chronic hypoxic respiratory failure secondary to an acute exacerbation of chronic obstructive pulmonary disease. This is a very pleasant 63-year-old male patient who follows with Dr. Neil as his primary care physician. He has a history of morbid obesity, atrial fibrillation anticoagulated with Eliquis, cor pulmonale, diabetes mellitus, hypertension, obstructive sleep apnea utilizing CPAP in the outpatient setting, chronic respiratory failure on 2 L in the outpatient setting, former smoker. He does have chronic obstructive pulmonary disease and follows with Dr. Mareie in our office for the same. He is maintained on Symbicort, DuoNeb inhalations. He was last discharged for her COPD and exacerbation and jittery seventh 2018. He had seen Dr. Allan in the office in follow-up in time. He presented here to the emergency room again early this morning with complaints of worsening shortness of breath, cough and congestion. Asked x-ray shows evidence of cardiomegaly and chronic obstructive pulmonary disease but no acute pulmonary process. White count 16.4. Hemoglobin 11.8. D-dimer 0.24. Troponin negative. ProBNP 431. He is continued on DuoNeb inhalations, Symbicort, oral diuretics, antibiotics in the form of Omnicef. He is seen today in consultation in the emergency room. He is currently sitting up in a chair at the bedside. He is awake and alert in no acute distress. He is utilizing his home CPAP at times. Maintaining O2 saturations in the upper 90s on 4 L/m per nasal cannula. He's been afebrile. Hemodynamically stable. On 12/01/2018 patient seen in follow-up. Patient is sitting up in the chair, he states his breathing is easier today, less wheezy and less congested, he is starting to bring up some yellow colored phlegm. He did wear his CPAP machine at night, his pressure is 13 cm of water. Lung sounds are diminished, with some scattered rhonchi limited wheezing. Pulse ox on 3 L satting 97%, patient is afebrile, hemodynamically stable. Today's labs have been reviewed, white blood cell count is 17.0, no fever or chills. Sodium is 140, potassium is 3.8, chloride is 96, CO2 is 34, B1 is 28 and creatinine was 0.87. Patient is on IV diuretics, 40 mg every 12 hours, breathing easier, still has lower extremity edema. The patient is seen again today 12/02/2017 in follow-up on the regular medical floor. He is currently awake and alert in no acute distress. Currently sitting up in a chair at the bedside. He has been utilizing his home CPAP during the evening and throughout the day while napping. He is breathing easier today as compared to yesterday. Still somewhat dyspneic on minimal exertion. Improved lower extremity edema. Continues to diurese well. White count 12.2. Hemoglobin 12.5. Creatinine 0.94. He remains on IV diuretics, bronchodilators, oral prednisone taper. Objective - Vital Signs Vital signs: Vital Signs Temp 98.0 F 12/02/18 14:22 Pulse 64 12/02/18 14:22 Resp 18 12/02/18 14:22 BP 98/62 12/02/18 14:22 Pulse Ox 96 12/02/18 14:22 Intake & Output 12/01/18 12/02/18 12/02/18 18:59 06:59 18:59 Intake Total 100 1000 Output Total 600 1450 Balance -500 -450 Intake: Oral 100 1000 Output: Urine 600 1450 Other: Voiding Method Urinal Urinal # Voids 3 3 4 - Exam GENERAL EXAM: Alert, on 3 L per nasal cannula, comfortable in no apparent distress. HEAD: Normocephalic/atraumatic. EYES: Normal reaction of pupils, equal size. Conjunctiva pink, sclera white. NOSE: Clear with pink turbinates. THROAT: There is crowding the posterior pharynx. No erythema or exudates. NECK: Alert. No masses, no JVD, no thyroid enlargement, no adenopathy. CHEST: No chest wall deformity. Symmetrical expansion. LUNGS: Equal air entry with diminished breath sounds, with some scattered rhonchi and limited wheezing CVS: Regular rate and rhythm, normal S1 and S2, no gallops, no murmurs, no rubs ABDOMEN: Soft, nontender. No hepatosplenomegaly, normal bowel sounds, no guarding or rigidity. EXTREMITIES: No clubbing, 1+ lower extremity edema, no cyanosis, 2+ pulses and upper and lower extremities. MUSCULOSKELETAL: Muscle strength and tone normal. SPINE: No scoliosis or deformity SKIN: No rashes CENTRAL NERVOUS SYSTEM: Alert and oriented -3. No focal deficits, tone is normal in all 4 extremities. PSYCHIATRIC: Appropriate affect. Intact judgment and insight. - Labs CBC & Chem 7: 12/02/18 09:53 12/02/18 09:53 Labs: Abnormal Lab Results - Last 24 Hours (Table) 12/01/18 12/01/18 12/01/18 Range/Units 09:14 17:28 20:57 WBC (3.8-10.6) k/uL Hgb (13.0-17.5) gm/dL Neutrophils # (1.3-7.7) k/uL Chloride (98-107) mmol/L Carbon Dioxide (22-30) mmol/L BUN (9-20) mg/dL Glucose (74-99) mg/dL POC Glucose (mg/dL) 267 H 264 H (75-99) mg/dL Hemoglobin A1c 8.2 H (4.0-6.0) % 12/02/18 12/02/18 12/02/18 Range/Units 08:36 09:53 09:53 WBC 12.2 H (3.8-10.6) k/uL Hgb 12.5 L (13.0-17.5) gm/dL Neutrophils # 9.2 H (1.3-7.7) k/uL Chloride 97 L (98-107) mmol/L Carbon Dioxide 39 H (22-30) mmol/L BUN 27 H (9-20) mg/dL Glucose 173 H (74-99) mg/dL POC Glucose (mg/dL) 114 H (75-99) mg/dL Hemoglobin A1c (4.0-6.0) % 12/02/18 12/02/18 Range/Units 10:28 12:10 WBC (3.8-10.6) k/uL Hgb (13.0-17.5) gm/dL Neutrophils # (1.3-7.7) k/uL Chloride (98-107) mmol/L Carbon Dioxide (22-30) mmol/L BUN (9-20) mg/dL Glucose (74-99) mg/dL POC Glucose (mg/dL) 215 H 198 H (75-99) mg/dL Hemoglobin A1c (4.0-6.0) % Assessment and Plan Assessment: Impression: #1 Acute on chronic hypoxic respiratory failure secondary to an acute exacerbation of chronic obstructive pulmonary disease. #2 Atrial fibrillation, currently ventricular rate control. Anticoagulated with Eliquis. #3 Morbid obesity with deconditioning. #4 Obstructive sleep apnea utilizing CPAP in the outpatient setting. #5 Diabetes mellitus, type II. #6 Hypertension. #7 Degenerative joint disease. #8 Previous smoking history. Plan: The patient was seen and evaluated by Dr. Sewell. Continue treatment for acute COPD exacerbation. Today DuoNeb inhalations, continue Symbicort, continue prednisone. He remains on IV diuretics. Verapamil for rate control. Anticoagulated with Eliquis. We will increase his activity as tolerated. We' ll continue to follow and make further recommendations based on his clinical status. I, the cosigning physician, performed a history & physical examination of the patient. Lungs sounds with bilateral end expiratory wheeze, diminished. Maintaining good O2 saturations in the 90s on 4 L/m per nasal cannula. I discussed the assessment and plan of care with my nurse practitioner, Ely Cooley. I attest to the above consultation as dictated by her.
--- NOTE | 2018-12-02 17:08 | P.PN ---
Subjective Progress Note Date: 12/02/18 Patient still wheezy and short of breath while speaking with me He said that he had a blister on the right thigh on the medial aspect Objective - Vital Signs Vital signs: Vital Signs Temp 98.0 F 12/02/18 14:22 Pulse 87 12/02/18 16:58 Resp 18 12/02/18 14:22 BP 98/62 12/02/18 14:22 Pulse Ox 96 12/02/18 16:48 Intake & Output 12/01/18 12/02/18 12/02/18 18:59 06:59 18:59 Intake Total 100 1000 Output Total 600 1450 Balance -500 -450 Intake: Oral 100 1000 Output: Urine 600 1450 Other: Voiding Method Urinal Urinal Urinal # Voids 3 3 4 - Exam On exam, alert and oriented x3. HEENT: Conjunctivae normal. eyes normal. NECK: No JVD. No thyroid enlargement. No LNs CARDIOVASCULAR: S1, S2 muffled. No murmur RESPIRATION: He is having bilateral coarse breath sounds. ABDOMEN: Soft, nontender . No guarding. no masses palpable. No ascites, No hepatosplenomegaly.Bowel sounds heard. LEGS: Bilateral pedal edema is appreciated NERVOUS SYSTEM: Cranial N 2-12 grossly normal. Moves all 4 limbs. No focal deficits. No sensory deficit. No signs of cerebellar dysfucntion. Skin: Patient is having a blister on the right thigh and the medial posterior aspect - Labs CBC & Chem 7: 12/02/18 09:53 12/02/18 09:53 Labs: Abnormal Lab Results - Last 24 Hours (Table) 12/01/18 12/01/18 12/02/18 Range/Units 17:28 20:57 08:36 WBC (3.8-10.6) k/uL Hgb (13.0-17.5) gm/dL Neutrophils # (1.3-7.7) k/uL Chloride (98-107) mmol/L Carbon Dioxide (22-30) mmol/L BUN (9-20) mg/dL Glucose (74-99) mg/dL POC Glucose (mg/dL) 267 H 264 H 114 H (75-99) mg/dL 12/02/18 12/02/18 12/02/18 Range/Units 09:53 09:53 10:28 WBC 12.2 H (3.8-10.6) k/uL Hgb 12.5 L (13.0-17.5) gm/dL Neutrophils # 9.2 H (1.3-7.7) k/uL Chloride 97 L (98-107) mmol/L Carbon Dioxide 39 H (22-30) mmol/L BUN 27 H (9-20) mg/dL Glucose 173 H (74-99) mg/dL POC Glucose (mg/dL) 215 H (75-99) mg/dL 12/02/18 Range/Units 12:10 WBC (3.8-10.6) k/uL Hgb (13.0-17.5) gm/dL Neutrophils # (1.3-7.7) k/uL Chloride (98-107) mmol/L Carbon Dioxide (22-30) mmol/L BUN (9-20) mg/dL Glucose (74-99) mg/dL POC Glucose (mg/dL) 198 H (75-99) mg/dL Assessment and Plan Assessment: Acute respiratory failure - Acute superior exacerbation probably causing above - A. fib on anti-correlation - HERBERT on CPAP - Hypertension - Diabetes mellitus - Obesity Plan - Continue breathing treatments - Continue prednisone - Continue diuretics - Continue rest of the medications - Bacitracin ointment for the blister - We'll continue to monitor the patient-
[2018-12-02 17:42] LABS: Glucose,Whole Blood 302 mg/dL (75-99)
[2018-12-02] MEDS: ATORVASTATIN 40 MG TAB PO SCH (20:24)
[2018-12-02 20:35] LABS: Glucose,Whole Blood 313 mg/dL (75-99)
[2018-12-02] MEDS: BACITRACIN 500 UNIT/GM OINT 28.4 GM TUBE TOPICAL SCH (21:53)
[2018-12-03] MEDS: IPRATROPIUM-ALBUTEROL 3 ML NEB INHALATION SCH ×6 (03:32→23:21)
[2018-12-03] MEDS: INSULIN ASPART (NovoLOG) 100 UNIT/ML VIAL SQ SCH ×4 (07:03→21:30)
[2018-12-03 07:04] LABS: Glucose,Whole Blood 77 mg/dL (75-99)
[2018-12-03] MEDS: FUROSEMIDE 10 MG/ML 4 ML VIAL IV SCH ×2 (07:41→20:36)
[2018-12-03] MEDS: predniSONE 20 MG TAB PO SCH (07:41)
[2018-12-03] MEDS: HYDROCHLOROTHIAZIDE 25 MG TAB PO SCH (07:41)
[2018-12-03] MEDS: TAMSULOSIN 0.4 MG CAP.ER.24H PO SCH ×2 (07:41→20:47)
[2018-12-03] MEDS: LISINOPRIL 20 MG TAB PO SCH ×2 (07:41→09:21)
[2018-12-03] MEDS: APIXABAN 5 MG TAB PO SCH ×2 (07:41→20:46)
[2018-12-03] MEDS: VERAPAMIL SR 180 MG TABLET.ER PO SCH ×2 (07:42→09:21)
[2018-12-03] MEDS: NADOLOL 20 MG TAB PO SCH ×2 (07:42→20:46)
[2018-12-03] MEDS: CEFDINIR 300 MG CAP PO SCH ×2 (07:42→20:47)
[2018-12-03] MEDS: SYMBICORT 160-4.5 MCG INHALER INHALATION SCH ×2 (07:54→19:29)
[2018-12-03 09:08] LABS: HCT 38.8 % (39.0-53.0); MCH 29.8 pg (25.0-35.0); MCHC 33.4 g/dL (31.0-37.0); MCV 89.4 fL (80.0-100.0); Mean Platelet Volume 6.2; Platelet Count 307 k/uL (150-450); RBC 4.35 m/uL (4.30-5.90); RDW 14.5 % (11.5-15.5); WBC 14.1 k/uL (3.8-10.6)
[2018-12-03 09:11] LABS: Anion Gap 8 mmol/L; Blood Urea Nitrogen 30 mg/dL (9-20); Calcium 9.4 mg/dL (8.4-10.2); Carbon Dioxide 36 mmol/L (22-30); Chloride 98 mmol/L (98-107); Glucose 71 mg/dL (74-99); Potassium 3.9 mmol/L (3.5-5.1); Sodium 142 mmol/L (137-145)
[2018-12-03] MEDS: BACITRACIN 500 UNIT/GM OINT 28.4 GM TUBE TOPICAL SCH ×2 (09:20→20:51)
[2018-12-03 09:25] LABS: Glucose,Whole Blood 167 mg/dL (75-99)
[2018-12-03] MEDS: INSULIN DETEMIR (LEVEMIR) 100 UNIT/ML SYR SQ SCH ×2 (09:31→21:35)
[2018-12-03 11:50] LABS: Glucose,Whole Blood 166 mg/dL (75-99)
[2018-12-03 17:06] LABS: Glucose,Whole Blood 268 mg/dL (75-99)
--- NOTE | 2018-12-03 17:15 | P.PN ---
Subjective Progress Note Date: 12/03/18 Principal diagnosis: Acute on chronic hypoxic respiratory failure related to acute exacerbation of COPD This is a very pleasant 63-year-old male patient who follows with Dr. Neil as his primary care physician. He has a history of morbid obesity, atrial fibrillation anticoagulated with Eliquis, cor pulmonale, diabetes mellitus, hypertension, obstructive sleep apnea utilizing CPAP in the outpatient setting, chronic respiratory failure on 2 L in the outpatient setting, former smoker. He does have chronic obstructive pulmonary disease and follows with Dr. Mariee in our office for the same. He is maintained on Symbicort, DuoNeb inhalations. He was last discharged for her COPD and exacerbation and jittery seventh 2018. He had seen Dr. Allan in the office in follow-up in time. He presented here to the emergency room again early this morning with complaints of worsening shortness of breath, cough and congestion. Asked x-ray shows evidence of cardiomegaly and chronic obstructive pulmonary disease but no acute pulmonary process. White count 16.4. Hemoglobin 11.8. D-dimer 0.24. Troponin negative. ProBNP 431. He is continued on DuoNeb inhalations, Symbicort, oral diuretics, antibiotics in the form of Omnicef. He is seen today in consultation in the emergency room. He is currently sitting up in a chair at the bedside. He is awake and alert in no acute distress. He is utilizing his home CPAP at times. Maintaining O2 saturations in the upper 90s on 4 L/m per nasal cannula. He's been afebrile. Hemodynamically stable. On 12/01/2018 patient seen in follow-up. Patient is sitting up in the chair, he states his breathing is easier today, less wheezy and less congested, he is starting to bring up some yellow colored phlegm. He did wear his CPAP machine at night, his pressure is 13 cm of water. Lung sounds are diminished, with some scattered rhonchi limited wheezing. Pulse ox on 3 L satting 97%, patient is afebrile, hemodynamically stable. Today's labs have been reviewed, white blood cell count is 17.0, no fever or chills. Sodium is 140, potassium is 3.8, chloride is 96, CO2 is 34, B1 is 28 and creatinine was 0.87. Patient is on IV diuretics, 40 mg every 12 hours, breathing easier, still has lower extremity edema. On 12/03/2018 patient seen in follow-up. doing well, breathing easier, pulse ox is 97% on 3 L per nasal cannula, patient is wearing his home CPAP unit at night. has been transitioned to oral prednisone, he he is in negative fluid balance, lower extremity edema is improving. today's labs have been noted , with blood cell count was 14.1, hemoglobin is 13.0, electrolytes were within normal limits, CO2 is 36, BUN is 30 and creatinine was 0.83. Objective - Vital Signs Vital signs: Vital Signs Temp 96.9 F L 12/03/18 15:00 Pulse 88 12/03/18 16:14 Resp 22 12/03/18 15:00 BP 112/86 12/03/18 15:00 Pulse Ox 97 12/03/18 15:58 Intake & Output 12/02/18 12/03/18 12/03/18 18:59 06:59 18:59 Intake Total 1000 Output Total 1450 1300 700 Balance -450 -1300 -700 Intake: Oral 1000 Output: Urine 1450 1300 700 Other: Voiding Method Urinal Urinal Urinal # Voids 1 0 1 # Bowel Movements 0 - Exam GENERAL EXAM: Alert, 63-year-old obese white male on 3 L per nasal cannula, comfortable in no apparent distress. HEAD: Normocephalic/atraumatic. EYES: Normal reaction of pupils, equal size. Conjunctiva pink, sclera white. NOSE: Clear with pink turbinates. THROAT: No erythema or exudates. NECK: No masses, no JVD, no thyroid enlargement, no adenopathy. CHEST: No chest wall deformity. Symmetrical expansion. LUNGS: Equal air entry with diminished breath sounds, with some scattered rhonchi and limited wheezing CVS: Regular rate and rhythm, normal S1 and S2, no gallops, no murmurs, no rubs ABDOMEN: Soft, nontender. No hepatosplenomegaly, normal bowel sounds, no guarding or rigidity. EXTREMITIES: No clubbing, 1+ lower extremity edema, no cyanosis, 2+ pulses and upper and lower extremities. MUSCULOSKELETAL: Muscle strength and tone normal. SPINE: No scoliosis or deformity SKIN: No rashes CENTRAL NERVOUS SYSTEM: Alert and oriented -3. No focal deficits, tone is normal in all 4 extremities. PSYCHIATRIC: Alert and oriented -3. Appropriate affect. Intact judgment and insight. - Labs CBC & Chem 7: 12/03/18 07:50 12/03/18 07:50 Labs: Abnormal Lab Results - Last 24 Hours (Table) 12/02/18 12/02/18 12/03/18 Range/Units 17:40 20:34 07:50 WBC 14.1 H (3.8-10.6) k/uL Hct 38.8 L (39.0-53.0) % Carbon Dioxide (22-30) mmol/L BUN (9-20) mg/dL Glucose (74-99) mg/dL POC Glucose (mg/dL) 302 H 313 H (75-99) mg/dL 12/03/18 12/03/18 12/03/18 Range/Units 07:50 09:23 11:46 WBC (3.8-10.6) k/uL Hct (39.0-53.0) % Carbon Dioxide 36 H (22-30) mmol/L BUN 30 H (9-20) mg/dL Glucose 71 L (74-99) mg/dL POC Glucose (mg/dL) 167 H 166 H (75-99) mg/dL 12/03/18 Range/Units 17:04 WBC (3.8-10.6) k/uL Hct (39.0-53.0) % Carbon Dioxide (22-30) mmol/L BUN (9-20) mg/dL Glucose (74-99) mg/dL POC Glucose (mg/dL) 268 H (75-99) mg/dL Assessment and Plan Plan: Assessment: #1 Acute on chronic hypoxic respiratory failure secondary to an acute exacerbation of chronic obstructive pulmonary disease. #2 Atrial fibrillation, currently ventricular rate control. Anticoagulated with Eliquis. #3 Morbid obesity with deconditioning. #4 Obstructive sleep apnea utilizing CPAP in the outpatient setting. #5 Diabetes mellitus, type II. #6 Hypertension. #7 Degenerative joint disease. #8 Previous smoking history. Plan: continue current plan of treatment, continue IV antibiotics, Lasix, and malaise bronchodilators, 5 status is improving. Patient is breathing easier, afebrile, vital signs are stable. Anticipate discharge in next 24 hours. I performed a history & physical examination of the patient and discussed their management with my nurse practitioner, Sarah Santos. I reviewed the nurse practitioner's note and agree with the documented findings and plan of care. Lung sounds are positive for diminished breath sounds with limited rhonchi and wheezing. The findings and the impression was discussed with the patient. I attest to the documentation by the nurse practitioner. Time with Patient: Less than 30
[2018-12-03] MEDS ORDERED: ONDANSETRON 4 MG/2 ML VIAL IVP PRN (17:43)
[2018-12-03] MEDS: ATORVASTATIN 40 MG TAB PO SCH (20:46)
[2018-12-03 20:47] LABS: Glucose,Whole Blood 209 mg/dL (75-99)
--- NOTE | 2018-12-03 22:15 | P.PN ---
Subjective 12/02 Patient still wheezy and short of breath while speaking with me He said that he had a blister on the right thigh on the medial aspect 12/03 Pt says he is feeling better sob better, cough better says still has swelling says blister in th eright leg is better Objective - Vital Signs Vital signs: Vital Signs Temp 97.5 F L 12/03/18 18:58 Pulse 88 12/03/18 19:44 Resp 22 12/03/18 18:58 BP 142/73 12/03/18 18:58 Pulse Ox 94 L 12/03/18 18:58 Intake & Output 12/03/18 12/03/18 12/04/18 06:59 18:59 06:59 Output Total 1300 700 Balance -1300 -700 Output: Urine 1300 700 Other: Voiding Method Urinal Urinal # Voids 0 3 # Bowel Movements 0 - Exam On exam, alert and oriented x3. HEENT: Conjunctivae normal. eyes normal. NECK: No JVD. No thyroid enlargement. No LNs CARDIOVASCULAR: S1, S2 muffled. No murmur RESPIRATION: He is having bilateral coarse breath sounds. ABDOMEN: Soft, nontender . No guarding. no masses palpable. No ascites, No hepatosplenomegaly.Bowel sounds heard. LEGS: Bilateral pedal edema is appreciated NERVOUS SYSTEM: Cranial N 2-12 grossly normal. Moves all 4 limbs. No focal deficits. No sensory deficit. No signs of cerebellar dysfucntion. Skin: Patient is having a blister on the right thigh and the medial posterior aspect - Labs CBC & Chem 7: 12/03/18 07:50 12/03/18 07:50 Labs: Abnormal Lab Results - Last 24 Hours (Table) 12/03/18 12/03/18 12/03/18 Range/Units 07:50 07:50 09:23 WBC 14.1 H (3.8-10.6) k/uL Hct 38.8 L (39.0-53.0) % Carbon Dioxide 36 H (22-30) mmol/L BUN 30 H (9-20) mg/dL Glucose 71 L (74-99) mg/dL POC Glucose (mg/dL) 167 H (75-99) mg/dL 12/03/18 12/03/18 12/03/18 Range/Units 11:46 17:04 20:43 WBC (3.8-10.6) k/uL Hct (39.0-53.0) % Carbon Dioxide (22-30) mmol/L BUN (9-20) mg/dL Glucose (74-99) mg/dL POC Glucose (mg/dL) 166 H 268 H 209 H (75-99) mg/dL Assessment and Plan Assessment: Acute respiratory failure - Acute superior exacerbation probably causing above - A. fib on anti-correlation - HERBERT on CPAP - Hypertension - Diabetes mellitus - Obesity Plan - Continue breathing treatments - Continue prednisone - Continue diuretics will change to oral tomorrow - Continue rest of the medications - Bacitracin ointment for the blister - We'll continue to monitor the patient - Possible discharge tomorrow. Time with Patient: Greater than 30
[2018-12-04] MEDS: IPRATROPIUM-ALBUTEROL 3 ML NEB INHALATION SCH ×5 (03:29→20:48)
[2018-12-04 07:42] LABS: Glucose,Whole Blood 139 mg/dL (75-99)
[2018-12-04] MEDS: HYDROCHLOROTHIAZIDE 25 MG TAB PO SCH (07:50)
[2018-12-04] MEDS: APIXABAN 5 MG TAB PO SCH ×2 (07:50→21:22)
[2018-12-04] MEDS: CEFDINIR 300 MG CAP PO SCH ×2 (07:50→21:23)
[2018-12-04] MEDS: FUROSEMIDE 10 MG/ML 4 ML VIAL IV SCH ×2 (07:50→21:23)
[2018-12-04] MEDS: LISINOPRIL 20 MG TAB PO SCH (07:51)
[2018-12-04] MEDS: VERAPAMIL SR 180 MG TABLET.ER PO SCH (07:51)
[2018-12-04] MEDS: predniSONE 20 MG TAB PO SCH (07:51)
[2018-12-04] MEDS: NADOLOL 20 MG TAB PO SCH ×2 (07:51→23:29)
[2018-12-04] MEDS: TAMSULOSIN 0.4 MG CAP.ER.24H PO SCH ×2 (07:51→21:22)
[2018-12-04] MEDS: INSULIN ASPART (NovoLOG) 100 UNIT/ML VIAL SQ SCH ×4 (07:51→21:23)
[2018-12-04] MEDS: BACITRACIN 500 UNIT/GM OINT 28.4 GM TUBE TOPICAL SCH ×2 (07:52→21:25)
[2018-12-04] MEDS: SYMBICORT 160-4.5 MCG INHALER INHALATION SCH ×2 (08:17→20:48)
[2018-12-04] MEDS: INSULIN DETEMIR (LEVEMIR) 100 UNIT/ML SYR SQ SCH ×2 (08:49→21:22)
[2018-12-04 09:32] LABS: HCT 39.6 % (39.0-53.0); HGB 12.8 gm/dL (13.0-17.5); MCH 28.9 pg (25.0-35.0); MCHC 32.5 g/dL (31.0-37.0); MCV 88.9 fL (80.0-100.0); Mean Platelet Volume 6.1; Platelet Count 401 k/uL (150-450); RBC 4.45 m/uL (4.30-5.90); RDW 14.5 % (11.5-15.5); WBC 14.4 k/uL (3.8-10.6)
[2018-12-04 09:45] LABS: Anion Gap 6 mmol/L; Blood Urea Nitrogen 32 mg/dL (9-20); Calcium 9.1 mg/dL (8.4-10.2); Carbon Dioxide 36 mmol/L (22-30); Chloride 98 mmol/L (98-107); Glucose 132 mg/dL (74-99); Potassium 3.8 mmol/L (3.5-5.1); Sodium 140 mmol/L (137-145)
[2018-12-04 12:04] LABS: Glucose,Whole Blood 260 mg/dL (75-99)
--- NOTE | 2018-12-04 14:53 | XR ---
EXAMINATION TYPE: XR chest 2V DATE OF EXAM: 12/04/2018 COMPARISON: 11/30/2018 HISTORY: Increasing shortness of breath TECHNIQUE: Frontal and lateral views of the chest are obtained. FINDINGS: Cardiomediastinal silhouette is enlarged. Patient body habitus partially limits the examin ation. On the lateral view there appears to be very mild pulmonary vascular congestion and flattening of the diaphragms. No sizable pneumothorax or pleural effusion. Osseous structures are grossly intac t. IMPRESSION: Suboptimal frontal view secondary to patient body habitus. Lateral view suggests mild pu lmonary vascular congestion that may represent cardiogenic fluid overload or noncardiogenic fluid ove rload and flattening of the diaphragms suggesting underlying COPD.
--- NOTE | 2018-12-04 15:24 | P.PN ---
Subjective Progress Note Date: 12/04/18 Principal diagnosis: Acute on chronic hypoxic respiratory failure secondary to an acute exacerbation of chronic obstructive pulmonary disease. This is a very pleasant 63-year-old male patient who follows with Dr. Neil as his primary care physician. He has a history of morbid obesity, atrial fibrillation anticoagulated with Eliquis, cor pulmonale, diabetes mellitus, hypertension, obstructive sleep apnea utilizing CPAP in the outpatient setting, chronic respiratory failure on 2 L in the outpatient setting, former smoker. He does have chronic obstructive pulmonary disease and follows with Dr. Mariee in our office for the same. He is maintained on Symbicort, DuoNeb inhalations. He was last discharged for her COPD and exacerbation and jittery seventh 2018. He had seen Dr. Allan in the office in follow-up in time. He presented here to the emergency room again early this morning with complaints of worsening shortness of breath, cough and congestion. Asked x-ray shows evidence of cardiomegaly and chronic obstructive pulmonary disease but no acute pulmonary process. White count 16.4. Hemoglobin 11.8. D-dimer 0.24. Troponin negative. ProBNP 431. He is continued on DuoNeb inhalations, Symbicort, oral diuretics, antibiotics in the form of Omnicef. He is seen today in consultation in the emergency room. He is currently sitting up in a chair at the bedside. He is awake and alert in no acute distress. He is utilizing his home CPAP at times. Maintaining O2 saturations in the upper 90s on 4 L/m per nasal cannula. He's been afebrile. Hemodynamically stable. On 12/01/2018 patient seen in follow-up. Patient is sitting up in the chair, he states his breathing is easier today, less wheezy and less congested, he is starting to bring up some yellow colored phlegm. He did wear his CPAP machine at night, his pressure is 13 cm of water. Lung sounds are diminished, with some scattered rhonchi limited wheezing. Pulse ox on 3 L satting 97%, patient is afebrile, hemodynamically stable. Today's labs have been reviewed, white blood cell count is 17.0, no fever or chills. Sodium is 140, potassium is 3.8, chloride is 96, CO2 is 34, B1 is 28 and creatinine was 0.87. Patient is on IV diuretics, 40 mg every 12 hours, breathing easier, still has lower extremity edema. The patient is seen again today 12/02/2017 in follow-up on the regular medical floor. He is currently awake and alert in no acute distress. Currently sitting up in a chair at the bedside. He has been utilizing his home CPAP during the evening and throughout the day while napping. He is breathing easier today as compared to yesterday. Still somewhat dyspneic on minimal exertion. Improved lower extremity edema. Continues to diurese well. White count 12.2. Hemoglobin 12.5. Creatinine 0.94. He remains on IV diuretics, bronchodilators, oral prednisone taper. On 12/03/2018 patient seen in follow-up. doing well, breathing easier, pulse ox is 97% on 3 L per nasal cannula, patient is wearing his home CPAP unit at night. has been transitioned to oral prednisone, he he is in negative fluid balance, lower extremity edema is improving. today's labs have been noted , with blood cell count was 14.1, hemoglobin is 13.0, electrolytes were within normal limits, CO2 is 36, BUN is 30 and creatinine was 0.83. The patient is seen today 12/04/2018 in follow-up on the regular medical floor. He is currently sitting up in a chair at the bedside. He is awake and alert in no acute distress. He does state he feels overall weak and fatigued did not as well as he did yesterday. He is maintaining good O2 saturations in the upper 90s on 3 L/m per nasal cannula. White count 14.4. Hemoglobin 12.8. Creatinine 0.83. His lower extremity edema has improved. He is diuresing well. Currently 155 kg. Is down 7 kg since admission. He remains on IV Lasix at 40 mg every 12 hours. Objective - Vital Signs Vital signs: Vital Signs Temp 97.8 F 12/04/18 07:00 Pulse 78 12/04/18 12:38 Resp 20 12/04/18 08:29 BP 127/78 12/04/18 07:00 Pulse Ox 98 12/04/18 08:18 Intake & Output 12/03/18 12/04/18 12/04/18 18:59 06:59 18:59 Intake Total 600 Output Total 700 800 Balance -700 600 -800 Weight 154.675 kg Intake: Oral 600 Output: Urine 700 800 Other: Voiding Method Urinal Urinal # Voids 3 2 - Exam GENERAL EXAM: Alert, on 3 L per nasal cannula, comfortable in no apparent distress. Morbidly obese. HEAD: Normocephalic/atraumatic. EYES: Normal reaction of pupils, equal size. Conjunctiva pink, sclera white. NOSE: Clear with pink turbinates. THROAT: There is crowding the posterior pharynx. No erythema or exudates. NECK: Alert. No masses, no JVD, no thyroid enlargement, no adenopathy. CHEST: No chest wall deformity. Symmetrical expansion. LUNGS: Equal air entry with diminished breath sounds, with some scattered rhonchi and limited wheezing CVS: Regular rate and rhythm, normal S1 and S2, no gallops, no murmurs, no rubs ABDOMEN: Soft, nontender. No hepatosplenomegaly, normal bowel sounds, no guarding or rigidity. EXTREMITIES: No clubbing, 1+ lower extremity edema, no cyanosis, 2+ pulses and upper and lower extremities. MUSCULOSKELETAL: Muscle strength and tone normal. SPINE: No scoliosis or deformity SKIN: No rashes CENTRAL NERVOUS SYSTEM: Alert and oriented -3. No focal deficits, tone is normal in all 4 extremities. PSYCHIATRIC: Appropriate affect. Intact judgment and insight. - Labs CBC & Chem 7: 12/04/18 08:52 12/04/18 08:52 Labs: Abnormal Lab Results - Last 24 Hours (Table) 12/03/18 12/03/18 12/04/18 Range/Units 17:04 20:43 07:17 WBC (3.8-10.6) k/uL Hgb (13.0-17.5) gm/dL Carbon Dioxide (22-30) mmol/L BUN (9-20) mg/dL Glucose (74-99) mg/dL POC Glucose (mg/dL) 268 H 209 H 139 H (75-99) mg/dL 12/04/18 12/04/18 12/04/18 Range/Units 08:52 08:52 12:02 WBC 14.4 H (3.8-10.6) k/uL Hgb 12.8 L (13.0-17.5) gm/dL Carbon Dioxide 36 H (22-30) mmol/L BUN 32 H (9-20) mg/dL Glucose 132 H (74-99) mg/dL POC Glucose (mg/dL) 260 H (75-99) mg/dL Assessment and Plan Assessment: Impression: #1 Acute on chronic hypoxemic respiratory failure secondary to an acute exacerbation of chronic obstructive pulmonary disease. #2 Atrial fibrillation, currently ventricular rate controlled. Anticoagulated with Eliquis. #3 Morbid obesity with deconditioning. #4 Obstructive sleep apnea utilizing CPAP in the outpatient setting. #5 Diabetes mellitus, type II. #6 Hypertension. #7 Degenerative joint disease. #8 Previous smoking history. Plan: The patient was seen and evaluated by Dr. Sewell. Continue DuoNeb inhalations , Symbicort,and prednisone. He remains on IV diuretics. He is down 7 kg since admission. Improved lower extremity edema. Anticoagulated with Eliquis. We will increase his activity as tolerated. We'll continue to follow and make further recommendations based on his clinical status. I, the cosigning physician, performed a history & physical examination of the patient. Lungs sounds with bilateral end expiratory wheeze, diminished. Maintaining good O2 saturations in the 90s on 4 L/m per nasal cannula. I discussed the assessment and plan of care with my nurse practitioner, Ely Cooley. I attest to the above consultation as dictated by her.
--- NOTE | 2018-12-04 17:18 | P.PN ---
Subjective 12/02 Patient still wheezy and short of breath while speaking with me He said that he had a blister on the right thigh on the medial aspect / Pt says he is feeling better sob better, cough better says still has swelling says blister in th eright leg is better 12/04/2018 Mery not feeling good at all today He's feeling more short of breath As swelling in the leg still better than before. Objective - Vital Signs Vital signs: Vital Signs Temp 97.6 F 12/04/18 15:00 Pulse 84 12/04/18 16:23 Resp 20 12/04/18 16:13 BP 103/75 12/04/18 15:00 Pulse Ox 97 12/04/18 16:13 Intake & Output 12/03/18 12/04/18 12/04/18 18:59 06:59 18:59 Intake Total 600 Output Total 700 800 Balance -700 600 -800 Weight 154.675 kg Intake: Oral 600 Output: Urine 700 800 Other: Voiding Method Urinal Urinal # Voids 3 2 - Exam On exam, alert and oriented x3. HEENT: Conjunctivae normal. eyes normal. NECK: No JVD. No thyroid enlargement. No LNs CARDIOVASCULAR: S1, S2 muffled. No murmur RESPIRATION: He is having bilateral coarse breath sounds. ABDOMEN: Soft, nontender . No guarding. no masses palpable. No ascites, No hepatosplenomegaly.Bowel sounds heard. LEGS: Bilateral pedal edema is appreciated NERVOUS SYSTEM: Cranial N 2-12 grossly normal. Moves all 4 limbs. No focal deficits. No sensory deficit. No signs of cerebellar dysfucntion. Skin: Patient is having a blister on the right thigh and the medial posterior aspect - Labs CBC & Chem 7: 12/04/18 08:52 12/04/18 08:52 Labs: Abnormal Lab Results - Last 24 Hours (Table) 12/03/18 12/04/18 12/04/18 Range/Units 20:43 07:17 08:52 WBC 14.4 H (3.8-10.6) k/uL Hgb 12.8 L (13.0-17.5) gm/dL Carbon Dioxide (22-30) mmol/L BUN (9-20) mg/dL Glucose (74-99) mg/dL POC Glucose (mg/dL) 209 H 139 H (75-99) mg/dL 12/04/18 12/04/18 Range/Units 08:52 12:02 WBC (3.8-10.6) k/uL Hgb (13.0-17.5) gm/dL Carbon Dioxide 36 H (22-30) mmol/L BUN 32 H (9-20) mg/dL Glucose 132 H (74-99) mg/dL POC Glucose (mg/dL) 260 H (75-99) mg/dL Assessment and Plan Assessment: Acute respiratory failure - Acute superior exacerbation probably causing above - A. fib on anti-correlation - HERBERT on CPAP - Hypertension - Diabetes mellitus - Obesity Plan - Continue breathing treatments - Continue prednisone - Chest x-ray done today showed more pulmonary congestion - We will continue Lasix 40 mg twice a day - Finding to consult cardiology - Continue aggressive medical care - We will follow up on the patient tomorrow
[2018-12-04 17:49] LABS: Glucose,Whole Blood 241 mg/dL (75-99)
[2018-12-04 20:25] LABS: Glucose,Whole Blood 186 mg/dL (75-99)
[2018-12-04] MEDS: ATORVASTATIN 40 MG TAB PO SCH (21:22)
[2018-12-05] MEDS: IPRATROPIUM-ALBUTEROL 3 ML NEB INHALATION SCH ×7 (00:03→23:19)
[2018-12-05] MEDS: INSULIN ASPART (NovoLOG) 100 UNIT/ML VIAL SQ SCH ×4 (07:42→21:00)
[2018-12-05] MEDS: HYDROCHLOROTHIAZIDE 25 MG TAB PO SCH (07:43)
[2018-12-05] MEDS: FUROSEMIDE 10 MG/ML 4 ML VIAL IV SCH ×2 (07:43→20:57)
[2018-12-05] MEDS: LISINOPRIL 20 MG TAB PO SCH (07:43)
[2018-12-05] MEDS: TAMSULOSIN 0.4 MG CAP.ER.24H PO SCH ×2 (07:43→20:55)
[2018-12-05] MEDS: NADOLOL 20 MG TAB PO SCH ×2 (07:43→20:55)
[2018-12-05] MEDS: APIXABAN 5 MG TAB PO SCH ×2 (07:43→20:55)
[2018-12-05] MEDS: CEFDINIR 300 MG CAP PO SCH ×2 (07:43→20:55)
[2018-12-05] MEDS: VERAPAMIL SR 180 MG TABLET.ER PO SCH (07:43)
[2018-12-05] MEDS: predniSONE 20 MG TAB PO SCH (07:44)
[2018-12-05] MEDS: BACITRACIN 500 UNIT/GM OINT 28.4 GM TUBE TOPICAL SCH ×2 (07:45→20:56)
[2018-12-05 08:01] LABS: Glucose,Whole Blood 87 mg/dL (75-99)
[2018-12-05] MEDS: INSULIN DETEMIR (LEVEMIR) 100 UNIT/ML SYR SQ SCH ×2 (08:10→20:58)
[2018-12-05 08:13] LABS: HCT 39.8 % (39.0-53.0); HGB 12.6 gm/dL (13.0-17.5); MCH 27.8 pg (25.0-35.0); MCHC 31.6 g/dL (31.0-37.0); MCV 87.9 fL (80.0-100.0); Platelet Count 389 k/uL (150-450); RBC 4.53 m/uL (4.30-5.90); RDW 14.5 % (11.5-15.5); WBC 17.3 k/uL (3.8-10.6)
[2018-12-05 08:20] LABS: Anion Gap 7 mmol/L; Blood Urea Nitrogen 26 mg/dL (9-20); Calcium 9.3 mg/dL (8.4-10.2); Carbon Dioxide 34 mmol/L (22-30); Chloride 99 mmol/L (98-107); Glucose 88 mg/dL (74-99); Potassium 3.8 mmol/L (3.5-5.1); Sodium 140 mmol/L (137-145)
[2018-12-05] MEDS: SYMBICORT 160-4.5 MCG INHALER INHALATION SCH ×2 (08:24→19:50)
[2018-12-05] MEDS ORDERED: FUROSEMIDE 10 MG/ML 4 ML VIAL IV STA (09:52)
[2018-12-05 12:15] LABS: Glucose,Whole Blood 183 mg/dL (75-99)
--- NOTE | 2018-12-05 12:55 | P.PN ---
Subjective 12/02 Patient still wheezy and short of breath while speaking with me He said that he had a blister on the right thigh on the medial aspect 12/03 Pt says he is feeling better sob better, cough better says still has swelling says blister in th eright leg is better 12/04/2018 Mery not feeling good at all today He's feeling more short of breath As swelling in the leg still better than before. 12/05/2018 Says his shortness of breath is better No cough Objective - Vital Signs Vital signs: Vital Signs Temp 97.7 F 12/05/18 06:01 Pulse 92 12/05/18 12:16 Resp 20 12/05/18 06:01 BP 159/80 12/05/18 06:01 Pulse Ox 100 12/05/18 08:24 Intake & Output 12/04/18 12/05/18 12/05/18 18:59 06:59 18:59 Output Total 800 2450 2000 Balance -800 -2450 -1999 Weight 154.675 kg 152.407 kg Output: Urine 800 2450 2000 Other: Voiding Method Urinal Urinal Urinal # Voids 0 # Bowel Movements 0 - Exam On exam, alert and oriented x3. HEENT: Conjunctivae normal. eyes normal. NECK: No JVD. No thyroid enlargement. No LNs CARDIOVASCULAR: S1, S2 muffled. No murmur RESPIRATION: He is having bilateral coarse breath sounds. ABDOMEN: Soft, nontender . No guarding. no masses palpable. No ascites, No hepatosplenomegaly.Bowel sounds heard. LEGS: Bilateral pedal edema is appreciated NERVOUS SYSTEM: Cranial N 2-12 grossly normal. Moves all 4 limbs. No focal deficits. No sensory deficit. No signs of cerebellar dysfucntion. Skin: Patient is having a blister on the right thigh and the medial posterior aspect - Labs CBC & Chem 7: 12/05/18 07:16 12/05/18 07:16 Labs: Abnormal Lab Results - Last 24 Hours (Table) 12/04/18 12/04/18 12/05/18 Range/Units 17:07 20:23 07:16 WBC 17.3 H (3.8-10.6) k/uL Hgb 12.6 L (13.0-17.5) gm/dL Carbon Dioxide (22-30) mmol/L BUN (9-20) mg/dL POC Glucose (mg/dL) 241 H 186 H (75-99) mg/dL 12/05/18 12/05/18 Range/Units 07:16 12:13 WBC (3.8-10.6) k/uL Hgb (13.0-17.5) gm/dL Carbon Dioxide 34 H (22-30) mmol/L BUN 26 H (9-20) mg/dL POC Glucose (mg/dL) 183 H (75-99) mg/dL Assessment and Plan Assessment: Acute respiratory failure - Acute superior exacerbation probably causing above - A. fib on anti-correlation - HERBERT on CPAP - Hypertension - Diabetes mellitus - Obesity Plan - Continue breathing treatments - Continue prednisone - Chest x-ray done today showed more pulmonary congestion - We will give extra dose of Lasix today this morning - We'll consult cardiology for the recommendations - Continue rest of the medical care - We'll follow the patient
--- NOTE | 2018-12-05 13:57 | CONS ---
CONSULTATION Mr. Rea is a 63-year-old male with known history of chronic persistent atrial fibrillation, history of chronic obstructive lung disease, morbid obesity, who presented with symptoms of progressive dyspnea, worsening peripheral edema. He has been having some cough, wheezing, although a little bit better today. He denies any chest pain, no palpitation. The patient had a preserved left ventricular systolic function by echocardiography before. He had some nausea that resolved. He is not aware of the arrhythmia. He does not feel the palpitations. His sitting up in the chair and feels better overall. He has history of severe chronic obstructive lung disease as well as history of chronic obstructive sleep apnea and cor pulmonale. He has been anticoagulated in the past. He has chronic peripheral edema, although according to him it is better. His coronary risk factors are remarkable for prior history of smoking. He has a history of hypertension, hyperlipidemia. He is diabetic. MEDICATIONS: Include insulin, Ventolin, Spiriva, Eliquis 5 mg twice a day, Lipitor 40 mg daily, Corgard 20 mg twice a day, Flomax, Isoptin SR 360 mg daily, Singulair, Lasix, hydrochlorothiazide, and Univasc 15 mg a day. REVIEW OF SYSTEMS: RESPIRATORY SYSTEM: He had dyspnea on exertion and chronic obstructive lung disease. GI system: Has no recent GI bleeding. No peptic ulcer disease. system: No dysuria or hematuria. Nervous system: No seizure. PHYSICAL EXAMINATION: He is a 63-year-old male, alert, oriented in no apparent distress. Blood pressure running in the 140s to 150s with a heart in the 80s. HEAD: Normocephalic. Eyes sclerae anicteric. Neck good upstroke. Unable to evaluate jugular venous pressure. Lungs with decreased air exchange. No wheezes. Heart irregularly irregular. S1, S2. No S3. No rub. ABDOMEN: Soft, obese. Positive bowel sounds no organomegaly. Extremities: Chronic skin changes with 2+ edema. LAB DATA: Revealed BUN and creatinine 26 and 0.8, potassium 3.8, hemoglobin of 12.6. EKG was atrial fibrillation with nonspecific ST-T wave changes. Chest x-ray revealed mild congestion. He has continued to lose weight since his admission. IMPRESSION: 1. Symptoms of progressive dyspnea with exacerbation of chronic obstructive pulmonary disease and cor pulmonale. 2. Chronic atrial fibrillation. 3. Morbid obesity. 4. History of obstructive sleep apnea. 5. Hypertension. 6. Diabetes mellitus. RECOMMENDATIONS: From the cardiac standpoint, we will continue present therapy. He is on IV Lasix and will continue that at this point. Follow his renal function closely and depending on his progress, further recommendations will be made. Thank you for this consult. We will follow with you. GRACE / JOAQUINN: [id number] /
[2018-12-05 17:02] LABS: Glucose,Whole Blood 302 mg/dL (75-99)
--- NOTE | 2018-12-05 17:17 | P.PN ---
Subjective Progress Note Date: 12/05/18 This is a very pleasant 63-year-old male patient who follows with Dr. Neil as his primary care physician. He has a history of morbid obesity, atrial fibrillation anticoagulated with Eliquis, cor pulmonale, diabetes mellitus, hypertension, obstructive sleep apnea utilizing CPAP in the outpatient setting, chronic respiratory failure on 2 L in the outpatient setting, former smoker. He does have chronic obstructive pulmonary disease and follows with Dr. Mariee in our office for the same. He is maintained on Symbicort, DuoNeb inhalations. He was last discharged for her COPD and exacerbation and jittery seventh 2018. He had seen Dr. Allan in the office in follow-up in time. He presented here to the emergency room again early this morning with complaints of worsening shortness of breath, cough and congestion. Asked x-ray shows evidence of cardiomegaly and chronic obstructive pulmonary disease but no acute pulmonary process. White count 16.4. Hemoglobin 11.8. D-dimer 0.24. Troponin negative. ProBNP 431. He is continued on DuoNeb inhalations, Symbicort, oral diuretics, antibiotics in the form of Omnicef. He is seen today in consultation in the emergency room. He is currently sitting up in a chair at the bedside. He is awake and alert in no acute distress. He is utilizing his home CPAP at times. Maintaining O2 saturations in the upper 90s on 4 L/m per nasal cannula. He's been afebrile. Hemodynamically stable. On 12/01/2018 patient seen in follow-up. Patient is sitting up in the chair, he states his breathing is easier today, less wheezy and less congested, he is starting to bring up some yellow colored phlegm. He did wear his CPAP machine at night, his pressure is 13 cm of water. Lung sounds are diminished, with some scattered rhonchi limited wheezing. Pulse ox on 3 L satting 97%, patient is afebrile, hemodynamically stable. Today's labs have been reviewed, white blood cell count is 17.0, no fever or chills. Sodium is 140, potassium is 3.8, chloride is 96, CO2 is 34, B1 is 28 and creatinine was 0.87. Patient is on IV diuretics, 40 mg every 12 hours, breathing easier, still has lower extremity edema. The patient is seen again today 12/02/2017 in follow-up on the regular medical floor. He is currently awake and alert in no acute distress. Currently sitting up in a chair at the bedside. He has been utilizing his home CPAP during the evening and throughout the day while napping. He is breathing easier today as compared to yesterday. Still somewhat dyspneic on minimal exertion. Improved lower extremity edema. Continues to diurese well. White count 12.2. Hemoglobin 12.5. Creatinine 0.94. He remains on IV diuretics, bronchodilators, oral prednisone taper. On 12/03/2018 patient seen in follow-up. doing well, breathing easier, pulse ox is 97% on 3 L per nasal cannula, patient is wearing his home CPAP unit at night. has been transitioned to oral prednisone, he he is in negative fluid balance, lower extremity edema is improving. today's labs have been noted , with blood cell count was 14.1, hemoglobin is 13.0, electrolytes were within normal limits, CO2 is 36, BUN is 30 and creatinine was 0.83. The patient is seen today 12/04/2018 in follow-up on the regular medical floor. He is currently sitting up in a chair at the bedside. He is awake and alert in no acute distress. He does state he feels overall weak and fatigued did not as well as he did yesterday. He is maintaining good O2 saturations in the upper 90s on 3 L/m per nasal cannula. White count 14.4. Hemoglobin 12.8. Creatinine 0.83. His lower extremity edema has improved. He is diuresing well. Currently 155 kg. Is down 7 kg since admission. He remains on IV Lasix at 40 mg every 12 hours. On today's evaluation of 12/05/2018, the patient has no specific complaints. He continues to diuresed well with IV Lasix. His lower extremity edema is improving. He is using his CPAP throughout the day. His white cell count is at 17.3. Renal function stable at creatinine of 0.8. No cough sputum production chest masses or wheezing. Still on IV Lasix. No new issues for now. Objective - Vital Signs Vital signs: Vital Signs Temp 97.9 F 12/05/18 14:59 Pulse 82 12/05/18 16:22 Resp 20 12/05/18 14:59 BP 133/84 12/05/18 14:59 Pulse Ox 95 12/05/18 14:59 Intake & Output 12/04/18 12/05/18 12/05/18 18:59 06:59 18:59 Intake Total 320 Output Total 800 2450 1999 Balance -800 -7710 -1680 Weight 154.675 kg 152.407 kg Intake: Oral 320 Output: Urine 800 2450 1999 Other: Voiding Method Urinal Urinal Urinal # Voids 0 # Bowel Movements 0 - Exam GENERAL EXAM: Alert, on 3 L per nasal cannula, comfortable in no apparent distress. Morbidly obese. HEAD: Normocephalic/atraumatic. EYES: Normal reaction of pupils, equal size. Conjunctiva pink, sclera white. NOSE: Clear with pink turbinates. THROAT: There is crowding the posterior pharynx. No erythema or exudates. NECK: Alert. No masses, no JVD, no thyroid enlargement, no adenopathy. CHEST: No chest wall deformity. Symmetrical expansion. LUNGS: Equal air entry with diminished breath sounds, with some scattered rhonchi and limited wheezing CVS: Regular rate and rhythm, normal S1 and S2, no gallops, no murmurs, no rubs ABDOMEN: Soft, nontender. No hepatosplenomegaly, normal bowel sounds, no guarding or rigidity. EXTREMITIES: No clubbing, 1+ lower extremity edema, no cyanosis, 2+ pulses and upper and lower extremities. MUSCULOSKELETAL: Muscle strength and tone normal. SPINE: No scoliosis or deformity SKIN: No rashes CENTRAL NERVOUS SYSTEM: Alert and oriented -3. No focal deficits, tone is normal in all 4 extremities. PSYCHIATRIC: Appropriate affect. Intact judgment and insight. - Labs CBC & Chem 7: 12/05/18 07:16 12/05/18 07:16 Labs: Abnormal Lab Results - Last 24 Hours (Table) 12/04/18 12/04/18 12/05/18 Range/Units 17:07 20:23 07:16 WBC 17.3 H (3.8-10.6) k/uL Hgb 12.6 L (13.0-17.5) gm/dL Carbon Dioxide (22-30) mmol/L BUN (9-20) mg/dL POC Glucose (mg/dL) 241 H 186 H (75-99) mg/dL 12/05/18 12/05/18 12/05/18 Range/Units 07:16 12:13 16:57 WBC (3.8-10.6) k/uL Hgb (13.0-17.5) gm/dL Carbon Dioxide 34 H (22-30) mmol/L BUN 26 H (9-20) mg/dL POC Glucose (mg/dL) 183 H 302 H (75-99) mg/dL Assessment and Plan Plan: #1 Acute on chronic hypoxemic respiratory failure secondary to an acute exacerbation of chronic obstructive pulmonary disease. #2 Atrial fibrillation, currently ventricular rate controlled. Anticoagulated with Eliquis. #3 Morbid obesity with deconditioning. #4 Obstructive sleep apnea utilizing CPAP in the outpatient setting. #5 Diabetes mellitus, type II. #6 Hypertension. #7 Degenerative joint disease. #8 Previous smoking history. Plan Continue diuretics. Optimize volume status. Continue CPAP use overnight. Continue bronchodilators. Oral Omnicef. Symbicort as maintenance in addition to Spiriva on outpatient basis. Complete a prednisone burst taper. We'll continue to follow. Possible discharge in a.m.
[2018-12-05] MEDS: ATORVASTATIN 40 MG TAB PO SCH (20:55)
[2018-12-05 20:59] LABS: Glucose,Whole Blood 276 mg/dL (75-99)
[2018-12-06] MEDS: IPRATROPIUM-ALBUTEROL 3 ML NEB INHALATION SCH ×6 (03:18→23:04)
[2018-12-06] MEDS: SYMBICORT 160-4.5 MCG INHALER INHALATION SCH ×2 (07:26→19:27)
[2018-12-06 07:29] LABS: Glucose,Whole Blood 131 mg/dL (75-99)
[2018-12-06 09:31] LABS: HCT 41.4 % (39.0-53.0); HGB 13.6 gm/dL (13.0-17.5); MCHC 32.8 g/dL (31.0-37.0); MCV 88.6 fL (80.0-100.0); Mean Platelet Volume 6.8; Platelet Count 373 k/uL (150-450); RBC 4.67 m/uL (4.30-5.90); RDW 14.5 % (11.5-15.5); WBC 18.9 k/uL (3.8-10.6)
[2018-12-06] MEDS: TAMSULOSIN 0.4 MG CAP.ER.24H PO SCH ×2 (09:43→20:31)
[2018-12-06] MEDS: FUROSEMIDE 10 MG/ML 4 ML VIAL IV SCH ×3 (09:43→20:51)
[2018-12-06] MEDS: HYDROCHLOROTHIAZIDE 25 MG TAB PO SCH (09:43)
[2018-12-06] MEDS: APIXABAN 5 MG TAB PO SCH ×2 (09:43→20:31)
[2018-12-06] MEDS: predniSONE 20 MG TAB PO SCH (09:43)
[2018-12-06] MEDS: LISINOPRIL 20 MG TAB PO SCH (09:43)
[2018-12-06] MEDS: VERAPAMIL SR 180 MG TABLET.ER PO SCH (09:44)
[2018-12-06] MEDS: NADOLOL 20 MG TAB PO SCH ×2 (09:44→21:37)
[2018-12-06] MEDS: CEFDINIR 300 MG CAP PO SCH ×2 (09:45→20:37)
[2018-12-06] MEDS: INSULIN DETEMIR (LEVEMIR) 100 UNIT/ML SYR SQ SCH ×2 (09:45→21:37)
[2018-12-06] MEDS: INSULIN ASPART (NovoLOG) 100 UNIT/ML VIAL SQ SCH ×4 (09:45→20:37)
[2018-12-06] MEDS: BACITRACIN 500 UNIT/GM OINT 28.4 GM TUBE TOPICAL SCH ×2 (10:30→20:50)
[2018-12-06 11:25] LABS: Glucose,Whole Blood 197 mg/dL (75-99)
--- NOTE | 2018-12-06 11:27 | P.PN ---
Subjective This is a pleasant 63-year-old male past medical history significant for chronic persistent atrial fibrillation on director long term care anti-coagulation, COPD, morbid obestiy, hypertension, dyslipidemia, diabetes mellitus, peripheral vascular disease, sleep apnea and former nicotine dependence. He follows in the office with Dr. Garcia. He is currently being treated for exacerbation of COPD and cor pulmonale on lasix IV 40 mg BID. Blood pressure 132/73 heart rate 76 afebrile maintaining oxygen saturation on nasal cannla. Laboratory data reviewed , WBC 18.9, hgb 13.6, plt 373. BMP pending. He continues to feel short of breath at rest and with exertion. Denies chest pain, dizziness or palpitations. GENERAL: Well-appearing, well-nourished and in no acute distress. NECK: Supple without JVD or thyromegaly. LUNGS: Bibasilar rales, trace rhonchi, no wheezes. Diminished bilaterally. Respiration equal and mildly labored at rest. HEART: Irregular rate and rhythm without murmurs, rubs or gallops. S1 and S2 heard. EXTREMITIES: Normal range of motion, 2+ pitting bilateral lower extremity edema. Bilateral savage wraps in place. ASSESSMENT Acute exacerbation of COPD and cor pulmonale Leukocytosis Chronic persistent atrial fibrillation on senior living anti-coagulation Hypertension Diabetes mellitus History of obstructive sleep apnea Morbid obesity, BMI 51 PLAN Continue current medical regimen. Repeat electrolytes and kidney function in the morning. Advised low salt diet to be followed closely at home as well. He is scheduled to have a stress test as an outpatient in the office, recommend he keep that appointment. Ongoing medical management. Nurse Practitioner note has been reviewed, I agree with a documented findings and plan of care. Patient was seen and examined. Objective - Vital Signs Vital signs: Vital Signs Temp 97.0 F L 12/06/18 06:07 Pulse 80 12/06/18 07:39 Resp 20 12/06/18 06:07 BP 132/73 12/06/18 06:07 Pulse Ox 97 12/06/18 07:26 Intake & Output 12/05/18 12/06/18 12/06/18 18:59 06:59 18:59 Intake Total 320 Output Total 1999 850 Balance -1680 -850 Weight 152.407 kg Intake: Oral 320 Output: Urine 1999 850 Other: Voiding Method Urinal Urinal # Voids 0 # Bowel Movements 0 - Labs CBC & Chem 7: 12/06/18 08:23 12/05/18 07:16 Labs: Abnormal Lab Results - Last 24 Hours (Table) 12/05/18 12/05/18 12/05/18 Range/Units 12:13 16:57 20:58 WBC (3.8-10.6) k/uL POC Glucose (mg/dL) 183 H 302 H 276 H (75-99) mg/dL 12/06/18 12/06/18 Range/Units 07:27 08:23 WBC 18.9 H (3.8-10.6) k/uL POC Glucose (mg/dL) 131 H (75-99) mg/dL
[2018-12-06 11:50] LABS: Anion Gap 9 mmol/L; Blood Urea Nitrogen 30 mg/dL (9-20); Calcium 9.4 mg/dL (8.4-10.2); Carbon Dioxide 36 mmol/L (22-30); Chloride 94 mmol/L (98-107); Glucose 159 mg/dL (74-99); Potassium 3.6 mmol/L (3.5-5.1); Sodium 139 mmol/L (137-145)
--- NOTE | 2018-12-06 14:20 | P.PN ---
Subjective Progress Note Date: 12/06/18 Principal diagnosis: Acute on chronic hypoxic respiratory failure secondary to COPD, and atrial fibrillation with RVR. This is a very pleasant 63-year-old male patient who follows with Dr. Neil as his primary care physician. He has a history of morbid obesity, atrial fibrillation anticoagulated with Eliquis, cor pulmonale, diabetes mellitus, hypertension, obstructive sleep apnea utilizing CPAP in the outpatient setting, chronic respiratory failure on 2 L in the outpatient setting, former smoker. He does have chronic obstructive pulmonary disease and follows with Dr. Mariee in our office for the same. He is maintained on Symbicort, DuoNeb inhalations. He was last discharged for her COPD and exacerbation and jittery seventh 2018. He had seen Dr. Allan in the office in follow-up in time. He presented here to the emergency room again early this morning with complaints of worsening shortness of breath, cough and congestion. Asked x-ray shows evidence of cardiomegaly and chronic obstructive pulmonary disease but no acute pulmonary process. White count 16.4. Hemoglobin 11.8. D-dimer 0.24. Troponin negative. ProBNP 431. He is continued on DuoNeb inhalations, Symbicort, oral diuretics, antibiotics in the form of Omnicef. He is seen today in consultation in the emergency room. He is currently sitting up in a chair at the bedside. He is awake and alert in no acute distress. He is utilizing his home CPAP at times. Maintaining O2 saturations in the upper 90s on 4 L/m per nasal cannula. He's been afebrile. Hemodynamically stable. Patient was reevaluated today on 12/06/2018, feeling better, breathing easier, uses CPAP intermittently, presently on few liters nasal cannula. In no distress. Much better compared to the last few days. Continues to have a bit of leukocytosis with WBC count of 18.9, Electrolytesenc normal renal profile is normal bicarb is 36 Objective - Vital Signs Vital signs: Vital Signs Temp 97.0 F L 12/06/18 06:07 Pulse 84 12/06/18 11:33 Resp 20 12/06/18 06:07 BP 132/73 12/06/18 06:07 Pulse Ox 97 12/06/18 07:26 Intake & Output 02/10/19 02/11/19 02/11/19 18:59 06:59 18:59 Intake Total 320 Output Total 1999 850 Balance -1680 -850 Weight 152.407 kg Intake: Oral 320 Output: Urine 1999 Other: Voiding Method Urinal Urinal # Voids 0 # Bowel Movements 0 - Exam Physical Exam, revealed a 63-year-old white male morbidly obese, on 3 L nasal cannula, in no distress. Head: Atraumatic, normocephalic. HEENT:[Neck is supple.] [No neck masses.] [No thyromegaly.] [No JVD.] PERRLA, EOMI, no icterus. Short obese neck is noted. Chest: [Diminished breath sounds at the bases, no crackles or rhonchi or wheezes noted. Symmetrical chest expansion, no chest wall tenderness.] Cardiac Exam: Irregular irregular rhythm. [Normal S1 and S2, no S3 gallop, no murmur.] Abdomen: [Soft, nontender, no megaly, no rebound, no guarding, normal bowel sounds.] Extremities: [No clubbing, 1+ bipedal edema, no cyanosis.] Neurological Exam: [No focal neurologic deficit.] Psychiatric: Normal mood affect and mental status examination. - Labs CBC & Chem 7: 12/06/18 08:23 12/06/18 08:23 Labs: Abnormal Lab Results - Last 24 Hours (Table) 12/05/18 12/05/18 12/06/18 Range/Units 16:57 20:58 07:27 WBC (3.8-10.6) k/uL Chloride (98-107) mmol/L Carbon Dioxide (22-30) mmol/L BUN (9-20) mg/dL Glucose (74-99) mg/dL POC Glucose (mg/dL) 302 H 276 H 131 H (75-99) mg/dL 12/06/18 12/06/18 12/06/18 Range/Units 08:23 08:23 11:21 WBC 18.9 H (3.8-10.6) k/uL Chloride 94 L (98-107) mmol/L Carbon Dioxide 36 H (22-30) mmol/L BUN 30 H (9-20) mg/dL Glucose 159 H (74-99) mg/dL POC Glucose (mg/dL) 197 H (75-99) mg/dL Assessment and Plan Assessment: Impression: 1 acute on chronic hypoxic respiratory failure secondary mostly to COPD exacerbation, and at times related to atrial fibrillation with RVR. 2 atrial fibrillation, evidently rate seems to be controlled. Remains on anticoagulation therapy. 3 chronic hypoxic respiratory failure secondary to COPD and morbid obesity as well as diastolic congestive heart failure. 4 chronic diastolic congestive heart failure 5 type 2 diabetes 6 obstructive sleep apnea syndrome 7 benign essential hypertension 8 degenerative joint disease Recommendation: Continue diuretics, continue bronchodilators, continue CPAP, all meds were reviewed, remains on good course of bronchodilators, continue prednisone, consider discharge planning today or in the next 24 hours. Cleared from the palmar perspective for discharge planning. Time with Patient: Less than 30
--- NOTE | 2018-12-06 15:22 | P.PN ---
Subjective This is a pleasant 63 years old male with past medical history of COPD, sleep apnea on BiPAP, and atrial fibrillation on Eliquis, congestive heart failure, diabetes mellitus, hypertension who presents because of dyspnea, mostly related to acute COPD exacerbation. As well as fluid overload and patient has atrial fibrillation's with possible RVR on admission. Patient still dyspneic although he shows some improvement. No chest pain but he still have cough with white phlegm, which is improving as well. Patient is not on home steroids however he is on 2 L oxygen via nasal cannula at home. Cardiology and pulmonary team R following the patient. Both team recommended further inpatient stay and to continue the same management for now and keep monitoring patient as well as labs and vitals. Also I called his [employer] insurance company at [phone] insurance approval. Objective - Vital Signs Vital signs: Vital Signs Temp 97.6 F 12/06/18 14:48 Pulse 77 12/06/18 14:48 Resp 18 12/06/18 14:48 BP 97/64 12/06/18 14:48 Pulse Ox 99 12/06/18 14:48 Intake & Output 12/05/18 12/06/18 12/06/18 18:59 06:59 18:59 Intake Total 320 Output Total 1999 850 800 Balance -1680 -850 -800 Weight 152.407 kg Intake: Oral 320 Output: Urine 1999 850 800 Other: Voiding Method Urinal Urinal # Voids 0 # Bowel Movements 0 - Exam GENERAL: The patient is alert and oriented x3, not in any acute distress. Obese HEENT: Pupils are round and equally reacting to light. EOMI. No scleral icterus. No conjunctival pallor. Normocephalic, atraumatic. No pharyngeal erythema. No thyromegaly. CARDIOVASCULAR: S1 and S2 present. No murmurs, rubs, or gallops. -PULMONARY: Chest is clear to auscultation, bilateral expiratory wheezing. No crackles. ABDOMEN: Soft, nontender, nondistended, normoactive bowel sounds. No palpable organomegaly. MUSCULOSKELETAL: No joint swelling or deformity. EXTREMITIES: No cyanosis, clubbing, or pedal edema. NEUROLOGICAL: Gross neurological examination did not reveal any focal deficits. SKIN: No rashes. - Labs CBC & Chem 7: 12/06/18 08:23 12/06/18 08:23 Labs: Abnormal Lab Results - Last 24 Hours (Table) 12/05/18 12/05/18 12/06/18 Range/Units 16:57 20:58 07:27 WBC (3.8-10.6) k/uL Chloride (98-107) mmol/L Carbon Dioxide (22-30) mmol/L BUN (9-20) mg/dL Glucose (74-99) mg/dL POC Glucose (mg/dL) 302 H 276 H 131 H (75-99) mg/dL 12/06/18 12/06/18 12/06/18 Range/Units 08:23 08:23 11:21 WBC 18.9 H (3.8-10.6) k/uL Chloride 94 L (98-107) mmol/L Carbon Dioxide 36 H (22-30) mmol/L BUN 30 H (9-20) mg/dL Glucose 159 H (74-99) mg/dL POC Glucose (mg/dL) 197 H (75-99) mg/dL Assessment and Plan Assessment: Acute COPD exacerbation Acute hypoxic respiratory failure secondary to above Chronic atrial fibrillation, rate controlled. On Eliquis. Morbid obesity Obstructive sleep apnea on CPAP Diabetes mellitus Essential hypertension Plan: This is a pleasant 63 years old male who presents with acute COPD exacerbation and atrial fibrillation. Hydrogen pulmonary team and prepped is appreciated. Continue with diuretics and breathing treatment. Continue with CPAP. Patient and antibiotic. Labs and medication were reviewed.. Continue same treatment. Continue with symptomatic treatment. Resume home medication. Monitor lytes and vitals. DVT and GI prophylaxis. Further recommendations of the clinical course of the patient DVT prophylaxis: Eliquis GI Prophylaxis: Pepcid PT/OT: Pending Prognosis is guarded
[2018-12-06 17:13] LABS: Glucose,Whole Blood 204 mg/dL (75-99)
[2018-12-06] MEDS: ATORVASTATIN 40 MG TAB PO SCH (20:31)
[2018-12-06] MEDS: FAMOTIDINE 20 MG/2 ML VIAL IV SCH (20:31)
[2018-12-06 20:47] LABS: Glucose,Whole Blood 290 mg/dL (75-99)
[2018-12-07] MEDS: IPRATROPIUM-ALBUTEROL 3 ML NEB INHALATION SCH ×6 (03:28→23:48)
[2018-12-07 07:40] LABS: Glucose,Whole Blood 148 mg/dL (75-99)
[2018-12-07] MEDS: SYMBICORT 160-4.5 MCG INHALER INHALATION SCH ×2 (08:07→20:15)
--- NOTE | 2018-12-07 08:51 | XR ---
EXAMINATION TYPE: XR chest 2V DATE OF EXAM: 12/07/2018 COMPARISON: 12/04/2018 and 10/28/2018 HISTORY: 63-year-old male shortness of breath TECHNIQUE: AP and lateral views FINDINGS: Heart normal size. Subtle nodularity suggested at the cardiac apex. Hazy lower lung densities related to overlying soft tissue. Otherwise, no consolidation or pleural effusion. IMPRESSION: Contrast-enhanced CT chest can exclude a left basilar pulmonary nodule. Otherwise, no acute process s een.
[2018-12-07] MEDS: predniSONE 20 MG TAB PO SCH (09:29)
[2018-12-07] MEDS: CEFDINIR 300 MG CAP PO SCH (09:29)
[2018-12-07] MEDS: NADOLOL 20 MG TAB PO SCH ×2 (09:29→21:32)
[2018-12-07] MEDS: APIXABAN 5 MG TAB PO SCH ×2 (09:29→21:30)
[2018-12-07] MEDS: LISINOPRIL 20 MG TAB PO SCH (09:29)
[2018-12-07] MEDS: TAMSULOSIN 0.4 MG CAP.ER.24H PO SCH ×2 (09:29→21:32)
[2018-12-07] MEDS: FAMOTIDINE 20 MG/2 ML VIAL IV SCH (09:29)
[2018-12-07] MEDS: HYDROCHLOROTHIAZIDE 25 MG TAB PO SCH (09:29)
[2018-12-07] MEDS: INSULIN DETEMIR (LEVEMIR) 100 UNIT/ML SYR SQ SCH ×2 (09:30→21:32)
[2018-12-07] MEDS: INSULIN ASPART (NovoLOG) 100 UNIT/ML VIAL SQ SCH ×5 (09:30→22:53)
[2018-12-07] MEDS: VERAPAMIL SR 180 MG TABLET.ER PO SCH (09:30)
[2018-12-07 10:12] LABS: Anion Gap 8 mmol/L; Blood Urea Nitrogen 31 mg/dL (9-20); Calcium 9.4 mg/dL (8.4-10.2); Carbon Dioxide 34 mmol/L (22-30); Chloride 96 mmol/L (98-107); Glucose 221 mg/dL (74-99); Sodium 138 mmol/L (137-145)
[2018-12-07 11:31] LABS: Glucose,Whole Blood 206 mg/dL (75-99)
--- NOTE | 2018-12-07 12:51 | P.PN ---
Subjective Progress Note Date: 12/07/18 Principal diagnosis: Acute on chronic hypoxic respiratory failure related to acute exacerbation of COPD This is a very pleasant 63-year-old male patient who follows with Dr. Neil as his primary care physician. He has a history of morbid obesity, atrial fibrillation anticoagulated with Eliquis, cor pulmonale, diabetes mellitus, hypertension, obstructive sleep apnea utilizing CPAP in the outpatient setting, chronic respiratory failure on 2 L in the outpatient setting, former smoker. He does have chronic obstructive pulmonary disease and follows with Dr. Mariee in our office for the same. He is maintained on Symbicort, DuoNeb inhalations. He was last discharged for her COPD and exacerbation and jittery seventh 2018. He had seen Dr. Allan in the office in follow-up in time. He presented here to the emergency room again early this morning with complaints of worsening shortness of breath, cough and congestion. Asked x-ray shows evidence of cardiomegaly and chronic obstructive pulmonary disease but no acute pulmonary process. White count 16.4. Hemoglobin 11.8. D-dimer 0.24. Troponin negative. ProBNP 431. He is continued on DuoNeb inhalations, Symbicort, oral diuretics, antibiotics in the form of Omnicef. He is seen today in consultation in the emergency room. He is currently sitting up in a chair at the bedside. He is awake and alert in no acute distress. He is utilizing his home CPAP at times. Maintaining O2 saturations in the upper 90s on 4 L/m per nasal cannula. He's been afebrile. Hemodynamically stable. On 12/01/2018 patient seen in follow-up. Patient is sitting up in the chair, he states his breathing is easier today, less wheezy and less congested, he is starting to bring up some yellow colored phlegm. He did wear his CPAP machine at night, his pressure is 13 cm of water. Lung sounds are diminished, with some scattered rhonchi limited wheezing. Pulse ox on 3 L satting 97%, patient is afebrile, hemodynamically stable. Today's labs have been reviewed, white blood cell count is 17.0, no fever or chills. Sodium is 140, potassium is 3.8, chloride is 96, CO2 is 34, B1 is 28 and creatinine was 0.87. Patient is on IV diuretics, 40 mg every 12 hours, breathing easier, still has lower extremity edema. On 12/03/2018 patient seen in follow-up. doing well, breathing easier, pulse ox is 97% on 3 L per nasal cannula, patient is wearing his home CPAP unit at night. has been transitioned to oral prednisone, he he is in negative fluid balance, lower extremity edema is improving. today's labs have been noted , with blood cell count was 14.1, hemoglobin is 13.0, electrolytes were within normal limits, CO2 is 36, BUN is 30 and creatinine was 0.83. On 12/07/2018 patient seen in follow-up on medical surgical floor. Remains on IV diuretics, maintaining negative fluid balance, still has some lower extremity edema. Lung Sounds are diminished, with some rhonchi, and minimal wheezing. he is wearing 3 L per nasal cannula, he is wearing his CPAP unit from home. No fever no chills, vital signs are stable. His labs have been reviewed. Sodium is 138, potassium is 4.0, chloride is 96, CO2 is 34, B1 is 31 , creatinine 0.94. His chest x-ray has been reviewed, and showed no acute pulmonary process, there was some subtle nodularity at the cardiac apex, computed tomography scan can be done on outpatient basis. The pulmonary perspective patient is stable, he can be discharged home. Objective - Vital Signs Vital signs: Vital Signs Temp 96.2 F L 12/07/18 07:00 Pulse 76 12/07/18 12:03 Resp 18 12/07/18 07:00 BP 111/57 12/07/18 07:00 Pulse Ox 97 12/07/18 07:00 Intake & Output 12/06/18 12/07/18 12/07/18 18:59 06:59 18:59 Intake Total 200 Output Total 800 800 Balance -800 -600 Intake: Oral 200 Output: Urine 800 800 Other: # Voids 3 - Exam GENERAL EXAM: Alert, 63-year-old obese white male on 3 L per nasal cannula, comfortable in no apparent distress. HEAD: Normocephalic/atraumatic. EYES: Normal reaction of pupils, equal size. Conjunctiva pink, sclera white. NOSE: Clear with pink turbinates. THROAT: No erythema or exudates. NECK: No masses, no JVD, no thyroid enlargement, no adenopathy. CHEST: No chest wall deformity. Symmetrical expansion. LUNGS: Equal air entry with diminished breath sounds, with some scattered rhonchi and limited wheezing CVS: Regular rate and rhythm, normal S1 and S2, no gallops, no murmurs, no rubs ABDOMEN: Soft, nontender. No hepatosplenomegaly, normal bowel sounds, no guarding or rigidity. EXTREMITIES: No clubbing, 1+ lower extremity edema, no cyanosis, 2+ pulses and upper and lower extremities. MUSCULOSKELETAL: Muscle strength and tone normal. SPINE: No scoliosis or deformity SKIN: No rashes CENTRAL NERVOUS SYSTEM: Alert and oriented -3. No focal deficits, tone is normal in all 4 extremities. PSYCHIATRIC: Alert and oriented -3. Appropriate affect. Intact judgment and insight. - Labs CBC & Chem 7: 12/06/18 08:23 12/07/18 09:38 Labs: Abnormal Lab Results - Last 24 Hours (Table) 12/06/18 12/06/18 12/07/18 Range/Units 17:10 20:39 07:33 Chloride (98-107) mmol/L Carbon Dioxide (22-30) mmol/L BUN (9-20) mg/dL Glucose (74-99) mg/dL POC Glucose (mg/dL) 204 H 290 H 148 H (75-99) mg/dL 12/07/18 12/07/18 Range/Units 09:38 11:28 Chloride 96 L (98-107) mmol/L Carbon Dioxide 34 H (22-30) mmol/L BUN 31 H (9-20) mg/dL Glucose 221 H (74-99) mg/dL POC Glucose (mg/dL) 206 H (75-99) mg/dL Assessment and Plan Plan: Assessment: #1 Acute on chronic hypoxic respiratory failure secondary to an acute exacerbation of chronic obstructive pulmonary disease. #2 Atrial fibrillation, currently ventricular rate control. Anticoagulated with Eliquis. #3 Morbid obesity with deconditioning. #4 Obstructive sleep apnea utilizing CPAP in the outpatient setting. #5 Diabetes mellitus, type II. #6 Hypertension. #7 Degenerative joint disease. #8 Previous smoking history. Plan: Patient is stable, still has some limited wheezing, and congestion, but he is pretty close to his baseline. Vital signs are stable, no fever or chills, his volume status continues to improve, pulmonary perspective he could be considered for discharge home today. Remains on IV diuretics, attending physician is managing the diuresis. He can follow up with Dr. Solitario in the office in 7-10 days. Chest x-ray showed a subtle nodularity at the cardiac apex , follow-up CT chest was suggested rule out a left basilar pulmonary nodule. Can be done on an outpatient basis. Patient is interested in lung transplant, and this can be discussed with Dr. Mariee in the office I performed a history & physical examination of the patient and discussed their management with my nurse practitioner, Sarah Santos. I reviewed the nurse practitioner's note and agree with the documented findings and plan of care. Lung sounds are positive for diminished breath sounds with limited rhonchi and wheezing. The findings and the impression was discussed with the patient. I attest to the documentation by the nurse practitioner. Time with Patient: Less than 30
--- NOTE | 2018-12-07 13:38 | P.PN ---
Subjective This is a pleasant 63 years old male with past medical history of COPD, sleep apnea on BiPAP, and atrial fibrillation on Eliquis, congestive heart failure, diabetes mellitus, hypertension who presents because of dyspnea, mostly related to acute COPD exacerbation. As well as fluid overload and patient has atrial fibrillation's with possible RVR on admission. Patient still dyspneic although he shows some improvement. No chest pain but he still have cough with white phlegm, which is improving as well. Patient is not on home steroids however he is on 2 L oxygen via nasal cannula at home. Cardiology and pulmonary team R following the patient. Both team recommended further inpatient stay and to continue the same management for now and keep monitoring patient as well as labs and vitals. Also I called his [employer] insurance company at [phone] insurance approval. 12/07/2018 Patient is breathing quietly still on 3 L oxygen via nasal cannula. No chest pain. His cough is improving he had an episode of dyspnea last night that he received Lasix for it. Rest of vitals looks stable. Creatinine 0.9. Sugar is controlled. Pulmonary team. The patient however equipment mechanic specialist recommended to monitor the patient on oral Lasix for 24 hours. Change his IV Lasix to oral Lasix. Patient himself requesting to be monitored for another 24 hours. Objective - Vital Signs Vital signs: Vital Signs Temp 96.2 F L 12/07/18 07:00 Pulse 76 12/07/18 12:03 Resp 18 12/07/18 07:00 BP 111/57 12/07/18 07:00 Pulse Ox 97 12/07/18 07:00 Intake & Output 12/06/18 12/07/18 12/07/18 18:59 06:59 18:59 Intake Total 200 Output Total 800 800 Balance -800 -600 Intake: Oral 200 Output: Urine 800 800 Other: # Voids 3 - Exam GENERAL: The patient is alert and oriented x3, not in any acute distress. Obese HEENT: Pupils are round and equally reacting to light. EOMI. No scleral icterus. No conjunctival pallor. Normocephalic, atraumatic. No pharyngeal erythema. No thyromegaly. CARDIOVASCULAR: S1 and S2 present. No murmurs, rubs, or gallops. -PULMONARY: Chest is clear to auscultation, bilateral expiratory wheezing. No crackles. ABDOMEN: Soft, nontender, nondistended, normoactive bowel sounds. No palpable organomegaly. MUSCULOSKELETAL: No joint swelling or deformity. EXTREMITIES: No cyanosis, clubbing, or pedal edema. NEUROLOGICAL: Gross neurological examination did not reveal any focal deficits. SKIN: No rashes. - Labs CBC & Chem 7: 12/06/18 08:23 12/07/18 09:38 Labs: Abnormal Lab Results - Last 24 Hours (Table) 12/06/18 12/06/18 12/07/18 Range/Units 17:10 20:39 07:33 Chloride (98-107) mmol/L Carbon Dioxide (22-30) mmol/L BUN (9-20) mg/dL Glucose (74-99) mg/dL POC Glucose (mg/dL) 204 H 290 H 148 H (75-99) mg/dL 12/07/18 12/07/18 Range/Units 09:38 11:28 Chloride 96 L (98-107) mmol/L Carbon Dioxide 34 H (22-30) mmol/L BUN 31 H (9-20) mg/dL Glucose 221 H (74-99) mg/dL POC Glucose (mg/dL) 206 H (75-99) mg/dL Assessment and Plan Assessment: Acute COPD exacerbation Acute hypoxic respiratory failure secondary to above Chronic atrial fibrillation, rate controlled. On Eliquis. Morbid obesity Obstructive sleep apnea on CPAP Diabetes mellitus Essential hypertension Plan: This is a pleasant 63 years old male who presents with acute COPD exacerbation and atrial fibrillation. Hydrogen pulmonary team and prepped is appreciated. Continue with diuretics and breathing treatment. Continue with CPAP. Patient and antibiotic. Labs and medication were reviewed.. Continue same treatment. Continue with symptomatic treatment. Resume home medication. Monitor lytes and vitals. DVT and GI prophylaxis. Further recommendations of the clinical course of the patient DVT prophylaxis: Eliquis GI Prophylaxis: Pepcid PT/OT: Pending Prognosis is guarded
[2018-12-07] MEDS: BACITRACIN 500 UNIT/GM OINT 28.4 GM TUBE TOPICAL SCH ×2 (13:46→21:30)
--- NOTE | 2018-12-07 14:12 | P.PN ---
Subjective This is a pleasant 63-year-old male past medical history significant for chronic persistent atrial fibrillation on intermediate manager anti-coagulation, COPD, morbid obestiy, hypertension, dyslipidemia, diabetes mellitus, peripheral vascular disease, sleep apnea and former nicotine dependence. He follows in the office with Dr. Garcia. He is currently being treated for exacerbation of COPD and cor pulmonale on lasix IV 40 mg BID. Blood pressure 111/57 herat rate 72 afebrile maintaining oxygen saturation on nasal cannula. He states he felt very short of breath yesterday afternoon and required an additional dose of IV lasix. Currently seen and examined sitting up in bed in no acute distress. Swelling in his legs has improved. Weight is down 9 kg since admission and he continues to have a negative fluid balance daily. Laboratory data reviewed, creatinine 0.94, sodium 138, potassium 4. GENERAL: Well-appearing, well-nourished and in no acute distress. NECK: Supple without JVD or thyromegaly. LUNGS: Faint rhonchi noted bilaterally, no rales or wheezes. Diminished bilaterally. Respiration equal and unlabored. HEART: Irregular rate and rhythm without murmurs, rubs or gallops. S1 and S2 heard. EXTREMITIES: Normal range of motion, 1+ pitting bilateral lower extremity edema. Bilateral savage wraps in place. ASSESSMENT Acute exacerbation of COPD and cor pulmonale Leukocytosis Chronic persistent atrial fibrillation on intermediate manager anti-coagulation Hypertension Diabetes mellitus History of obstructive sleep apnea Morbid obesity, BMI 51 PLAN Transition to PO diuretics. If breathing remains stable he should be able to go home tomorrow. Advised low salt diet to be followed closely at home as well. He is scheduled to have a stress test as an outpatient in the office, recommend he keep that appointment. Nurse Practitioner note has been reviewed, I agree with a documented findings and plan of care. Patient was seen and examined. Objective - Vital Signs Vital signs: Vital Signs Temp 96.2 F L 12/07/18 07:00 Pulse 76 12/07/18 12:03 Resp 18 12/07/18 07:00 BP 111/57 12/07/18 07:00 Pulse Ox 97 12/07/18 07:00 Intake & Output 12/06/18 12/07/18 12/07/18 18:59 06:59 18:59 Intake Total 200 Output Total 800 800 Balance -800 -600 Intake: Oral 200 Output: Urine 800 800 Other: # Voids 3 - Labs CBC & Chem 7: 12/06/18 08:23 12/07/18 09:38 Labs: Abnormal Lab Results - Last 24 Hours (Table) 12/06/18 12/06/18 12/07/18 Range/Units 17:10 20:39 07:33 Chloride (98-107) mmol/L Carbon Dioxide (22-30) mmol/L BUN (9-20) mg/dL Glucose (74-99) mg/dL POC Glucose (mg/dL) 204 H 290 H 148 H (75-99) mg/dL 12/07/18 12/07/18 Range/Units 09:38 11:28 Chloride 96 L (98-107) mmol/L Carbon Dioxide 34 H (22-30) mmol/L BUN 31 H (9-20) mg/dL Glucose 221 H (74-99) mg/dL POC Glucose (mg/dL) 206 H (75-99) mg/dL
[2018-12-07] MEDS: FUROSEMIDE 40 MG TAB PO SCH (17:16)
[2018-12-07 17:23] LABS: Glucose,Whole Blood 426 mg/dL (75-99)
[2018-12-07 20:41] LABS: Glucose,Whole Blood 421 mg/dL (75-99)
[2018-12-07] MEDS: ATORVASTATIN 40 MG TAB PO SCH (21:30)
[2018-12-07] MEDS: FAMOTIDINE 20 MG TAB PO SCH (21:31)
[2018-12-07 22:36] LABS: Glucose,Whole Blood 199 mg/dL (75-99)
[2018-12-08 01:40] LABS: Glucose,Whole Blood 124 mg/dL (75-99)
[2018-12-08] MEDS: IPRATROPIUM-ALBUTEROL 3 ML NEB INHALATION SCH ×4 (03:36→15:40)
[2018-12-08] MEDS: SYMBICORT 160-4.5 MCG INHALER INHALATION SCH (07:01)
[2018-12-08 07:27] LABS: Glucose,Whole Blood 111 mg/dL (75-99)
[2018-12-08] MEDS: INSULIN ASPART (NovoLOG) 100 UNIT/ML VIAL SQ SCH ×4 (07:31→13:00)
[2018-12-08 07:56] VITALS: RESP 16
[2018-12-08 08:04] LABS: Basophils % (A) 0 %; Eosinophils # (A) 0.1 k/uL (0-0.7); Eosinophils % (A) 1 %; HCT 41.6 % (39.0-53.0); HGB 13.5 gm/dL (13.0-17.5); Lymphocytes % (A) 24 %; MCH 28.8 pg (25.0-35.0); MCHC 32.5 g/dL (31.0-37.0); MCV 88.7 fL (80.0-100.0); Mean Platelet Volume 6.5; Monocytes # (A) 1.2 k/uL (0-1.0); Monocytes % (A) 7 %; Neutrophils # (A) 11.5 k/uL (1.3-7.7); Neutrophils % (A) 67 %; Platelet Count 363 k/uL (150-450); RBC 4.69 m/uL (4.30-5.90); RDW 14.8 % (11.5-15.5)
[2018-12-08] MEDS: FUROSEMIDE 40 MG TAB PO SCH ×2 (08:28→16:56)
[2018-12-08] MEDS: VERAPAMIL SR 180 MG TABLET.ER PO SCH (08:28)
[2018-12-08] MEDS: NADOLOL 20 MG TAB PO SCH (08:28)
[2018-12-08] MEDS: HYDROCHLOROTHIAZIDE 25 MG TAB PO SCH (08:28)
[2018-12-08] MEDS: APIXABAN 5 MG TAB PO SCH (08:28)
[2018-12-08] MEDS: INSULIN DETEMIR (LEVEMIR) 100 UNIT/ML SYR SQ SCH (08:28)
[2018-12-08] MEDS: TAMSULOSIN 0.4 MG CAP.ER.24H PO SCH (08:28)
[2018-12-08] MEDS: LISINOPRIL 20 MG TAB PO SCH (08:28)
[2018-12-08] MEDS: FAMOTIDINE 20 MG TAB PO SCH (08:28)
[2018-12-08] MEDS: BACITRACIN 500 UNIT/GM OINT 28.4 GM TUBE TOPICAL SCH (08:29)
[2018-12-08 08:43] VITALS: BMI 51.0
[2018-12-08] MEDS ORDERED: predniSONE 20 MG TAB PO SCH (09:00)
[2018-12-08 12:07] LABS: Glucose,Whole Blood 170 mg/dL (75-99)
[2018-12-08 16:07] VITALS: BP 116/63; PULSE 68; TEMP 97.6
[2018-12-08 17:03] LABS: Glucose,Whole Blood 206 mg/dL (75-99)
--- NOTE | 2018-12-09 00:27 | P.DS ---
Providers Date of admission: 11/30/18 03:21 Attending physician: David Delvalle Consults: 11/30/18 03:19 Consult Physician Routine Consulting Provider: Max Daniel Consult Reason/Comments: COPD exacerbation Do you want consulting provider notified?: Yes 12/05/18 11:51 Consult Physician Routine Consulting Provider: Vance Cornell Consult Reason/Comments: chf exacerbation Do you want consulting provider notified?: Yes Primary care physician: Emily Reyes Hospital Course: diagnoses: Acute COPD exacerbation Acute hypoxic respiratory failure secondary to above Chronic atrial fibrillation, rate controlled. On Eliquis. Morbid obesity Obstructive sleep apnea on CPAP Diabetes mellitus Essential hypertension hospital course This is a pleasant 63 years old male with past medical history of COPD, sleep apnea on BiPAP, and atrial fibrillation on Eliquis, diabetes mellitus, hypertension who presents because of dyspnea, mostly related to acute COPD exacerbation and cor pulmonale and patient has atrial fibrillation's with possible RVR on admission. pt has been treated with diuretics , steroid, antibiotic , pt has finished his course of antibiotic while in the hospital. he on insuling , eliquis and oxygen 2 L/m at home which is continued. pt showed interval improvement with therapy and he returned to his baseline, he was cleared by pulmonary for discharge from yesterday , however pt stated he had an episode of dyspnea during the last night and he was concerned this might happen to him again , he wanted to stay in the hospital one more night, stringer machine tender recommended to keep him one more night to monitor him while his lasix was switched from iv to po. pt remained stable with no change in his clinical condition today. and eventually he was cleared by both services the pulmonary and cardiology team . i think staying in the hospital at this point has more risk than benefits , inclugin but not limited nosocomial infection especially he is immunocompromised eg he is on steroid, recent antibiotic use , etc.. patient is stable medically for discharge , pt agrees to be discharged. pt was instructed if he developed recurrent s/s including but not limited to dyspnea to call 911 and come to emergency room and he agrees also i spoke with his insurance company and the physician from that company and discussed the case with and he told me he is going to approve the hospitalization for the pt this time Again, pt was cleared by both pulmonary and cardiology teams for discharge Pt was instructed about the problems and management plan and Pt verbalized understanding and acceptance Pt is found stable and can be discharged to the community in guarded prognosis but needs follow up as outpt. close appointment with his pcp in 2 day was made, as well as with stringer machine tender and sales and marketing executive. and he agrees to f/u with them. pt and son at bed side stated to me , if need to reschedule them they are going to do that to make sure of the follow up however he told me he wants to keep the appointments for now. medication reviewed with pt in detail and he did not need home medication script only new ones which was provided for him. he told me he has oxygen at home Discharge exam Gen.: Patient alert awake and oriented X 3, NOT IN DISTRESS. obese CVS: s1-s2, RRR, no murmur CHEST:bilateral CTA, no wheezing or crepitation, on oxygen via NC Abdomen: Soft, no tenderness, no distention, positive bowel sounds Extremities: No leg edema or induration time spent : more than 35 min Patient Condition at Discharge: Poor Plan - Discharge Summary Discharge Rx Participant: No New Discharge Prescriptions: New Famotidine [Pepcid] 20 mg PO Q12HR #60 tab guaiFENesin-DM 100-10MG/5ML [Robitussin DM] 10 ml PO Q4H PRN 3 Days #1 bottle PRN Reason: Cough predniSONE 10 mg PO DIRECTED #40 tab Continue Budesonide-Formot 160-4.5 Mcg [Symbicort 160-4.5 Mcg Inhaler] 2 puff INHALATION RT-BID Hydrochlorothiazide 25 mg PO DAILY Albuterol Inhaler [Ventolin Hfa Inhaler] 2 puff INHALATION RT-Q6H PRN PRN Reason: Shortness Of Breath Apixaban [Eliquis] 5 mg PO BID #60 tab Atorvastatin [Lipitor] 40 mg PO HS #30 tab Moexipril [Univasc] 15 mg PO DAILY #1 tab Furosemide [Lasix] 40 mg PO BID@0900,1600 #80 tab Montelukast [Singulair] 10 mg PO HS #30 tab Nadolol [Corgard] 20 mg PO BID #50 tab Verapamil Sr [Isoptin Sr] 360 mg PO DAILY #30 tablet.er Insulin Glargine,Hum.rec.anlog [Lantus Solostar] 40 unit SQ BID #1 Albuterol Nebulized [Ventolin Nebulized] 2.5 mg INHALATION RT-QID PRN PRN Reason: Shortness Of Breath Tamsulosin HCl [Flomax] 0.4 mg PO DAILY Tiotropium [place] [Spiriva] 1 cap INHALATION RT-DAILY Ipratropium-Albuterol Nebulize [Duoneb 0.5 mg-3 mg/3 ml Soln] 3 ml INHALATION RT-BID Discontinued Terbinafine [LamISIL] 250 mg PO DAILY Discharge Medication List Budesonide-Formot 160-4.5 Mcg [Symbicort 160-4.5 Mcg Inhaler] 2 puff INHALATION RT-BID 01/08/15 [History] Hydrochlorothiazide 25 mg PO DAILY 10/17/17 [History] Albuterol Inhaler [Ventolin Hfa Inhaler] 2 puff INHALATION RT-Q6H PRN 09/12/18 [ History] Apixaban [Eliquis] 5 mg PO BID #60 tab 09/15/18 [Rx] Atorvastatin [Lipitor] 40 mg PO HS #30 tab 09/15/18 [Rx] Moexipril [Univasc] 15 mg PO DAILY #1 tab 09/15/18 [Rx] Furosemide [Lasix] 40 mg PO BID@0900,1600 #80 tab 11/01/18 [Rx] Insulin Glargine,Hum.rec.anlog [Lantus Solostar] 40 unit SQ BID #1 11/01/18 [Rx] Montelukast [Singulair] 10 mg PO HS #30 tab 11/01/18 [Rx] Nadolol [Corgard] 20 mg PO BID #50 tab 11/01/18 [Rx] Verapamil Sr [Isoptin Sr] 360 mg PO DAILY #30 tablet.er 11/01/18 [Rx] Albuterol Nebulized [Ventolin Nebulized] 2.5 mg INHALATION RT-QID PRN 11/30/18 [ History] Ipratropium-Albuterol Nebulize [Duoneb 0.5 mg-3 mg/3 ml Soln] 3 ml INHALATION RT -BID 11/30/18 [History] Tamsulosin HCl [Flomax] 0.4 mg PO DAILY 11/30/18 [History] Tiotropium [place] [Spiriva] 1 cap INHALATION RT-DAILY 11/30/18 [History] Famotidine [Pepcid] 20 mg PO Q12HR #60 tab 12/08/18 [Rx] guaiFENesin-DM 100-10MG/5ML [Robitussin DM] 10 ml PO Q4H PRN 3 Days #1 bottle [Rx] predniSONE 10 mg PO DIRECTED #40 tab 12/08/18 [Rx] Follow up Appointment(s)/Referral(s): Max Daniel MD [STAFF PHYSICIAN] - 12/22/18 10:00 am Silva Garcia MD [STAFF PHYSICIAN] - 12/21/18 10:15 am Emily Reyes DO [Primary Care Provider] - 12/10/18 9:20 am (Will see PHYSICIAN ASSISTANT PSYCHIAT[facility] Nancy) Patient Instructions/Handouts: COPD (Chronic Obstructive Pulmonary Disease) ( GEN) Activity/Diet/Wound Care/Special Instructions: low salt diet activity is limited till you see your doctor Discharge Disposition: HOME SELF-CARE
== END 2018-12-08 17:38 | disposition home or self-care (01) | DRG 190 ==
LOC: EC 23:44 → 4MS4W 11-30 03:21
PROVIDERS: ADMIT Hospitalist; ATTEND Hospitalist
PROC: 5A09357 Assistance with Respiratory Ventilation, Less than 24 Consecutive Hours, Continuous Positive Airway Pressure (ICD-10-PCS; principal; 2018-12-01)
DX: J44.1 Chronic obstructive pulmonary disease with (acute) exacerbation (principal); J96.21 Acute and chronic respiratory failure with hypoxia; I48.1 Persistent atrial fibrillation; I50.32 Chronic diastolic (congestive) heart failure; Z68.43 Body mass index [BMI] 50.0-59.9, adult; I27.81 Cor pulmonale (chronic); E11.51 Type 2 diabetes mellitus with diabetic peripheral angiopathy without gangrene; I11.0 Hypertensive heart disease with heart failure; E66.01 Morbid (severe) obesity due to excess calories; D72.829 Elevated white blood cell count, unspecified; E78.5 Hyperlipidemia, unspecified; G47.33 Obstructive sleep apnea (adult) (pediatric); I89.0 Lymphedema, not elsewhere classified; S70.321A Blister (nonthermal), right thigh, initial encounter; M15.9 Polyosteoarthritis, unspecified; Z79.01 Long term (current) use of anticoagulants; Z79.51 Long term (current) use of inhaled steroids; Z79.899 Other long term (current) drug therapy; Z87.891 Personal history of nicotine dependence; Z99.81 Dependence on supplemental oxygen; Z87.01 Personal history of pneumonia (recurrent); Z83.3 Family history of diabetes mellitus; Z82.5 Family history of asthma and other chronic lower respiratory diseases
CPT/HCPCS: 36415; 71045; 71046; 80048; 80053; 83036; 83880; 84484; 85025; 85027; 85379; 85610; 85730; 93005; 94640; 94660; 94760; 99291

== ENCOUNTER → 2019-02-08 | Outpatient (CLI) | payer MEDICARE ==
--- NOTE | 2019-02-08 17:29 | PN ---
PROGRESS NOTE This is a 63-year-old male patient, a primary of Dr. Reyes who is morbidly obese with chronic atrial fibrillation, cor pulmonale, diabetes mellitus hypertension, COPD, obstructive sleep apnea with chronic hypoxic respiratory failure maintained on oxygen at 2 L/minute nasal cannula. I met this patient in the hospital a few months back as the patient was hospitalized for symptoms of COPD exacerbation and acute on top of chronic hypoxic respiratory failure. During the same hospitalization, I noted the patient was utilizing a CPAP at a pressure of 15 cm of water. This was an CPAP unit and the patient wanted to update his CPAP machine. For that reason, he is coming back to me for further advice. I was able to receive the patient's older sleep study. The patient had severe HERBERT with an AHI of 115 that was done, this is based on a sleep study that was done in 2009. The patient has been on CPAP therapy since. He is very compliant. He wears his machine every night. He tells me that he was unable to go to sleep without the CPAP unit and this gives him adequate refreshment. He does not snore while on the CPAP unit. He feeds in oxygen at 2 L/minute through his CPAP unit. He has no other complaints otherwise for now. No restlessness in lower extremities. He has gained weight over the years and in general his weight has been up by at least 20 pounds. He has a very irregular sleep-wake cycle. He is currently retired and he has multiple medical problems and comorbidities and he is home most of the time. He goes to bed at various times. Wakes up at various times. Naps at various times and does not keep a regular sleep-wake schedule. He feels tired and sleepy all the time especially when he does not use his CPAP. His Farnam score is currently at 8. REVIEW OF SYSTEMS: 14-point review of system was done. Positive findings are mentioned above in history of present illness. He reports fatigue and weakness. No blurred vision. No decreased hearing. No headaches. No sore throat. He has limited exercise capacity, reported exertional dyspnea. He has irregular heart beat. He has shortness of breath which is on a chronic basis. He is oxygen dependent. No bloating. No heartburn. No myalgias. No falls. No muscle weakness. No depression or anxiety. No recent weight gain. PHYSICAL EXAMINATION: His current vitals: Blood pressure is 142/87, pulse 108, irregular, respirations 20, temp 98.0. Saturation 95% on 2 L. BMI 54.5, height is 5 feet 6 inches, weight is 338, neck size 20 inches and a quarter. Farnam score is at 8. GENERAL APPEARANCE: Obese, calm, comfortable. Head is atraumatic, normocephalic. Neck is short, supple. Mallampati class IV. There is no goiter or neck masses. LUNGS: Diminished breath sounds bilaterally. HEART: Sounds regular rate and rhythm. Normal S1, S2. No S3. No murmurs. ABDOMEN: Soft, nontender. No organomegaly. The patient is morbidly obese. An accurate examination of the organs cannot be performed at this point in time. EXTREMITIES: Trace edema. There is no cyanosis or clubbing. Neurologic is awake and alert. There is no focal neurological deficits. PSYCHIATRIC: Negative for anxiety or depression. Skin is negative for any wounds or ulceration. IMPRESSION: 1. Severe obstructive sleep apnea with an AHI of 115, currently on CPAP pressure of 13. The patient is requesting a newer CPAP unit and he wants to update his equipment. 2. Chronic hypoxic respiratory failure. 3. Chronic obstructive pulmonary disease. 4. Chronic atrial fibrillation. 5. Morbid obesity. 6. Diabetes mellitus type 2. 7. Hypertension. 8. Degenerative arthritis. 9. Hypersomnia and sleepiness Farnam score of 8. PLAN: The patient has a very irregular sleep-wake cycle. I tried to activities counselor him to improve his sleep hygiene measures and he was not much willing to make any change in his sleeping patterns. He was very much interested in updating his CPAP unit. I offered him a CPAP titration to see if CPAP or BiPAP will be the best option for him. He declined the CPAP titration. He wanted to get a new machine and he wanted to avoid undergoing another titration. As such, it will be all only reasonable to order a CPAP unit for this patient. For that reason, I ordered him an APAP with a maximum pressure of 13 with a minimum pressure of 5 and I fitted him with an AirFit N20 large size nose mask. If this goes through, the patient will come back for a compliancy check in 2-3 months' time to assess his clinical response and further adjustment will be done accordingly. MMODL / IJN: [id number] /
== END ==
LOC: SLEEP 14:12
PROVIDERS: ATTEND Internal Medicine Critical Care Medicine
DX: G47.33 Obstructive sleep apnea (adult) (pediatric) (principal); J96.91 Respiratory failure, unspecified with hypoxia; J44.9 Chronic obstructive pulmonary disease, unspecified; I48.2 Chronic atrial fibrillation; E66.01 Morbid (severe) obesity due to excess calories; E11.9 Type 2 diabetes mellitus without complications; I10 Essential (primary) hypertension; M19.90 Unspecified osteoarthritis, unspecified site; Z99.89 Dependence on other enabling machines and devices; Z68.43 Body mass index [BMI] 50.0-59.9, adult